=== PATIENT | female | born 1930 | race Caucasian/White ===

== ENCOUNTER → 2016-12-09 | Day surgery (SDC) | payer BC ==
[2016-12-06 14:51] VITALS: Ht 153.7 cm; Wt 61.8 kg
[~2016-12-09] VITALS: Ht 153.7 cm; Wt 61.8 kg
[~2016-12-09] MED LIST: ACET1TAB84 PO; ASPI-435 PO; BUSP5TAB59 PO; CALC200S6 NAE; CALCCHW57 PO; CHOL1TAB42 PO; DOCU100C31 PO; ETOMIDATE 2 MG/ML 20 ML VIAL IV ONE; FLUT0.15 NAE; HYDR-5688 PO; LDDP5 TD; LEVO75TA PO; LIDOCAINE HCL 2% 2 ML VIAL (20MG/ML) ONE; LISI-461 PO; LISI-729 PO; LORA-741 PO; MRLP120 PO; MULT1CAP53 PO; MULTCAP36 PO; MVC20 PO; NRN100 PO; PRLSR20 PO; PROPOFOL IV EMULSION 10 MG/ML 20 ML VIAL IV ONE; SERT-234 PO; SYN75 PO; SYN88 PO; TRAM-10 PO
[2016-12-09 09:59] VITALS: TEMP 36.6
--- NOTE | 2016-12-09 11:09 | Endo History and Physical ---
History & Physical Date of Service: Dec 09, 2016. Chief Complaint: Dyspahgia Referring Physician: Richard Weiss History of Present Illness Dysphagia, esophageal dysmotility Past Medical History Fractures, Asthma, Hypertension, Other Past Surgical History Hx Cardiac Surgery: No Hx Internal Defibrillator: No Hx Pacemaker: No Hx Abdominal Surgery: Yes (RT CYST REMOVAL FROM ABDOMEN (BENIGN), TUBAL LIGATION, D&C) Hx of Implantable Prosthesis: No Hx Post-Op Nausea and Vomiting: No Hx Cancer Surgery: No Hx Thoracic Surgery: No Hx Orthopedic: Yes (RT WRIST SURGERY) Hx Urinary Tract Surgery: No Family History Colon CA Social History Smoking Status: Never Smoker Hx Substance Use: No Hx Alcohol Use: No Allergies Coded Allergies: Latex1 -Allergic Contact Dermititis (Verified Allergy, Intermediate, ITCHING, RASH, 12/06/16) Adhesives (Verified Allergy, Unknown, ITCHING, RASH, 12/06/16) Codeine (Verified Allergy, Unknown, N/V, 12/06/16) Opioid Analgesics (Verified Allergy, Unknown, "OPIATE AGONISTS" - MORPHINE = STOMACH UPSET, 12/06/16) Sulfamethoxazole w/Trimethoprim (Verified Allergy, Unknown, RASH, 12/06/16) Current Medications Reported Home Medications Medications Dose Route/Sig Max Daily Dose Days Date Category Calcium 1200 (Calcium Carbonate-Vitamin D W/) 1 Chw Chw 1 Tab PO QAM 12/06/16 Reported Zoloft (Sertraline HCl) 100 Mg Tab 100 Mg PO HS 12/06/16 Reported Calcitonin Ruffin (Calcitonin (Ruffin)) 200 Unit/Act Spr 1 Freeman LIZET QPM 12/06/16 Reported Flonase Allergy Relief (Fluticasone Propionate (Nasal)) 50 Mcg/Act Spr 2 Freeman LIZET QPM 12/06/16 Reported Ultram (Tramadol HCl) 50 Mg Tab 50 Mg PO Q6H PRN 12/06/16 Reported Vitamin D (Cholecalciferol) 5,000 Unit Tab 1 Tab PO NOON 12/06/16 Reported Lisinopril 10 Mg Tab 10 Mg PO QAM 08/31/14 Reported Ativan (Lorazepam) 0.5 Mg Tab 0.5 Mg PO BID PRN 08/31/14 Reported Aspirin 81 (Aspirin) 81 Mg Tab 1 Tab PO NOON 11/23/13 Reported Tylenol Arthritis Ext Rel (Acetaminophen) 650 Mg Cplt 650 Mg PO Q8H PRN 11/23/13 Reported Preservision/Lutein (Multiple Vitamins W/ Minerals) 1 Cap Cap 1 Cap PO BID 11/23/13 Reported Lovastatin 20 Mg Tab 20 Mg PO HS 11/23/13 Reported Miralax (Polyethylene) 120 Gm Soln 17 Gm PO DAILY PRN 11/23/13 Reported Levothyroxine Sodium 75 Mcg Tab 75 Mcg PO QAM 11/23/13 Reported Prilosec (Omeprazole) 20 Mg Capcr 20 Mg PO QAM 11/23/13 Reported Vital Signs Weight (Kilograms): 61.82 Height (Feet): 5 Height (Inches): 0.5 Date Time Temp Pulse Resp B/P Pulse Ox O2 Delivery O2 Flow Rate FiO2 12/09/16 09:59 36.6 73 20 173/90 92 Room Air Physical Exam General Appearance: WD/WN, no apparent distress Respiratory/Chest: Auscultation: breath sounds normal, no wheezing, no rales/crackles Cardiovascular: Heart Auscultation: RRR, no murmurs Assessment and Plan EGD with dilation today.
--- NOTE | 2016-12-09 11:28 | Discharge Instructions ---
Endoscopy Patient Instructions Date / Procedure(s) Performed Dec 09, 2016. EGD Allergy Information Coded Allergies: Latex1 -Allergic Contact Dermititis (Verified Allergy, Intermediate, ITCHING, RASH, 12/06/16) Adhesives (Verified Allergy, Unknown, ITCHING, RASH, 12/06/16) Codeine (Verified Allergy, Unknown, N/V, 12/06/16) Opioid Analgesics (Verified Allergy, Unknown, "OPIATE AGONISTS" - MORPHINE = STOMACH UPSET, 12/06/16) Sulfamethoxazole w/Trimethoprim (Verified Allergy, Unknown, RASH, 12/06/16) Discharge Date / Findings Dec 09, 2016. Dysphagia. Dilation to 54 Fr performed without mucosal tear. Medication Instructions Restart Stopped Medication(s): Resume all medications today. Provider Instructions Activity Restrictions - No exercising or heavy lifting for 24 hours. - Do not drink alcohol the day of the procedure. - Do not drive a car or operate machinery until the day after the procedure. - Do not make any important decisions or sign important papers in 24 hours after the procedure. Following Day: - Return to full activity which may include returning to work/school. Diet Start your diet with liquids and light foods (jello, soup, juice, toast). Then eat your usual diet if not nauseated. Treatment For Common After Affects For mild abdominal pain, bloating, or excessive gas: - Rest - Eat lightly - Lie on right side Follow-Up Information Follow-up with Richard Weiss as scheduled Anesthesia Information What You Should Know You have had a procedure that required some medicine to reduce anxiety and discomfort. This treatment is called moderate sedation. After receiving the treatment, you may be sleepy, but you will be able to breathe on your own. The effects of the treatment may last for several hours. Follow these instructions along with Activity/Diet recommendations noted above: * Do NOT do anything where dizziness or clumsiness would be dangerous. * Rest quietly at home today, then you can be up and about tomorrow. * Have a responsible person stay with you the rest of today. * You may have had an I.V. today. If so, you may take the dressing off later today. Recommendations Call your doctor if: * Trouble breathing * Continuous vomiting for more than 24 hours * Temperature above 101 degrees * Severe abdominal pain or bloating * Pain not relieved by pain medicine ordered * There is increased drainage or redness from any incision * A large amount of rectal bleeding greater than 2-3 tablespoons. (If you had a polyp/s removed or have hemorrhoids, a small amount of blood - from the rectum is to be expected.) * You have any unanswered questions or concerns. IN THE EVENT OF A SERIOUS EMERGENCY, GO TO THE NEAREST EMERGENCY ROOM Your discharge instructions were prepared by provider Bladimir Gao. Patient Instructions Signature Page H Justa Betancourt Patient (or Guardian) Signature/Date: I have read and understand the instructions given to me by my caregivers. Caregiver/RN/Doctor Signature/Date: The above-named patient and/or guardian has received patient instructions on this date. + Original Patient Signature Page (only) stays with chart. Please make copy for patient.
--- NOTE | 2016-12-09 11:30 | GI REPORT ---
Procedure Date: 12/09/2016 10:44 AM Procedure: Upper GI endoscopy Indications: Dysphagia Medicines: Monitored Anesthesia Care Complications: No immediate complications. Estimated blood loss: None. Estimated Blood Loss: Estimated blood loss: none. Procedure: Pre-Anesthesia Assessment: - Prior to the procedure, a History and Physical was performed, and patient medications, allergies and sensitivities were reviewed. The patient's tolerance of previous anesthesia was reviewed. - ASA Grade Assessment: III - A patient with severe systemic disease. After obtaining informed consent, the endoscope was passed under direct vision. Throughout the procedure, the patient's blood pressure, pulse, and oxygen saturations were monitored continuously. The scope was introduced through the mouth, and advanced to the third part of duodenum. The upper GI endoscopy was accomplished with ease. The patient tolerated the procedure well. Findings: No endoscopic abnormality was evident in the esophagus to explain the patient's complaint of dysphagia. It was decided, however, to proceed with dilation of the entire esophagus. A guidewire was placed and the scope was withdrawn. Dilation was performed with an [place] dilator with no resistance at 48 Fr and 54 Fr. the scope was reinserted. There was no mucosal tear. The upper third of the esophagus, middle third of the esophagus and lower third of the esophagus were normal. The Z-line was regular and was found 37 cm from the incisors. A small sliding hiatus hernia was present. Localized moderately erythematous mucosa without bleeding was found in the prepyloric region of the stomach. The examined duodenum was normal. Impression: - No endoscopic esophageal abnormality to explain patient's dysphagia. Esophagus dilated. Dilated. - Normal upper third of esophagus, middle third of esophagus and lower third of esophagus. - Z-line regular, 37 cm from the incisors. - Small hiatus hernia. - Erythematous mucosa in the prepyloric region of the stomach. - Normal examined duodenum. - No specimens collected. Recommendation: - Observe patient's clinical course. - Discharge patient to home (with escort). Bladimir Gao M.D. Bladimir Gao MD 12/09/2016 11:29:41 AM This report has been signed electronically. Note Initiated On: 12/09/2016 10:44 AM I attest to the content of the Intraoperative Record and orders documented therein, exceptions below
[2016-12-09 11:42] VITALS: BP 176/81; PULSE 72; O2SAT 94
--- NOTE | 2016-12-09 14:32 | Anesthesiology Progress Note ---
Anesthesia Post Op Note Date & Time Dec 09, 2016 at 14:32 Vital Signs Pain Intensity: 0 Vital Signs Past 12 Hours Date Time Temp Pulse Resp B/P Pulse Ox O2 Delivery O2 Flow Rate FiO2 12/09/16 11:42 72 18 176/81 94 Room Air 12/09/16 11:32 76 18 183/82 95 Room Air 12/09/16 11:22 72 16 159/96 92 Room Air 12/09/16 09:59 36.6 73 20 173/90 92 Room Air Notes Mental Status: alert / awake / arousable, participated in evaluation Pt Amnestic to Procedure: Yes Nausea / Vomiting: adequately controlled Pain: adequately controlled Airway Patency, RR, SpO2: stable & adequate BP & HR: stable & adequate Hydration State: stable & adequate Anesthetic Complications: no major complications apparent
== END | disposition home or self-care (01) ==
LOC: C.GI 09:30
PROVIDERS: ATTEND Internal Medicine Gastroenterology
DX: K22.4 Dyskinesia of esophagus (principal); K44.9 Diaphragmatic hernia without obstruction or gangrene; Z80.0 Family history of malignant neoplasm of digestive organs; I10 Essential (primary) hypertension; J45.909 Unspecified asthma, uncomplicated; Z88.5 Allergy status to narcotic agent; Z88.2 Allergy status to sulfonamides; Z88.8 Allergy status to other drugs, medicaments and biological substances; Z98.51 Tubal ligation status; Z79.82 Long term (current) use of aspirin

== ENCOUNTER → 2017-04-04 | Outpatient (CLI) | payer BC ==
[~2017-04-04] MED LIST changes: -ETOMIDATE 2 MG/ML 20 ML VIAL IV ONE; -LIDOCAINE HCL 2% 2 ML VIAL (20MG/ML) ONE; -PROPOFOL IV EMULSION 10 MG/ML 20 ML VIAL IV ONE
--- NOTE | 2017-04-05 08:01 | MAMMOGRAPHY REPORT ---
BILATERAL DIGITAL SCREENING MAMMOGRAM WITH CAD: 04/04/2017 CLINICAL HISTORY: Routine screening. Patient has no complaints. TECHNIQUE: Bilateral CC and MLO views were obtained. Current study was also evaluated with a Comput er Aided Detection (CAD) system. COMPARISON: Comparison is made to exams dated: 03/30/2016 mammogram, 03/28/2015 mammogram, 02/25/2014 mamm ogram, 02/21/2013 mammogram, 07/31/2004 mammogram, and 07/13/2002 mammogram - [facility] BREAST COMPOSITION: There are scattered areas of fibroglandular density in both breasts. FINDINGS: There is a lobulated focal asymmetry versus mass measuring approximately 2 x 2.5 cm in the lower inner posterior left breast, for which additional spot compression tomosynthesis views and pos sibly ultrasound are recommended. An 11 mm nodular asymmetry in the middle one third of the left jen ast, along the posterior nipple line on the MLO view could represent overlapping tissue. However, ad ditional spot compression tomosynthesis views and possibly ultrasound are recommended. No other suspicious mass, architectural distortion or cluster of microcalcifications is seen bilatera lly. IMPRESSION: ACR BI-RADS CATEGORY 0: INCOMPLETE EVALUATION: NEED ADDITIONAL IMAGING EVALUATION The focal asymmetry versus mass in the lower inner posterior left breast, and nodular asymmetry in th e middle one third of the left breast need additional imaging evaluation. The patient will be called to schedule an appointment. Approximately 10% of breast cancers are not detected with mammography. A negative mammographic report should not delay biopsy if a clinically suggestive mass is present. Arlene Kapoor M.D. ay/:04/04/2017 14:22:52 Finishing Range Feeder: Vale CORNELL(R)(M), [facility] letter sent: Addl Imaging 0 BI-RADS Code: ACR BI-RADS Category 0: Incomplete Evaluation: Need Additional Imaging Evaluation
== END | disposition home or self-care (01) ==
LOC: C.MAMM 13:26
PROVIDERS: ATTEND Internal Medicine
DX: Z12.31 Encounter for screening mammogram for malignant neoplasm of breast (principal); N64.89 Other specified disorders of breast; R92.8 Other abnormal and inconclusive findings on diagnostic imaging of breast

== ENCOUNTER → 2017-04-13 | Outpatient (CLI) | payer BC ==
--- NOTE | 2017-04-14 09:07 | MAMMOGRAPHY REPORT ---
UNILATERAL LEFT DIGITAL DIAGNOSTIC MAMMOGRAM TOMOSYNTHESIS AND TARGETED LEFT ULTRASOUND: 04/13/2017 CLINICAL HISTORY: Callback from screening mammogram for left breast asymmetries. TECHNIQUE: Breast tomosynthesis in addition to standard 2D mammography was performed. Spot compress ion left CC and MLO 2-D and tomosynthesis images were obtained. COMPARISON: Comparison is made to exams dated: 04/04/2017 mammogram, 03/30/2016 mammogram, 03/28/2015 pio mogram, 02/25/2014 mammogram, 02/21/2013 mammogram, and 07/31/2004 mammogram - [facility] BREAST COMPOSITION: There are scattered areas of fibroglandular density in the left breast. FINDINGS: The previously seen lobulated focal asymmetry in the left lower inner quadrant was shown to represent multiple adjacent skin masses, best seen on the cc spot compression views, and are consist ent with skin moles. Two of the moles were marked with circular mole markers. The other asymmetry s een within the left breast along the posterior nipple line effaces on the additional views, and has t he appearance of normal fibroglandular tissue on the tomosynthesis images. This region appears simil ar to prior exams on the additional views including the 2014 exam. Targeted ultrasound was performed of the left 3:00, 9:00, and subareolar breast, in the region of the mammographic asymmetry seen on one view only. No suspicious masses or other suspicious sonographic abnormalities are evident. IMPRESSION: ACR BI-RADS CATEGORY 2: BENIGN, TARGETED ULTRASOUND ACR BI-RADS CATEGORY 2: BENIGN Multiple skin moles in the left lower inner quadrant, which correspond with the mammographic focal as ymmetry. The other left breast asymmetry described on the recent screening mammogram effaces on the additional views, without corresponding sonographic abnormality evident, and is benign and consistent with normal fibroglandular tissue. There is no mammographic or targeted sonographic evidence of malignancy. A 1 year screening mammogram is recommended. The patient has been verbally notified of the results. Approximately 10% of breast cancers are not detected with mammography. A negative mammographic report should not delay biopsy if a clinically suggestive mass is present. Johanny Guzman M.D. ah/:04/13/2017 15:06:01 Weasand Trimmer: Vale CORNELL(Nan)(M), [facility] letter sent: Normal /2 BI-RADS Code: ACR BI-RADS Category 2: Benign Ultrasound BI-RADS: ACR BI-RADS Category 2: Benign
== END | disposition home or self-care (01) ==
LOC: C.MAMM 13:02
PROVIDERS: ATTEND Internal Medicine
DX: N64.89 Other specified disorders of breast (principal); D22.9 Melanocytic nevi, unspecified

== ENCOUNTER 2017-04-20 07:58 | Observation (INO) | payer BC ==
[~2017-04-20] VITALS: Ht 154.9 cm; Wt 59.0 kg
[~2017-04-20 07:58] MED LIST changes: -BUSP5TAB59 PO; -DOCU100C31 PO; -HYDR-5688 PO; -LDDP5 TD; -LEVO75TA PO; -LISI-729 PO; -MULT1CAP53 PO; -NRN100 PO; -SYN88 PO
[2017-04-20] MEDS ORDERED: LEVO75TA PO (08:33)
--- NOTE | 2017-04-20 08:37 | EMERGENCY ROOM VISIT NOTE ---
History Report prepared by León: Linnea Valdez Under the Supervision of: Dr. Nikki Han M.D. First contact with patient: 08:15 Chief Complaint: BACK PAIN Stated Complaint: SEVERE BACK, HIP PAINS, NAUSEA History of Present Illness The patient is a 86 year old female who presents to the Emergency Room with complaints of worsening chronic back pain beginning 10 days prior to arrival. She states that she has been experiencing chronic back pain for 5 years now. The patient is on Tramadol for the pain and ran out of her prescription . The prescription is not ready for pick up attendant yet and she has not been taking any pain medications since . She states that arthritis is her diagnosis. She is also experiencing left hip pain. 10 days ago the patient fell and she injured her right hand. She was treated at [facility] [place] for her hand. The patient notes that since the fall her back pain has worsened and is in a slightly different location than normal. She has been feeling anxious, swelling to the lower extremities and nauseous also. The patient notes chronic abdominal pain. She notes that she has slept in a chair for the past 2 years and last week got a recliner to sleep in. She states that she is having sleeping in a recliner that she has been sleeping on the cough sitting up. Source of History: patient Onset: 10 days [employer] Position: back Timing: worsening Associated Symptoms: + nausea, + abdominal pain Note: The patient has swelling to her lower extremities. Review of Systems See HPI for pertinent positives & negatives. A total of 10 systems reviewed and were otherwise negative. Past Medical & Surgical Medical Problems: (1) Asthma (2) Carotid artery disease (3) CKD (chronic kidney disease) stage 3, GFR 30-59 ml/min (4) Dyslipidemia (5) Fracture of right wrist (6) Hypertension (7) Hypothyroidism (8) Macular degeneration (9) Osteoporosis Surgical Problems: (1) Status post appendectomy (2) Status post cataract extraction (3) Status post tubal ligation Family History FH: cancer Social History Smoking Status: Never Smoker Alcohol Use: none Marital Status: Occupation Status: retired Current/Historical Medications Scheduled Aspirin (Aspirin 81), 81 MG PO NOON Calcitonin (Fre[place]) (Calcitonin Freeland), 1 SPRAY LIZET QPM Calcium Carbonate-Vitamin D W/ (Calcium 1200), 1 TAB PO QAM Fluticasone Propionate (Nasal) (Flonase Allergy Relief), 2 SPRAY LIZET QPM Levothyroxine Sodium (Synthroid), 75 MCG PO DAILY Lisinopril (Lisinopril), 10 MG PO QAM Lovastatin (Lovastatin), 20 MG PO HS Multiple Vitamins W/ Minerals (Preservision/Lutein), 1 CAP PO BID Omeprazole (Prilosec), 20 MG PO QAM Sertraline (Zoloft), 100 MG PO HS Scheduled PRN Acetaminophen (Tylenol Arthritis Ext Rel), 650 MG PO Q8H PRN for Pain Hydrocodone/Acetaminophen 5MG/325MG ([place] 5MG/325MG), 0.5-1 TABLET PO Q6 PRN for Pain Lorazepam (Ativan), 0.5 MG PO BID PRN for Anxiety Polyethylene (Miralax), 17 GM PO DAILY PRN for Constipation Tramadol (Ultram), 50 MG PO Q6H PRN for Pain Allergies Coded Allergies: Latex1 -Allergic Contact Dermititis (Verified Allergy, Intermediate, ITCHING, RASH, 04/20/17) Adhesives (Verified Allergy, Unknown, ITCHING, RASH, 04/20/17) Codeine (Verified Allergy, Unknown, N/V, 04/20/17) Morphine (Unverified Allergy, Unknown, ., 04/20/17) Opioid Analgesics (Verified Allergy, Unknown, "OPIATE AGONISTS" - MORPHINE = STOMACH UPSET, 04/20/17) Sulfamethoxazole w/Trimethoprim (Verified Allergy, Unknown, RASH, 04/20/17) Physical Exam Vital Signs Date Time Temp Pulse Resp B/P (MAP) Pulse Ox O2 Delivery O2 Flow Rate FiO2 04/20/17 14:24 89 18 110/71 93 Room Air 04/20/17 12:38 72 16 204/84 98 Room Air 04/20/17 10:47 70 20 191/92 95 Room Air 04/20/17 09:42 67 18 216/94 97 04/20/17 08:59 68 04/20/17 08:06 36.6 72 20 192/101 97 Room Air Physical Exam Vital signs reviewed. General: Elderly well-appearing female, kyphotic, in no significant distress. HEENT: No scleral icterus, PERRLA, neck supple. Atraumatic. Cardiovascular: Regular rate and rhythm, no extra sounds. Pulmonary: Clear to auscultation bilaterally, normal work of breathing. Abdomen: Soft, obese, nontender, nondistended, positive bowel sounds. Musculoskeletal: Mild tenderness to left iliac crest region, Nontender lumbar spine. No pain with straight leg raise. Atraumatic, no peripheral edema. Neurologic: Patient awake alert and oriented x 3, full strength in all 4 extremities. Cranial nerves 2 through 12 grossly intact. Skin: Warm, dry, no rash Medical Decision & Procedures ER Provider Diagnostic Interpretation: X-ray results as stated below per interpretation by me and the radiologist: L-SPINE MIN 4 VIEWS ROUTINE CLINICAL HISTORY: Lumbar pain. Recent fall. COMPARISON: CT of the abdomen and pelvis September 01, 2004 13. FINDINGS: There is moderate dextroscoliosis of the lumbar spine. A moderate L2 compression fracture is new since CT of September 01, 2014. This is age indeterminate but likely subacute to chronic. Mild loss of height of the superior endplate of L4 is unchanged. There is moderate multilevel degenerative disc disease and facet arthrosis. IMPRESSION: 1. Moderate L2 compression fracture which is new since CT of September 01, 2014. This is age indeterminate but likely subacute to chronic. 2. No change in mild loss of height of the superior endplate of L4. 3. Dextroscoliosis of the lumbar spine. 4. Moderate multilevel degenerative disc disease and facet arthrosis of the lumbar spine. Electronically signed by: Raman Zuniga M.D. 04/20/2017 9:35 AM Dictated Date/Time: 04/20/2017 9:33 AM LEFT HIP 2 VIEWS CLINICAL HISTORY: Left hip pain. FINDINGS: AP and frog-leg views of the left hip are correlated with pelvic CT dated 09/01/2014. The skeletal structures are osteopenic. There is no radiographic evidence of fracture in the left hip or the visualized left hemipelvis. The joint space of the left hip appears well-maintained. Minimal arthritic change is seen. Small enthesophytes arise from the left anterior superior iliac spine and the greater trochanter of the left femur. Sclerotic change is noted in the pubic symphysis. The overlying soft tissues are within normal limits. Calcified pelvic phleboliths are noted. IMPRESSION: Osteopenia and minimal degenerative change as above. No acute bony abnormality is seen in the left hip. Electronically signed by: Simon Galdamez M.D. 04/20/2017 9:34 AM Dictated Date/Time: 04/20/2017 9:33 AM Laboratory Results 04/20/17 09:00 Red Blood Count 4.65, Mean Corpuscular Volume 92.7, Mean Corpuscular Hemoglobin 29.7, Mean Corpuscular Hemoglobin Concent 32.0, Mean Platelet Volume 9.1, Neutrophils (%) (Auto) 70.6, Lymphocytes (%) (Auto) 21.0, Monocytes (%) (Auto) 6.2, Eosinophils (%) (Auto) 1.7, Basophils (%) (Auto) 0.4, Neutrophils # (Auto) 5.66, Lymphocytes # (Auto) 1.69, Monocytes # (Auto) 0.50, Eosinophils # (Auto) 0.14, Basophils # (Auto) 0.03 04/20/17 09:00 Test 04/20/17 08:45 04/20/17 09:00 Urine Color YELLOW Urine Appearance CLEAR (CLEAR) Urine pH 8.0 (4.5-7.5) Urine Specific [place] 1.014 (1.000-1.030) Urine Protein NEG (NEG) Urine Glucose (UA) NEG (NEG) Urine Ketones NEG (NEG) Urine Occult Blood NEG (NEG) Urine Nitrite NEG (NEG) Urine Bilirubin NEG (NEG) Urine Urobilinogen NEG (NEG) Urine Leukocyte Esterase SMALL (NEG) Urine WBC (Auto) 1-5 /hpf (0-5) Urine RBC (Auto) 0-4 /hpf (0-4) Urine Hyaline Casts (Auto) 0 /lpf (0-5) Urine Epithelial Cells (Auto) 10-20 /lpf (0-5) Urine Bacteria (Auto) NEG (NEG) White Blood Count 8.03 K/uL (4.8-10.8) Red Blood Count 4.65 M/uL (4.2-5.4) Hemoglobin 13.8 g/dL (12.0-16.0) Hematocrit 43.1 % (37-47) Mean Corpuscular Volume 92.7 fL (80-100) Mean Corpuscular Hemoglobin 29.7 pg (25-34) Mean Corpuscular Hemoglobin Concent 32.0 g/dl (32-36) Platelet Count 236 K/uL (130-400) Mean Platelet Volume 9.1 fL (7.4-10.4) Neutrophils (%) (Auto) 70.6 % Lymphocytes (%) (Auto) 21.0 % Monocytes (%) (Auto) 6.2 % Eosinophils (%) (Auto) 1.7 % Basophils (%) (Auto) 0.4 % Neutrophils # (Auto) 5.66 K/uL (1.4-6.5) Lymphocytes # (Auto) 1.69 K/uL (1.2-3.4) Monocytes # (Auto) 0.50 K/uL (0.11-0.59) Eosinophils # (Auto) 0.14 K/uL (0-0.5) Basophils # (Auto) 0.03 K/uL (0-0.2) RDW Standard Deviation 44.6 fL (36.4-46.3) RDW Coefficient of Variation 13.2 % (11.5-14.5) Immature Granulocyte % (Auto) 0.1 % Immature Granulocyte # (Auto) 0.01 K/uL (0.00-0.02) Anion Gap 10.0 mmol/L (3-11) Estimated GFR () 58.3 Estimated GFR (Non- 50.3 BUN/Creatinine Ratio 14.2 (10-20) Calcium Level 9.3 mg/dl (8.5-10.1) Magnesium Level 2.3 mg/dl (1.8-2.4) Total Bilirubin 0.6 mg/dl (0.2-1) Direct Bilirubin 0.1 mg/dl (0-0.2) Aspartate Amino Transf (AST/SGOT) 18 U/L (15-37) Alanine Aminotransferase (ALT/SGPT) 23 U/L (12-78) Alkaline Phosphatase 89 U/L (45-117) Total Protein 7.8 gm/dl (6.4-8.2) Albumin 4.0 gm/dl (3.4-5.0) Thyroid Stimulating Hormone (TSH) 3.680 uIu/ml (0.300-4.500) Laboratory results per my review. Medications Administered Medications (Trade) Dose Ordered Sig/Alirio Route Start Time Stop Time Status Last Admin Dose Admin Acetaminophen/ Hydrocodone Bitart ([place] 5/325 Tab) 0.5 tab NOW STAT PO 04/20/17 08:47 04/20/17 08:49 DC 04/20/17 09:35 0.5 TAB Lisinopril (Zestril Tab) 10 mg NOW ONCE PO 04/20/17 10:30 04/20/17 10:31 DC 04/20/17 10:47 10 MG Acetaminophen/ Hydrocodone Bitart ([place] 5/325 Tab) 0.5 tab NOW STAT PO 04/20/17 12:53 04/20/17 12:56 DC 04/20/17 13:08 0.5 TAB Ondansetron HCl (Zofran Odt) 4 mg NOW STAT PO 04/20/17 12:53 04/20/17 12:56 DC 04/20/17 13:09 4 MG Lorazepam (Ativan Tab) 0.5 mg NOW STAT SL 04/20/17 12:53 04/20/17 12:56 DC 04/20/17 13:08 0.5 MG Hydralazine HCl (Apresoline Tab) 25 mg NOW STAT PO 04/20/17 12:57 04/20/17 12:59 DC 04/20/17 13:08 25 MG Acetaminophen/ Hydrocodone Bitart ([place] 5/325 Tab) 1 tab NOW STAT PO 04/20/17 14:36 04/20/17 14:38 DC 04/20/17 14:45 1 TAB ECG Indication: back/shoulder pain Rate (beats per minute): 64 Rhythm: normal sinus Findings: no acute ischemic change, no ectopy ED Course 0827: Past medical records reviewed. The patient was evaluated in room A2. A complete history and physical examination was performed. 0847: [place] 5/325 Tab 0.5 tab PO. 1030: Zestril Tab 10 mg PO. 1046: I reevaluated the patient. 1114: The patient does not feel safe going home. [facility] will be called. 1253: Ativan Tab 0.5 mg SL, Zofran Odt 4 mg PO, [place] 5/325 Tab 0.5 tab PO. 1257: Apresoline Tab 25 mg PO. 1356: PT and OT evaluations have been done. A referral was made to [facility]. We are waiting for insurance approval. 1436: [place] 5/325 Tab 1 tab PO. 1500: The patient was signed out to Dr. Benavidez at change of shift with plans of disposition to [facility]. Medical Decision Differential diagnosis: Etiologies such as musculoskeletal, disc herniation, fracture, aortic disease, metastatic disease, cord compression, discitis, infection, renal colic, gastrointestinal, acute exacerbation of chronic back pain, sciatica, cauda equina, as well as others were entertained. Medication Reconciliation: I attest that I have personally reviewed the patient' s current medication list. Blood Pressure Screening: Patient was found to have a slightly elevated blood pressure due to patient note taking blood pressure medications this morning. I do not believe that the patient requires hypertension monitoring. This patient was evaluated and appeared to be in no distress. Physical examination reveals tenderness of the low lumbar back. X-rays were performed and reveal a new compression fracture at L2. The remainder of the patient's workup is relatively nonacute. She was given a half tablet of [place] with minimal improvement. Blood pressure was noted to be elevated and she was given her morning medications. Patient was given a breakfast tray and seemed to relax however shortly thereafter she complained of pain and blood pressure remained elevated. Patient was given an additional one half tab of [place] and 25 mg of oral hydralazine. A PT OT referral was made and the patient was referred to [facility] as she did not feel safe at home and had continued pain. Patient was given Zofran 4 mg ODT for nausea and 0.5 mg of Xanax per her home regimen. Insurance approval is pending at this time. The case is been signed out to Dr. Benavidez at the change of shift. Patient and family are aware of the plan and agree. Impression Primary Impression: Compression fracture of L2 Additional Impressions: Weakness Falls Intractable pain Scribe Attestation The scribe's documentation has been prepared under my direction and personally reviewed by me in its entirety. I confirm that the note above accurately reflects all work, treatment, procedures, and medical decision making performed by me. Departure Information Dispostion Still a Patient Prescriptions Hydrocodone/Acetaminophen 5MG/325MG ([place] 5MG/325MG) Tab 0.5-1 TABLET PO Q6 Y for Pain, #20 TAB Prov: Nikki Han M.D. 04/20/17 Referrals Richard Weiss D.O. (PCP) Problem Qualifiers
[2017-04-20] MEDS ORDERED: HYDROCODONE/ACETAMOPHEN 5/325MG TAB PO STA ×3 (08:47→14:36)
[2017-04-20 09:17] LABS: BASO % 0.4 %; BASO ABS # 0.03 K/uL (0-0.2); COMPLETE YES; EOS % 1.7 %; HEMATOCRIT 43.1 % (37-47); IG% 0.1 %; LYMPH ABS # 1.69 K/uL (1.2-3.4); MEAN CELL VOLUME 92.7 fL (80-100); MEAN CORPUSCULAR HEMOGLOBIN 29.7 pg (25-34); MEAN PLATELET VOLUME 9.1 fL (7.4-10.4); MONO % 6.2 %; NEUT % 70.6 %; PLATELET COUNT 236 K/uL (130-400); RED BLOOD COUNT 4.65 M/uL (4.2-5.4); WHITE BLOOD COUNT 8.03 K/uL (4.8-10.8)
[2017-04-20 09:17] LABS: URINE APPEARANCE CLEAR (CLEAR); URINE BILIRUBIN NEG (NEG); URINE COLOR YELLOW; URINE NITRITE NEG (NEG); URINE SPECIFIC GRAVITY 1.014 (1.000-1.030); UROBILINOGEN NEG (NEG); ZZUR CULT IF INDIC CLEAN CATCH NO
[2017-04-20 09:33] LABS: MANUAL MICROSCOPIC REQUIRED? NO; REVIEW REQ? NO
[2017-04-20 09:36] LABS: ALT/SGPT 23 U/L (12-78); BLOOD UREA NITROGEN 14 mg/dl (7-18); BUN/CREATININE RATIO 14.2 (10-20); CALCIUM 9.3 mg/dl (8.5-10.1); CARBON DIOXIDE 27 mmol/L (21-32); CHLORIDE 105 mmol/L (98-107); GLUCOSE 109 mg/dl (70-99); MAGNESIUM 2.3 mg/dl (1.8-2.4); POTASSIUM 3.6 mmol/L (3.5-5.1); SODIUM 142 mmol/L (136-145)
--- NOTE | 2017-04-20 09:36 | DIAGNOSTIC IMAGING REPORT ---
LEFT HIP 2 VIEWS CLINICAL HISTORY: Left hip pain. FINDINGS: AP and frog-leg views of the left hip are correlated with pelvic CT dated 09/01/2014. The skeletal structures are osteopenic. There is no radiographic evidence of fracture in the left hip or the visualized left hemipelvis. The joint space of the left hip appears well-maintained. Minimal arthritic change is seen. Small enthesophytes arise from the left anterior superior iliac spine and the greater trochanter of the left femur. Sclerotic change is noted in the pubic symphysis. The overlying soft tissues are within normal limits. Calcified pelvic phleboliths are noted. IMPRESSION: Osteopenia and minimal degenerative change as above. No acute bony abnormality is seen in the left hip. Electronically signed by: Simon Galdamez M.D. 04/20/2017 9:34 AM Dictated Date/Time: 04/20/2017 9:33 AM
--- NOTE | 2017-04-20 09:37 | DIAGNOSTIC IMAGING REPORT ---
L-SPINE MIN 4 VIEWS ROUTINE CLINICAL HISTORY: Lumbar pain. Recent fall. COMPARISON: CT of the abdomen and pelvis September 01, 2004 13. FINDINGS: There is moderate dextroscoliosis of the lumbar spine. A moderate L2 compression fracture is new since CT of September 01, 2014. This is age indeterminate but likely subacute to chronic. Mild loss of height of the superior endplate of L4 is unchanged. There is moderate multilevel degenerative disc disease and facet arthrosis. IMPRESSION: 1. Moderate L2 compression fracture which is new since CT of September 01, 2014. This is age indeterminate but likely subacute to chronic. 2. No change in mild loss of height of the superior endplate of L4. 3. Dextroscoliosis of the lumbar spine. 4. Moderate multilevel degenerative disc disease and facet arthrosis of the lumbar spine. Electronically signed by: Raman Zuniga M.D. 04/20/2017 9:35 AM Dictated Date/Time: 04/20/2017 9:33 AM
[2017-04-20 09:47] LABS: ALKALINE PHOSPHATASE 89 U/L (45-117); AST/SGOT 18 U/L (15-37)
[2017-04-20] MEDS ORDERED: LISINOPRIL 5 MG TAB PO ONE (10:30)
[2017-04-20] MEDS ORDERED: HYDR-5688 PO (11:09)
[2017-04-20 12:00] VITALS: BP 202/110
[2017-04-20] MEDS ORDERED: LORAZEPAM 0.5 MG TAB SL STA (12:53)
[2017-04-20] MEDS ORDERED: ONDANSETRON 4MG OD TAB PO STA (12:53)
[2017-04-20] MEDS ORDERED: LORAZEPAM 0.5 MG TAB PO PRN (19:00)
[2017-04-20] MEDS ORDERED: ONDANSETRON INJ 2 MG/ML 2 ML VIAL IV PRN (19:00)
[2017-04-20] MEDS ORDERED: HYDROCODONE/ACETAMOPHEN 5/325MG TAB PO PRN (19:00)
[2017-04-20] MEDS ORDERED: ACETAMINOPHEN 325 MG TAB PO PRN (19:00)
--- NOTE | 2017-04-20 19:15 | History and Physical ---
History & Physical Date & Time of Service: Apr 20, 2017 ~ 18:30 Chief Complaint: Back Pain Primary Care Physician: Richard Weiss D.O. History of Present Illness 86 year old female who presents to the ER with intractable back pain. Patient has a long standing history of chronic back pain. She had a fall about 10 days ago making her chronic back pain worse and also injuring her right 4th finger. She was seen at [facility] and found to have a small fracture in the 4th finger. No imaging of her back was completed. Patient is also on chronic Tramadol for her back pain and the prescription ran out 6 days ago. Patient reports significant increase in the pain since that time. She reports the pain is radiating down the outsides of both of her legs. She has chronic urinary incontinence which is unchanged. She denies any bowel problems. No chest pain or shortness of breath. She denies any lightheadedness, dizziness, diaphoresis, or syncopal events. No abdominal pain, nausea, vomiting, or diarrhea. She denies headache and blurred vision. No fever or chills. She denies any urinary symptoms. In the ER, patient' s BP was elevated on arrival at 192/101. This improved with pain control and also with administration of lisinopril and PO hydralazine. Patient reports she has been monitoring her BP at home and it has been high as well. Lumbar spine XR is showing L2 compression fracture. Of note, at baseline patient is independent, lives alone, and does not use any assistive devices. She continues to drive. ED attempted to transfer patient to [facility] however insurance has denied the request. Past Medical/Surgical History Medical Problems: (1) Adnexal mass Permanent Comment: s/p removal, benign Status: Chronic (2) Carotid artery disease Status: Chronic (3) CKD (chronic kidney disease) stage 3, GFR 30-59 ml/min Status: Chronic (4) Dyslipidemia Status: Chronic (5) Fracture of right wrist Permanent Comment: s/p repair Status: Chronic (6) Hypertension Status: Chronic (7) Hypothyroidism Status: Chronic (8) Macular degeneration Status: Chronic (9) Osteoporosis Status: Chronic Surgical Problems: (1) Status post appendectomy Status: Chronic (2) Status post cataract extraction Status: Chronic (3) Status post tubal ligation Status: Chronic Family History non contributory due to patient's advanced age Social History Smoking Status: Former Smoker Alcohol Use: none Housing status: lives alone Immunizations History of Influenza Vaccine: Yes Influenza Vaccine Date: Aug 30, 2016 History of Tetanus Vaccine?: Yes Tetanus Immunization Date: Mar 26, 2013 History of Pneumococcal: Yes Pneumococcal Date: May 06, 2016 Multi-Drug Resistant Organisms History of MDRO: No Allergies Coded Allergies: Latex1 -Allergic Contact Dermititis (Verified Allergy, Intermediate, ITCHING, RASH, 04/20/17) Adhesives (Verified Allergy, Unknown, ITCHING, RASH, 04/20/17) Codeine (Verified Allergy, Unknown, N/V, 04/20/17) Morphine (Unverified Allergy, Unknown, ., 04/20/17) Opioid Analgesics (Verified Allergy, Unknown, "OPIATE AGONISTS" - MORPHINE = STOMACH UPSET, 04/20/17) Sulfamethoxazole w/Trimethoprim (Verified Allergy, Unknown, RASH, 04/20/17) Home Medications Scheduled Aspirin (Aspirin 81), 81 MG PO NOON Calcitonin (Gibbs) (Calcitonin Gibbs), 1 SPRAY LIZET QPM Calcium Carbonate-Vitamin D W/ (Calcium 1200), 1 TAB PO BID Fluticasone Propionate (Nasal) (Flonase Allergy Relief), 2 SPRAY LIZET QPM Levothyroxine Sodium (Synthroid), 75 MCG PO DAILY Lisinopril (Lisinopril), 10 MG PO QAM Lovastatin (Lovastatin), 20 MG PO HS Multiple Vitamins W/ Minerals (Preservision/Lutein), 1 CAP PO BID Omeprazole (Prilosec), 20 MG PO QAM Sertraline (Zoloft), 100 MG PO HS Scheduled PRN Acetaminophen (Tylenol Arthritis Ext Rel), 650 MG PO Q8H PRN for Pain Lorazepam (Ativan), 0.5 MG PO BID PRN for Anxiety Polyethylene (Miralax), 17 GM PO DAILY PRN for Constipation Tramadol (Ultram), 50 MG PO Q6H PRN for Pain Review of Systems ROS per HPI, all other systems reviewed and negative Physical Exam Vital Signs Date Time Temp Pulse Resp B/P (MAP) Pulse Ox O2 Delivery O2 Flow Rate FiO2 04/20/17 18:32 78 16 116/61 92 Room Air 04/20/17 16:30 67 18 121/72 92 Room Air 04/20/17 14:24 89 18 110/71 93 Room Air 04/20/17 12:38 72 16 204/84 98 Room Air 04/20/17 10:47 70 20 191/92 95 Room Air 04/20/17 09:42 67 18 216/94 97 04/20/17 08:59 68 04/20/17 08:06 36.6 72 20 192/101 97 Room Air General Appearance: no apparent distress Head: normocephalic Eyes: normal inspection ENT: hearing grossly normal Neck: supple, no JVD Respiratory/Chest: lungs clear, normal breath sounds, no respiratory distress Cardiovascular: regular rate, rhythm, no edema, normal peripheral pulses Abdomen/GI: normal bowel sounds, non tender, soft Extremities/Musculoskelatal: no calf tenderness, + pertinent finding (patient reports low back pain with minimal movement) Neurologic/Psych: no motor/sensory deficits, alert, normal mood/affect, oriented x 3 Skin: normal color, warm/dry Diagnostics Laboratory Results Results Past 24 Hours Test 04/20/17 08:45 04/20/17 09:00 Range/Units Urine Color YELLOW Urine Appearance CLEAR CLEAR Urine pH 8.0 4.5-7.5 Urine Specific [place] 1.014 1.000-1.030 Urine Protein NEG NEG Urine Glucose (UA) NEG NEG Urine Ketones NEG NEG Urine Occult Blood NEG NEG Urine Nitrite NEG NEG Urine Bilirubin NEG NEG Urine Urobilinogen NEG NEG Urine Leukocyte Esterase SMALL NEG Urine WBC (Auto) 1-5 0-5 /hpf Urine RBC (Auto) 0-4 0-4 /hpf Urine Hyaline Casts (Auto) 0 0-5 /lpf Urine Epithelial Cells (Auto) 10-20 0-5 /lpf Urine Bacteria (Auto) NEG NEG White Blood Count 8.03 4.8-10.8 K/uL Red Blood Count 4.65 4.2-5.4 M/uL Hemoglobin 13.8 12.0-16.0 g/dL Hematocrit 43.1 37-47 % Mean Corpuscular Volume 92.7 80-100 fL Mean Corpuscular Hemoglobin 29.7 25-34 pg Mean Corpuscular Hemoglobin Concent 32.0 32-36 g/dl Platelet Count 236 130-400 K/uL Mean Platelet Volume 9.1 7.4-10.4 fL Neutrophils (%) (Auto) 70.6 % Lymphocytes (%) (Auto) 21.0 % Monocytes (%) (Auto) 6.2 % Eosinophils (%) (Auto) 1.7 % Basophils (%) (Auto) 0.4 % Neutrophils # (Auto) 5.66 1.4-6.5 K/uL Lymphocytes # (Auto) 1.69 1.2-3.4 K/uL Monocytes # (Auto) 0.50 0.11-0.59 K/uL Eosinophils # (Auto) 0.14 0-0.5 K/uL Basophils # (Auto) 0.03 0-0.2 K/uL RDW Standard Deviation 44.6 36.4-46.3 fL RDW Coefficient of Variation 13.2 11.5-14.5 % Immature Granulocyte % (Auto) 0.1 % Immature Granulocyte # (Auto) 0.01 0.00-0.02 K/uL Sodium Level 142 136-145 mmol/L Potassium Level 3.6 3.5-5.1 mmol/L Chloride Level 105 98-107 mmol/L Carbon Dioxide Level 27 21-32 mmol/L Anion Gap 10.0 3-11 mmol/L Blood Urea Nitrogen 14 7-18 mg/dl Creatinine 1.00 0.60-1.20 mg/dl Estimated GFR () 58.3 Estimated GFR (Non- 50.3 BUN/Creatinine Ratio 14.2 10-20 Random Glucose 109 70-99 mg/dl Calcium Level 9.3 8.5-10.1 mg/dl Magnesium Level 2.3 1.8-2.4 mg/dl Total Bilirubin 0.6 0.2-1 mg/dl Direct Bilirubin 0.1 0-0.2 mg/dl Aspartate Amino Transf (AST/SGOT) 18 15-37 U/L Alanine Aminotransferase (ALT/SGPT) 23 12-78 U/L Alkaline Phosphatase 89 45-117 U/L Total Protein 7.8 6.4-8.2 gm/dl Albumin 4.0 3.4-5.0 gm/dl Thyroid Stimulating Hormone (TSH) 3.680 0.300-4.500 uIu/ml Diagnostic Radiology LUMBAR SPINE XR IMPRESSION: 1. Moderate L2 compression fracture which is new since CT of September 01, 2014. This is age indeterminate but likely subacute to chronic. 2. No change in mild loss of height of the superior endplate of L4. 3. Dextroscoliosis of the lumbar spine. 4. Moderate multilevel degenerative disc disease and facet arthrosis of the lumbar spine. LEFT HIP XR IMPRESSION: Osteopenia and minimal degenerative change as above. No acute bony abnormality is seen in the left hip. Impression Assessment and Plan INTRACTABLE BACK PAIN, L2 COMPRESSION FRACTURE - admit to med/surg - patient presenting with worsening back pain after a fall 10 days ago, also ran out of her prescription for Tramadol; found to have an acute L2 compression fracture - ED attempted transfer to [facility] for rehab, however insurance has denied - pain control, PT/OT HTN - BP initially elevated on arrival - likely due to pain - improved with pain control, home dose of Lisinopril, and one time dose of PO hydralazine - patient does report to increased BP readings at home - for now, will continue home dose of Lisinopril, monitor BP and make adjustments as needed HYPOTHYROIDISM - continue levothyroxine GERD - continue PPI HLD - continue statin ANXIETY - continue home meds DVT PROPHYLAXIS - SQ Lovenox DISPO - The patient will be placed as observation status for now until further work up is complete. - Expect patient will need short term rehab stay; insurance denied transfer to [facility] on peer to peer done in ED - PT/OT, case management consult VTE Prophylaxis VTE Risk Assessment Done? Y/N: Yes Risk Level: Moderate Assessment/Plan IM ATTENDING : Patient seen and examined, Hx reviewed. Preceding documentation by Miss Hadley ernestine GANNON STERILE PROC TECH reviewed Final Assessment and Plan as follows : 1. Lumbar compression fracture 2. Symptomatic UTI no sepsis 3. Hypertensive urgency, resolved after home meds given in the ER 4. laxative induced diarrhea ro cdif OBS GMF Analgesia Follow urine cultures, IV ceftriaxone stool cdif PT OT eval Social service RE discharge planning DVT prophylaxis Lovenox SQ Full code
[2017-04-20] MEDS ORDERED: IV FLUIDS COMPLETED PRN (19:45)
[2017-04-20 20:33] VITALS: BP 125/73; PULSE 62; TEMP 36.6; O2SAT 96; Ht 154.9 cm; Wt 59.0 kg
[2017-04-20] MEDS: PATIENT'S HEIGHT AND/OR WEIGHT NEEDED SCH ×2 (21:00→21:55)
[2017-04-20] MEDS ORDERED: DOCUSATE SODIUM 100 MG CAP PO SCH (21:00)
[2017-04-20] MEDS: CALCITONIN SALMON NA 200 IU/AC 3.7 ML BTL NAE SCH (21:24)
[2017-04-20] MEDS: LIDODERM (LIDOCAINE) PATCH 5% TD SCH (21:24)
[2017-04-20] MEDS: LOVASTATIN 20 MG TAB PO SCH (21:25)
[2017-04-20] MEDS: CEROVITE ADV FORMULA TAB PO SCH (21:25)
[2017-04-20] MEDS: SERTRALINE HCL 100 MG TAB PO SCH (21:25)
[2017-04-20] MEDS: CALCIUM 600MG + VIT D 400 IU TAB PO SCH (21:25)
--- NOTE | 2017-04-20 21:25 | DIAGNOSTIC IMAGING REPORT ---
ABDOMEN AND PELVIS CT WITH IV CONTRAST CT DOSE: 361.89 mGy.cm HISTORY: Generalized abdominal pain. TECHNIQUE: Multiaxial CT images of the abdomen and pelvis were performed following the use of intravenous contrast. COMPARISON STUDY: Abdomen and pelvis CT 09/01/2014 FINDINGS: The lung bases are clear. Mild superior endplate compression deformity at L4 is old. There is a new moderate superior endplate compression deformity at L2 which demonstrates 50% loss of height. This demonstrates sclerosis suggestive of a subacute fracture. Dextroscoliosis of the lumbar spine. 3 mm of retropulsion of the posterior superior corner of L2 resulting in moderate central canal narrowing. Stable 1.5 cm hypodense lesion within the right hepatic lobe. The gallbladder is contracted. The spleen, adrenal glands, pancreas, and kidneys are unremarkable. No retroperitoneal lymphadenopathy. The uterus and bilateral ovaries are unremarkable. Mild anterior bladder wall thickening. This could be due to underdistention. Punctate focus of gas within the bladder lumen. Colonic diverticulosis. No bowel wall thickening or obstruction. IMPRESSION: 1. There is a moderate superior endplate compression deformity at L2 which demonstrates 50% loss of height and 3 mm of retropulsion. This results in moderate central canal narrowing at this level. This is new from the 2013 study. This favors a subacute compression fracture. 2. No bowel wall thickening or obstruction. 3. No hydronephrosis. 4. Colonic diverticulosis. 5. Anterior bladder wall thickening is likely due to underdistention. There is also punctate focus of gas within the bladder lumen. This may be due to prior catheterization. Electronically signed by: Lavon Bailon M.D. 04/20/2017 9:24 PM Dictated Date/Time: 04/20/2017 9:14 PM
[2017-04-20 22:31] LABS: PROTHROMBIN TIME (PATIENT) 10.8 SECONDS (9.0-12.0)
[2017-04-20 23:09] VITALS: BP 155/78; PULSE 68; TEMP 36.4; O2SAT 92
[2017-04-20] MEDS ORDERED: CEFTRIAXONE SOD INJ 1 GM in DEXTROSE 5% ADD-VANTAGE 50ML 50 ML IV SCH (23:45)
[2017-04-21] MEDS: LEVOTHYROXINE 75 MCG TAB PO SCH (05:27)
[2017-04-21 06:41] LABS: HEMATOCRIT 39.5 % (37-47); MEAN CELL VOLUME 94.3 fL (80-100); MEAN CORPUSCULAR HEMOGLOBIN 30.3 pg (25-34); MEAN CORPUSCULAR HGB CONC 32.2 g/dl (32-36); PLATELET COUNT 227 K/uL (130-400); RED BLOOD COUNT 4.19 M/uL (4.2-5.4); WHITE BLOOD COUNT 9.21 K/uL (4.8-10.8)
[2017-04-21 07:00] LABS: BUN/CREATININE RATIO 18.9 (10-20); POTASSIUM 4.1 mmol/L (3.5-5.1)
[2017-04-21 07:02] LABS: CALCIUM 9.1 mg/dl (8.5-10.1)
[2017-04-21 07:24] VITALS: BP 148/78; PULSE 67; TEMP 36.6; O2SAT 95
[2017-04-21 08:00] VITALS: O2SAT 95
[2017-04-21] MEDS: TRAMADOL HCL 50 MG TAB PO PRN (08:37)
[2017-04-21] MEDS: PANTOprazole SOD 40 MG TAB PO SCH (08:46)
[2017-04-21] MEDS: CEROVITE ADV FORMULA TAB PO SCH ×2 (08:46→20:42)
[2017-04-21] MEDS: ASPIRIN 81 MG ECTAB PO SCH (08:47)
[2017-04-21] MEDS: CALCIUM 600MG + VIT D 400 IU TAB PO SCH ×2 (08:47→20:42)
[2017-04-21] MEDS: ENOXAPARIN 30 MG/0.3 ML SYR SQ SCH (08:47)
[2017-04-21] MEDS: LISINOPRIL 10 MG TAB PO SCH (08:48)
[2017-04-21] MEDS ORDERED: POLYETHYLENE (MIRALAX) 17 GM PACK PO SCH (09:00)
[2017-04-21] MEDS: LIDODERM (LIDOCAINE) PATCH 5% TD SCH (11:42)
--- NOTE | 2017-04-21 14:29 | Progress Note ---
Internal Med Progress Note Date of Service: Apr 21, 2017. Provider Documentation: SUBJECTIVE: back pain better today , was able to walk to bathroom with assistance has radiating pain form her back to bilateral groin -to thigh and knee has been ongoing for years worse after the recent fall 10 days back denies of any urinary symptom no fever or chills OBJECTIVE: Vital Signs-as noted below Exam: General-elderly female, no sign of distress Neck-no jVD Lungs-CTA Heart-regular S1/S2 Abdomen-soft, mid abdomen healed scar present , complain of pain radiation to both groin to upper thigh Extremities-low back pain , with radiation pain to lower knee , fracture on rt fingers Neuro-no focal deficit , AAo x3 Lab data as noted below. ASSESSMENT & PLAN: INTRACTABLE BACK PAIN 2 to L2 COMPRESSION FRACTURE - patient presenting with worsening back pain after a fall 10 days ago, also ran out of her prescription for Tramadol; found to have an acute L2 compression fracture in xray cont pain control PT /Ot eval requested pt is continued to experience Lumber Radicular pain ordered for Neurontin pain management consulted Ortho eval requested for role of back brace -referral made to [facility] -family ( daughter ) will call insurance for Re appeal HTN - BP was initially elevated on arrival - likely due to pain - improved with pain control, home dose of Lisinopril, and one time dose of PO hydralazine -BP remains stable now cont home dose of medications HYPOTHYROIDISM - continue levothyroxine GERD - continue PPI HLD - continue statin ANXIETY - continue home meds DVT PROPHYLAXIS - SQ Lovenox DISPOSITION referral made for Rehab at [facility] plan to transfer pt to [facility] when accepted Vital Signs: Date Time Temp Pulse Resp B/P (MAP) Pulse Ox O2 Delivery O2 Flow Rate FiO2 04/21/17 07:24 36.6 67 18 148/78 (101) 95 Nasal Cannula 1.0 04/20/17 23:45 Nasal Cannula 1.0 04/20/17 23:09 36.4 68 16 155/78 (103) 92 Nasal Cannula 1.0 04/20/17 20:33 36.6 62 17 125/73 96 Nasal Cannula 1.0 04/20/17 20:10 Nasal Cannula 1.0 04/20/17 20:04 66 16 101/72 93 04/20/17 18:32 78 16 116/61 92 Room Air 04/20/17 16:30 67 18 121/72 92 Room Air 04/20/17 14:24 89 18 110/71 93 Room Air Lab Results: Results Past 24 Hours Test 04/20/17 21:59 04/21/17 06:09 Range/Units Prothrombin Time 10.8 9.0-12.0 SECONDS Prothromb Time International Ratio 1.0 0.9-1.1 Activated Partial Thromboplast Time 24.8 21.0-31.0 SECONDS Partial Thromboplastin Ratio 1.0 White Blood Count 9.21 4.8-10.8 K/uL Red Blood Count 4.19 4.2-5.4 M/uL Hemoglobin 12.7 12.0-16.0 g/dL Hematocrit 39.5 37-47 % Mean Corpuscular Volume 94.3 80-100 fL Mean Corpuscular Hemoglobin 30.3 25-34 pg Mean Corpuscular Hemoglobin Concent 32.2 32-36 g/dl RDW Standard Deviation 46.8 36.4-46.3 fL RDW Coefficient of Variation 13.6 11.5-14.5 % Platelet Count 227 130-400 K/uL Mean Platelet Volume 9.0 7.4-10.4 fL Sodium Level 141 136-145 mmol/L Potassium Level 4.1 3.5-5.1 mmol/L Chloride Level 106 98-107 mmol/L Carbon Dioxide Level 29 21-32 mmol/L Anion Gap 6.0 3-11 mmol/L Blood Urea Nitrogen 19 7-18 mg/dl Creatinine 1.00 0.60-1.20 mg/dl Est Creatinine Clear Calc Drug Dose 32.5 ml/min Estimated GFR () 58.3 Estimated GFR (Non- 50.3 BUN/Creatinine Ratio 18.9 10-20 Random Glucose 110 70-99 mg/dl Calcium Level 9.1 8.5-10.1 mg/dl
[2017-04-21 15:33] VITALS: BP 129/81; PULSE 57; TEMP 36.3; O2SAT 91
[2017-04-21] MEDS ORDERED: LORA-741 PO (15:58)
[2017-04-21] MEDS ORDERED: LDDP5 TD (15:58)
[2017-04-21] MEDS ORDERED: NRN100 PO (15:58)
[2017-04-21] MEDS ORDERED: TRAM-10 PO (15:58)
--- NOTE | 2017-04-21 16:00 | Discharge Instructions ---
Discharge Instructions Date of Service Apr 21, 2017. Admission Reason for Admission: Compression Fracture Of L2 Discharge Discharge Diagnosis / Problem: INTRACTABLE BACK PAIN /LUMBER COMPRESSION FRACTURE Discharge Goals Goal(s): Decrease discomfort, Improve disease control, Diagnostic testing Activity Recommendations Activity Level: Assistance Required Therapies: Physical Therapy, Occupational Therapy Lifting Limitations: no more than 5 pounds (FOR 3-4 WEEKS ) Exercise/Sports Limitations: as tolerated Shower/Bathe: no limitations . Additional Information Patient informed of condition: Yes Advance Directives: No DNR: No Level of Care: Acute Rehab Communicable Disease: No Prognosis: Stable Hurley Catheter: No Current Hospital Diet Patient's current hospital diet: AHA Diet (Heart Healthy), Low Lactose Diet Discharge Diet Recommended Diet: AHA Diet (Heart Healthy), Low Lactose Diet Pending Studies Studies pending at discharge: no Medical Emergencies . Who to Call and When: Medical Emergencies: If at any time you feel your situation is an emergency, please call 911 immediately. . Non-Emergent Contact Non-Emergency issues call your: Primary Care Provider . . "Provider Documentation" section prepared by Katelynn Quintero. . Core Measure Problem Core Measures: None
--- NOTE | 2017-04-21 16:04 | Medical Consult ---
Consultation Date of Consultation: Apr 21, 2017. Attending Physician: Katelynn Quintero M.D. Reason for Consultation: back pain History of Present Illness Acute on chronic Family History FH: cancer Social History Smoking Status: Former Smoker Alcohol Use: none Drug Use: none Occupation Status: retired Allergies Coded Allergies: Latex1 -Allergic Contact Dermititis (Verified Allergy, Intermediate, ITCHING, RASH, 04/20/17) Adhesives (Verified Allergy, Unknown, ITCHING, RASH, 04/20/17) Codeine (Verified Allergy, Unknown, N/V, 04/20/17) Morphine (Unverified Allergy, Unknown, ., 04/20/17) Opioid Analgesics (Verified Allergy, Unknown, "OPIATE AGONISTS" - MORPHINE = STOMACH UPSET, 04/20/17) Sulfamethoxazole w/Trimethoprim (Verified Allergy, Unknown, RASH, 04/20/17) Current Inpatient Medications Current Inpatient Medications Medications (Trade) Dose Ordered Sig/Alirio Route Start Time Stop Time Status Last Admin Dose Admin Enoxaparin Sodium (Lovenox Inj) 30 mg Q24H SQ 04/21/17 09:00 05/21/17 08:59 04/21/17 08:47 30 MG Acetaminophen (Tylenol Tab) 650 mg Q4H PRN PO 04/20/17 19:00 05/20/17 18:59 Ondansetron HCl (Zofran Inj) 4 mg Q6H PRN IV 04/20/17 19:00 05/20/17 18:59 04/21/17 08:36 4 MG Lidocaine (Lidoderm Patch 5%) 1 patch QAM TD 04/20/17 21:00 05/20/17 20:59 04/21/17 11:42 1 PATCH Miscellaneous (Remove Lidoderm Patch) 1 ea DAILY@21 N/A 04/21/17 08:59 05/21/17 08:58 04/21/17 08:35 1 EA Acetaminophen/ Hydrocodone Bitart ([place] 5/325 Tab) 1 tab Q6H PRN PO 04/20/17 19:00 05/04/17 18:59 04/21/17 03:54 1 TAB Aspirin (Ecotrin Tab) 81 mg DAILY PO 04/21/17 09:00 05/21/17 08:59 04/21/17 08:47 81 MG Calcitonin [place] (Fortical Nasal [place]) 1 spray QPM LIZET 04/20/17 21:00 05/20/17 20:59 04/20/17 21:24 1 SPRAY Levothyroxine Sodium (Synthroid Tab) 75 mcg DAILYBB PO 04/21/17 06:00 05/21/17 05:59 04/21/17 05:27 75 MCG Lisinopril (Zestril Tab) 10 mg QAM PO 04/21/17 09:00 05/21/17 08:59 04/21/17 08:48 10 MG Lorazepam (Ativan Tab) 0.5 mg BID PRN PO 04/20/17 19:00 05/20/17 18:59 04/21/17 08:45 0.5 MG Lovastatin (Mevacor Tab) 20 mg HS PO 04/20/17 21:00 05/20/17 20:59 04/20/17 21:25 20 MG Sertraline HCl (Zoloft Tab) 100 mg HS PO 04/20/17 21:00 05/20/17 20:59 04/20/17 21:25 100 MG Tramadol HCl (Ultram Tab) 50 mg Q6H PRN PO 04/20/17 19:00 05/20/17 18:59 04/21/17 08:37 50 MG Calcium/Vitamin D (Caltrate Plus Tab) 1 tab BID PO 04/20/17 21:00 05/20/17 20:59 04/21/17 08:47 1 TAB Multivitamins/ Minerals (Multivitamin W/ Minerals Tab) 1 tab BID PO 04/20/17 21:00 05/20/17 20:59 04/21/17 08:46 1 TAB Pantoprazole Sodium (Protonix Tab) 40 mg QAM PO 04/21/17 09:00 05/21/17 08:59 04/21/17 08:46 40 MG Miscellaneous (Iv Fluids Completed) 1 ea PRN PRN N/A 04/20/17 19:45 04/20/18 19:44 04/21/17 08:45 1 EA Gabapentin (Neurontin Cap) 100 mg TID PO 04/21/17 14:45 05/21/17 14:44 Review of Systems Constitutional: + weakness Musculoskeletal: + problem reported Physical Exam Date Time Temp Pulse Resp B/P (MAP) Pulse Ox O2 Delivery O2 Flow Rate FiO2 04/21/17 15:33 36.3 57 16 129/81 (97) 91 Room Air 04/21/17 08:00 95 Nasal Cannula 1.0 04/21/17 07:24 36.6 67 18 148/78 (101) 95 Nasal Cannula 1.0 04/20/17 23:45 Nasal Cannula 1.0 04/20/17 23:09 36.4 68 16 155/78 (103) 92 Nasal Cannula 1.0 04/20/17 20:33 36.6 62 17 125/73 96 Nasal Cannula 1.0 04/20/17 20:10 Nasal Cannula 1.0 04/20/17 20:04 66 16 101/72 93 04/20/17 18:32 78 16 116/61 92 Room Air 04/20/17 16:30 67 18 121/72 92 Room Air General Appearance: no apparent distress Head: normocephalic Eyes: normal inspection ENT: hearing grossly normal Neck: supple, no adenopathy Respiratory/Chest: lungs clear Cardiovascular: regular rate, rhythm Abdomen/GI: non tender Back: + muscle spasm, + paravertebral tenderness Extremities/Musculoskelatal: normal inspection Neurologic/Psych: no motor/sensory deficits Skin: normal color Lymphatic: no adenopathy Laboratory Results Last 24 Hours Test 04/20/17 21:59 04/21/17 06:09 Prothrombin Time 10.8 SECONDS Prothromb Time International Ratio 1.0 Activated Partial Thromboplast Time 24.8 SECONDS Partial Thromboplastin Ratio 1.0 White Blood Count 9.21 K/uL Red Blood Count 4.19 M/uL Hemoglobin 12.7 g/dL Hematocrit 39.5 % Mean Corpuscular Volume 94.3 fL Mean Corpuscular Hemoglobin 30.3 pg Mean Corpuscular Hemoglobin Concent 32.2 g/dl RDW Standard Deviation 46.8 fL RDW Coefficient of Variation 13.6 % Platelet Count 227 K/uL Mean Platelet Volume 9.0 fL Sodium Level 141 mmol/L Potassium Level 4.1 mmol/L Chloride Level 106 mmol/L Carbon Dioxide Level 29 mmol/L Anion Gap 6.0 mmol/L Blood Urea Nitrogen 19 mg/dl Creatinine 1.00 mg/dl Est Creatinine Clear Calc Drug Dose 32.5 ml/min Estimated GFR () 58.3 Estimated GFR (Non- 50.3 BUN/Creatinine Ratio 18.9 Random Glucose 110 mg/dl Calcium Level 9.1 mg/dl Assessment & Plan L2 compression Fracture Plan : Pain control , observation only, PT , rehab placement. Holding off on brace Additional Copies To Nathaniel Gregorio,
[2017-04-21] MEDS: GABAPENTIN 100 MG CAP PO SCH ×2 (16:34→20:42)
[2017-04-21] MEDS: LOVASTATIN 20 MG TAB PO SCH (20:42)
[2017-04-21] MEDS: SERTRALINE HCL 100 MG TAB PO SCH (20:42)
[2017-04-21] MEDS: CALCITONIN SALMON NA 200 IU/AC 3.7 ML BTL NAE SCH (20:42)
[2017-04-21 23:00] VITALS: BP 128/76; PULSE 60; TEMP 36.5; O2SAT 97
[2017-04-22] MEDS: LEVOTHYROXINE 75 MCG TAB PO SCH (06:03)
[2017-04-22 07:22] VITALS: BP 117/71; PULSE 67; TEMP 36.3; O2SAT 95
[2017-04-22 08:30] VITALS: O2SAT 95
[2017-04-22] MEDS: CALCIUM 600MG + VIT D 400 IU TAB PO SCH (08:37)
[2017-04-22] MEDS: TRAMADOL HCL 50 MG TAB PO PRN (08:37)
[2017-04-22] MEDS: ASPIRIN 81 MG ECTAB PO SCH (08:37)
[2017-04-22] MEDS: GABAPENTIN 100 MG CAP PO SCH ×2 (08:38→13:42)
[2017-04-22] MEDS: CEROVITE ADV FORMULA TAB PO SCH (08:38)
[2017-04-22] MEDS: LISINOPRIL 10 MG TAB PO SCH (08:39)
[2017-04-22] MEDS: PANTOprazole SOD 40 MG TAB PO SCH (08:39)
[2017-04-22] MEDS: ENOXAPARIN 30 MG/0.3 ML SYR SQ SCH (08:39)
[2017-04-22] MEDS: LIDODERM (LIDOCAINE) PATCH 5% TD SCH (08:40)
--- NOTE | 2017-04-22 09:41 | Pain Management Consultation ---
Pain Management Consultation Date of Consultation Apr 22, 2017. Reason for Consultation Lumbar spine pain. History Justa Li is a 86-year-old female who admitted to [facility] with complaints of experiencing low back pain. Pain is predominantly located in distal lumbar spine and radiates to bilateral anterior thighs. Symptoms are characterized as constant aching sensation with intermittent, sharp , stabbing episodes with activity. Symptoms have been present for chronic duration without any acute changes.. Pain rated as 6/10 on visual analog scale when severe and 2/10 when minimal. Activities that exacerbate patient's symptoms include ambulation. Activities that alleviate patient's symptoms include minimizing physical activity and ambulation. Reports functional impairment including requiring a walker to ambulate as a result of symptoms. Current treatments include tramadol with good efficacy. Previous treatments include tramadol with good efficacy for chronic duration. Patient reports that she ran out of her tramadol proximally 5 days ago and attributes worsening symptoms due to lack of analgesic medications. Although she sustained a fall forward and fractured her finger, she denies any trauma to her lumbar spine and reports no significant change in her typical symptoms. Previous evaluations, managing, laboratory evaluation and other studies include bleeding lumbar spine x-rays demonstrating L2 vertebral fracture of indeterminate age since 2013. She denies any bowel bladder incontinence, saddle anesthesia, numbness, weakness or any other neurological symptoms. Reports no new neurological symptoms associated with her back pain. Past Medical/Surgical History (1) Hypertension (2) Hypothyroidism (3) Dyslipidemia (4) Osteoporosis (5) CKD (chronic kidney disease) stage 3, GFR 30-59 ml/min (6) Carotid artery disease (7) Macular degeneration (8) Adnexal mass (9) Status post appendectomy (10) Status post tubal ligation (11) Status post cataract extraction Family History FH: cancer Social / Work History Smoking Status: Former smoker Alcohol Use: none Housing Status: lives alone Occupation: retired Allergies Coded Allergies: Latex1 -Allergic Contact Dermititis (Verified Allergy, Intermediate, ITCHING, RASH, 04/20/17) Adhesives (Verified Allergy, Unknown, ITCHING, RASH, 04/20/17) Codeine (Verified Allergy, Unknown, N/V, 04/20/17) Morphine (Unverified Allergy, Unknown, ., 04/20/17) Opioid Analgesics (Verified Allergy, Unknown, "OPIATE AGONISTS" - MORPHINE = STOMACH UPSET, 04/20/17) Sulfamethoxazole w/Trimethoprim (Verified Allergy, Unknown, RASH, 04/20/17) Medications Current Inpatient Medications Medications (Trade) Dose Ordered Sig/Alirio Route Start Time Stop Time Status Last Admin Dose Admin Enoxaparin Sodium (Lovenox Inj) 30 mg Q24H SQ 04/21/17 09:00 05/21/17 08:59 04/21/17 08:47 30 MG Acetaminophen (Tylenol Tab) 650 mg Q4H PRN PO 04/20/17 19:00 05/20/17 18:59 Ondansetron HCl (Zofran Inj) 4 mg Q6H PRN IV 04/20/17 19:00 05/20/17 18:59 04/21/17 08:36 4 MG Lidocaine (Lidoderm Patch 5%) 1 patch QAM TD 04/20/17 21:00 05/20/17 20:59 04/21/17 11:42 1 PATCH Miscellaneous (Remove Lidoderm Patch) 1 ea DAILY@21 N/A 04/21/17 08:59 05/21/17 08:58 04/21/17 20:42 1 EA Acetaminophen/ Hydrocodone Bitart ([place] 5/325 Tab) 1 tab Q6H PRN PO 04/20/17 19:00 05/04/17 18:59 04/21/17 03:54 1 TAB Aspirin (Ecotrin Tab) 81 mg DAILY PO 04/21/17 09:00 05/21/17 08:59 04/21/17 08:47 81 MG Calcitonin [place] (Fortical Nasal [place]) 1 spray QPM LIZET 04/20/17 21:00 05/20/17 20:59 04/21/17 20:42 1 SPRAY Levothyroxine Sodium (Synthroid Tab) 75 mcg DAILYBB PO 04/21/17 06:00 05/21/17 05:59 04/22/17 06:03 75 MCG Lisinopril (Zestril Tab) 10 mg QAM PO 04/21/17 09:00 05/21/17 08:59 04/21/17 08:48 10 MG Lorazepam (Ativan Tab) 0.5 mg BID PRN PO 04/20/17 19:00 05/20/17 18:59 04/21/17 08:45 0.5 MG Lovastatin (Mevacor Tab) 20 mg HS PO 04/20/17 21:00 05/20/17 20:59 04/21/17 20:42 20 MG Sertraline HCl (Zoloft Tab) 100 mg HS PO 04/20/17 21:00 05/20/17 20:59 04/21/17 20:42 100 MG Tramadol HCl (Ultram Tab) 50 mg Q6H PRN PO 04/20/17 19:00 05/20/17 18:59 04/21/17 08:37 50 MG Calcium/Vitamin D (Caltrate Plus Tab) 1 tab BID PO 04/20/17 21:00 05/20/17 20:59 04/21/17 20:42 1 TAB Multivitamins/ Minerals (Multivitamin W/ Minerals Tab) 1 tab BID PO 04/20/17 21:00 05/20/17 20:59 04/21/17 20:42 1 TAB Pantoprazole Sodium (Protonix Tab) 40 mg QAM PO 04/21/17 09:00 05/21/17 08:59 04/21/17 08:46 40 MG Miscellaneous (Iv Fluids Completed) 1 ea PRN PRN N/A 04/20/17 19:45 04/20/18 19:44 04/21/17 08:45 1 EA Gabapentin (Neurontin Cap) 100 mg TID PO 04/21/17 14:45 05/21/17 14:44 04/21/17 20:42 100 MG Review of Systems Denies any recent history of fever, night sweats, unexplained weight loss, or constitutional symptoms. Otherwise, 8 point review of system has been reported to be negative. Physical Exam Height & Weight: Height 5 feet, 1.00 inches. Weight 59.000 (Kilograms) 130 (Pounds) Last Vital Signs Documentation Date Time Temp Pulse Resp B/P (MAP) Pulse Ox O2 Delivery O2 Flow Rate FiO2 04/22/17 07:22 36.3 67 17 117/71 (86) 95 Nasal Cannula 2.0 Exam: Mrs. Dean is alert and oriented. Mood and affect are appropriate. Short- term and long-term memory is intact. Sensorium is clear. She has difficulty hearing requiring hearing aids bilaterally. Inspection of the lumbar spine demonstrates exaggerated thoracic kyphosis with complete loss of lumbar lordosis and decreased range of motion in all planes. No lesions are noted in the lumbar spine region. Provocative testing of the facet joints is associated focal lumbar spine pain. There is moderate tenderness to palpation midline of the spinous process of the proximal lumbar spine. Provocative testing of the sacroiliac joints bilaterally tests is marginally positive for axial low back pain. Diffuse myofascial tenderness or trigger points identifiable in the paraspinous musculature. Neurologically, straight leg raising is negative bilaterally past 90 and no changes noted Achilles stretch. Sensation and motor strength in the lower extremity are symmetrical without deficit. No pathologic reflexes are noted in the lower extremities. Gait was not tested Laboratory Laboratory Results (Last CBC): 04/21/17 06:09 Imaging Radiology: reports reviewed, images reviewed Radiology Findings Lumbar spine x rays: IMPRESSION: 1. Moderate L2 compression fracture which is new since CT of September 01, 2014. This is age indeterminate but likely subacute to chronic. 2. No change in mild loss of height of the superior endplate of L4. 3. Dextroscoliosis of the lumbar spine. 4. Moderate multilevel degenerative disc disease and facet arthrosis of the lumbar spine. Electronically signed by: Raman Zuniga M.D. 04/20/2017 9:35 AM Dictated Date/Time: 04/20/2017 9:33 AM Assessment 1. L2 vertebral fracture. Chronic since 2013 without acute changes. 2. Lumbago. 3. Myofascial pain, paraspinous muscles or lumbar spine. 4. Lumbar spondylosis. Recommendations 1. Recommend no changes neuralgias regimen since patient has been doing fine on tramadol as an outpatient with good efficacy and no perceived side effects. Recommend continuation of tramadol as an outpatient. 2. Defer interventional procedures, including kyphoplasty, at the present time. blabfeed Voice Recognition This chart was completed in part utilizing [employer] Voice Recognition Software. Random word insertions, pronoun errors, and incomplete sentences are an occasional consequence of this system due to software limitations and ambient noise. Any questions or concerns about the content, text or information contained within the body of this dictation should be directly addressed to the provider for clarification.
[2017-04-22 14:34] VITALS: BP 117/71; PULSE 67; TEMP 36.3; O2SAT 95
[2017-04-22 15:38] VITALS: BP 119/64; PULSE 69; TEMP 34.7; O2SAT 96
--- NOTE | 2017-04-22 20:56 | Discharge Summary ---
Discharge Summary Date of Service Apr 22, 2017. Discharge Summary Admission Date: Apr 20, 2017 at 20:14 Discharge Date: Apr 22, 2017 Discharge Disposition: Rehab ([facility] ) Principal Diagnosis: INTRACTABLE BACK PAIN /LUMBER COMPRESSION FRACTURE Procedures: CT ABDOMEN /PELVIS : 1. There is a moderate superior endplate compression deformity at L2 which demonstrates 50% loss of height and 3 mm of retropulsion. This results in moderate central canal narrowing at this level. This is new from the 2014 study. This favors a subacute compression fracture. 2. No bowel wall thickening or obstruction. 3. No hydronephrosis. 4. Colonic diverticulosis. 5. Anterior bladder wall thickening is likely due to underdistention. There is also punctate focus of gas within the bladder lumen. This may be due to prior catheterization. XRAY OF LUMBER SPINE IMPRESSION: 1. Moderate L2 compression fracture which is new since CT of September 01, 2014. This is age indeterminate but likely subacute to chronic. 2. No change in mild loss of height of the superior endplate of L4. 3. Dextroscoliosis of the lumbar spine. 4. Moderate multilevel degenerative disc disease and facet arthrosis of the Consultations: PAIN MANAGEMENT -DR [facility] -DR GREGORIO Medication Reconciliation New Medications: Gabapentin (Gabapentin) 100 Mg Cap 100 MG PO TID for 30 Days, #90 CAP Lidocaine (Lidocaine) 1 Patch Tdsy 1 PATCH TD QAM for 30 Days Continued Medications: Acetaminophen (Tylenol Arthritis Ext Rel) 650 Mg Cplt 650 MG PO Q8H PRN for Pain Aspirin (Aspirin 81) 81 Mg Tab 81 MG PO NOON Calcitonin ([place]) (Calcitonin [place]) 200 Unit/Act Spr 1 SPRAY LIZET QPM Calcium Carbonate-Vitamin D W/ (Calcium 1200) 1 Chw Chw 1 TAB PO BID Fluticasone Propionate (Nasal) (Flonase Allergy Relief) 50 Mcg/Act Spr 2 SPRAY LIZET QPM Levothyroxine Sodium (Synthroid) 75 Mcg Tab 75 MCG PO DAILY, TAB Lisinopril (Lisinopril) 10 Mg Tab 10 MG PO QAM Lorazepam (Ativan) 0.5 Mg Tab 0.5 MG PO BID PRN for Anxiety, #30 (This prescription has been renewed) Lovastatin (Lovastatin) 20 Mg Tab 20 MG PO HS Multiple Vitamins W/ Minerals (Preservision/Lutein) 1 Cap Cap 1 CAP PO BID Omeprazole (Prilosec) 20 Mg Capcr 20 MG PO QAM Polyethylene (Miralax) 120 Gm Soln 17 GM PO DAILY PRN for Constipation Sertraline (Zoloft) 100 Mg Tab 100 MG PO HS Tramadol (Ultram) 50 Mg Tab 50 MG PO Q6H PRN for Pain, #30 (This prescription has been renewed) Admission Information HPI (per Admitting provider): 86 year old female who presents to the ER with intractable back pain. Patient has a long standing history of chronic back pain. She had a fall about 10 days ago making her chronic back pain worse and also injuring her right 4th finger. She was seen at [facility] and found to have a small fracture in the 4th finger. No imaging of her back was completed. Patient is also on chronic Tramadol for her back pain and the prescription ran out 6 days ago. Patient reports significant increase in the pain since that time. She reports the pain is radiating down the outsides of both of her legs. She has chronic urinary incontinence which is unchanged. She denies any bowel problems. No chest pain or shortness of breath. She denies any lightheadedness, dizziness, diaphoresis, or syncopal events. No abdominal pain, nausea, vomiting, or diarrhea. She denies headache and blurred vision. No fever or chills. She denies any urinary symptoms. In the ER, patient' s BP was elevated on arrival at 192/101. This improved with pain control and also with administration of lisinopril and PO hydralazine. Patient reports she has been monitoring her BP at home and it has been high as well. Lumbar spine XR is showing L2 compression fracture. Of note, at baseline patient is independent, lives alone, and does not use any assistive devices. She continues to drive. ED attempted to transfer patient to [facility] however insurance has denied the request. Physical Exam (per Admitting): General Appearance: no apparent distress Head: normocephalic Eyes: normal inspection ENT: hearing grossly normal Neck: supple, no JVD Respiratory/Chest: lungs clear, normal breath sounds, no respiratory distress Cardiovascular: regular rate, rhythm, no edema, normal peripheral pulses Abdomen/GI: normal bowel sounds, non tender, soft Extremities/Musculoskelatal: no calf tenderness, + pertinent finding ( patient reports low back pain with minimal movement) Neurologic/Psych: no motor/sensory deficits, alert, normal mood/affect, oriented x 3 Skin: normal color, warm/dry Hospital Course IINTRACTABLE BACK PAIN 2 to L2 COMPRESSION FRACTURE - patient presenting with worsening back pain after a fall 10 days ago, also ran out of her prescription for Tramadol; found to have an acute L2 compression fracture in xray cont pain control PT /Ot eval requested pt is continued to experience Lumber Radicular pain ordered for Neurontin pain management consulted -appreciate input recommend cont Tramadol Ortho eval requested for role of back brace ; appreciate input by Dr Gregorio -no recommendation for brace cont pain control ; PT/OT -referral made to [facility] -accepted with be transferred to [facility] today HTN -BP remains stable now cont home dose of medications HYPOTHYROIDISM - continue levothyroxine GERD - continue PPI HLD - continue statin ANXIETY - continue home meds DVT PROPHYLAXIS - SQ Lovenox DISPOSITION transfer pt to [facility] for continued therapy Discharge Instructions Discharge Instructions Date of Service Apr 21, 2017. Admission Reason for Admission: Compression Fracture Of L2 Discharge Discharge Diagnosis / Problem: INTRACTABLE BACK PAIN /LUMBER COMPRESSION FRACTURE Discharge Goals Goal(s): Decrease discomfort, Improve disease control, Diagnostic testing Activity Recommendations Activity Level: Assistance Required Therapies: Physical Therapy, Occupational Therapy Lifting Limitations: no more than 5 pounds (FOR 3-4 WEEKS ) Exercise/Sports Limitations: as tolerated Shower/Bathe: no limitations . Additional Information Patient informed of condition: Yes Advance Directives: No DNR: No Level of Care: Acute Rehab Communicable Disease: No Prognosis: Stable Hurley Catheter: No Current Hospital Diet Patient's current hospital diet: AHA Diet (Heart Healthy), Low Lactose Diet Discharge Diet Recommended Diet: AHA Diet (Heart Healthy), Low Lactose Diet Pending Studies Studies pending at discharge: no Medical Emergencies . Who to Call and When: Medical Emergencies: If at any time you feel your situation is an emergency, please call 911 immediately. . Non-Emergent Contact Non-Emergency issues call your: Primary Care Provider . . "Provider Documentation" section prepared by Katelynn Quintero. . Core Measure Problem Core Measures: None
--- NOTE | 2017-04-22 21:00 | Progress Note ---
Internal Med Progress Note Date of Service: Apr 22, 2017. Provider Documentation: SUBJECTIVE: back pain much better today able to be OOB to chair accepted at [facility] willing to go to rehab for continued PT OBJECTIVE: Vital Signs-as noted below Exam: General-elderly female, no sign of distress Neck-no jVD Lungs-CTA Heart-regular S1/S2 Abdomen-soft, mid abdomen healed scar present , complain of pain radiation to both groin to upper thigh Extremities-low back pain , with radiation pain to lower knee , fracture on rt fingers Neuro-no focal deficit , AAo x3 Lab data as noted below. ASSESSMENT & PLAN: INTRACTABLE BACK PAIN 2 to L2 COMPRESSION FRACTURE - patient presenting with worsening back pain after a fall 10 days ago, also ran out of her prescription for Tramadol; found to have an acute L2 compression fracture in xray cont pain control PT /Ot eval requested pt is continued to experience Lumber Radicular pain ordered for Neurontin pain management consulted -appreciate input recommend cont Tramadol Ortho eval requested for role of back brace ; appreciate input by Dr Gregorio -no recommendation for brace cont pain control ; PT/OT -referral made to [facility] -accepted with be transferred to [facility] today HTN -BP remains stable now cont home dose of medications HYPOTHYROIDISM - continue levothyroxine GERD - continue PPI HLD - continue statin ANXIETY - continue home meds DVT PROPHYLAXIS - SQ Lovenox DISPOSITION transfer pt to [facility] for continued therapy Vital Signs: Date Time Temp Pulse Resp B/P (MAP) Pulse Ox O2 Delivery O2 Flow Rate FiO2 04/22/17 15:38 34.7 69 18 119/64 (82) 96 Room Air 04/22/17 15:15 Room Air 04/22/17 14:34 36.3 67 17 95 Room Air 04/22/17 08:30 95 Room Air 04/22/17 07:22 36.3 67 17 117/71 (86) 95 Nasal Cannula 2.0 04/22/17 00:45 Nasal Cannula 1.0 04/21/17 23:00 36.5 60 16 128/76 (93) 97 Nasal Cannula 1.0 Lab Results: Microbiology Results 04/21/17 Urine Culture - Preliminary, Resulted NO GROWTH - LESS THAN 1,000 COLONIES/...
== END 2017-04-22 19:15 ==
LOC: C.EDB 08:00 → EDBEDREQSVC 19:01 → ENRESERV 19:45 → C.MSN 20:14
PROVIDERS: ADMIT Internal Medicine; ATTEND Hospitalist
DX: S32.020A Wedge compression fracture of second lumbar vertebra, initial encounter for closed fracture (principal); W19.XXXA Unspecified fall, initial encounter; I10 Essential (primary) hypertension; E03.9 Hypothyroidism, unspecified; K21.9 Gastro-esophageal reflux disease without esophagitis; E78.5 Hyperlipidemia, unspecified; K57.90 Diverticulosis of intestine, part unspecified, without perforation or abscess without bleeding; M51.36 Other intervertebral disc degeneration, lumbar region; J45.909 Unspecified asthma, uncomplicated; M81.0 Age-related osteoporosis without current pathological fracture; N18.3 Chronic kidney disease, stage 3 (moderate); Z79.82 Long term (current) use of aspirin; Z90.49 Acquired absence of other specified parts of digestive tract; Z87.891 Personal history of nicotine dependence

== ENCOUNTER → 2017-05-24 | Outpatient (CLI) | payer BC ==
[~2017-05-24] MED LIST changes: +BUSP5TAB59 PO; -CHOL1TAB42 PO; +DOCU100C31 PO; +LDDP5 TD; +LEVO75TA PO; +LISI-729 PO; +MULT1CAP53 PO; +NRN100 PO; -SYN75 PO; +SYN88 PO
[2017-05-24 08:34] LABS: MEAN CELL VOLUME 94.2 fL (80-100); MEAN CORPUSCULAR HEMOGLOBIN 30.4 pg (25-34); MEAN CORPUSCULAR HGB CONC 32.3 g/dl (32-36); MEAN PLATELET VOLUME 9.5 fL (7.4-10.4); PLATELET COUNT 200 K/uL (130-400); RED BLOOD COUNT 4.14 M/uL (4.2-5.4); WHITE BLOOD COUNT 6.48 K/uL (4.8-10.8)
[2017-05-24 08:43] LABS: BLOOD UREA NITROGEN 14 mg/dl (7-18); BUN/CREATININE RATIO 15.7 (10-20); CARBON DIOXIDE 30 mmol/L (21-32); CHLORIDE 106 mmol/L (98-107); CREATININE 0.92 mg/dl (0.60-1.20); GLUCOSE 94 mg/dl (70-99); SODIUM 142 mmol/L (136-145)
== END | disposition home or self-care (01) ==
LOC: C.LABWYN 08:09
PROVIDERS: ATTEND Internal Medicine
DX: J45.909 Unspecified asthma, uncomplicated (principal); N28.9 Disorder of kidney and ureter, unspecified; I10 Essential (primary) hypertension; E78.5 Hyperlipidemia, unspecified; E03.9 Hypothyroidism, unspecified; M81.0 Age-related osteoporosis without current pathological fracture; H35.30 Unspecified macular degeneration

== ENCOUNTER → 2017-06-07 | Outpatient (CLI) | payer BC ==
[2017-06-07 11:03] LABS: HEMATOCRIT 38.1 % (37-47); MEAN CELL VOLUME 95.5 fL (80-100); MEAN CORPUSCULAR HEMOGLOBIN 30.1 pg (25-34); MEAN CORPUSCULAR HGB CONC 31.5 g/dl (32-36); MEAN PLATELET VOLUME 9.5 fL (7.4-10.4); PLATELET COUNT 206 K/uL (130-400); RED BLOOD COUNT 3.99 M/uL (4.2-5.4); WHITE BLOOD COUNT 6.13 K/uL (4.8-10.8)
[2017-06-07 11:12] LABS: BLOOD UREA NITROGEN 17 mg/dl (7-18); BUN/CREATININE RATIO 19.2 (10-20); CALCIUM 8.7 mg/dl (8.5-10.1); CARBON DIOXIDE 32 mmol/L (21-32); CHLORIDE 106 mmol/L (98-107); CREATININE 0.87 mg/dl (0.60-1.20); GLUCOSE 91 mg/dl (70-99); POTASSIUM 3.7 mmol/L (3.5-5.1); SODIUM 143 mmol/L (136-145)
== END | disposition home or self-care (01) ==
LOC: C.LABWYN 10:39
PROVIDERS: ATTEND Nurse Practitioner Adult Health
DX: I10 Essential (primary) hypertension (principal)

== ENCOUNTER 2017-06-28 17:25 | Emergency (ER) | payer BC ==
[~2017-06-28] VITALS: Ht 154.9 cm; Wt 64.0 kg
[~2017-06-28 17:25] MED LIST changes: -BUSP5TAB59 PO; -DOCU100C31 PO; -LISI-729 PO; -MULT1CAP53 PO; -SYN88 PO
[2017-06-28] MEDS ORDERED: LORAZEPAM 0.5 MG TAB SL STA (17:42)
--- NOTE | 2017-06-28 17:54 | EMERGENCY ROOM VISIT NOTE ---
History Report prepared by León: Devan Thomas Under the Supervision of: Dr. Adin Trotter M.D. First contact with patient: 17:34 Stated Complaint: CHEST TIGHTNESS/WEAKNESS / [facility] History of Present Illness The patient is an 86 year old female who presents to the Emergency Room with complaints of constant, middle chest pain beginning a week ago. The patient states that her pain starts in the middle of her chest and radiates to the right upper quadrant of her abdomen. She reports that she has been experiencing random crying spells for the past week. The patient notes that she has not been upset about anything in particular. She states that she recently moved to [place] from [facility]. The patient reports that she has had changes in her medication. She notes she is still taking Ativan, but she is not sure if she is still on Zoloft. The patient states that she has been falling more frequently, and she has not been to the hospital. She reports that she is also been experience nausea, diarrhea, and a decreased appetite. The patient notes that she has had a history of a floating cystectomy. She denies a history of a cholecystectomy and suicidal ideations The patient's daughter states the patient was here in March, and she has been falling more frequently. She reports the patient was told she had a slight crack in her wrist, and she has been experiencing anxiety from it. The daughter notes the patient has a history of scoliosis, stenosis, and stress fractures in her back. She states that patient's doctor at [facility] retired, and she was transferred to [place]. The daughter reports that in the transfer, she believes the patient's prescription for Zoloft was misplaced or . She notes the patient has not been taking it, and she has been crying and does not want to get out of bed. Source of History: patient, family (daughter) Onset: week ago Position: chest Timing: constant Associated Symptoms: + nausea, + abdominal pain, + diarrhea Note: Associated symptoms: decreased appetite Denies: suicidal ideations Review of Systems See HPI for pertinent positives & negatives. A total of 10 systems reviewed and were otherwise negative. Past Medical & Surgical Medical Problems: (1) Adnexal mass (2) Carotid artery disease (3) CKD (chronic kidney disease) stage 3, GFR 30-59 ml/min (4) Dyslipidemia (5) Fracture of right wrist (6) Hypertension (7) Hypothyroidism (8) Macular degeneration (9) Osteoporosis Surgical Problems: (1) Status post appendectomy (2) Status post cataract extraction (3) Status post tubal ligation Family History FH: cancer Social History Smoking Status: Former Smoker Alcohol Use: none Drug Use: none Occupation Status: retired Current/Historical Medications Scheduled Aspirin (Aspirin 81), 81 MG PO NOON Calcitonin ([place]) (Calcitonin [place]), 1 SPRAY LIZET QPM Calcium Carbonate-Vitamin D W/ (Calcium 1200), 1 TAB PO BID Docusate Sodium (Docusate Sodium), 100 MG PO BID Fluticasone Propionate (Nasal) (Flonase Allergy Relief), 2 SPRAY LIZET QPM Gabapentin (Gabapentin), 100 MG PO TID Levothyroxine Sodium (Synthroid), 88 MCG PO QAM Lidocaine (Lidocaine), 1 PATCH TD QAM Lisinopril (Lisinopril), 10 MG PO QAM Lisinopril (Prinivil), 5 MG PO QPM Lovastatin (Lovastatin), 20 MG PO HS Multiple Vitamins W/ Minerals (Preservision/Lutein), 1 CAP PO BID Multiple Vitamins W/ Minerals (Macular Health Formula), 1 CAP PO DAILY Sertraline (Zoloft), 100 MG PO HS Scheduled PRN Acetaminophen (Tylenol Arthritis Ext Rel), 650 MG PO Q8H PRN for Pain Buspirone Hcl (Buspirone Hcl), 5 MG PO BID PRN for Anxiety Lorazepam (Ativan), 0.5 MG PO BID PRN for Anxiety Polyethylene (Miralax), 17 GM PO DAILY PRN for Constipation Tramadol (Ultram), 50 MG PO Q6H PRN for Pain Allergies Coded Allergies: Latex1 -Allergic Contact Dermititis (Verified Allergy, Intermediate, ITCHING, RASH, 04/20/17) Adhesives (Verified Allergy, Unknown, ITCHING, RASH, 04/20/17) Codeine (Verified Allergy, Unknown, N/V, 04/20/17) Morphine (Unverified Allergy, Unknown, ., 04/20/17) Opioid Analgesics (Verified Allergy, Unknown, "OPIATE AGONISTS" - MORPHINE = STOMACH UPSET, 04/20/17) Sulfamethoxazole w/Trimethoprim (Verified Allergy, Unknown, RASH, 04/20/17) Physical Exam Vital Signs Date Time Temp Pulse Resp B/P (MAP) Pulse Ox O2 Delivery O2 Flow Rate FiO2 06/28/17 21:40 89 20 169/74 97 06/28/17 21:11 67 06/28/17 20:11 67 20 170/99 94 Room Air 06/28/17 17:56 94 Room Air 06/28/17 17:56 36.7 65 18 170/84 94 Room Air 06/28/17 17:55 94 Room Air 06/28/17 17:36 68 Physical Exam GENERAL: Patient is elderly appearing, crying on and off, and in mild distress. HEENT: No acute trauma, normocephalic atraumatic, mucous membranes moist, no nasal congestion, no scleral icterus. NECK: No stridor, no adenopathy, no meningismus, trachea is midline. LUNGS: No dyspnea. Clear to auscultation and equal bilaterally. No wheeze, no rhonchi. HEART: Regular rate and rhythm. No murmurs, rubs, gallops appreciated. ABDOMEN: Soft, vague upper right quadrant tenderness upon palpation, bowel sounds positive, no masses appreciated, no peritonitis. BACK: No midline tenderness, no CVA tenderness EXTREMITIES: Normal motion all extremities, no cyanosis, no edema. NEUROLOGIC: Alert and oriented, no acute motor or sensory deficits, no focal weakness, cranial nerves grossly intact. SKIN: No rash, no jaundice, no diaphoresis. Medical Decision & Procedures ER Provider Diagnostic Interpretation: Radiology results and stated below per my review and radiologist interpretation: GALLBLADDER-ABD LIMITED CLINICAL HISTORY: RUQ abdominal pain pain. Nausea. TECHNIQUE: Ultrasound COMPARISON STUDY: 04/20/2017 FINDINGS: Normal gallbladder. Common bile duct 5 mm. Mild fatty infiltration of liver. Moderate right renal atrophy. No evidence for hydronephrosis. Uniform pancreas. IMPRESSION: 1. Mild fatty infiltration of liver. 2. Normal gallbladder. 3. Mild atrophy right kidney. No evidence for hydronephrosis. The above report was generated using voice recognition software. It may contain grammatical, syntax or spelling errors. Electronically signed by: Joaquín Jameson M.D. 06/28/2017 7:48 PM Dictated Date/Time: 06/28/2017 7:46 PM CHEST ONE VIEW PORTABLE CLINICAL HISTORY: Chest Pain dyspnea COMPARISON STUDY: 11/23/2013 FINDINGS: Chronic interstitial prominence left base. Lungs otherwise are clear. Minimal chronic apical pleural thickening. Diaphragms smooth. IMPRESSION: Chronic change. No acute process. The above report was generated using voice recognition software. It may contain grammatical, syntax or spelling errors. Electronically signed by: Joaquín Jameson M.D. 06/28/2017 6:21 PM Dictated Date/Time: 06/28/2017 6:20 PM ABD/PELVIS IV CONTRAST ONLY CT DOSE: 405.61 mGy.cm HISTORY: Pain. Nausea. Epigastric pain TECHNIQUE: Multiaxial CT images of the abdomen and pelvis were performed following the use of intravenous contrast. A dose lowering technique was utilized adhering to the principles of ALARA. COMPARISON STUDY: 04/20/2017 FINDINGS: Slight chronic bibasilar interstitial prominence. This is unchanged in the prior study. Stable 1.5 cm hypodensity peripheral right hepatic lobe. Mild fatty infiltration of liver. Mild hyperplastic changes adrenal glands. Kidneys are negative for hydronephrosis. Perinephric spaces are intact. Bowel pattern is considered nonobstructive throughout. Scattered colonic diverticuli with no evidence for diverticulitis. Bladder is midline. IMPRESSION: Chronic change. Fatty infiltration of liver. No acute process of the abdomen or pelvis. Compression deformities of the lumbar spine unchanged compared to prior studies. The above report was generated using voice recognition software. It may contain grammatical, syntax or spelling errors. Electronically signed by: Joaquín Jameson M.D. 06/28/2017 8:54 PM Dictated Date/Time: 06/28/2017 8:48 PM Laboratory Results 06/28/17 18:17 Red Blood Count 4.08, Mean Corpuscular Volume 93.1, Mean Corpuscular Hemoglobin 31.4, Mean Corpuscular Hemoglobin Concent 33.7, Mean Platelet Volume 9.0, Neutrophils (%) (Auto) 57.1, Lymphocytes (%) (Auto) 28.9, Monocytes (%) (Auto) 9.1, Eosinophils (%) (Auto) 4.3, Basophils (%) (Auto) 0.3, Neutrophils # (Auto) 3.94, Lymphocytes # (Auto) 2.00, Monocytes # (Auto) 0.63, Eosinophils # (Auto) 0.30, Basophils # (Auto) 0.02 9/5/17 18:17 Test 06/28/17 18:14 06/28/17 18:17 Urine Color YELLOW Urine Appearance CLEAR (CLEAR) Urine pH >= 9.0 (4.5-7.5) Urine Specific [place] 1.014 (1.000-1.030) Urine Protein NEG (NEG) Urine Glucose (UA) NEG (NEG) Urine Ketones NEG (NEG) Urine Occult Blood NEG (NEG) Urine Nitrite NEG (NEG) Urine Bilirubin NEG (NEG) Urine Urobilinogen NEG (NEG) Urine Leukocyte Esterase SMALL (NEG) Urine WBC (Auto) 5-10 /hpf (0-5) Urine RBC (Auto) 0-4 /hpf (0-4) Urine Hyaline Casts (Auto) 1-5 /lpf (0-5) Urine Epithelial Cells (Auto) 10-20 /lpf (0-5) Urine Bacteria (Auto) NEG (NEG) White Blood Count 6.91 K/uL (4.8-10.8) Red Blood Count 4.08 M/uL (4.2-5.4) Hemoglobin 12.8 g/dL (12.0-16.0) Hematocrit 38.0 % (37-47) Mean Corpuscular Volume 93.1 fL (80-100) Mean Corpuscular Hemoglobin 31.4 pg (25-34) Mean Corpuscular Hemoglobin Concent 33.7 g/dl (32-36) Platelet Count 183 K/uL (130-400) Mean Platelet Volume 9.0 fL (7.4-10.4) Neutrophils (%) (Auto) 57.1 % Lymphocytes (%) (Auto) 28.9 % Monocytes (%) (Auto) 9.1 % Eosinophils (%) (Auto) 4.3 % Basophils (%) (Auto) 0.3 % Neutrophils # (Auto) 3.94 K/uL (1.4-6.5) Lymphocytes # (Auto) 2.00 K/uL (1.2-3.4) Monocytes # (Auto) 0.63 K/uL (0.11-0.59) Eosinophils # (Auto) 0.30 K/uL (0-0.5) Basophils # (Auto) 0.02 K/uL (0-0.2) RDW Standard Deviation 45.6 fL (36.4-46.3) RDW Coefficient of Variation 13.4 % (11.5-14.5) Immature Granulocyte % (Auto) 0.3 % Immature Granulocyte # (Auto) 0.02 K/uL (0.00-0.02) Anion Gap 5.0 mmol/L (3-11) Est Creatinine Clear Calc Drug Dose 35.1 ml/min Estimated GFR () 62.0 Estimated GFR (Non- 53.5 BUN/Creatinine Ratio 15.1 (10-20) Calcium Level 8.8 mg/dl (8.5-10.1) Total Bilirubin 0.3 mg/dl (0.2-1) Direct Bilirubin < 0.1 mg/dl (0-0.2) Aspartate Amino Transf (AST/SGOT) 13 U/L (15-37) Alanine Aminotransferase (ALT/SGPT) 18 U/L (12-78) Alkaline Phosphatase 113 U/L (45-117) Troponin I < 0.015 ng/ml (0-0.045) Total Protein 7.1 gm/dl (6.4-8.2) Albumin 3.2 gm/dl (3.4-5.0) Lipase 125 U/L (73-393) Laboratory results as reviewed by me. Medications Administered Medications (Trade) Dose Ordered Sig/Alirio Route Start Time Stop Time Status Last Admin Dose Admin Lorazepam (Ativan Tab) 0.5 mg NOW STAT SL 06/28/17 17:42 06/28/17 17:44 DC 06/28/17 18:23 0.5 MG Al Hydroxide/Mg Hydroxide (Maalox Susp) 30 ml STK-MED ONCE .ROUTE 06/28/17 20:09 06/28/17 20:10 DC 06/28/17 20:14 30 ML Lidocaine HCl (Viscous Lidocaine 2% Soln) 20 ml STK-MED ONCE .ROUTE 06/28/17 20:09 06/28/17 20:10 DC 06/28/17 20:14 20 ML ECG Indication: chest pain Rate (beats per minute): 61 Rhythm: normal sinus Findings: no acute ischemic change, no ectopy ED Course 1729: The patient was evaluated in room B11B. A complete history and physical exam was performed. 1741: Ordered Lorazepam 0.5mg SL 1956: I reevaluated the patient. She is still having epigastric pain that radiates to her belly button. 2008: Ordered Lidocaine HCl 20ml .ROUTE, Maalox Susp 30ml .ROUTE 2108: Reevaluated the patient. She is feeling better and would like to go home. Discussed results and discharge instructions: she verbalized understanding and agreement. The patient is ready for discharge. Medical Decision Differential: Cholecystitis, Gallbladder disfunction, Hepatic Disfunction, Gastritis/PUD, Pancreatitis, ACS, Aortic Pathology, amongst other pathologies entertained. 86 yr old female with epigastric pain arrives very upset. Feeling much better with ativan and then with gi cocktail. CXR, EKG unremarkable. Trop negative. Ongoing symptoms for a week which I feel is reason to rule out ACS in setting of normal EKG/Trop. Labs unremarkable. US negative for GB pathology. CT unremarkable other than fatty liver and chronic back fx. She likely needs to be on anti-acid daily which family will discuss with her PCP. She is on Zoloft for the last week which seems to be improving her depression and has lead to decreased need for ativan. She is comfortable, wishes to go home and family comfortable with going back to retirement. Medication Reconcilliation Current Medication List: was personally reviewed by me Blood Pressure Screening Patient's blood pressure: Elevated blood pressure Blood pressure disposition: Referred to PCP Impression Primary Impression: Epigastric abdominal pain Additional Impression: Anxiety Scribe Attestation The scribe's documentation has been prepared under my direction and personally reviewed by me in its entirety. I confirm that the note above accurately reflects all work, treatment, procedures, and medical decision making performed by me. Departure Information Dispostion Home / Self-Care Referrals [facility] (PCP) Forms IMPORTANT VISIT INFORMATION Additional Instructions Labs, EKG, CXR, CT abdo/pelv, US Gallbladder were all unremarkable for acute findings. There was some fatty findings of Liver as well as some chronic fractures in back. No evidence of acute surgical nor medical admission need was found. If you develop severe abdominal pain, vomiting, chest pain, weakness in arms or legs, or other concerning symptoms call 911. Problem Qualifiers
[2017-06-28 17:55] VITALS: O2SAT 94
[2017-06-28 17:56] VITALS: TEMP 36.7; Ht 154.9 cm; Wt 64.0 kg
[2017-06-28] MEDS ORDERED: SYN88 PO (18:07)
[2017-06-28] MEDS ORDERED: MULT1CAP53 PO (18:07)
[2017-06-28] MEDS ORDERED: BUSP5TAB59 PO (18:07)
[2017-06-28] MEDS ORDERED: DOCU100C31 PO (18:07)
[2017-06-28] MEDS ORDERED: LISI-729 PO (18:07)
--- NOTE | 2017-06-28 18:22 | DIAGNOSTIC IMAGING REPORT ---
CHEST ONE VIEW PORTABLE CLINICAL HISTORY: Chest Pain dyspnea COMPARISON STUDY: 11/23/2013 FINDINGS: Chronic interstitial prominence left base. Lungs otherwise are clear. Minimal chronic apical pleural thickening. Diaphragms smooth. IMPRESSION: Chronic change. No acute process. The above report was generated using voice recognition software. It may contain grammatical, syntax or spelling errors. Electronically signed by: Joaquín Jameson M.D. 06/28/2017 6:21 PM Dictated Date/Time: 06/28/2017 6:20 PM
[2017-06-28 18:28] LABS: BASO % 0.3 %; BASO ABS # 0.02 K/uL (0-0.2); COMPLETE YES; EOS % 4.3 %; IG% 0.3 %; LYMPH % 28.9 %; MEAN CELL VOLUME 93.1 fL (80-100); MEAN CORPUSCULAR HEMOGLOBIN 31.4 pg (25-34); MEAN CORPUSCULAR HGB CONC 33.7 g/dl (32-36); MONO % 9.1 %; NEUT % 57.1 %; PLATELET COUNT 183 K/uL (130-400); RED BLOOD COUNT 4.08 M/uL (4.2-5.4); WHITE BLOOD COUNT 6.91 K/uL (4.8-10.8)
[2017-06-28 18:32] LABS: URINE APPEARANCE CLEAR (CLEAR); URINE BILIRUBIN NEG (NEG); URINE COLOR YELLOW; URINE NITRITE NEG (NEG); URINE PH >= 9.0 (4.5-7.5); URINE SPECIFIC GRAVITY 1.014 (1.000-1.030); UROBILINOGEN NEG (NEG); ZZUR CULT IF INDIC CLEAN CATCH NO
[2017-06-28 18:34] LABS: MANUAL MICROSCOPIC REQUIRED? NO; REVIEW REQ? NO
[2017-06-28 18:58] LABS: ALT/SGPT 18 U/L (12-78); AST/SGOT 13 U/L (15-37); BLOOD UREA NITROGEN 14 mg/dl (7-18); BUN/CREATININE RATIO 15.1 (10-20); CALCIUM 8.8 mg/dl (8.5-10.1); CARBON DIOXIDE 29 mmol/L (21-32); CHLORIDE 106 mmol/L (98-107); CREATININE 0.95 mg/dl (0.60-1.20); GLUCOSE 111 mg/dl (70-99); POTASSIUM 3.9 mmol/L (3.5-5.1); SODIUM 140 mmol/L (136-145)
[2017-06-28 19:05] LABS: ALKALINE PHOSPHATASE 113 U/L (45-117)
--- NOTE | 2017-06-28 19:49 | DIAGNOSTIC IMAGING REPORT ---
GALLBLADDER-ABD LIMITED CLINICAL HISTORY: RUQ abdominal pain pain. Nausea. TECHNIQUE: Ultrasound COMPARISON STUDY: 04/20/2017 FINDINGS: Normal gallbladder. Common bile duct 5 mm. Mild fatty infiltration of liver. Moderate right renal atrophy. No evidence for hydronephrosis. Uniform pancreas. IMPRESSION: 1. Mild fatty infiltration of liver. 2. Normal gallbladder. 3. Mild atrophy right kidney. No evidence for hydronephrosis. The above report was generated using voice recognition software. It may contain grammatical, syntax or spelling errors. Electronically signed by: Joaquín Jameson M.D. 06/28/2017 7:48 PM Dictated Date/Time: 06/28/2017 7:46 PM
[2017-06-28] MEDS ORDERED: GI COCKTAIL PO STA (20:01)
[2017-06-28] MEDS ORDERED: ALUMINUM/MAGNESIUM SUSP 30 ML UDC ONE (20:09)
[2017-06-28] MEDS ORDERED: LIDOCAINE HCL 2% VISC SOLN 20 ML UDC ONE (20:09)
[2017-06-28] MEDS ORDERED: OPTIRAY 320 IV PRN (20:15)
--- NOTE | 2017-06-28 20:55 | DIAGNOSTIC IMAGING REPORT ---
ABD/PELVIS IV CONTRAST ONLY CT DOSE: 405.61 mGy.cm HISTORY: Pain. Nausea. Epigastric pain TECHNIQUE: Multiaxial CT images of the abdomen and pelvis were performed following the use of intravenous contrast. A dose lowering technique was utilized adhering to the principles of ALARA. COMPARISON STUDY: 04/20/2017 FINDINGS: Slight chronic bibasilar interstitial prominence. This is unchanged in the prior study. Stable 1.5 cm hypodensity peripheral right hepatic lobe. Mild fatty infiltration of liver. Mild hyperplastic changes adrenal glands. Kidneys are negative for hydronephrosis. Perinephric spaces are intact. Bowel pattern is considered nonobstructive throughout. Scattered colonic diverticuli with no evidence for diverticulitis. Bladder is midline. IMPRESSION: Chronic change. Fatty infiltration of liver. No acute process of the abdomen or pelvis. Compression deformities of the lumbar spine unchanged compared to prior studies. The above report was generated using voice recognition software. It may contain grammatical, syntax or spelling errors. Electronically signed by: Joaquín Jameson M.D. 06/28/2017 8:54 PM Dictated Date/Time: 06/28/2017 8:48 PM
[2017-06-28 21:40] VITALS: BP 169/74; PULSE 89; O2SAT 97
== END 2017-06-28 21:41 | disposition home or self-care (01) ==
LOC: EDBD 17:25 → C.EDB 17:26
DX: R10.13 Epigastric pain (principal); F41.9 Anxiety disorder, unspecified; I25.10 Atherosclerotic heart disease of native coronary artery without angina pectoris; N18.3 Chronic kidney disease, stage 3 (moderate); E78.5 Hyperlipidemia, unspecified; I12.9 Hypertensive chronic kidney disease with stage 1 through stage 4 chronic kidney disease, or unspecified chronic kidney disease; E03.9 Hypothyroidism, unspecified; M81.0 Age-related osteoporosis without current pathological fracture; H35.30 Unspecified macular degeneration; Z87.891 Personal history of nicotine dependence; Z79.82 Long term (current) use of aspirin; Z79.899 Other long term (current) drug therapy

== ENCOUNTER 2018-01-23 11:16 | Inpatient (IN) | payer BC, OTHER ==
[2018-01-23] VITALS (14 sets, daily range): BP systolic 142–191; BP diastolic 70–115; PULSE 71–79; TEMP 36.6–38.6; O2SAT 89–97; BMI 28.1
[~2018-01-23] VITALS: Ht 154.9 cm; Wt 67.4 kg
[~2018-01-23 11:16] MED LIST changes: +BUSP5TAB59 PO; +DOCU100C31 PO; -LEVO75TA PO; +LISI-729 PO; +MULT1CAP53 PO; -PRLSR20 PO; +SYN88 PO
[2018-01-23] MEDS ORDERED: FAMOTIDINE 20MG/5ML IV PUSH IV STA (11:34)
[2018-01-23] MEDS ORDERED: HYDCR1CL TOP (11:57)
[2018-01-23] MEDS ORDERED: SERT-234 PO (11:57)
[2018-01-23] MEDS ORDERED: AMLO2.5T PO (11:57)
[2018-01-23] MEDS ORDERED: LISI-461 PO (11:57)
[2018-01-23] MEDS ORDERED: NYSTCRE11 TOP (11:57)
[2018-01-23] MEDS ORDERED: VALA1TAB2 PO (11:57)
[2018-01-23] MEDS ORDERED: LTRSCR45 TOP (11:57)
[2018-01-23 12:03] LABS: BASO % 0.5 %; BASO ABS # 0.03 K/uL (0-0.2); EOS % 4.6 %; EOS ABS # 0.28 K/uL (0-0.5); HEMATOCRIT 39.8 % (37-47); HEMOGLOBIN 13.2 g/dL (12.0-16.0); IG# 0.02 K/uL (0.00-0.02); LYMPH % 23.9 %; LYMPH ABS # 1.44 K/uL (1.2-3.4); MEAN CELL VOLUME 92.8 fL (80-100); MEAN CORPUSCULAR HEMOGLOBIN 30.8 pg (25-34); MEAN CORPUSCULAR HGB CONC 33.2 g/dl (32-36); MEAN PLATELET VOLUME 9.1 fL (7.4-10.4); MONO % 7.5 %; MONO ABS # 0.45 K/uL (0.11-0.59); NEUT % 63.2 %; NEUT ABS # 3.81 K/uL (1.4-6.5); PLATELET COUNT 168 K/uL (130-400); RED CELL DISTRIBUTION WIDTH CV 13.9 % (11.5-14.5); WHITE BLOOD COUNT 6.03 K/uL (4.8-10.8)
[2018-01-23 12:13] LABS: PTT PATIENT 23.7 SECONDS (21.0-31.0)
--- NOTE | 2018-01-23 12:27 | DIAGNOSTIC IMAGING REPORT ---
CHEST ONE VIEW PORTABLE CLINICAL HISTORY: 87 years-old Female presenting with ABDOMINAL PAIN/GI. TECHNIQUE: Portable upright AP view of the chest was obtained. COMPARISON: 06/28/2017. FINDINGS: Atherosclerosis of aortic arch. Cardiac silhouette mildly, allergic reaction enlarged. Prominent lung markings unchanged from prior. No focal opacity. No large effusion or pneumothorax. Osteopenia is likely present. Upper abdomen normal. IMPRESSION: 1. Cardiomegaly. Otherwise no acute cardiopulmonary disease. Electronically signed by: Agus Jenkins M.D. 01/23/2018 12:25 PM Dictated Date/Time: 01/23/2018 12:24 PM
[2018-01-23 13:05] LABS: ALBUMIN 3.7 gm/dl (3.4-5.0); AST/SGOT 19 U/L (15-37); BLOOD UREA NITROGEN 19 mg/dl (7-18); CARBON DIOXIDE 28 mmol/L (21-32); CREATININE 1.15 mg/dl (0.60-1.20); GLUCOSE 102 mg/dl (70-99); POTASSIUM 3.9 mmol/L (3.5-5.1); SODIUM 140 mmol/L (136-145); TOTAL PROTEIN 7.7 gm/dl (6.4-8.2)
[2018-01-23 13:06] LABS: ALKALINE PHOSPHATASE 113 U/L (45-117); ALT/SGPT 28 U/L (12-78); CKMB 0.6 ng/ml (0.5-3.6); LIPASE 96 U/L (73-393)
--- NOTE | 2018-01-23 13:22 | History and Physical ---
History & Physical Date & Time of Service: Jan 23, 2018 at 13:22 Chief Complaint: Allergic Reaction Primary Care Physician: Chaim Kumar History of Present Illness Source: patient, family, hospital records, fci Patient is an 87 yr female with PMH of CKD III, HTN, HLP, Hypothyroidism, Carotid stenosis, Depression, H/O basal cell carcinoma, Hearing Impairment, Spinal stenosis, GERD and other problems presents from [facility] for evaluation of a possible allergic reaction. Patient is a very poor historian secondary to hearing impairment. Most of the history id obtained from ER physician, family and medical records. As per the family, patient reported swelling of her lips and tongue which she noticed when se woke up this morning and has progressively worsened. Patient was having trouble swallowing but denies any pain with swallowing. Patient was on Lisinopril but denies any problems with it in the past. Also states that her throat feels swollen. Patient received Solu-Medrol en route to ED and Famotidine while in ED. Patient' s family reports she was started on Valtrex 3 days ago by her PCP for possible shingles. Patient family states they noticed mild swelling in her legs yesterday. Denies any history of chest pain, SOB, dizziness, cough, wheezing, fever, chills, nausea, vomiting, abdominal pain, dysuria. Past Medical/Surgical History Medical Problems: (1) Adnexal mass (2) Anxiety (3) Carotid artery disease (4) CKD (chronic kidney disease) stage 3, GFR 30-59 ml/min (5) Dyslipidemia (6) Epigastric abdominal pain (7) Fracture of right wrist (8) Hypertension (9) Hypothyroidism (10) Macular degeneration (11) Osteoporosis Surgical Problems: (1) Status post appendectomy (2) Status post cataract extraction (3) Status post tubal ligation Family History FH: cancer Not relevant Social History Smoking Status: Former Smoker Alcohol Use: none Drug Use: none Housing status: lives alone Occupational Status: retired Immunizations History of Influenza Vaccine: Yes Influenza Vaccine Date: Aug 30, 2016 History of Tetanus Vaccine?: Yes Tetanus Immunization Date: Mar 26, 2013 History of Pneumococcal: Yes Pneumococcal Date: May 06, 2016 Allergies Coded Allergies: Latex1 -Allergic Contact Dermititis (Verified Allergy, Intermediate, ITCHING, RASH, 01/23/18) Adhesives (Verified Allergy, Unknown, ITCHING, RASH, 01/23/18) Codeine (Verified Allergy, Unknown, N/V, 01/23/18) Morphine (Unverified Allergy, Unknown, ., 01/23/18) Opioid Analgesics (Verified Allergy, Unknown, "OPIATE AGONISTS" - MORPHINE = STOMACH UPSET, 01/23/18) Sulfamethoxazole w/Trimethoprim (Verified Allergy, Unknown, RASH, 01/23/18) Home Medications Scheduled Alendronate Sodium (Alendronate Sodium), 35 MG PO WK Amlodipine (Norvasc), 2.5 MG PO DAILY Aspirin (Aspirin Chewable), 81 MG PO QDL Calcium Carbonate-Cholecalcife (Oyster Shell Calcium Plus 500-200 mg-Unit), 1 TAB PO BID Docusate Sodium (Docusate Sodium), 100 MG PO BID Fluticasone Propionate (Nasal) (Flonase Allergy Relief), 2 SPRAY LIZET HS Gabapentin (Neurontin), 100 MG PO TID Hydrocortisone 1% (Hydrocortisone 1%), 1 APPLN TOP BID Levothyroxine Sodium (Synthroid), 88 MCG PO DAILYBB Lisinopril (Zestril), 10 MG PO BID Nystatin (Topical) (Nystop), 1 APPLN TOP BID Nystatin/Triamcinolone (Mycogen || ), 1 APPLN TOP BID Ocuvite Preservision (Ocuvite Preservision), 1 TAB PO BID Pantoprazole (Protonix), 40 MG PO QAM Senna/Docusate Sod (Senokot S), 1 TAB PO QDL Sertraline (Zoloft), 100 MG PO HS [[facility]], 1 CAP PO QAM Scheduled PRN Acetaminophen Tab (Tylenol), 650 MG PO Q8 PRN for Mild Pain Alum & Mag Hydrox-Simethicone (Antacid Advanced 400-400-40 mg/5Ml), 30 ML PO Q4H PRN for GERD Betamethasone/Clotrimazole (Clotrimazole/Betameth Crm 45 Gm), 1 APPLN TOP BID PRN for FOR SHINGLES Bisacodyl (Bisac-Evac), 10 MG KS DAILY PRN for IF NOT B.M. IN LAST 48HRS Lorazepam (Ativan), 0.5 MG PO BID PRN for Anxiety Magnesium Hydroxide (Milk Of Magnesia), 30 ML PO DAILY PRN for IF NO B.M. IN LAST 24HRS Polyethylene Glycol 3350 (Miralax), 17 GM PO QDL PRN for Constipation Tramadol (Ultram), 50 MG PO HS PRN for Pain Tramadol (Ultram), 50 MG PO Q6H PRN for Pain Valacyclovir Hcl (Valtrex), 1,000 MG PO TID PRN for SHINGLES Review of Systems See HPI for pertinent positives & negatives. A total of 10 systems reviewed and were otherwise negative. Physical Exam Vital Signs Date Time Temp Pulse Resp B/P (MAP) Pulse Ox O2 Delivery O2 Flow Rate FiO2 01/23/18 13:08 66 177/84 94 Nasal Cannula 2.0 01/23/18 12:10 68 01/23/18 12:00 70 187/89 94 Nasal Cannula 2.0 01/23/18 11:35 67 182/86 97 Nasal Cannula 2.0 01/23/18 11:29 36.9 73 200/95 96 Nasal Cannula 2.0 01/23/18 11:26 Nasal Cannula 2.0 96 General Appearance: WD/WN, no apparent distress Head: normocephalic, atraumatic Eyes: normal inspection, PERRL, EOMI ENT: normal ENT inspection, + pertinent finding (Hearing impairment, Tongue swelling) Neck: supple, trachea midline Respiratory/Chest: chest non-tender, lungs clear, normal breath sounds, no respiratory distress, no accessory muscle use Cardiovascular: regular rate, rhythm, no murmur Abdomen/GI: normal bowel sounds, non tender, soft Back: normal inspection Extremities/Musculoskelatal: normal inspection, + pedal edema (1+ b/l ) 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, no motor/sensory deficits, alert, normal mood/affect, oriented x 3 Skin: normal color, warm/dry, + pertinent finding (Seborrhic Keratosis) Diagnostics Laboratory Results Results Past 24 Hours Test 01/23/18 11:34 01/23/18 11:41 01/23/18 11:55 Range/Units Creatine Kinase MB Ratio 0-3.0 Urine Color YELLOW Urine Appearance CLEAR CLEAR Urine pH 8.5 4.5-7.5 Urine Specific [place] 1.007 1.000-1.030 Urine Protein NEG NEG Urine Glucose (UA) NEG NEG Urine Ketones NEG NEG Urine Occult Blood NEG NEG Urine Nitrite NEG NEG Urine Bilirubin NEG NEG Urine Urobilinogen NEG NEG Urine Leukocyte Esterase NEG NEG White Blood Count 6.03 4.8-10.8 K/uL Red Blood Count 4.29 4.2-5.4 M/uL Hemoglobin 13.2 12.0-16.0 g/dL Hematocrit 39.8 37-47 % Mean Corpuscular Volume 92.8 80-100 fL Mean Corpuscular Hemoglobin 30.8 25-34 pg Mean Corpuscular Hemoglobin Concent 33.2 32-36 g/dl Platelet Count 168 130-400 K/uL Mean Platelet Volume 9.1 7.4-10.4 fL Neutrophils (%) (Auto) 63.2 % Lymphocytes (%) (Auto) 23.9 % Monocytes (%) (Auto) 7.5 % Eosinophils (%) (Auto) 4.6 % Basophils (%) (Auto) 0.5 % Neutrophils # (Auto) 3.81 1.4-6.5 K/uL Lymphocytes # (Auto) 1.44 1.2-3.4 K/uL Monocytes # (Auto) 0.45 0.11-0.59 K/uL Eosinophils # (Auto) 0.28 0-0.5 K/uL Basophils # (Auto) 0.03 0-0.2 K/uL RDW Standard Deviation 47.0 36.4-46.3 fL RDW Coefficient of Variation 13.9 11.5-14.5 % Immature Granulocyte % (Auto) 0.3 % Immature Granulocyte # (Auto) 0.02 0.00-0.02 K/uL Prothrombin Time 10.2 9.0-12.0 SECONDS Prothromb Time International Ratio 1.0 0.9-1.1 Activated Partial Thromboplast Time 23.7 21.0-31.0 SECONDS Partial Thromboplastin Ratio 0.9 Sodium Level 140 136-145 mmol/L Potassium Level 3.9 3.5-5.1 mmol/L Chloride Level 104 98-107 mmol/L Carbon Dioxide Level 28 21-32 mmol/L Anion Gap 8.0 3-11 mmol/L Blood Urea Nitrogen 19 7-18 mg/dl Creatinine 1.15 0.60-1.20 mg/dl Est Creatinine Clear Calc Drug Dose 29.5 ml/min Estimated GFR () 48.9 Estimated GFR (Non- 42.2 BUN/Creatinine Ratio 16.5 10-20 Random Glucose 102 70-99 mg/dl Calcium Level 9.0 8.5-10.1 mg/dl Total Bilirubin 0.3 0.2-1 mg/dl Direct Bilirubin < 0.1 0-0.2 mg/dl Aspartate Amino Transf (AST/SGOT) 19 15-37 U/L Alanine Aminotransferase (ALT/SGPT) 28 12-78 U/L Alkaline Phosphatase 113 45-117 U/L Total Creatine Kinase 80 26-192 U/L Creatine Kinase MB 0.6 0.5-3.6 ng/ml Troponin I < 0.015 0-0.045 ng/ml Total Protein 7.7 6.4-8.2 gm/dl Albumin 3.7 3.4-5.0 gm/dl Lipase 96 73-393 U/L Diagnostic Radiology CXR: Cardiomegaly. Otherwise no acute cardiopulmonary disease. EKG EKG: NSR, Non specific ST changes Impression Assessment and Plan Angioedema: Likely secondary to Lisinopril Admit in ICU for close monitoring of airway DC lisinopril Gentle IV fluids IV Solu-Medrol, IV famotidine, Benadryl Speech and swallow eval FFP ordered Oxygen support PRN Hold Valtrex for now Clinical Lab Clerk consulted Hypertensive Urgency: Resume home meds Hydralazine PRN CKD III: Cr at baseline Monitor renal function Hypothyroidism: Check TSH Continue levothyroxine Depression: Continue Zoloft GERD: Hold PPI Patient on Pepcid DVT Px; Heparin SQ Code Status: Full Code Disposition: Expect to discharge her back to [facility] when stable Resuscitation Status VTE Prophylaxis Will order VTE Prophylaxis: Yes
--- NOTE | 2018-01-23 13:50 | EMERGENCY ROOM VISIT NOTE ---
History Report prepared by León: Sara Franco Under the Supervision of: Raquel MontillaO. 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 The patient states that she started feeling this way this morning when she woke up. She reports tingling in her mouth. She denies eating anything unusual. The patient states that her tongue and her throat feel swollen. She was sent to the ED via ambulance for further evaluation and received Benadryl and Solu-Medrol en route. The patient denies any abdominal pain. She was started on Valtrex 1 week ago for shingles. 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 A total of 10 systems reviewed and were otherwise negative. Past Medical & Surgical Medical Problems: (1) Adnexal mass (2) Carotid artery disease (3) CKD (chronic kidney disease) stage 3, GFR 30-59 ml/min (4) Dyslipidemia (5) Fracture of right wrist (6) Hypertension (7) Hypothyroidism (8) Macular degeneration (9) Osteoporosis Surgical Problems: (1) Status post appendectomy (2) Status post cataract extraction (3) Status post tubal ligation Family History FH: cancer Social History Smoking Status: Never Smoker Alcohol Use: none Drug Use: none Housing Status: senior living Occupation Status: retired Current/Historical Medications Scheduled Alendronate Sodium (Alendronate Sodium), 35 MG PO WK Amlodipine (Norvasc), 2.5 MG PO DAILY Aspirin (Aspirin Chewable), 81 MG PO QDL Calcium Carbonate-Cholecalcife (Oyster Shell Calcium Plus 500-200 mg-Unit), 1 TAB PO BID Docusate Sodium (Docusate Sodium), 100 MG PO BID Fluticasone Propionate (Nasal) (Flonase Allergy Relief), 2 SPRAY LIZET HS Gabapentin (Neurontin), 100 MG PO TID Hydrocortisone 1% (Hydrocortisone 1%), 1 APPLN TOP BID Levothyroxine Sodium (Synthroid), 88 MCG PO DAILYBB Lisinopril (Zestril), 10 MG PO BID Nystatin (Topical) (Nystop), 1 APPLN TOP BID Nystatin/Triamcinolone (Mycogen || ), 1 APPLN TOP BID Ocuvite Preservision (Ocuvite Preservision), 1 TAB PO BID Pantoprazole (Protonix), 40 MG PO QAM Senna/Docusate Sod (Senokot S), 1 TAB PO QDL Sertraline (Zoloft), 100 MG PO HS [[facility]], 1 CAP PO QAM Scheduled PRN Acetaminophen Tab (Tylenol), 650 MG PO Q8 PRN for Mild Pain Alum & Mag Hydrox-Simethicone (Antacid Advanced 400-400-40 mg/5Ml), 30 ML PO Q4H PRN for GERD Betamethasone/Clotrimazole (Clotrimazole/Betameth Crm 45 Gm), 1 APPLN TOP BID PRN for FOR SHINGLES Bisacodyl (Bisac-Evac), 10 MG AL DAILY PRN for IF NOT B.M. IN LAST 48HRS Lorazepam (Ativan), 0.5 MG PO BID PRN for Anxiety Magnesium Hydroxide (Milk Of Magnesia), 30 ML PO DAILY PRN for IF NO B.M. IN LAST 24HRS Polyethylene Glycol 3350 (Miralax), 17 GM PO QDL PRN for Constipation Tramadol (Ultram), 50 MG PO HS PRN for Pain Tramadol (Ultram), 50 MG PO Q6H PRN for Pain Valacyclovir Hcl (Valtrex), 1,000 MG PO TID PRN for SHINGLES Allergies Coded Allergies: Latex1 -Allergic Contact Dermititis (Verified Allergy, Intermediate, ITCHING, RASH, 01/23/18) Adhesives (Verified Allergy, Unknown, ITCHING, RASH, 01/23/18) Codeine (Verified Allergy, Unknown, N/V, 01/23/18) Morphine (Unverified Allergy, Unknown, ., 01/23/18) Opioid Analgesics (Verified Allergy, Unknown, "OPIATE AGONISTS" - MORPHINE = STOMACH UPSET, 01/23/18) Sulfamethoxazole w/Trimethoprim (Verified Allergy, Unknown, RASH, 01/23/18) Physical Exam Vital Signs Date Time Temp Pulse Resp B/P (MAP) Pulse Ox O2 Delivery O2 Flow Rate FiO2 01/23/18 14:34 37.0 74 16 175/79 93 2.0 01/23/18 14:30 75 170/93 95 Nasal Cannula 2.0 01/23/18 14:29 37.1 74 16 170/73 95 2.0 01/23/18 14:08 71 187/83 96 Nasal Cannula 2.0 01/23/18 13:08 66 177/84 94 Nasal Cannula 2.0 01/23/18 12:10 68 01/23/18 12:00 70 187/89 94 Nasal Cannula 2.0 01/23/18 11:35 67 182/86 97 Nasal Cannula 2.0 01/23/18 11:29 36.9 73 200/95 96 Nasal Cannula 2.0 01/23/18 11:26 Nasal Cannula 2.0 96 Physical Exam GENERAL: Patient is awake, alert, and in no acute distress. Patient is resting comfortably and showing no signs of anxiety EYES: The conjunctivae are clear. The pupils are round and reactive. EARS, NOSE, MOUTH AND THROAT: The nose is without any evidence of any deformity. Mucous membranes are moist tongue is midline. Significant angioedema to the lower lip as well as the tongue including the posterior tongue. There does not appear to be involvement of the posterior oropharynx. NECK: The neck is nontender and supple. RESPIRATORY: Normal respiratory effort is noted there is no evidence of wheezing rhonchi or rales CARDIOVASCULAR: Regular rate and rhythm noted there no murmurs rubs or gallops normal S1 normal S2 GASTROINTESTINAL: The abdomen is soft. Bowel sounds are present in all quadrants. Abdomen is nontender MUSCULOSKELETAL/EXTREMITIES: There is no evidence of gross deformity full range of motion is noted in the hips and shoulders SKIN: There is trace pedal edema bilaterally. There is no obvious evidence of any rash. There are no petechiae, pallor or cyanosis noted. NEUROLOGIC: Patient is awake alert and oriented x3 Medical Decision & Procedures ER Provider Diagnostic Interpretation: Radiology results as stated below per my review and radiologist interpretation: CHEST ONE VIEW PORTABLE CLINICAL HISTORY: 87 years-old Female presenting with ABDOMINAL PAIN/GI. TECHNIQUE: Portable upright AP view of the chest was obtained. COMPARISON: 06/28/2017. FINDINGS: Atherosclerosis of aortic arch. Cardiac silhouette mildly, allergic reaction enlarged. Prominent lung markings unchanged from prior. No focal opacity. No large effusion or pneumothorax. Osteopenia is likely present. Upper abdomen normal. IMPRESSION: 1. Cardiomegaly. Otherwise no acute cardiopulmonary disease. Electronically signed by: Agus Jenkins M.D. 01/23/2018 12:25 PM Dictated Date/Time: 01/23/2018 12:24 PM Laboratory Results 01/23/18 11:55 Red Blood Count 4.29, Mean Corpuscular Volume 92.8, Mean Corpuscular Hemoglobin 30.8, Mean Corpuscular Hemoglobin Concent 33.2, Mean Platelet Volume 9.1, Neutrophils (%) (Auto) 63.2, Lymphocytes (%) (Auto) 23.9, Monocytes (%) (Auto) 7.5, Eosinophils (%) (Auto) 4.6, Basophils (%) (Auto) 0.5, Neutrophils # (Auto) 3.81, Lymphocytes # (Auto) 1.44, Monocytes # (Auto) 0.45, Eosinophils # (Auto) 0.28, Basophils # (Auto) 0.03 01/23/18 11:55 Test 01/23/18 11:34 01/23/18 11:41 01/23/18 11:55 Creatine Kinase MB Ratio (0-3.0) Urine Color YELLOW Urine Appearance CLEAR (CLEAR) Urine pH 8.5 (4.5-7.5) Urine Specific [place] 1.007 (1.000-1.030) Urine Protein NEG (NEG) Urine Glucose (UA) NEG (NEG) Urine Ketones NEG (NEG) Urine Occult Blood NEG (NEG) Urine Nitrite NEG (NEG) Urine Bilirubin NEG (NEG) Urine Urobilinogen NEG (NEG) Urine Leukocyte Esterase NEG (NEG) White Blood Count 6.03 K/uL (4.8-10.8) Red Blood Count 4.29 M/uL (4.2-5.4) Hemoglobin 13.2 g/dL (12.0-16.0) Hematocrit 39.8 % (37-47) Mean Corpuscular Volume 92.8 fL (80-100) Mean Corpuscular Hemoglobin 30.8 pg (25-34) Mean Corpuscular Hemoglobin Concent 33.2 g/dl (32-36) Platelet Count 168 K/uL (130-400) Mean Platelet Volume 9.1 fL (7.4-10.4) Neutrophils (%) (Auto) 63.2 % Lymphocytes (%) (Auto) 23.9 % Monocytes (%) (Auto) 7.5 % Eosinophils (%) (Auto) 4.6 % Basophils (%) (Auto) 0.5 % Neutrophils # (Auto) 3.81 K/uL (1.4-6.5) Lymphocytes # (Auto) 1.44 K/uL (1.2-3.4) Monocytes # (Auto) 0.45 K/uL (0.11-0.59) Eosinophils # (Auto) 0.28 K/uL (0-0.5) Basophils # (Auto) 0.03 K/uL (0-0.2) RDW Standard Deviation 47.0 fL (36.4-46.3) RDW Coefficient of Variation 13.9 % (11.5-14.5) Immature Granulocyte % (Auto) 0.3 % Immature Granulocyte # (Auto) 0.02 K/uL (0.00-0.02) Prothrombin Time 10.2 SECONDS (9.0-12.0) Prothromb Time International Ratio 1.0 (0.9-1.1) Activated Partial Thromboplast Time 23.7 SECONDS (21.0-31.0) Partial Thromboplastin Ratio 0.9 Anion Gap 8.0 mmol/L (3-11) Est Creatinine Clear Calc Drug Dose 29.5 ml/min Estimated GFR () 48.9 Estimated GFR (Non- 42.2 BUN/Creatinine Ratio 16.5 (10-20) Calcium Level 9.0 mg/dl (8.5-10.1) Total Bilirubin 0.3 mg/dl (0.2-1) Direct Bilirubin < 0.1 mg/dl (0-0.2) Aspartate Amino Transf (AST/SGOT) 19 U/L (15-37) Alanine Aminotransferase (ALT/SGPT) 28 U/L (12-78) Alkaline Phosphatase 113 U/L (45-117) Total Creatine Kinase 80 U/L (26-192) Creatine Kinase MB 0.6 ng/ml (0.5-3.6) Troponin I < 0.015 ng/ml (0-0.045) Total Protein 7.7 gm/dl (6.4-8.2) Albumin 3.7 gm/dl (3.4-5.0) Lipase 96 U/L (73-393) Laboratory results per my review. Medications Administered Medications (Trade) Dose Ordered Sig/Alirio Route Start Time Stop Time Status Last Admin Dose Admin Famotidine (Pepcid 20mg Iv Push) 20 mg ONE STAT IV 01/23/18 11:34 01/23/18 11:36 DC 01/23/18 11:44 20 MG ECG Per My Interpretation Indication: other Rate (beats per minute): 69 Rhythm: normal sinus Findings: no acute ischemic change, other (no PVCs) Comparison ECG Date: 06/28/17 Change: no significant change ED Course 1127: The patient was evaluated in room C7. A complete history and physical examination were performed. 1134: Famotidine 20 mg IV 1226: I reassessed the patient at this time. She is resting comfortably. I discussed the results and treatment plan with the patient. I obtained consent for blood. I answered all pertaining questions that she had. She expressed understanding and verbalized agreement. 1302: I spoke with MIGDALIA Marvin. We discussed the patient's case. [facility] 1308: I updated the patient. She is doing well. Medical Decision Differential diagnosis: Etiologies such as allergic reaction, anaphylaxis, urticaria, Reynolds-Devon syndrome, toxic epidermal necrolysis, erythema multiforme, cellulitis, as well as others were entertained. Nursing notes reviewed. Additional history is obtained from the patient's senior living documentation. Additional history is obtained from the prehospital personnel. The patient is an 87-year-old female who presented to the emergency department for swelling in her lower lip. She was also found to have some swelling on her tongue which was including the posterior aspect of her tongue. The patient currently does take an ZONIA inhibitor but was also started on an antiviral medication for presumed shingles. The patient was treated with IV steroids and IV Benadryl prior to arrival. She was also treated with IV H2 blockers in the ER. Because of the severity of symptoms she was also given fresh frozen plasma. I discussed patient's laboratory and radiographic studies with her. Because of the possibility that this could become worse and become an acute airway emergency I discussed her case with the on-call [facility] hospitalist group. They have agreed to evaluate the patient in the emergency department for further management and disposition. Medication Reconcilliation Current Medication List: was personally reviewed by me Blood Pressure Screening Patient's blood pressure: Elevated blood pressure Blood pressure disposition: Referred to PCP Consults Time Called: 1300 Consulting Physician: MIGDALIA Marvin Returned Call: 1302 I spoke with MIGDALIA Marvin. We discussed the patient's case. [facility]. Impression Primary Impression: Angioedema Critical Care I have personally spent greater than 40 minutes of critical care time in the direct management of this patient. This includes bedside care, interpretation of diagnostic studies, and testing, discussion with consultants, patient, and family members, and other required patient management activities. This 40 minutes is in excess of all separately billable procedures. Scribe Attestation The scribe's documentation has been prepared under my direction and personally reviewed by me in its entirety. I confirm that the note above accurately reflects all work, treatment, procedures, and medical decision making performed by me. Departure Information Dispostion Being Evaluated By Hospitalist Referrals JENA JURADO (PCP) Patient Instructions My [facility] Problem Qualifiers Primary Impression: Angioedema Encounter type: initial encounter Qualified Codes: T78.3XXA - Angioneurotic edema, initial encounter
[2018-01-23] MEDS ORDERED: ONDANSETRON INJ 2 MG/ML 2 ML VIAL IV PRN (14:15)
[2018-01-23] MEDS ORDERED: ALBUT/IPRATROP 3MG/0.5MG NEB 3 ML VIAL INH PRN (14:15)
[2018-01-23] MEDS ORDERED: ICU PROTOCOL FOR HYPERGLYCEMIA PRN (14:15)
[2018-01-23] MEDS ORDERED: LORAZEPAM 0.5 MG TAB PO PRN (14:30)
[2018-01-23] MEDS ORDERED: MAGNESIUM HYDROXIDE SUSP 30 ML UDC PO PRN (14:30)
[2018-01-23] MEDS ORDERED: POLYETHYLENE (MIRALAX) 17 GM PACK PO PRN (14:30)
[2018-01-23] MEDS ORDERED: CLOTRIMAZOLE/BETAMETHASONE CR 15 GM TUBE EXT PRN (14:30)
[2018-01-23] MEDS ORDERED: SODIUM CHLORIDE 0.9% 1000ML 1,000 ML IV ONE (15:15)
[2018-01-23] MEDS: METHYLPREDNISOLONE IV 40 MG in SYRINGE 0 ML IV SCH ×2 (16:25→23:41)
--- NOTE | 2018-01-23 17:56 | Critical Care Consultation ---
Critical Care Consultation Date of Consultation: Jan 23, 2018. Attending Physician: Anshul Victor M.D. Reason for Consultation: Angioedema. History of Present Illness Dear Dr. Horn: Thank you for your kind referral of Mrs. Betancourt to critical care service. This is 87-year-old female history of multiple allergies including medications and environmental such as Lasix and adhesives, history of hypertension, chronic kidney disease, coronary artery disease, has been treated with ZONIA inhibitors in the past, recently the patient has had dose being adjusted according to her by her primary care physician. The patient for the past week has been feeling difficulty phonating as well as difficulty swallowing safely. Up until yesterday when she woke up today she felt her tongue is still swollen and she was unable to verbalize. The patient denies any odynophagia, no pain in the throat with swallowing, denies any cough no sputum production. She did not have any difficulty maintaining her airways. However her tongue was swollen and presented to the ER with the above complaint. Due to the diagnosis of angioedema, the patient was treated aggressively with steroids, H1 blockers, and FFP. The patient did not have any respiratory distress according to her. No desaturation was reported. She was placed on oxygen and transferred to the ICU for further management. The patient is a poor historian given her age however she denies any focal weakness, no verbal disturbances at the moment and there is no visual disturbances either. No history of CVA as well. Family History FH: cancer Social History Smoking Status: Never Smoker Alcohol Use: none Drug Use: none Housing Status: custodial Occupation Status: retired Allergies Coded Allergies: Latex1 -Allergic Contact Dermititis (Verified Allergy, Intermediate, ITCHING, RASH, 01/23/18) Adhesives (Verified Allergy, Unknown, ITCHING, RASH, 01/23/18) Codeine (Verified Allergy, Unknown, N/V, 01/23/18) Morphine (Unverified Allergy, Unknown, ., 01/23/18) Opioid Analgesics (Verified Allergy, Unknown, "OPIATE AGONISTS" - MORPHINE = STOMACH UPSET, 01/23/18) Sulfamethoxazole w/Trimethoprim (Verified Allergy, Unknown, RASH, 01/23/18) Home Medications Scheduled Alendronate Sodium (Alendronate Sodium), 35 MG PO WK Amlodipine (Norvasc), 2.5 MG PO DAILY Aspirin (Aspirin Chewable), 81 MG PO QDL Calcium Carbonate-Cholecalcife (Oyster Shell Calcium Plus 500-200 mg-Unit), 1 TAB PO BID Docusate Sodium (Docusate Sodium), 100 MG PO BID Fluticasone Propionate (Nasal) (Flonase Allergy Relief), 2 SPRAY LIZET HS Gabapentin (Neurontin), 100 MG PO TID Hydrocortisone 1% (Hydrocortisone 1%), 1 APPLN TOP BID Levothyroxine Sodium (Synthroid), 88 MCG PO DAILYBB Lisinopril (Zestril), 10 MG PO BID Nystatin (Topical) (Nystop), 1 APPLN TOP BID Nystatin/Triamcinolone (Mycogen || ), 1 APPLN TOP BID Ocuvite Preservision (Ocuvite Preservision), 1 TAB PO BID Pantoprazole (Protonix), 40 MG PO QAM Senna/Docusate Sod (Senokot S), 1 TAB PO QDL Sertraline (Zoloft), 100 MG PO HS [[facility]], 1 CAP PO QAM Scheduled PRN Acetaminophen Tab (Tylenol), 650 MG PO Q8 PRN for Mild Pain Alum & Mag Hydrox-Simethicone (Antacid Advanced 400-400-40 mg/5Ml), 30 ML PO Q4H PRN for GERD Betamethasone/Clotrimazole (Clotrimazole/Betameth Crm 45 Gm), 1 APPLN TOP BID PRN for FOR SHINGLES Bisacodyl (Bisac-Evac), 10 MG VA DAILY PRN for IF NOT B.M. IN LAST 48HRS Lorazepam (Ativan), 0.5 MG PO BID PRN for Anxiety Magnesium Hydroxide (Milk Of Magnesia), 30 ML PO DAILY PRN for IF NO B.M. IN LAST 24HRS Polyethylene Glycol 3350 (Miralax), 17 GM PO QDL PRN for Constipation Tramadol (Ultram), 50 MG PO HS PRN for Pain Tramadol (Ultram), 50 MG PO Q6H PRN for Pain Valacyclovir Hcl (Valtrex), 1,000 MG PO TID PRN for SHINGLES Current Inpatient Medications Current Inpatient Medications Medications (Trade) Dose Ordered Sig/Alirio Route Start Time Stop Time Status Last Admin Dose Admin Heparin Sodium (Porcine) (Heparin Sq 5000 Unit/0.5ml) 5,000 unit Q8H SQ 01/23/18 22:00 02/22/18 21:59 Sodium Chloride 1,000 ml @ 50 mls/hr Q20H ONCE IV 01/23/18 15:15 01/24/18 11:14 Acetaminophen (Tylenol Tab) 650 mg Q4H PRN PO 01/23/18 14:15 02/22/18 14:14 Ondansetron HCl (Zofran Inj) 4 mg Q6H PRN IV 01/23/18 14:15 02/22/18 14:14 Albuterol/ Ipratropium (Duoneb) 3 ml QID PRN INH 01/23/18 14:15 02/22/18 14:14 Miscellaneous Information (Icu Protocol For Hyperglycemia) 1 ea PRN PRN N/A 01/23/18 14:15 01/25/18 14:14 Hydralazine HCl (HydrALAZINE INJ) 10 mg Q6H PRN IV. 01/23/18 14:15 02/22/18 14:14 Famotidine 20 mg/ Syringe 5 ml @ 2.5 mls/min Q12H IV 01/23/18 20:00 02/22/18 19:59 Methylprednisolone Sodium Succinate 40 mg/Syringe 0.64 ml @ 1.5 mls/min Q8H IV 01/23/18 16:00 02/22/18 15:59 01/23/18 16:25 1.5 MLS/MIN Diphenhydramine HCl (Benadryl Syrup) 50 mg Q8 PO 01/23/18 16:00 02/22/18 15:59 01/23/18 16:25 50 MG Amlodipine Besylate (Norvasc Tab) 2.5 mg DAILY PO 01/24/18 09:00 02/23/18 08:59 Aspirin (Aspirin Chew) 81 mg QDL PO 01/24/18 11:00 02/23/18 10:59 Betamethasone/ Clotrimazole (Lotrisone Crm) 1 appln BID PRN EXT 01/23/18 14:30 02/22/18 14:29 Docusate Sodium (coLACE CAP) 100 mg BID PO 01/23/18 21:00 02/22/18 20:59 Fluticasone Propionate (Flonase Nasal [place]) 2 sprays HS LIZET 01/23/18 21:00 02/22/18 20:59 Gabapentin (Neurontin Cap) 100 mg TID PO 01/23/18 21:00 02/22/18 20:59 Levothyroxine Sodium (Synthroid Tab) 88 mcg DAILYBB PO 01/24/18 06:00 02/23/18 06:59 Lorazepam (Ativan Tab) 0.5 mg BID PRN PO 01/23/18 14:30 02/22/18 14:29 Magnesium Hydroxide (Milk Of Magnesia Susp) 30 ml DAILY PRN PO 01/23/18 14:30 02/22/18 14:29 Senna/Docusate Sodium (Senokot S Tab) 1 tab QDL PO 01/24/18 11:00 02/23/18 10:59 Sertraline HCl (Zoloft Tab) 100 mg HS PO 01/23/18 21:00 02/22/18 20:59 Tramadol HCl (Ultram Tab) 50 mg Q6H PRN PO 01/23/18 14:30 02/22/18 14:29 Polyethylene (Miralax Powder Packet) 17 gm QDL PRN PO 01/23/18 14:30 02/22/18 14:29 Review of Systems Constitutional: No fever, No chills, No sweats, No weight loss, No weakness, No fatigue, No problem reported Eyes: No worsening of vision, No eye pain, No redness, No discharge, No diplopia, No problem reported ENT: + trouble swallowing, + problem reported (Tongue swelling) Respiratory: + cough Cardiovascular: No chest pain, No orthopnea, No PND, No edema, No claudication , No palpitations, No problem reported Musculoskeletal: No joint pain, No muscle pain, No swelling, No calf pain, No problem reported Neurologic: No memory loss, No paralysis, No weakness, No numbness/tingling, No vertigo, No balance problems, No problem reported Endocrine: No fatigue, No excessive thirst, No excessive urination, No problem reported Integumentary: No rash, No itch, No new/changing skin lesions, No color change , No bleeding, No problem reported Allergic / Immunologic: + problem reported (Multiple environmental allergies) Physical Exam Date Time Temp Pulse Resp B/P (MAP) Pulse Ox O2 Delivery O2 Flow Rate FiO2 01/23/18 16:01 36.6 74 18 181/83 (115) 94 Nasal Cannula 2.0 01/23/18 15:31 79 180/87 (104) 89 01/23/18 15:30 38.6 96 Nasal Cannula 2.0 01/23/18 15:25 76 191/99 (140) 92 01/23/18 15:08 75 145/115 (124) 97 01/23/18 15:04 71 174/85 93 01/23/18 14:46 37.1 71 18 174/85 94 2.0 01/23/18 14:34 37.0 74 16 175/79 93 2.0 01/23/18 14:30 75 170/93 95 Nasal Cannula 2.0 01/23/18 14:29 37.1 74 16 170/73 95 2.0 01/23/18 14:08 71 187/83 96 Nasal Cannula 2.0 01/23/18 13:08 66 177/84 94 Nasal Cannula 2.0 01/23/18 12:10 68 01/23/18 12:00 70 187/89 94 Nasal Cannula 2.0 01/23/18 11:35 67 182/86 97 Nasal Cannula 2.0 01/23/18 11:29 36.9 73 200/95 96 Nasal Cannula 2.0 01/23/18 11:26 Nasal Cannula 2.0 96 General Appearance: well-appearing, no apparent distress Eyes: PERRLA, EOMI ENT: other (Tongue swelling was noted, the patient does have garbled speech however she was able to phonate, answer questions, able to swallow) Neck: no tenderness Respiratory: breath sounds normal, clear to auscultation Cardiovasular: regular rate/rhythm, normal S1S2, no M/G/R, no murmur, no gallop Abdomen: non tender, no rebound, no masses, no guarding Back: normal inspection Upper Extremities: edema Neuro: alert, oriented x 3, normal motor exam, normal sensation Psychiatric: normal affect Laboratory Results Last 24 Hours Test 01/23/18 11:34 01/23/18 11:41 01/23/18 11:55 Creatine Kinase MB Ratio Urine Color YELLOW Urine Appearance CLEAR Urine pH 8.5 Urine Specific [place] 1.007 Urine Protein NEG Urine Glucose (UA) NEG Urine Ketones NEG Urine Occult Blood NEG Urine Nitrite NEG Urine Bilirubin NEG Urine Urobilinogen NEG Urine Leukocyte Esterase NEG White Blood Count 6.03 K/uL Red Blood Count 4.29 M/uL Hemoglobin 13.2 g/dL Hematocrit 39.8 % Mean Corpuscular Volume 92.8 fL Mean Corpuscular Hemoglobin 30.8 pg Mean Corpuscular Hemoglobin Concent 33.2 g/dl Platelet Count 168 K/uL Mean Platelet Volume 9.1 fL Neutrophils (%) (Auto) 63.2 % Lymphocytes (%) (Auto) 23.9 % Monocytes (%) (Auto) 7.5 % Eosinophils (%) (Auto) 4.6 % Basophils (%) (Auto) 0.5 % Neutrophils # (Auto) 3.81 K/uL Lymphocytes # (Auto) 1.44 K/uL Monocytes # (Auto) 0.45 K/uL Eosinophils # (Auto) 0.28 K/uL Basophils # (Auto) 0.03 K/uL RDW Standard Deviation 47.0 fL RDW Coefficient of Variation 13.9 % Immature Granulocyte % (Auto) 0.3 % Immature Granulocyte # (Auto) 0.02 K/uL Prothrombin Time 10.2 SECONDS Prothromb Time International Ratio 1.0 Activated Partial Thromboplast Time 23.7 SECONDS Partial Thromboplastin Ratio 0.9 Sodium Level 140 mmol/L Potassium Level 3.9 mmol/L Chloride Level 104 mmol/L Carbon Dioxide Level 28 mmol/L Anion Gap 8.0 mmol/L Blood Urea Nitrogen 19 mg/dl Creatinine 1.15 mg/dl Est Creatinine Clear Calc Drug Dose 29.5 ml/min Estimated GFR () 48.9 Estimated GFR (Non- 42.2 BUN/Creatinine Ratio 16.5 Random Glucose 102 mg/dl Calcium Level 9.0 mg/dl Total Bilirubin 0.3 mg/dl Direct Bilirubin < 0.1 mg/dl Aspartate Amino Transf (AST/SGOT) 19 U/L Alanine Aminotransferase (ALT/SGPT) 28 U/L Alkaline Phosphatase 113 U/L Total Creatine Kinase 80 U/L Creatine Kinase MB 0.6 ng/ml Troponin I < 0.015 ng/ml Total Protein 7.7 gm/dl Albumin 3.7 gm/dl Lipase 96 U/L Diagnostic Results All her labs be reviewed personally, x-ray also been reviewed. Assessment & Plan 1. Angioedema secondary to ZONIA inhibitor. 2. History of hypertension. 3. History of chronic kidney disease. 4. History of coronary artery disease. Plan: 1. The angioedema appear to be mild at this point. No need for additional FFP. 2. The patient tolerating controlling her airways. 3. Obtain swallow eval. 4. Continue Solu-Medrol and H1 and H2 blockers. 5. Oral intake if cleared by swallow team. 6. We will monitor in the ICU for signs of airway compromise. Currently none. Case discussed with the patient, the staff, and details. Critical care time spent with the patient was 35 minutes.
[2018-01-23] MEDS: FAMOTIDINE IV INJ 20 MG in SYRINGE 3 ML IV SCH (19:16)
[2018-01-23] MEDS: ACETAMINOPHEN 325 MG TAB PO PRN (19:17)
[2018-01-23] MEDS: SERTRALINE HCL 100 MG TAB PO SCH (20:39)
[2018-01-23] MEDS: GABAPENTIN 100 MG CAP PO SCH (20:40)
[2018-01-23] MEDS: DOCUSATE SODIUM 100 MG CAP PO SCH (20:40)
[2018-01-23] MEDS: FLUTICASONE PROPIONATE NA SPR 16 GM BTL NAE SCH (20:41)
[2018-01-23] MEDS ORDERED: NURSING VERBAL MED ORDER ONE (21:45)
[2018-01-23] MEDS ORDERED: GLUCOSE 10 TABS/TUBE PO PRN (22:00)
[2018-01-23] MEDS ORDERED: GLUCAGON FOR INJ 1 MG VIAL SQ PRN (22:00)
[2018-01-23] MEDS ORDERED: DEXTROSE 50% 50 ML SYR IV PRN (22:00)
[2018-01-23] MEDS ORDERED: GLUCOSE 40% GEL 15 GM TUBE PO PRN (22:00)
[2018-01-23] MEDS: HEPARIN SOD 5000 UNIT/0.5 ML CARP SQ SCH (22:37)
[2018-01-23] MEDS: INSULIN HUMAN REGULAR SC SCH (23:50)
[2018-01-24] VITALS (17 sets, daily range): BP systolic 122–181; BP diastolic 62–88; PULSE 62–87; TEMP 36.5–37.1; O2SAT 88–96; Ht 154.9 cm; Wt 67.4 kg
[2018-01-24] MEDS ORDERED: HumuLIN-R 10 ML VIAL SC SCH
[2018-01-24] MEDS: INSULIN HUMAN REGULAR SC SCH (05:25)
[2018-01-24 05:34] LABS: HEMOGLOBIN 13.5 g/dL (12.0-16.0); MEAN CELL VOLUME 90.7 fL (80-100); MEAN CORPUSCULAR HEMOGLOBIN 31.4 pg (25-34); MEAN CORPUSCULAR HGB CONC 34.6 g/dl (32-36); PLATELET COUNT 186 K/uL (130-400); RED CELL DISTRIBUTION WIDTH CV 13.7 % (11.5-14.5); RED CELL DISTRIBUTION WIDTH SD 45.2 fL (36.4-46.3); WHITE BLOOD COUNT 8.52 K/uL (4.8-10.8)
[2018-01-24 05:52] LABS: CALCIUM 8.8 mg/dl (8.5-10.1); CREATININE 0.95 mg/dl (0.60-1.20); POTASSIUM 3.5 mmol/L (3.5-5.1)
[2018-01-24] MEDS: LEVOTHYROXINE 88 MCG TAB PO SCH (06:10)
[2018-01-24] MEDS: HydrALAZINE HCL 20 MG/ML VIAL IV. PRN (06:11)
[2018-01-24] MEDS: HEPARIN SOD 5000 UNIT/0.5 ML CARP SQ SCH ×3 (06:13→21:15)
[2018-01-24] MEDS: TRAMADOL HCL 50 MG TAB PO PRN (08:37)
[2018-01-24] MEDS: GABAPENTIN 100 MG CAP PO SCH ×3 (08:37→21:12)
[2018-01-24] MEDS: DOCUSATE SODIUM 100 MG CAP PO SCH ×2 (08:37→21:11)
[2018-01-24] MEDS: FAMOTIDINE IV INJ 20 MG in SYRINGE 3 ML IV SCH (08:38)
[2018-01-24] MEDS ORDERED: AMLODIPINE BESYLATE 5 MG TAB PO SCH (09:00)
--- NOTE | 2018-01-24 10:21 | Critical Care Progress Note ---
Critical Care Progress Note Date of Service Jan 24, 2018. Attending Dr. Fox Subjective No events overnight, the patient chief complaint was insomnia, currently feels sleepy and she would like to be left alone and grossly. However her dysphagia has improved, speech pathology evaluated the patient and cleared her for pured diet. Her blood pressure remains on the high side. Objective Asymptomatic, review of systems was unremarkable, continue to have garbled speech. Assessment & Plan 1. Laryngeal angioedema thought to be related to ZONIA inhibitor, improving. 2. Hypertension. 3. History of hypothyroidism. 4. Mild dementia. 5. Cardiomegaly by chest x-ray, cardiac status has not been evaluated in our system. Plan: 1. I will change steroids to prednisone 40 mg p.o. daily for 5 days then stop it. 2. I will stop Benadryl. 3. Start cetirizine 10 mg p.o. daily. 4. Change Pepcid to 20 mg p.o. twice daily. And treat for 14 days along with cetirizine. 5. Appreciate swallow evaluation. Patient cleared for pured diet. 6. Increase amlodipine to 5 mg p.o. daily. 7. Obtain echocardiogram to evaluate her cardiomegaly noted on the chest x-ray. 8. Transfer the patient to regular floor when bed is available. 9. The patient remains full code per our records. Thank you for your kind referral. Data Medications: Current Inpatient Medications Medications (Trade) Dose Ordered Sig/Alirio Route Start Time Stop Time Status Last Admin Dose Admin Heparin Sodium (Porcine) (Heparin Sq 5000 Unit/0.5ml) 5,000 unit Q8H SQ 01/23/18 22:00 02/22/18 21:59 01/24/18 06:13 5,000 UNIT Sodium Chloride 1,000 ml @ 50 mls/hr Q20H ONCE IV 01/23/18 15:15 01/24/18 11:14 01/23/18 16:52 50 MLS/HR Acetaminophen (Tylenol Tab) 650 mg Q4H PRN PO 01/23/18 14:15 02/22/18 14:14 01/23/18 19:17 650 MG Ondansetron HCl (Zofran Inj) 4 mg Q6H PRN IV 01/23/18 14:15 02/22/18 14:14 Albuterol/ Ipratropium (Duoneb) 3 ml QID PRN INH 01/23/18 14:15 02/22/18 14:14 Miscellaneous Information (Icu Protocol For Hyperglycemia) 1 ea PRN PRN N/A 01/23/18 14:15 01/25/18 14:14 Hydralazine HCl (HydrALAZINE INJ) 10 mg Q6H PRN IV. 01/23/18 14:15 02/22/18 14:14 01/24/18 06:11 10 MG Aspirin (Aspirin Chew) 81 mg QDL PO 01/24/18 11:00 02/23/18 10:59 Betamethasone/ Clotrimazole (Lotrisone Crm) 1 appln BID PRN EXT 01/23/18 14:30 02/22/18 14:29 Docusate Sodium (coLACE CAP) 100 mg BID PO 01/23/18 21:00 02/22/18 20:59 01/24/18 08:37 100 MG Fluticasone Propionate (Flonase Nasal [place]) 2 sprays HS LIZET 01/23/18 21:00 02/22/18 20:59 01/23/18 20:41 2 SPRAYS Gabapentin (Neurontin Cap) 100 mg TID PO 01/23/18 21:00 02/22/18 20:59 01/24/18 08:37 100 MG Levothyroxine Sodium (Synthroid Tab) 88 mcg DAILYBB PO 01/24/18 06:00 02/23/18 06:59 01/24/18 06:10 88 MCG Magnesium Hydroxide (Milk Of Magnesia Susp) 30 ml DAILY PRN PO 01/23/18 14:30 02/22/18 14:29 Senna/Docusate Sodium (Senokot S Tab) 1 tab QDL PO 01/24/18 11:00 02/23/18 10:59 Sertraline HCl (Zoloft Tab) 100 mg HS PO 01/23/18 21:00 02/22/18 20:59 01/23/18 20:39 100 MG Tramadol HCl (Ultram Tab) 50 mg Q6H PRN PO 01/23/18 14:30 02/22/18 14:29 01/24/18 08:37 50 MG Polyethylene (Miralax Powder Packet) 17 gm QDL PRN PO 01/23/18 14:30 02/22/18 14:29 Glucose (Glucose 40% Gel) 15-30 GRAMS 15 GRAMS... UD PRN PO 01/23/18 22:00 02/22/18 21:59 Glucose (Glucose Chew Tab) 4-8 Tablets 4 Tabl... UD PRN PO 01/23/18 22:00 02/22/18 21:59 Dextrose (Dextrose 50% 50ML Syringe) 25-50ML OF 50% DW IV FOR... UD PRN IV 01/23/18 22:00 02/22/18 21:59 Glucagon (Glucagon Inj) 1 mg UD PRN SQ 01/23/18 22:00 02/22/18 21:59 Insulin Human Regular (novoLIN-R) SLIDING SCALE Q6 SC 01/24/18 00:00 02/23/18 00:00 01/23/18 23:50 2 UNITS Famotidine (Pepcid Tab) 20 mg BID PO 01/24/18 21:00 02/23/18 20:59 Prednisone (PredniSONE TAB) 40 mg DAILY PO 01/24/18 10:00 02/23/18 09:59 Cetirizine HCl (zyrTEC TAB) 10 mg DAILY PO 01/24/18 10:00 02/23/18 09:59 Amlodipine Besylate (Norvasc Tab) 5 mg DAILY PO 01/25/18 09:00 02/23/18 08:59 Vital Signs: Date Time Temp Pulse Resp B/P (MAP) Pulse Ox O2 Delivery O2 Flow Rate FiO2 01/24/18 10:01 14 161/64 (96) 96 Nasal Cannula 3.0 01/24/18 08:01 36.8 87 16 149/83 (105) 95 Nasal Cannula 3.0 01/24/18 08:00 Nasal Cannula 3.0 01/24/18 07:01 83 16 140/79 (99) 93 Nasal Cannula 3.0 01/24/18 06:00 76 14 173/86 (115) 93 Nasal Cannula 3.0 01/24/18 04:00 93 Nasal Cannula 3.0 01/24/18 04:00 36.5 78 14 163/81 (108) 93 Nasal Cannula 3.0 01/24/18 02:00 74 16 170/88 (115) 95 Nasal Cannula 3.0 01/24/18 00:01 36.5 77 16 162/85 (110) 96 Nasal Cannula 3.0 01/23/18 23:59 93 Nasal Cannula 3.0 01/23/18 22:00 76 16 157/86 (109) 93 Nasal Cannula 3.0 01/23/18 20:00 93 Nasal Cannula 3.0 01/23/18 20:00 36.6 75 16 159/86 (110) 93 Nasal Cannula 3.0 01/23/18 18:00 36.8 73 16 173/70 (104) 93 Nasal Cannula 2.0 01/23/18 17:31 74 16 142/71 (94) 94 Nasal Cannula 2.0 01/23/18 17:01 79 18 165/82 (109) 93 Nasal Cannula 2.0 01/23/18 16:01 36.6 74 18 181/83 (115) 94 Nasal Cannula 2.0 01/23/18 16:00 Nasal Cannula 2.0 01/23/18 15:31 79 180/87 (104) 89 01/23/18 15:30 38.6 96 Nasal Cannula 2.0 01/23/18 15:25 76 191/99 (140) 92 01/23/18 15:08 75 145/115 (124) 97 01/23/18 15:04 71 174/85 93 01/23/18 14:46 37.1 71 18 174/85 94 2.0 01/23/18 14:34 37.0 74 16 175/79 93 2.0 01/23/18 14:30 75 170/93 95 Nasal Cannula 2.0 01/23/18 14:29 37.1 74 16 170/73 95 2.0 01/23/18 14:08 71 187/83 96 Nasal Cannula 2.0 01/23/18 13:08 66 177/84 94 Nasal Cannula 2.0 01/23/18 12:10 68 01/23/18 12:00 70 187/89 94 Nasal Cannula 2.0 01/23/18 11:35 67 182/86 97 Nasal Cannula 2.0 01/23/18 11:29 36.9 73 200/95 96 Nasal Cannula 2.0 01/23/18 11:26 Nasal Cannula 2.0 96 Laboratory Results: Last 24 Hours Test 01/23/18 11:34 01/23/18 11:41 01/23/18 11:55 01/23/18 17:36 Creatine Kinase MB Ratio Urine Color YELLOW Urine Appearance CLEAR Urine pH 8.5 Urine Specific [place] 1.007 Urine Protein NEG Urine Glucose (UA) NEG Urine Ketones NEG Urine Occult Blood NEG Urine Nitrite NEG Urine Bilirubin NEG Urine Urobilinogen NEG Urine Leukocyte Esterase NEG White Blood Count 6.03 K/uL Red Blood Count 4.29 M/uL Hemoglobin 13.2 g/dL Hematocrit 39.8 % Mean Corpuscular Volume 92.8 fL Mean Corpuscular Hemoglobin 30.8 pg Mean Corpuscular Hemoglobin Concent 33.2 g/dl Platelet Count 168 K/uL Mean Platelet Volume 9.1 fL Neutrophils (%) (Auto) 63.2 % Lymphocytes (%) (Auto) 23.9 % Monocytes (%) (Auto) 7.5 % Eosinophils (%) (Auto) 4.6 % Basophils (%) (Auto) 0.5 % Neutrophils # (Auto) 3.81 K/uL Lymphocytes # (Auto) 1.44 K/uL Monocytes # (Auto) 0.45 K/uL Eosinophils # (Auto) 0.28 K/uL Basophils # (Auto) 0.03 K/uL RDW Standard Deviation 47.0 fL RDW Coefficient of Variation 13.9 % Immature Granulocyte % (Auto) 0.3 % Immature Granulocyte # (Auto) 0.02 K/uL Prothrombin Time 10.2 SECONDS Prothromb Time International Ratio 1.0 Activated Partial Thromboplast Time 23.7 SECONDS Partial Thromboplastin Ratio 0.9 Sodium Level 140 mmol/L Potassium Level 3.9 mmol/L Chloride Level 104 mmol/L Carbon Dioxide Level 28 mmol/L Anion Gap 8.0 mmol/L Blood Urea Nitrogen 19 mg/dl Creatinine 1.15 mg/dl Est Creatinine Clear Calc Drug Dose 29.5 ml/min Estimated GFR () 48.9 Estimated GFR (Non- 42.2 BUN/Creatinine Ratio 16.5 Random Glucose 102 mg/dl Calcium Level 9.0 mg/dl Total Bilirubin 0.3 mg/dl Direct Bilirubin < 0.1 mg/dl Aspartate Amino Transf (AST/SGOT) 19 U/L Alanine Aminotransferase (ALT/SGPT) 28 U/L Alkaline Phosphatase 113 U/L Total Creatine Kinase 80 U/L Creatine Kinase MB 0.6 ng/ml Troponin I < 0.015 ng/ml Total Protein 7.7 gm/dl Albumin 3.7 gm/dl Lipase 96 U/L Bedside Glucose 217 mg/dl Test 01/23/18 20:50 01/23/18 23:45 01/24/18 05:16 01/24/18 05:20 Bedside Glucose 154 mg/dl 185 mg/dl 135 mg/dl White Blood Count 8.52 K/uL Red Blood Count 4.30 M/uL Hemoglobin 13.5 g/dL Hematocrit 39.0 % Mean Corpuscular Volume 90.7 fL Mean Corpuscular Hemoglobin 31.4 pg Mean Corpuscular Hemoglobin Concent 34.6 g/dl RDW Standard Deviation 45.2 fL RDW Coefficient of Variation 13.7 % Platelet Count 186 K/uL Mean Platelet Volume 9.0 fL Sodium Level 138 mmol/L Potassium Level 3.5 mmol/L Chloride Level 105 mmol/L Carbon Dioxide Level 26 mmol/L Anion Gap 7.0 mmol/L Blood Urea Nitrogen 15 mg/dl Creatinine 0.95 mg/dl Est Creatinine Clear Calc Drug Dose 36.0 ml/min Estimated GFR () 61.5 Estimated GFR (Non- 53.1 BUN/Creatinine Ratio 16.4 Random Glucose 143 mg/dl Calcium Level 8.8 mg/dl Magnesium Level 2.2 mg/dl Thyroid Stimulating Hormone (TSH) 0.568 uIu/ml
[2018-01-24] MEDS ORDERED: AMLODIPINE BESYLATE 5 MG TAB PO ONE (10:30)
[2018-01-24] MEDS: CETIRIZINE HCL 10 MG TAB PO SCH (11:31)
[2018-01-24] MEDS: ASPIRIN 81 MG CHEW PO SCH (11:31)
[2018-01-24] MEDS: DOCUSATE SODIUM/SENNA 50/8.6MG TAB PO SCH (11:32)
--- NOTE | 2018-01-24 16:11 | ECHOCARDIOGRAM REPORT ---
*NOTICE TO RECEIVING DEMOCRAT AGENCY This information is strictly Confidential and protected under [place] law. [place] law prohibits you from making any further disclosure of this information unless further disclosure is expressly permitted by the written consent of the person to whom it pertains or is authorized by law. A general authorization for the release of medical or other information is not sufficient for this purpose. Hospital accepts no responsibility if the information is made available to any other person, INCLUDING THE PATIENT. Interpretation Summary * Name: BETH RICHARDSON Study Date: 01/24/2018 01:48 PM BP: 136/66 mmHg * [facility] HR: 76 * : 1930 (M/d/yyyy) Gender: Female Height: 61 in * Age: 87 yrs Ethnicity: [place] Weight: 154 lb * Ordering Physician: Yohannes Fox * Referring Physician: JENA JURADO * Performed By: Saumya Carmona RCS * * Reason For Study: CHF * BSA: 1.7 m2 * -- Conclusions -- * Normal LV chamber size and wall thickness. * Normal LV systolic function, EF 55-60%. * No segmental left ventricular wall motion abnormalities are noted. * Grade II diastolic dysfunction. * Aortic valve sclerosis mild, without significant aortic valvular stenosis. * Mild tricuspid regurgitation. * PASP of 37 mmHg assuming a RA pressure of 3 mmHg. Procedure Details * A complete two-dimensional transthoracic echocardiogram was performed (2D, M-mode, Doppler and color flow Doppler). Left Ventricle * The left ventricle is normal in size. * There is normal left ventricular wall thickness. * Ejection Fraction = 55-60%. * Left ventricular systolic function is normal. * No segmental left ventricular wall motion abnormalities are noted. * The left ventricular wall motion is normal. Right Ventricle * The right ventricular cavity size is normal (basal dimension <4.2 cm in right ventricular apical 4-chamber view). * The right ventricular systolic function is normal as assessed by tricuspid annular plane systolic excursion (TAPSE) (normal >1.5 cm). Atria * The left atrium is mildly dilated. * Right atrial size is normal. * No ASD detected; PFO is not assessed. Mitral Valve * The mitral valve is normal in structure and function. Tricuspid Valve * The tricuspid valve anatomy is normal. * There is no tricuspid stenosis. * There is mild tricuspid regurgitation. Aortic Valve * The aortic valve is trileaflet. * Aortic valve sclerosis mild, without significant aortic valvular stenosis. * There is no significant aortic regurgitation. Pulmonic Valve * The pulmonary valve is not well seen, but the Doppler examination is normal without significant regurgitation or stenosis. Great Vessels * The aortic root and proximal ascending aorta are normal sized. Pericardium/Pleural * There is no pericardial effusion. Left Ventricular Diastolic Function * Diastolic dysfunction, Grade II (pseudonormalization pattern). MMode 2D Measurements and Calculations IVSd 1.0 cm IVSs 1.2 cm LVIDd 4.3 cm LVIDs 2.9 cm LVPWd 1.0 cm LVPWs 1.2 cm IVS/LVPW 1.0 FS 33.7 % EDV(Teich) 82.9 ml ESV(Teich) 30.9 ml EF(Teich) 62.8 % EDV(cubed) 79.3 ml ESV(cubed) 23.2 ml EF(cubed) 70.8 % % IVS thick 20.0 % % LVPW thick 23.1 % LV mass(C)d 145.8 grams LV mass(C)dI 86.2 grams/m\S\2 LV mass(C)s 106.9 grams LV mass(C)sI 63.2 grams/m\S\2 SV(Teich) 52.0 ml SI(Teich) 30.8 ml/m\S\2 SV(cubed) 56.2 ml SI(cubed) 33.2 ml/m\S\2 Ao root diam 3.1 cm Ao root area 7.5 cm\S\2 ACS 1.3 cm LA dimension 4.1 cm asc Aorta Diam 2.8 cm LA/Ao 1.3 EDV(MOD-sp4) 70.0 ml ESV(MOD-sp4) 30.0 ml EF(MOD-sp4) 57.1 % EDV(MOD-sp2) 79.0 ml ESV(MOD-sp2) 36.0 ml EF(MOD-sp2) 54.4 % SV(MOD-sp4) 40.0 ml SI(MOD-sp4) 23.7 ml/m\S\2 SV(MOD-sp2) 43.0 ml SI(MOD-sp2) 25.4 ml/m\S\2 Doppler Measurements and Calculations MV E max jenny 89.8 cm/sec MV A max jenny 81.9 cm/sec MV E/A 1.1 MV P1/2t max jenny 95.1 cm/sec MV P1/2t 83.9 msec MVA(P1/2t) 2.6 cm\S\2 MV dec slope 332.2 cm/sec\S\2 MV dec time 0.14 sec Ao V2 max 143.2 cm/sec Ao max PG 8.2 mmHg Ao max PG (full) 4.4 mmHg LV V1 max PG 3.8 mmHg LV V1 max 97.0 cm/sec PA V2 max 100.9 cm/sec PA max PG 4.1 mmHg TR max jenny 290.4 cm/sec
--- NOTE | 2018-01-24 19:20 | Progress Note ---
Medicine Progress Note Date & Time of Visit: Jan 24, 2018 at 13:09. Subjective Pt was seen and examined Lying in bed with no distress Pt said that she feels much better She said that she tolerated diet with no discomfort Denies any chest pain, palpitation, dizziness and SOB Objective Last 8 Hrs Date Time Temp Pulse Resp B/P (MAP) Pulse Ox O2 Delivery O2 Flow Rate FiO2 01/24/18 18:42 80 01/24/18 16:06 62 16 137/74 (95) 88 Room Air 01/24/18 16:00 93 Nasal Cannula 2.0 01/24/18 13:50 69 18 137/74 (95) 94 Room Air 01/24/18 13:01 71 18 122/62 (82) 90 Room Air 01/24/18 12:01 36.7 76 18 136/66 (89) 96 Nasal Cannula 2.0 01/24/18 12:00 Nasal Cannula 2.0 Physical Exam: General- No acute distress Head- atraumatic Eyes- PERRL, EOMI ENT- oropharynx clear Neck- supple, no JVD Lungs- clear to auscultation Heart- regular rhythm Abdomen- normal bowel sounds Extremities- no calf tenderness, +edema Neuro- alert, oriented, PERRL, EOMI Skin- warm & dry Laboratory Results: Last 24 Hours Test 01/23/18 20:50 01/23/18 23:45 01/24/18 05:16 01/24/18 05:20 Bedside Glucose 154 mg/dl 185 mg/dl 135 mg/dl White Blood Count 8.52 K/uL Red Blood Count 4.30 M/uL Hemoglobin 13.5 g/dL Hematocrit 39.0 % Mean Corpuscular Volume 90.7 fL Mean Corpuscular Hemoglobin 31.4 pg Mean Corpuscular Hemoglobin Concent 34.6 g/dl RDW Standard Deviation 45.2 fL RDW Coefficient of Variation 13.7 % Platelet Count 186 K/uL Mean Platelet Volume 9.0 fL Sodium Level 138 mmol/L Potassium Level 3.5 mmol/L Chloride Level 105 mmol/L Carbon Dioxide Level 26 mmol/L Anion Gap 7.0 mmol/L Blood Urea Nitrogen 15 mg/dl Creatinine 0.95 mg/dl Est Creatinine Clear Calc Drug Dose 36.0 ml/min Estimated GFR () 61.5 Estimated GFR (Non- 53.1 BUN/Creatinine Ratio 16.4 Random Glucose 143 mg/dl Calcium Level 8.8 mg/dl Magnesium Level 2.2 mg/dl Thyroid Stimulating Hormone (TSH) 0.568 uIu/ml Test 01/24/18 11:27 Bedside Glucose 114 mg/dl Assessment & Plan Angioedema: Likely secondary to Lisinopril No airway compromise Speech therapy consult started on Puree diet and tolerated IV solumedrol and pecid d/c Staring on prednisone 40 mg p.o. daily for 5 days then stop it. Starting on cetirizine 10 mg p.o. daily. Changed to IV pepcid to oral Pepcid to 20 mg p.o. twice daily. Continue monitor closely Cardiomegaly Asymptomatic Echo showed * Normal LV chamber size and wall thickness. * Normal LV systolic function, EF 55-60%. * No segmental left ventricular wall motion abnormalities are noted. * Grade II diastolic dysfunction. * Aortic valve sclerosis mild, without significant aortic valvular stenosis. * Mild tricuspid regurgitation. * PASP of 37 mmHg assuming a RA pressure of 3 mmHg. Hypertensive Urgency Possible related to hospital setting Amlodipine increase to 5 mg D/David lisinopril Hydralazine PRN BP stable CKD III: Cr at baseline Monitor renal function Hypothyroidism: TSH WNL Continue levothyroxine Depression Continue Zoloft Stable GERD: On Pepcid DVT Px; Heparin SQ Code Status: Full Code Disposition: Expect to discharge her back to [facility] when stable Transfer to Telemetry Current Inpatient Medications: Current Inpatient Medications Medications (Trade) Dose Ordered Sig/Alirio Route Start Time Stop Time Status Last Admin Dose Admin Heparin Sodium (Porcine) (Heparin Sq 5000 Unit/0.5ml) 5,000 unit Q8H SQ 01/23/18 22:00 02/22/18 21:59 01/24/18 14:42 5,000 UNIT Acetaminophen (Tylenol Tab) 650 mg Q4H PRN PO 01/23/18 14:15 02/22/18 14:14 01/23/18 19:17 650 MG Ondansetron HCl (Zofran Inj) 4 mg Q6H PRN IV 01/23/18 14:15 02/22/18 14:14 Albuterol/ Ipratropium (Duoneb) 3 ml QID PRN INH 01/23/18 14:15 5/2/18 14:14 Miscellaneous Information (Icu Protocol For Hyperglycemia) 1 ea PRN PRN N/A 01/23/18 14:15 01/25/18 14:14 Hydralazine HCl (HydrALAZINE INJ) 10 mg Q6H PRN IV. 01/23/18 14:15 02/22/18 14:14 01/24/18 06:11 10 MG Aspirin (Aspirin Chew) 81 mg QDL PO 01/24/18 11:00 02/23/18 10:59 01/24/18 11:31 81 MG Betamethasone/ Clotrimazole (Lotrisone Crm) 1 appln BID PRN EXT 01/23/18 14:30 02/22/18 14:29 Docusate Sodium (coLACE CAP) 100 mg BID PO 01/23/18 21:00 02/22/18 20:59 01/24/18 08:37 100 MG Fluticasone Propionate (Flonase Nasal [place]) 2 sprays HS LIZET 01/23/18 21:00 02/22/18 20:59 01/23/18 20:41 2 SPRAYS Gabapentin (Neurontin Cap) 100 mg TID PO 01/23/18 21:00 02/22/18 20:59 01/24/18 14:40 100 MG Levothyroxine Sodium (Synthroid Tab) 88 mcg DAILYBB PO 01/24/18 06:00 02/23/18 06:59 01/24/18 06:10 88 MCG Magnesium Hydroxide (Milk Of Magnesia Susp) 30 ml DAILY PRN PO 01/23/18 14:30 02/22/18 14:29 Senna/Docusate Sodium (Senokot S Tab) 1 tab QDL PO 01/24/18 11:00 02/23/18 10:59 01/24/18 11:32 1 TAB Sertraline HCl (Zoloft Tab) 100 mg HS PO 01/23/18 21:00 02/22/18 20:59 01/23/18 20:39 100 MG Tramadol HCl (Ultram Tab) 50 mg Q6H PRN PO 01/23/18 14:30 02/22/18 14:29 01/24/18 08:37 50 MG Polyethylene (Miralax Powder Packet) 17 gm QDL PRN PO 01/23/18 14:30 02/22/18 14:29 Famotidine (Pepcid Tab) 20 mg BID PO 01/24/18 21:00 02/23/18 20:59 Prednisone (PredniSONE TAB) 40 mg DAILY PO 01/24/18 10:00 02/23/18 09:59 01/24/18 11:31 40 MG Cetirizine HCl (zyrTEC TAB) 10 mg DAILY PO 01/24/18 10:00 02/23/18 09:59 01/24/18 11:31 10 MG Amlodipine Besylate (Norvasc Tab) 5 mg DAILY PO 01/25/18 09:00 02/23/18 08:59
[2018-01-24] MEDS: FLUTICASONE PROPIONATE NA SPR 16 GM BTL NAE SCH (21:11)
[2018-01-24] MEDS: FAMOTIDINE 20 MG TAB PO SCH (21:12)
[2018-01-24] MEDS: SERTRALINE HCL 100 MG TAB PO SCH (21:12)
[2018-01-24] MEDS ORDERED: LORAZEPAM 0.5 MG TAB PO STA (23:52)
[2018-01-25] MEDS: HydrALAZINE HCL 20 MG/ML VIAL IV. PRN ×2 (00:20→11:55)
[2018-01-25 03:55] VITALS: BP 134/77; PULSE 68; TEMP 36.5; O2SAT 92
[2018-01-25] MEDS: LEVOTHYROXINE 88 MCG TAB PO SCH (06:09)
[2018-01-25] MEDS: HEPARIN SOD 5000 UNIT/0.5 ML CARP SQ SCH ×3 (06:12→21:44)
[2018-01-25] MEDS: GABAPENTIN 100 MG CAP PO SCH ×3 (07:44→21:40)
[2018-01-25] MEDS: CETIRIZINE HCL 10 MG TAB PO SCH (07:45)
[2018-01-25] MEDS: DOCUSATE SODIUM 100 MG CAP PO SCH ×2 (07:45→21:40)
[2018-01-25] MEDS: FAMOTIDINE 20 MG TAB PO SCH ×2 (07:46→21:41)
[2018-01-25] MEDS: AMLODIPINE BESYLATE 5 MG TAB PO SCH (07:46)
[2018-01-25 07:47] VITALS: BP 175/79; PULSE 71; TEMP 36.6; O2SAT 92
[2018-01-25 11:46] VITALS: BP 178/99; PULSE 74; TEMP 37.7; O2SAT 91
[2018-01-25] MEDS: ASPIRIN 81 MG CHEW PO SCH (11:55)
[2018-01-25] MEDS: DOCUSATE SODIUM/SENNA 50/8.6MG TAB PO SCH (11:56)
[2018-01-25 15:03] VITALS: BP 134/75; PULSE 78; TEMP 37.3; O2SAT 92
[2018-01-25] MEDS: ACETAMINOPHEN 325 MG TAB PO PRN (16:14)
--- NOTE | 2018-01-25 18:29 | Progress Note ---
Internal Med Progress Note Date of Service: Jan 25, 2018. Provider Documentation: SUBJECTIVE: Patient seen and examined Denies of any discomfort No shortness of breath, no swallowing difficulty No swelling in the lips/tongue resolved Remains very anxious, tearful Wants to know when she can return back to [facility] OBJECTIVE: Vital Signs-as noted below Exam: General-elderly female, very anxious Eyes-sclera nonicteric ENT-moist oral mucosa, normal exam of the lip and tongue Neck-no JVD Lungs-clear to auscultate no wheezes or rales Heart-regular S1-S2 Abdomen-soft nontender Extremities-no lower extremity edema no rash or deformity Neuro-alert awake oriented 3, no focal neurological deficit deficit Lab data as noted below. ASSESSMENT & PLAN: ANGIOEDEMA Presented with laryngeal edema, swelling of tongue and lips Possibly secondary to ZONIA inhibitors/lisinopril Lisinopril has been discontinued since admission Patient was observed in ICU for 24 hours for concern of possible respiratory compromise Appreciate input from ICU team Symptoms of angioedema improved markedly after steroids, H2 receptor blockage Lisinopril added in allergy list Patient will be continued on prednisone 40 mg daily for total 5 days Added H2 frankie Pepcid 20 twice daily for 2 weeks Cetirizine 10 mg by mouth daily HYPERTENSIVE URGENCY Possible secondary to anxiety ZONIA was discontinued Norvasc dose increased to 5 mg daily Blood pressure normalized CKD STAGE III Renal function at baseline CARDIOMEGALY NOTED IN CHEST X-RAY Possible secondary to hypertensive heart disease Echo: -normal LV chamber size and wall thickness. - Normal LV systolic function EF 55-60%. - No segmental left ventricular wall motion abnormalities. - Grade 2 diastolic dysfunction. -Aortic valve sclerosis mild, without significant aortic valvular stenosis. - Mild tricuspid regurgitation. - P a SP of 37 mmHg assuming a RA pressure of 3 mmHg within normal limit HYPOTHYROIDISM On levothyroxine DEPRESSION/ANXIETY DISORDER On Zoloft As needed Ativan GERD Was on Protonix Added H2 frankie for recent episode of angioedema CODE STATUS full code DVT PROPHYLAXIS Subcu heparin DISPOSITION Possible return back to renal dose tomorrow Vital Signs: Date Time Temp Pulse Resp B/P (MAP) Pulse Ox O2 Delivery O2 Flow Rate FiO2 01/26/18 00:20 36.4 77 18 156/79 (104) 92 Room Air 01/25/18 23:59 Room Air 01/25/18 18:54 36.7 76 21 156/77 (103) 91 Room Air 01/25/18 16:00 Room Air 01/25/18 15:03 37.3 78 18 134/75 (94) 92 Room Air 01/25/18 12:00 Room Air 01/25/18 11:46 37.7 74 18 178/99 (125) 91 Room Air 01/25/18 08:00 Room Air 01/25/18 07:47 36.6 71 18 175/79 (111) 92 Room Air
[2018-01-25] MEDS ORDERED: LORAZEPAM 0.5 MG TAB PO PRN (18:30)
[2018-01-25 18:54] VITALS: BP 156/77; PULSE 76; TEMP 36.7; O2SAT 91
--- NOTE | 2018-01-25 21:28 | Progress Note ---
Post ICU Progress Note Date & Time Jan 25, 2018 at 21:28 Vital Signs Vital Signs Past 12 Hours Date Time Temp Pulse Resp B/P (MAP) Pulse Ox O2 Delivery O2 Flow Rate FiO2 01/25/18 18:54 36.7 76 21 156/77 (103) 91 Room Air 01/25/18 16:00 Room Air 01/25/18 15:03 37.3 78 18 134/75 (94) 92 Room Air 01/25/18 12:00 Room Air 01/25/18 11:46 37.7 74 18 178/99 (125) 91 Room Air Notes Mental Status: alert / awake Nausea / Vomiting: adequately controlled Pain: adequately controlled Airway Patency, RR, SpO2: stable & adequate BP & HR: stable & adequate Patient is an 87-year-old female who was initially admitted to the ICU on 01/23 for angioedema likely related to lisinopril use. Patient initially received FFP as well as Solu-Medrol Benadryl. Her symptoms progressively improved with an overnight stay in the ICU. She was subsequently downgraded to telemetry status and has since had increasing improvement of symptoms overall. On evaluation today, the patient is visibly anxious. She is tearful when describing that she was concerned that she had lost her 61-year-old wristwatch. It had been found at her residence today. In addition, the patient reports that since earlier today, after taking an unknown pill, she developed a foreign body sensation in her throat. She does report that this concerns her as she is uncertain whether this is return of her swelling or not. At this point, the patient is awake, alert, and oriented. Breath sounds are equal bilaterally. No wheezing or stridor noted. No lingular edema or angioedema present on exam. Had a lengthy conversation with the patient regarding continued treatment. Will add Maalox alone to help with possible pill esophagitis. Consider outpatient follow up in 1 to 2 weeks with: PCP Repeat imaging needed: None at this time. Follow up cultures: None Reviewed progress notes, labs, and inpatient medication list Continue current management Additional recommendations: At this point, the patient has shown great improvement from an angioedema standpoint. Of note, the patient has had increasing anxiety as well as foreign body sensation in her lower throat. She does mention that this came on after taking an unknown medication. I question if the patient is experiencing a pill esophagitis or esophagitis alone from prednisone use. This certainly could add increasing agitation/irritation as well. I did add Maalox to the patient's medication lists. She has had this previously without issue. Agree with progression of diet. She does feel as though some foods get stuck, however. Would consider treating with PPI while on prednisone. Agree with continued progression of diet, however may be cautious with dry foods or meats as she certainly could be experiencing some esophageal narrowing. I question utility of UGI at this point as her symptoms have been only for a short time and she has had no treatments yet. This may be a consideration as we see how her throat feels over the next few days. Thank you for allowing us to participate in the care of this patient. At this time, Critical Care Services will sign off on this patient. Please feel free to reconsult as needed
[2018-01-25] MEDS: FLUTICASONE PROPIONATE NA SPR 16 GM BTL NAE SCH (21:39)
[2018-01-25] MEDS: SERTRALINE HCL 100 MG TAB PO SCH (21:40)
[2018-01-25] MEDS ORDERED: ALUMINUM/MAGNESIUM SUSP 30 ML UDC PO PRN (21:45)
[2018-01-26 00:20] VITALS: BP 156/79; PULSE 77; TEMP 36.4; O2SAT 92
[2018-01-26] MEDS ORDERED: NRV5 PO (04:43)
--- NOTE | 2018-01-26 04:45 | Discharge Instructions ---
Discharge Instructions Date of Service Jan 26, 2018. Admission Reason for Admission: Angioedema Discharge Discharge Diagnosis / Problem: Angioedema/possibly due to ZONIA inhibitor/ hypertensive urgency Discharge Goals Goal(s): Decrease discomfort, Diagnostic testing, Therapeutic intervention Activity Recommendations Activity Limitations: resume your previous activity . Instructions / Follow-Up Instructions / Follow-Up Follow-up with family physician in a week Do not take lisinopril SPEECH THERAPY RECOMMENDATION FOR DYSPHAGIA : 1. Mechanical soft diet, "Slippery", thin liquids. Avoid foods that are dry, thick, pasty, and doughy. Use condiments on food such as sauce and gravy to assist with keeping foods moist. 2. Aspiration and GERD precautions. Straws OK. Fully upright for meals and for 30 minutes after meals. Do not lay flat, elevate head of the bed to at least 30 degrees at all time, to include while sleeping. 3. Safe swallow strategies: Alternate solids and liquids. Rest breaks. Consider small frequent meals as needed. Medication placed whole or crushed in applesauce or pudding. 4. Would benefit from continued speech at Personal intermediate for recommendation of carryover of a "slippery" diet and safe swallow strategies. Current Hospital Diet Patient's current hospital diet: AHA Diet (Heart Healthy) Discharge Diet Recommended Diet: AHA Diet (Heart Healthy) Diet Texture: Mechanical Soft (ground) (slippery diet , see above note ) Pending Studies Studies pending at discharge: no Medical Emergencies . Who to Call and When: Medical Emergencies: If at any time you feel your situation is an emergency, please call 911 immediately. . Non-Emergent Contact Non-Emergency issues call your: Primary Care Provider . . "Provider Documentation" section prepared by Katelynn Quintero. .
[2018-01-26] MEDS ORDERED: FAMO1TAB47 PO (04:50)
[2018-01-26] MEDS ORDERED: ZYR10 PO (04:50)
[2018-01-26] MEDS ORDERED: PRD20 PO (05:33)
[2018-01-26] MEDS: LEVOTHYROXINE 88 MCG TAB PO SCH (05:42)
[2018-01-26] MEDS: HEPARIN SOD 5000 UNIT/0.5 ML CARP SQ SCH ×3 (05:56→21:06)
[2018-01-26 07:12] VITALS: BP 146/74; PULSE 68; TEMP 36.3; O2SAT 90
[2018-01-26] MEDS: GABAPENTIN 100 MG CAP PO SCH ×3 (07:37→21:04)
[2018-01-26] MEDS: DOCUSATE SODIUM 100 MG CAP PO SCH ×2 (07:37→21:04)
[2018-01-26] MEDS: FAMOTIDINE 20 MG TAB PO SCH ×2 (07:37→21:04)
[2018-01-26] MEDS: CETIRIZINE HCL 10 MG TAB PO SCH (07:37)
[2018-01-26] MEDS: AMLODIPINE BESYLATE 5 MG TAB PO SCH (07:37)
[2018-01-26 11:13] VITALS: BP 168/88
[2018-01-26] MEDS: DOCUSATE SODIUM/SENNA 50/8.6MG TAB PO SCH (12:51)
[2018-01-26] MEDS: ASPIRIN 81 MG CHEW PO SCH (12:53)
[2018-01-26] MEDS: ACETAMINOPHEN 325 MG TAB PO PRN (15:54)
[2018-01-26 15:55] VITALS: BP 130/75; PULSE 83; TEMP 36.9; O2SAT 94
[2018-01-26 16:09] VITALS: O2SAT 94
--- NOTE | 2018-01-26 16:56 | Progress Note ---
Internal Med Progress Note Date of Service: Jan 26, 2018. Provider Documentation: SUBJECTIVE: mentions that she feels tired and weak today food is getting stuck in her throat even with chopped food , having difficulty swallowing denies of any cough or SOB no swelling or discomfort in lips and tongue becomes very anxious when mentioning of being discharged back to [facility] does not feel she is well enough yet OBJECTIVE: Vital Signs-as noted below Exam: General-elderly female, very anxious Eyes-sclera nonicteric ENT-moist oral mucosa, normal exam of the lip and tongue Neck-no JVD Lungs-clear to auscultate no wheezes or rales Heart-regular S1-S2 Abdomen-soft nontender Extremities-no lower extremity edema no rash or deformity Neuro-very hard of hearing , able to answer questions after multiple ques , no focal neurological deficit deficit Lab data as noted below. ASSESSMENT & PLAN: ANGIOEDEMA DUE TO ACEI : Presented with laryngeal edema, swelling of tongue and lips Possibly secondary to ZONIA inhibitors/lisinopril Lisinopril has been discontinued since admission Patient was observed in ICU for 24 hours for concern of possible respiratory compromise Appreciate input from ICU team Symptoms of angioedema improved markedly after steroids, H2 receptor blockage Lisinopril added in allergy list Patient will be continued on prednisone 40 mg daily for total 5 days Added H2 frankie Pepcid 20 twice daily for 2 weeks Cetirizine 10 mg by mouth daily HYPERTENSIVE URGENCY resolved Possible secondary to anxiety ZONIA was discontinued Norvasc dose increased to 5 mg daily Blood pressure normalized CKD STAGE III Renal function at baseline DYSPHAGIA : pt mentions of having food stuck to her throat appreciate speech eval : recommends : 1. Mechanical soft diet, "Slippery", thin liquids. Avoid foods that are dry, thick, pasty, and doughy. Use condiments on food such as sauce and gravy to assist with keeping foods moist. 2. Aspiration and GERD precautions. Straws OK. Fully upright for meals and for 30 minutes after meals. Do not lay flat, elevate head of the bed to at least 30 degrees at all time, to include while sleeping. 3. Safe swallow strategies: Alternate solids and liquids. Rest breaks. Consider small frequent meals as needed. Medication placed whole or crushed in applesauce or pudding. 4. Would benefit from continued speech at her [facility] for carryover of a "slippery" diet and safe swallow stratgies. A GI consultation may also need to be considered with any worsenig of symtpoms. instruction will be added to discharge papers to [facility] cont antireflux meds CARDIOMEGALY NOTED IN CHEST X-RAY Possible secondary to hypertensive heart disease Echo: -normal LV chamber size and wall thickness. - Normal LV systolic function EF 55-60%. - No segmental left ventricular wall motion abnormalities. - Grade 2 diastolic dysfunction. -Aortic valve sclerosis mild, without significant aortic valvular stenosis. - Mild tricuspid regurgitation. - P a SP of 37 mmHg assuming a RA pressure of 3 mmHg within normal limit HYPOTHYROIDISM On levothyroxine DEPRESSION/ANXIETY DISORDER remains very anxious per daughter -pt hardly interacts with any one at Personal alf most of the time does not eat meals in common dining area hx of generalized anxiety disorder used to follow with Psychiatrist Dr Rodriguez no new provider was established as pt had multiple hospital admissions and rehab stay Family did noticed -more withdrawal behavior, worsening of anxiety Daughter unable to take her to all the doctors appointments gets panic attack when asked to use [employer] ride On Zoloft 100 mg HS PRN Ativan psych consulted for recommendation GERD Was on Protonix Added H2 frankie CODE STATUS full code DVT PROPHYLAXIS Subcu heparin DISPOSITION resident at personal alf [facility] expected to return back to [facility] care tomorrow Update given to Daughter Jeanine kilgore's son in law Aldo will be able to come to provide ride for patient tomorrow afternoon Vital Signs: Date Time Temp Pulse Resp B/P (MAP) Pulse Ox O2 Delivery O2 Flow Rate FiO2 01/26/18 15:55 36.9 83 18 130/75 (93) 94 Room Air 01/26/18 12:17 Room Air 01/26/18 07:12 36.3 68 16 146/74 (98) 90 Room Air 01/26/18 00:20 36.4 77 18 156/79 (104) 92 Room Air 01/25/18 23:59 Room Air 01/25/18 18:54 36.7 76 21 156/77 (103) 91 Room Air Lab Results: Results Past 24 Hours Test 01/26/18 07:30 01/26/18 11:22 Range/Units Bedside Glucose 95 127 70-90 mg/dl
[2018-01-26] MEDS: FLUTICASONE PROPIONATE NA SPR 16 GM BTL NAE SCH (21:04)
[2018-01-26] MEDS: SERTRALINE HCL 100 MG TAB PO SCH (21:05)
[2018-01-26 23:46] VITALS: BP 176/88; PULSE 75; TEMP 36.5; O2SAT 92
[2018-01-27] MEDS: LEVOTHYROXINE 88 MCG TAB PO SCH (05:16)
[2018-01-27] MEDS: HEPARIN SOD 5000 UNIT/0.5 ML CARP SQ SCH ×2 (05:25→14:00)
[2018-01-27 08:16] VITALS: BP 145/82; PULSE 98; TEMP 36.6; O2SAT 93
[2018-01-27] MEDS: GABAPENTIN 100 MG CAP PO SCH ×2 (08:38→14:12)
[2018-01-27] MEDS: DOCUSATE SODIUM 100 MG CAP PO SCH (08:38)
[2018-01-27] MEDS: FAMOTIDINE 20 MG TAB PO SCH (08:38)
[2018-01-27] MEDS: AMLODIPINE BESYLATE 5 MG TAB PO SCH (08:38)
[2018-01-27] MEDS: CETIRIZINE HCL 10 MG TAB PO SCH (08:38)
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
[2018-01-27] MEDS ORDERED: SERTRALINE HCL 50 MG TAB PO ONE (10:00)
[2018-01-27] MEDS ORDERED: SERT-234 PO (10:03)
[2018-01-27] MEDS ORDERED: SERT25TA PO (10:03)
[2018-01-27] MEDS: TRAMADOL HCL 50 MG TAB PO PRN (10:36)
[2018-01-27] MEDS: DOCUSATE SODIUM/SENNA 50/8.6MG TAB PO SCH (12:24)
[2018-01-27] MEDS: ASPIRIN 81 MG CHEW PO SCH (12:25)
[2018-01-27 13:19] VITALS: BP 145/82; PULSE 98; TEMP 36.6; O2SAT 93
[2018-01-30] MEDS ORDERED: POLY335019 PO (11:57)
[2018-01-30] MEDS ORDERED: ACET-1693 PO (11:57)
[2018-01-30] MEDS ORDERED: SENN-65 PO (11:57)
[2018-01-30] MEDS ORDERED: LORA-741 PO (11:57)
[2018-01-30] MEDS ORDERED: MULT-190 PO (11:57)
[2018-01-30] MEDS ORDERED: GABA-112 PO (11:57)
[2018-01-30] MEDS ORDERED: DOCU100C31 PO (11:57)
[2018-01-30] MEDS ORDERED: ALEN35TA42 PO (11:57)
[2018-01-30] MEDS ORDERED: ALUM1SUS PO (11:57)
[2018-01-30] MEDS ORDERED: FLUT0.15 NAE (11:57)
[2018-01-30] MEDS ORDERED: PANT40TA PO (11:57)
[2018-01-30] MEDS ORDERED: NYST100010 TOP (11:57)
[2018-01-30] MEDS ORDERED: TRAM-10 PO ×2 (11:57)
[2018-01-30] MEDS ORDERED: BISA10SU7 PR (11:57)
[2018-01-30] MEDS ORDERED: ASPCH81X PO (11:57)
[2018-01-30] MEDS ORDERED: CALC-453 PO (11:57)
[2018-01-30] MEDS ORDERED: MACUHEALTH PO (11:57)
[2018-01-30] MEDS ORDERED: MOML PO (11:57)
[2018-01-30] MEDS ORDERED: SYN88 PO (11:57)
== END 2018-01-27 14:32 | disposition home or self-care (01) | DRG 916 ==
LOC: EDBD 11:16 → C.EDC 11:17 → UNDOADMIN 14:10 → C.MSICU 14:10 → ENRESERV 14:27 → C.2T 01-24 18:55 → ENRESERV 01-25 18:59 → CANRESERV 01-25 18:59 → ENRESERV 01-25 19:10 → C.MS4W 01-25 19:52
PROVIDERS: ADMIT Internal Medicine; ATTEND Hospitalist
DX: T78.3XXA Angioneurotic edema, initial encounter (principal); T46.4X5A Adverse effect of angiotensin-converting-enzyme inhibitors, initial encounter; I16.0 Hypertensive urgency; K20.8 Other esophagitis; I13.10 Hypertensive heart and chronic kidney disease without heart failure, with stage 1 through stage 4 chronic kidney disease, or unspecified chronic kidney disease; N18.3 Chronic kidney disease, stage 3 (moderate); E03.9 Hypothyroidism, unspecified; F41.9 Anxiety disorder, unspecified; F32.9 Major depressive disorder, single episode, unspecified; K21.9 Gastro-esophageal reflux disease without esophagitis; I25.10 Atherosclerotic heart disease of native coronary artery without angina pectoris; H91.90 Unspecified hearing loss, unspecified ear; I65.29 Occlusion and stenosis of unspecified carotid artery; M48.00 Spinal stenosis, site unspecified; B02.9 Zoster without complications; Z85.828 Personal history of other malignant neoplasm of skin; Z87.891 Personal history of nicotine dependence; Z79.82 Long term (current) use of aspirin; Z79.83 Long term (current) use of bisphosphonates; Z79.899 Other long term (current) drug therapy; Z88.2 Allergy status to sulfonamides; Z88.5 Allergy status to narcotic agent; Z91.040 Latex allergy status; Z91.048 Other nonmedicinal substance allergy status

== ENCOUNTER 2018-01-30 18:44 | Observation (INO) | payer BC, OTHER ==
[~2018-01-30] VITALS: Ht 156.2 cm; Wt 67.4 kg
[~2018-01-30 18:44] MED LIST changes: +ACET-1693 PO; -ACET1TAB84 PO; +ALEN35TA42 PO; +ALUM1SUS PO; +ASPCH81X PO; -ASPI-435 PO; +BISA10SU7 PR; -BUSP5TAB59 PO; +CALC-453 PO; -CALC200S6 NAE; -CALCCHW57 PO; +FAMO1TAB47 PO; +GABA-112 PO; +HYDCR1CL TOP; -LDDP5 TD; -LISI-461 PO; -LISI-729 PO; +LTRSCR45 TOP; +MACUHEALTH PO; +MOML PO; -MRLP120 PO; +MULT-190 PO; -MULT1CAP53 PO; -MULTCAP36 PO; -MVC20 PO; -NRN100 PO; +NRV5 PO; +NYST100010 TOP; +NYSTCRE11 TOP; +PANT40TA PO; +POLY335019 PO; +PRD20 PO; +SENN-65 PO; +SERT25TA PO; +VALA1TAB2 PO; +ZYR10 PO
[2018-01-30] MEDS ORDERED: ACETAMINOPHEN 500 MG TAB PO STA (19:04)
--- NOTE | 2018-01-30 20:13 | EMERGENCY ROOM VISIT NOTE ---
History Report prepared by León: Jacki Welch Under the Supervision of: Dr. Simon Mistry M.D. First contact with patient: 18:57 Stated Complaint: WEAKNESS, SOB History of Present Illness The patient is an 87 year old female who presents to the Emergency Room with complaints of persistent generalized weakness starting [employer]. The patient presents to the ED by EMS. She complains of SOB and headache. Her mouth feels swollen and dry. She reports nausea. She denies any cough, vomiting, or urinary symptoms. She was recently discharged from the hospital after angioedema. She continued to be concerned about her airway and swallowing even after the angioedema was resolved. She was felt to be safe for discharge. Her Zoloft dose was increased recently. Source of History: patient, nursing staff Onset: [employer] Position: other (generalized) Quality: other (weakness) Timing: other (persistent) Associated Symptoms: + headache, + SOB, + nausea, No cough, No vomiting, No urinary symptoms Review of Systems ROS: Please see HPI. At least 10 systems in total were reviewed and otherwise negative. Past Medical & Surgical Medical Problems: (1) Adnexal mass (2) Carotid artery disease (3) CKD (chronic kidney disease) stage 3, GFR 30-59 ml/min (4) Depression (5) Dyslipidemia (6) Fracture of right wrist (7) General unsteadiness (8) HTN (hypertension) (9) Hypertension (10) Hypothyroidism (11) Macular degeneration (12) Osteoporosis Surgical Problems: (1) Status post appendectomy (2) Status post cataract extraction (3) Status post tubal ligation Family History FH: cancer Social History Smoking Status: Never Smoker Alcohol Use: none Drug Use: none Housing Status: halfway Occupation Status: retired Current/Historical Medications Scheduled Alendronate Sodium (Alendronate Sodium), 35 MG PO WK Aspirin (Aspirin Chewable), 81 MG PO DAILY Calcium Carbonate-Cholecalcife (Oyster Shell Calcium Plus 500-200 mg-Unit), 1 TAB PO BID Cetirizine HCl (All Day Allergy), 10 MG PO DAILY Docusate Sodium (Docusate Sodium), 100 MG PO BID Famotidine (Pepcid), 20 MG PO BID Fluticasone Propionate (Nasal) (Flonase Allergy Relief), 2 SPRAY LIZET HS Gabapentin (Neurontin), 100 MG PO TID Levothyroxine Sodium (Synthroid), 88 MCG PO DAILYBB Nystatin (Topical) (Nystop), 1 APPLN TOP BID Nystatin/Triamcinolone (Mycogen || ), 1 APPLN TOP BID Ocuvite Preservision (Ocuvite Preservision), 1 TAB PO BID Pantoprazole (Protonix), 40 MG PO QAM Senna/Docusate Sod (Senokot S), 1 TAB PO DAILYBB Sertraline HCl (Sertraline HCl), 100 MG PO DAILY Sertraline HCl (Sertraline HCl), 25 MG PO DAILY [[facility]], 1 CAP PO QAM Scheduled PRN Acetaminophen Tab (Tylenol), 650 MG PO Q8 PRN for Mild Pain Alum & Mag Hydrox-Simethicone (Antacid Advanced 400-400-40 mg/5Ml), 30 ML PO Q4H PRN for GERD Bisacodyl (Bisac-Evac), 10 MG NV DAILY PRN for IF NOT B.M. IN LAST 48HRS Lorazepam (Ativan), 0.5 MG PO BID PRN for Anxiety Magnesium Hydroxide (Milk Of Magnesia), 30 ML PO DAILY PRN for IF NO B.M. IN LAST 24HRS Polyethylene Glycol 3350 (Miralax), 17 GM PO QDL PRN for Constipation Tramadol (Ultram), 50 MG PO HS PRN for Pain Tramadol (Ultram), 50 MG PO Q6H PRN for Pain Allergies Coded Allergies: Lisinopril (Verified Allergy, Severe, ANAPHYLAXIS, 01/23/18) Patient developed Angioedema. Latex1 -Allergic Contact Dermititis (Verified Allergy, Intermediate, ITCHING, RASH, 01/23/18) Adhesives (Verified Allergy, Unknown, ITCHING, RASH, 01/23/18) Codeine (Verified Allergy, Unknown, N/V, 01/23/18) Morphine (Unverified Allergy, Unknown, ., 01/23/18) Opioid Analgesics (Verified Allergy, Unknown, "OPIATE AGONISTS" - MORPHINE = STOMACH UPSET, 01/23/18) Sulfamethoxazole w/Trimethoprim (Verified Allergy, Unknown, RASH, 01/23/18) Physical Exam Vital Signs Date Time Temp Pulse Resp B/P (MAP) Pulse Ox O2 Delivery O2 Flow Rate FiO2 01/30/18 22:41 64 16 147/76 90 Room Air 01/30/18 22:00 62 16 122/61 93 Nasal Cannula 2.0 01/30/18 21:30 64 16 124/74 91 Nasal Cannula 2.0 01/30/18 21:23 92 Nasal Cannula 2.0 01/30/18 21:22 84 Room Air 01/30/18 21:01 149/87 01/30/18 21:00 67 16 90 Room Air 01/30/18 20:33 67 16 158/69 93 Room Air 01/30/18 20:30 70 01/30/18 19:44 69 21 01/30/18 19:30 174/79 01/30/18 19:14 69 17 01/30/18 19:00 173/83 01/30/18 18:55 175/78 01/30/18 18:48 36.5 72 20 175/78 91 Room Air Physical Exam GENERAL: Patient is in no acute distress. HEENT: No acute trauma, normocephalic atraumatic, mucous membranes dry, no nasal congestion, no scleral icterus. No tongue, uvular, or pharyngeal swelling. NECK: No stridor, no adenopathy, no meningismus, trachea is midline. LUNGS: Clear to auscultation bilaterally, no wheeze, no rhonchi, breath sounds equal. HEART: Without murmurs gallops or rubs, regular rate and rhythm. ABDOMEN: Soft, nontender, bowel sounds positive, no hernias, no peritonitis. EXTREMITIES: No cyanosis or edema, full range of motion of all the joints without pain or difficulty, no signs for acute trauma. NEUROLOGIC: No acute motor or sensory deficits, no focal weakness. Seems sleepy at times. SKIN: No rash, no jaundice, no diaphoresis. Medical Decision & Procedures ER Provider Diagnostic Interpretation: X-ray results as stated below per interpretation by me and the radiologist: SINGLE VIEW CHEST CLINICAL HISTORY: Weakness. Change in mental status. FINDINGS: An AP, portable, upright chest radiograph is compared to study dated 01/23/2018 and correlated with chest CT dated 09/01/2014. The examination is degraded by portable technique and patient rotation. The heart is enlarged. The pulmonary vasculature is noncongested. Chronic interstitial thickening is similar to previous. There is bibasilar atelectasis. No airspace consolidation or large pleural effusion is identified. No pneumothorax is seen. The skeletal structures are osteopenic. The bony thorax is grossly intact. IMPRESSION: Cardiomegaly with no acute cardiopulmonary abnormality. Electronically signed by: Simon Galdamez M.D. 01/30/2018 8:48 PM Dictated Date/Time: 01/30/2018 8:47 PM Laboratory Results 01/30/18 20:12 Red Blood Count 4.55, Mean Corpuscular Volume 94.5, Mean Corpuscular Hemoglobin 31.6, Mean Corpuscular Hemoglobin Concent 33.5, Mean Platelet Volume 9.4, Neutrophils (%) (Auto) 56.8, Lymphocytes (%) (Auto) 29.7, Monocytes (%) (Auto) 9.8, Eosinophils (%) (Auto) 2.5, Basophils (%) (Auto) 0.3, Neutrophils # (Auto) 5.83, Lymphocytes # (Auto) 3.04, Monocytes # (Auto) 1.00, Eosinophils # (Auto) 0.26, Basophils # (Auto) 0.03 01/30/18 20:12 Test 01/30/18 19:22 01/30/18 20:12 Urine Color YELLOW Urine Appearance CLEAR (CLEAR) Urine pH 5.0 (4.5-7.5) Urine Specific [place] 1.013 (1.000-1.030) Urine Protein NEG (NEG) Urine Glucose (UA) NEG (NEG) Urine Ketones NEG (NEG) Urine Occult Blood NEG (NEG) Urine Nitrite NEG (NEG) Urine Bilirubin NEG (NEG) Urine Urobilinogen NEG (NEG) Urine Leukocyte Esterase SMALL (NEG) Urine WBC (Auto) 1-5 /hpf (0-5) Urine RBC (Auto) 0-4 /hpf (0-4) Urine Hyaline Casts (Auto) 0 /lpf (0-5) Urine Epithelial Cells (Auto) 10-20 /lpf (0-5) Urine Bacteria (Auto) NEG (NEG) White Blood Count 10.25 K/uL (4.8-10.8) Red Blood Count 4.55 M/uL (4.2-5.4) Hemoglobin 14.4 g/dL (12.0-16.0) Hematocrit 43.0 % (37-47) Mean Corpuscular Volume 94.5 fL (80-100) Mean Corpuscular Hemoglobin 31.6 pg (25-34) Mean Corpuscular Hemoglobin Concent 33.5 g/dl (32-36) Platelet Count 194 K/uL (130-400) Mean Platelet Volume 9.4 fL (7.4-10.4) Neutrophils (%) (Auto) 56.8 % Lymphocytes (%) (Auto) 29.7 % Monocytes (%) (Auto) 9.8 % Eosinophils (%) (Auto) 2.5 % Basophils (%) (Auto) 0.3 % Neutrophils # (Auto) 5.83 K/uL (1.4-6.5) Lymphocytes # (Auto) 3.04 K/uL (1.2-3.4) Monocytes # (Auto) 1.00 K/uL (0.11-0.59) Eosinophils # (Auto) 0.26 K/uL (0-0.5) Basophils # (Auto) 0.03 K/uL (0-0.2) RDW Standard Deviation 50.9 fL (36.4-46.3) RDW Coefficient of Variation 15.0 % (11.5-14.5) Immature Granulocyte % (Auto) 0.9 % Immature Granulocyte # (Auto) 0.09 K/uL (0.00-0.02) Anion Gap 8.0 mmol/L (3-11) Est Creatinine Clear Calc Drug Dose 23.9 ml/min Estimated GFR () 38.5 Estimated GFR (Non- 33.2 BUN/Creatinine Ratio 24.1 (10-20) Calcium Level 9.3 mg/dl (8.5-10.1) Magnesium Level 2.4 mg/dl (1.8-2.4) Total Bilirubin 0.3 mg/dl (0.2-1) Aspartate Amino Transf (AST/SGOT) 22 U/L (15-37) Alanine Aminotransferase (ALT/SGPT) 44 U/L (12-78) Alkaline Phosphatase 112 U/L (45-117) Troponin I < 0.015 ng/ml (0-0.045) Total Protein 7.4 gm/dl (6.4-8.2) Albumin 3.7 gm/dl (3.4-5.0) Globulin 3.7 gm/dl (2.5-4.0) Albumin/Globulin Ratio 1.0 (0.9-2) Thyroid Stimulating Hormone (TSH) 3.380 uIu/ml (0.300-4.500) Free Thyroxine 0.96 ng/dl (0.80-1.60) Laboratory results reviewed by me. Medications Administered Medications (Trade) Dose Ordered Sig/Alirio Route Start Time Stop Time Status Last Admin Dose Admin Acetaminophen (Tylenol Tab) 1,000 mg NOW STAT PO 01/30/18 19:04 01/30/18 19:09 DC 01/30/18 19:23 1,000 MG ECG Per My Interpretation Indication: SOB/dyspnea Rate (beats per minute): 69 Rhythm: normal sinus Findings: no ectopy, other (LVH, no ST elevation, no PVC) ED Course 1858: The patient was evaluated in room A4B. A complete history and physical exam was performed. 1903: Acetaminophen 1000 mg PO. 2134: I reevaluated the patient. The patient dropped her O2 saturation. I discussed results and treatment plan with the patient and her family. They verbalize agreement and understanding. The patient will be evaluated for further management. 2143: I discussed the patient's case with Dr. Bautista, [facility] hospitalist. The patient will be evaluated for further management. Medical Decision Differential diagnoses considered include CHF, pneumonia, bronchitis, cardiac ischemia, anemia, electrolyte imbalance, UTI, uvular edema, allergic reaction. There is no leukocytosis or concerning anemia. EKG shows a normal sinus rhythm with LVH, no acute ischemia. Cardiac enzyme testing 1 is not consistent with acute cardiac injury. Renal panel testing shows no significant electrolyte abnormality or kidney failure. There is no hepatitis. The patient appears to be in a euthyroid state. Chest x-ray does not show pneumonia or CHF. Urinalysis does not show infection. On exam, the patient was not febrile or toxic. There was no evidence for angioedema. The patient did drop her O2 saturation here, she required O2 supplementation. She is definitely sleepy and this has been noted by her family--they even feel she has been confused at times, I was able to talk with the family at the bedside. They are concerned that her behavior, the weakness, the intermittent confusion, the difficulty breathing, may be from her increased Zoloft dose. She has had issues with a higher dose of Zoloft before and the family recalls that her presentation was similar. Her Zoloft was increased just a few days ago. With the hypoxia, the weakness and reported confusion, a hospital stay is warranted, I did speak to case management. The on-call hospitalist was consulted. Medication Reconcilliation Current Medication List: was personally reviewed by me Blood Pressure Screening Patient's blood pressure: Elevated blood pressure Referred to hospitalist. Consults Time Called: 2139 Consulting Physician: Dr. Bautista [facility] hospitalist Returned Call: 2143 Discussed the patient's case. The patient will be evaluated for further management. Impression Primary Impression: Hypoxia Additional Impressions: Change in mental status Weakness SOB (shortness of breath) Scribe Attestation The scribe's documentation has been prepared under my direction and personally reviewed by me in its entirety. I confirm that the note above accurately reflects all work, treatment, procedures, and medical decision making performed by me. Departure Information Dispostion Being Evaluated By Hospitalist Referrals JENA JURADO (PCP) Problem Qualifiers
[2018-01-30 20:34] LABS: BASO % 0.3 %; BASO ABS # 0.03 K/uL (0-0.2); EOS % 2.5 %; EOS ABS # 0.26 K/uL (0-0.5); HEMOGLOBIN 14.4 g/dL (12.0-16.0); IG# 0.09 K/uL (0.00-0.02); LYMPH % 29.7 %; LYMPH ABS # 3.04 K/uL (1.2-3.4); MEAN CELL VOLUME 94.5 fL (80-100); MEAN CORPUSCULAR HEMOGLOBIN 31.6 pg (25-34); MEAN CORPUSCULAR HGB CONC 33.5 g/dl (32-36); MEAN PLATELET VOLUME 9.4 fL (7.4-10.4); MONO % 9.8 %; NEUT % 56.8 %; NEUT ABS # 5.83 K/uL (1.4-6.5); PLATELET COUNT 194 K/uL (130-400); RED CELL DISTRIBUTION WIDTH SD 50.9 fL (36.4-46.3); WHITE BLOOD COUNT 10.25 K/uL (4.8-10.8)
--- NOTE | 2018-01-30 20:49 | DIAGNOSTIC IMAGING REPORT ---
SINGLE VIEW CHEST CLINICAL HISTORY: Weakness. Change in mental status. FINDINGS: An AP, portable, upright chest radiograph is compared to study dated 01/23/2018 and correlated with chest CT dated 09/01/2014. The examination is degraded by portable technique and patient rotation. The heart is enlarged. The pulmonary vasculature is noncongested. Chronic interstitial thickening is similar to previous. There is bibasilar atelectasis. No airspace consolidation or large pleural effusion is identified. No pneumothorax is seen. The skeletal structures are osteopenic. The bony thorax is grossly intact. IMPRESSION: Cardiomegaly with no acute cardiopulmonary abnormality. Electronically signed by: Simon Galdamez M.D. 01/30/2018 8:48 PM Dictated Date/Time: 01/30/2018 8:47 PM
[2018-01-30 20:55] LABS: ALBUMIN 3.7 gm/dl (3.4-5.0); ALT/SGPT 44 U/L (12-78); BLOOD UREA NITROGEN 34 mg/dl (7-18); CALCIUM 9.3 mg/dl (8.5-10.1); CARBON DIOXIDE 29 mmol/L (21-32); GLUCOSE 104 mg/dl (70-99); POTASSIUM 4.1 mmol/L (3.5-5.1); SODIUM 136 mmol/L (136-145)
[2018-01-30 21:06] LABS: ALKALINE PHOSPHATASE 112 U/L (45-117); AST/SGOT 22 U/L (15-37); TOTAL PROTEIN 7.4 gm/dl (6.4-8.2)
[2018-01-30] MEDS ORDERED: ZLF/100 PO (22:05)
[2018-01-30] MEDS ORDERED: FAMO20TA11 PO (22:05)
[2018-01-30] MEDS ORDERED: SERT1TAB88 PO (22:05)
[2018-01-30] MEDS ORDERED: ONDANSETRON INJ 2 MG/ML 2 ML VIAL IV PRN (22:30)
[2018-01-30] MEDS ORDERED: ALUMINUM/MAGNESIUM/SIMETH (MAALOX MAX) 30 ML UDC PO PRN (22:30)
[2018-01-30] MEDS ORDERED: ACETAMINOPHEN 325 MG TAB PO PRN (22:30)
[2018-01-30] MEDS ORDERED: LORAZEPAM 0.5 MG TAB PO PRN (22:30)
[2018-01-30] MEDS ORDERED: MAGNESIUM HYDROXIDE SUSP 30 ML UDC PO PRN (22:30)
[2018-01-30] MEDS ORDERED: POLYETHYLENE (MIRALAX) 17 GM PACK PO PRN (22:30)
[2018-01-30] MEDS ORDERED: BISACODYL 10 MG SUPP PR PRN (22:30)
[2018-01-30] MEDS ORDERED: TRAMADOL HCL 50 MG TAB PO PRN ×2 (22:30)
--- NOTE | 2018-01-30 23:05 | HISTORY & PHYSICAL EXAMINATION ---
DATE OF ADMISSION: 01/30/2018 PRIMARY CARE PHYSICIAN: From [facility]. CHIEF COMPLAINT: Acute confusion with unsteadiness in extremities and generalized weakness that has been going on since this morning. HISTORY OF PRESENT COMPLAINT: She is an 87-year-old female with significant past medical history of chronic kidney disease stage III, hypertension, hyperlipidemia, hypothyroidism, depression/anxiety apparently was in hospital recently with angioedema secondary to ZONIA inhibitor. During that time, she was evaluated by psychiatrist and her Zoloft was increased to 125 mg daily. She was discharged on of this month. Since discharge, she has not been feeling well, generalized weakness and especially today, she was not able to feed herself due to ongoing tremor and mild confusion. She has had this kind of symptoms when she was taking Zoloft more than 100 mg and she is worried that the medication is causing this problem. Also, in the Emergency Room, she was noted to have low saturation while she was asleep, but a chest x-ray remained unremarkable. She required 2 liters of oxygen to maintain saturation. During my examination, she was alert, awake, oriented x3. Did not have any tremor or any signs of any stroke and/or TIA, but she was admitted to medical floor for continuation of care. PAST MEDICAL HISTORY: Significant for anxiety/depression, carotid artery disease, CKD, hyperlipidemia, hypertension, hypothyroidism, macular degeneration, osteoporosis. PAST SURGICAL HISTORY: Appendectomy as a child, cataract surgery, and tubal ligation in the past. FAMILY HISTORY: History of cancer, but details are not known. SOCIAL HISTORY: She used to smoke in the past. No alcohol use. She lives in [facility]. She is independent with a walker, but she could not do it this morning. ALLERGIES: SHE IS ALLERGIC TO LISINOPRIL, LATEX, ADHESIVES, CODEINE, MORPHINE, OPIOID ANALGESICS, AND SULFA ANTIBIOTIC. MEDICATIONS: She has been taking Tylenol as needed, aluminum hydroxyl antacid as needed, aspirin 81 mg daily, bisacodyl 10 mg suppository as needed, cetirizine 10 mg daily, docusate sodium 100 mg b.i.d., Pepcid 20 mg daily, Flonase nasal spray 2 sprays each nostril daily, gabapentin 100 mg t.i.d., levothyroxine 88 mcg daily, lorazepam 0.5 mg b.i.d. as needed, milk of magnesia as directed, nystatin as directed, Ocuvite PreserVision 1 tablet daily, Protonix 40 mg daily, Senokot 1 tablet daily as needed, Zoloft 100 mg daily, and Ultram 50 mg at night. Calcium 1 tablet twice daily, MiraLax 17 g daily, Zoloft 25 mg daily. REVIEW OF SYSTEMS: Other systemic review unremarkable except those mentioned in the history of present complaint. PHYSICAL EXAMINATION: GENERAL: On examination in the Emergency Room, she was not having any acute distress. She is alert, awake, oriented during my examination. Her saturation was maintained with 2 liters nasal cannula. VITAL SIGNS: Temperature 36.5, pulse was 72, initial blood pressure 175/76, direct came down to 158/69, saturation 93% on room air. HEENT: Unremarkable. NECK: Supple, no JVD, no bruit. CHEST: Clear to auscultate bilaterally. HEART: S1, S2 regular. ABDOMEN: Soft, benign, nontender, no organomegaly. Slight distention of the abdomen. Bowel sounds present. EXTREMITIES: No edema. MUSCULOSKELETAL SYSTEM: No acute arthritis. CENTRAL NERVOUS SYSTEM: She is alert, awake, oriented x3. Did not have any more confusion. She did not have any tremor noticeable in the upper extremities. LABORATORY DATA: Noted today white count was 10.25, H and H of 14.4/43.0, platelet 194. Sodium 136, potassium 4.1, chloride 98, carbon dioxide 29, BUN 34, creatinine 1.40, elevated compared with prior that was normal. LFTs unremarkable. Troponin less than 0.01, free T4 is 0.96. UA examination unremarkable. Chest x-ray, no infiltration and/or CHF. An EKG was in sinus rhythm, rate of 69, no acute ST-T wave changes. IMPRESSION AND PLAN: 1. Acute confusion with unsteadiness likely secondary to Zoloft use. She has had this kind of symptoms before when she was taking more than 100 mg Zoloft. She will be admitted to medical floor. We are going to not give any Zoloft at this time and get a psychiatric consult tomorrow. 2. Recently had angioedema. The patient does not have any symptoms relating to that. She is noted to have low saturation on admission that could be due to obtaining saturation, but she did not have any kind of symptoms and oxygen saturation improved with 2 liters of oxygen. 3. Hypothyroidism. Continue with the replacement. 4. Depression/anxiety. We will hold her Ativan right now and also Zoloft. A psychiatric evaluation for further management. 5. CKD. Her creatinine was normal during last admission, seems to be elevated right now. She has dehydration. We will give her some IV fluid and monitor PRP while in the hospital. 6. GERD. Continue with PPI and Pepcid. 7. DVT prophylaxis with subcutaneous heparin. 8. Code status, full code. In my clinical judgment, the beneficiary meets criteria as per CMS for 2 midnight stay in the hospital. MTDD
[2018-01-30] MEDS ORDERED: IV FLUIDS COMPLETED PRN (23:30)
[2018-01-30] MEDS: SODIUM CHLORIDE 0.9% 1000ML 1,000 ML IV SCH (23:51)
[2018-01-31 00:47] VITALS: BP 162/78; PULSE 54; TEMP 36.4; O2SAT 91; Ht 156.2 cm; Wt 67.4 kg
[2018-01-31] MEDS: LEVOTHYROXINE 88 MCG TAB PO SCH (06:03)
[2018-01-31] MEDS: DOCUSATE SODIUM/SENNA 50/8.6MG TAB PO SCH (06:04)
[2018-01-31 07:41] VITALS: BP 162/90; PULSE 59; TEMP 36.4; O2SAT 96
[2018-01-31 08:15] LABS: CALCIUM 8.8 mg/dl (8.5-10.1); CREATININE 1.33 mg/dl (0.60-1.20); POTASSIUM 3.9 mmol/L (3.5-5.1)
[2018-01-31] MEDS: NYSTATIN/TRIAMCINOLONE CR 15 GM TUBE EXT SCH ×2 (08:32→20:18)
[2018-01-31] MEDS: CETIRIZINE HCL 10 MG TAB PO SCH (08:33)
[2018-01-31] MEDS: NYSTATIN POWDER 15GM BTL EXT SCH ×2 (08:33→20:18)
[2018-01-31] MEDS: FAMOTIDINE 20 MG TAB PO SCH ×2 (08:33→20:18)
[2018-01-31] MEDS: DOCUSATE SODIUM 100 MG CAP PO SCH ×2 (08:33→20:18)
[2018-01-31] MEDS: CEROVITE ADV FORMULA TAB PO SCH ×2 (08:33→20:18)
[2018-01-31] MEDS: ASPIRIN 81 MG ECTAB PO SCH (08:34)
[2018-01-31] MEDS: GABAPENTIN 100 MG CAP PO SCH ×3 (08:34→20:18)
[2018-01-31] MEDS: PANTOprazole SOD 40 MG TAB PO SCH (08:34)
[2018-01-31] MEDS: HEPARIN SOD 5000 UNIT/0.5 ML CARP SQ SCH ×2 (09:19→20:21)
[2018-01-31] MEDS: SODIUM CHLORIDE 0.9% 1000ML 1,000 ML IV SCH (11:51)
[2018-01-31 15:52] VITALS: BP 120/67; PULSE 75; TEMP 36.7; O2SAT 95
--- NOTE | 2018-01-31 15:59 | Psychiatric Progress Notes ---
Progress Note Date of Service Jan 31, 2018. Interval History 87 yo woman admitted medically with weakness. Consult requested to evaluate antidepressant. Information is gathered from the patient, the electronic medical record and considered to be reliable. Chief Complaint "I had a crying spell this AM.". Subjective Patient was seen & assessed interval progress reviewed. Patient seen on consult during her last medical stay and zoloft increased from 100 to 125 mg.. She was discharged back to [facility] on January 27, but woke up yesterday feeling too weak to walk, requiring the assist of the nursing staff. She has no idea what caused her to feel so weak. Her mood has been depressed. She reviews the chain of events that lead to her giving up her apartment and moving to [place], and she feels sad that she has lost her independence, ability to drive and her friends. She now spends her days "sleeping". In talking about her antidepressants, its clear that she has taken "one pill" at night for many years and she thinks that more than that is "too much". I don't hear her saying that she was tremulous or had other side effects. She agrees, however, that if her mood is depressed and we can't increase her current antidepressant, then she would agree to change agents. She can't recall being on other antidepressants. She denies acute SI, but has had passive thoughts that her life is no longer worth living, given that she has lost any independence that she had. "They took it away too soon.". Review of Systems Constitutional: + fatigue ENT: + hearing loss Respiratory: No cough, No sputum, No wheezing, No shortness of breath, No dyspnea on exertion, No dyspnea at rest, No hemoptysis, No problem reported Cardiovascular: No chest pain, No orthopnea, No PND, No edema, No claudication , No palpitations, No problem reported Abdomen: No pain, No nausea, No vomiting, No diarrhea, No constipation, No GI bleeding, No problem reported Musculoskeletal: + problem reported (weakness) Neurologic: + weakness Psychiatric: + depression symptoms Integumentary: No rash, No itch, No new/changing skin lesions, No color change , No bleeding, No problem reported Mental Status Exam During interview pt is: cooperative Appearance: appropriately groomed Eye contact is: good Motor behavior is: no abnormal motor movements Speech: normal in rate, rhythm & volume Affect: tearful Mood is: depressed Thought process: goal directed Thought content: reality based without delusions Suicidal thought are: present (passive) Homicidal thoughts are: denied Hallucinations: denies auditory, denies visual Intelligence estimated to be: average Insight: fair Judgement: fair Impression 87 yo female admitted medically with weakness. Primary team has held Zoloft due to concerns it is somehow contributing. At this point, I don't see the value in continuing on Zoloft if we're not able to get the dosage to a point that it can be helpful. I have suggested that we switch to Lexapro 5 mg. to which she is agreeable. I'm sure that her [facility] has made efforts to incorporate her into their program, but she is clearly lonely and not engaging in activity. Perhaps social service could alert the nursing facility to see if they can double their efforts to facilitate some socialization. She does not meet criteria for inpatient treatment. She also did not have her hearing aides in at the time of my visit. I assume they are here, but she didn't know where. Encouraging her to wear her aides at all times would also help to diminish her isolation. Plan (1) Depression 01/31 - DC Zoloft - Start Lexapro 5 mg. daily - Encourage wearing hearing aides at all times - Check with her [facility] about increasing socialization if possible. Visit Code E&M Code: 10038 Data Vital Signs Last 24 Hrs: Date Time Temp Pulse Resp B/P (MAP) Pulse Ox O2 Delivery O2 Flow Rate FiO2 01/31/18 08:00 Room Air 01/31/18 07:41 36.4 59 18 162/90 (114) 96 Nasal Cannula 2.0 01/31/18 00:47 36.4 54 20 162/78 91 Room Air 01/30/18 23:09 63 13 127/68 90 01/30/18 22:41 64 16 147/76 90 Room Air 01/30/18 22:00 62 16 122/61 93 Nasal Cannula 2.0 01/30/18 21:30 64 16 124/74 91 Nasal Cannula 2.0 01/30/18 21:23 92 Nasal Cannula 2.0 01/30/18 21:22 84 Room Air 01/30/18 21:01 149/87 01/30/18 21:00 67 16 90 Room Air 01/30/18 20:33 67 16 158/69 93 Room Air 01/30/18 20:30 70 01/30/18 19:44 69 21 01/30/18 19:30 174/79 01/30/18 19:14 69 17 01/30/18 19:00 173/83 01/30/18 18:55 175/78 01/30/18 18:48 36.5 72 20 175/78 91 Room Air Meds Administered Last 24 Hrs: Meds Administered (Past 24Hrs) Medications (Trade) Dose Ordered Sig/Alirio Route Start Time Stop Time Status Last Admin Dose Admin Acetaminophen (Tylenol Tab) 1,000 mg NOW STAT PO 01/30/18 19:04 01/30/18 19:09 DC 01/30/18 19:23 1,000 MG Ondansetron HCl (Zofran Inj) 4 mg Q6H PRN IV 01/30/18 22:30 03/01/18 22:29 01/31/18 10:58 4 MG Heparin Sodium (Porcine) (Heparin Sq 5000 Unit/0.5ml) 5,000 unit Q12 SQ 01/31/18 09:30 03/02/18 09:29 01/31/18 09:19 5,000 UNIT Aspirin (Ecotrin Tab) 81 mg DAILY PO 01/31/18 08:00 03/02/18 08:59 01/31/18 08:34 81 MG Cetirizine HCl (zyrTEC TAB) 10 mg DAILY PO 01/31/18 08:00 03/02/18 08:59 01/31/18 08:33 10 MG Docusate Sodium (coLACE CAP) 100 mg BID PO 01/31/18 08:00 03/02/18 08:59 01/31/18 08:33 100 MG Famotidine (Pepcid Tab) 20 mg BID PO 01/31/18 08:00 03/02/18 08:59 01/31/18 08:33 20 MG Gabapentin (Neurontin Cap) 100 mg TID PO 01/31/18 08:00 03/02/18 08:59 01/31/18 08:34 100 MG Levothyroxine Sodium (Synthroid Tab) 88 mcg DAILYBB PO 01/31/18 06:30 03/02/18 06:59 01/31/18 06:03 88 MCG Lorazepam (Ativan Tab) 0.5 mg BID PRN PO 01/30/18 22:30 03/01/18 22:29 01/31/18 10:57 0.5 MG Nystatin (Mycostatin Powder) 1 appln BID EXT 01/31/18 08:00 03/02/18 08:59 01/31/18 08:33 1 APPLN Nystatin/ Triamcinolone Acetonide (Mycogen II Crm) 1 appln BID EXT 01/31/18 08:00 03/02/18 08:59 01/31/18 08:32 1 APPLN Multivitamins/ Minerals (Multivitamin W/ Minerals Tab) 1 tab BID PO 01/31/18 08:00 03/02/18 08:59 01/31/18 08:33 1 TAB Pantoprazole Sodium (Protonix Tab) 40 mg QAM PO 01/31/18 08:00 03/02/18 08:59 01/31/18 08:34 40 MG Senna/Docusate Sodium (Senokot S Tab) 1 tab DAILYBB PO 01/31/18 06:30 03/02/18 06:59 01/31/18 06:04 1 TAB Sodium Chloride 1,000 ml @ 75 mls/hr [id number] IV 01/30/18 22:45 03/01/18 22:44 01/31/18 11:51 75 MLS/HR Lab Results Last 24 Hrs: Last 24 Hours Test 01/30/18 19:22 01/30/18 20:12 01/31/18 07:10 Urine Color YELLOW Urine Appearance CLEAR Urine pH 5.0 Urine Specific [place] 1.013 Urine Protein NEG Urine Glucose (UA) NEG Urine Ketones NEG Urine Occult Blood NEG Urine Nitrite NEG Urine Bilirubin NEG Urine Urobilinogen NEG Urine Leukocyte Esterase SMALL Urine WBC (Auto) 1-5 /hpf Urine RBC (Auto) 0-4 /hpf Urine Hyaline Casts (Auto) 0 /lpf Urine Epithelial Cells (Auto) 10-20 /lpf Urine Bacteria (Auto) NEG White Blood Count 10.25 K/uL Red Blood Count 4.55 M/uL Hemoglobin 14.4 g/dL Hematocrit 43.0 % Mean Corpuscular Volume 94.5 fL Mean Corpuscular Hemoglobin 31.6 pg Mean Corpuscular Hemoglobin Concent 33.5 g/dl Platelet Count 194 K/uL Mean Platelet Volume 9.4 fL Neutrophils (%) (Auto) 56.8 % Lymphocytes (%) (Auto) 29.7 % Monocytes (%) (Auto) 9.8 % Eosinophils (%) (Auto) 2.5 % Basophils (%) (Auto) 0.3 % Neutrophils # (Auto) 5.83 K/uL Lymphocytes # (Auto) 3.04 K/uL Monocytes # (Auto) 1.00 K/uL Eosinophils # (Auto) 0.26 K/uL Basophils # (Auto) 0.03 K/uL RDW Standard Deviation 50.9 fL RDW Coefficient of Variation 15.0 % Immature Granulocyte % (Auto) 0.9 % Immature Granulocyte # (Auto) 0.09 K/uL Sodium Level 136 mmol/L 139 mmol/L Potassium Level 4.1 mmol/L 3.9 mmol/L Chloride Level 98 mmol/L 101 mmol/L Carbon Dioxide Level 29 mmol/L 31 mmol/L Anion Gap 8.0 mmol/L 7.0 mmol/L Blood Urea Nitrogen 34 mg/dl 30 mg/dl Creatinine 1.40 mg/dl 1.33 mg/dl Est Creatinine Clear Calc Drug Dose 23.9 ml/min 25.5 ml/min Estimated GFR () 38.5 41.0 Estimated GFR (Non- 33.2 35.4 BUN/Creatinine Ratio 24.1 22.2 Random Glucose 104 mg/dl 113 mg/dl Calcium Level 9.3 mg/dl 8.8 mg/dl Magnesium Level 2.4 mg/dl 2.1 mg/dl Total Bilirubin 0.3 mg/dl Aspartate Amino Transf (AST/SGOT) 22 U/L Alanine Aminotransferase (ALT/SGPT) 44 U/L Alkaline Phosphatase 112 U/L Troponin I < 0.015 ng/ml Total Protein 7.4 gm/dl Albumin 3.7 gm/dl Globulin 3.7 gm/dl Albumin/Globulin Ratio 1.0 Thyroid Stimulating Hormone (TSH) 3.380 uIu/ml Free Thyroxine 0.96 ng/dl
[2018-01-31 16:00] VITALS: O2SAT 95
--- NOTE | 2018-01-31 17:24 | Progress Note ---
Medicine Progress Note Date & Time of Visit: Jan 31, 2018 at 14:01. Subjective Pt was seen and examined Lying in bed with no distress Pt said that she had a crying spell this morning She said that she felt depressed she said that she missed her daughters and would like to speak to them Pt said that she has not been doing much at the [facility] She said that she slept all the time Pt said that she does not like the food at [facility] She is happy with the service that she is getting in the hospital She likes the hospital food and ate all her breakfast I spoke to her daughter Jeanine today over the phone and updated providing Denies any chest pain, palpitation, dizziness and SOB Objective Last 8 Hrs Date Time Temp Pulse Resp B/P (MAP) Pulse Ox O2 Delivery O2 Flow Rate FiO2 01/31/18 16:00 95 Room Air 01/31/18 15:52 36.7 75 18 120/67 (84) 95 Room Air Physical Exam: General- No acute distress Head- atraumatic Eyes- PERRL, EOMI ENT- oropharynx clear Neck- supple, no JVD Lungs- No wheezing Heart- regular rhythm Abdomen- normal bowel sounds, soft Extremities- no calf tenderness Neuro- alert, oriented, PERRL, EOMI Skin- warm & dry Laboratory Results: Last 24 Hours Test 01/30/18 19:22 01/30/18 20:12 01/31/18 07:10 Urine Color YELLOW Urine Appearance CLEAR Urine pH 5.0 Urine Specific [place] 1.013 Urine Protein NEG Urine Glucose (UA) NEG Urine Ketones NEG Urine Occult Blood NEG Urine Nitrite NEG Urine Bilirubin NEG Urine Urobilinogen NEG Urine Leukocyte Esterase SMALL Urine WBC (Auto) 1-5 /hpf Urine RBC (Auto) 0-4 /hpf Urine Hyaline Casts (Auto) 0 /lpf Urine Epithelial Cells (Auto) 10-20 /lpf Urine Bacteria (Auto) NEG White Blood Count 10.25 K/uL Red Blood Count 4.55 M/uL Hemoglobin 14.4 g/dL Hematocrit 43.0 % Mean Corpuscular Volume 94.5 fL Mean Corpuscular Hemoglobin 31.6 pg Mean Corpuscular Hemoglobin Concent 33.5 g/dl Platelet Count 194 K/uL Mean Platelet Volume 9.4 fL Neutrophils (%) (Auto) 56.8 % Lymphocytes (%) (Auto) 29.7 % Monocytes (%) (Auto) 9.8 % Eosinophils (%) (Auto) 2.5 % Basophils (%) (Auto) 0.3 % Neutrophils # (Auto) 5.83 K/uL Lymphocytes # (Auto) 3.04 K/uL Monocytes # (Auto) 1.00 K/uL Eosinophils # (Auto) 0.26 K/uL Basophils # (Auto) 0.03 K/uL RDW Standard Deviation 50.9 fL RDW Coefficient of Variation 15.0 % Immature Granulocyte % (Auto) 0.9 % Immature Granulocyte # (Auto) 0.09 K/uL Sodium Level 136 mmol/L 139 mmol/L Potassium Level 4.1 mmol/L 3.9 mmol/L Chloride Level 98 mmol/L 101 mmol/L Carbon Dioxide Level 29 mmol/L 31 mmol/L Anion Gap 8.0 mmol/L 7.0 mmol/L Blood Urea Nitrogen 34 mg/dl 30 mg/dl Creatinine 1.40 mg/dl 1.33 mg/dl Est Creatinine Clear Calc Drug Dose 23.9 ml/min 25.5 ml/min Estimated GFR () 38.5 41.0 Estimated GFR (Non- 33.2 35.4 BUN/Creatinine Ratio 24.1 22.2 Random Glucose 104 mg/dl 113 mg/dl Calcium Level 9.3 mg/dl 8.8 mg/dl Magnesium Level 2.4 mg/dl 2.1 mg/dl Total Bilirubin 0.3 mg/dl Aspartate Amino Transf (AST/SGOT) 22 U/L Alanine Aminotransferase (ALT/SGPT) 44 U/L Alkaline Phosphatase 112 U/L Troponin I < 0.015 ng/ml Total Protein 7.4 gm/dl Albumin 3.7 gm/dl Globulin 3.7 gm/dl Albumin/Globulin Ratio 1.0 Thyroid Stimulating Hormone (TSH) 3.380 uIu/ml Free Thyroxine 0.96 ng/dl Assessment & Plan Confusion/lethargy/unsteadiness Possible related to med (On Ativan prn, Gabapentin, Zoloft, Tramadol prn) Zoloft was d/c Consider to decrease gabapentin to BID Will decrease Ativan to 0.25 mg PRN Clinically improves Depression/Anxiety Zoloft was increased in the last admission Zoloft changed to lexapro 5 mg Psych on board Continue to follow prn Hx Angioedema Saturated well on RA Stable Hypothyroidism Continue Levothyroxine supplement Acute on CKD Possible related to dehydration Monitor BMP Avoid nephrotoxic agents GERD Continue with PPI and Pepcid. DVT prophylaxis with subcutaneous heparin. Code status full code. Consultants: psych Current Inpatient Medications: Current Inpatient Medications Medications (Trade) Dose Ordered Sig/Alirio Route Start Time Stop Time Status Last Admin Dose Admin Ondansetron HCl (Zofran Inj) 4 mg Q6H PRN IV 01/30/18 22:30 03/01/18 22:29 01/31/18 10:58 4 MG Heparin Sodium (Porcine) (Heparin Sq 5000 Unit/0.5ml) 5,000 unit Q12 SQ 01/31/18 09:30 03/02/18 09:29 01/31/18 09:19 5,000 UNIT Acetaminophen (Tylenol Tab) 650 mg Q8 PRN PO 01/30/18 22:30 03/01/18 22:29 Al Hydrox/Mg Hydrox/Simethicone (Maalox Max Susp) 30 ml Q4H PRN PO 01/30/18 22:30 03/01/18 22:29 Aspirin (Ecotrin Tab) 81 mg DAILY PO 01/31/18 08:00 03/02/18 08:59 01/31/18 08:34 81 MG Bisacodyl (Dulcolax Supp) 10 mg DAILY PRN [place] 01/30/18 22:30 03/01/18 22:29 Cetirizine HCl (zyrTEC TAB) 10 mg DAILY PO 01/31/18 08:00 03/02/18 08:59 01/31/18 08:33 10 MG Docusate Sodium (coLACE CAP) 100 mg BID PO 01/31/18 08:00 03/02/18 08:59 01/31/18 08:33 100 MG Famotidine (Pepcid Tab) 20 mg BID PO 01/31/18 08:00 03/02/18 08:59 01/31/18 08:33 20 MG Fluticasone Propionate (Flonase Nasal [place]) 2 sprays HS LIZET 01/31/18 21:00 03/02/18 20:59 Gabapentin (Neurontin Cap) 100 mg TID PO 01/31/18 08:00 03/02/18 08:59 01/31/18 08:34 100 MG Levothyroxine Sodium (Synthroid Tab) 88 mcg DAILYBB PO 01/31/18 06:30 03/02/18 06:59 01/31/18 06:03 88 MCG Lorazepam (Ativan Tab) 0.5 mg BID PRN PO 01/30/18 22:30 03/01/18 22:29 01/31/18 10:57 0.5 MG Magnesium Hydroxide (Milk Of Magnesia Susp) 30 ml DAILY PRN PO 01/30/18 22:30 03/01/18 22:29 Nystatin (Mycostatin Powder) 1 appln BID EXT 01/31/18 08:00 03/02/18 08:59 01/31/18 08:33 1 APPLN Nystatin/ Triamcinolone Acetonide (Mycogen II Crm) 1 appln BID EXT 01/31/18 08:00 03/02/18 08:59 01/31/18 08:32 1 APPLN Multivitamins/ Minerals (Multivitamin W/ Minerals Tab) 1 tab BID PO 01/31/18 08:00 03/02/18 08:59 01/31/18 08:33 1 TAB Pantoprazole Sodium (Protonix Tab) 40 mg QAM PO 01/31/18 08:00 03/02/18 08:59 01/31/18 08:34 40 MG Senna/Docusate Sodium (Senokot S Tab) 1 tab DAILYBB PO 01/31/18 06:30 03/02/18 06:59 01/31/18 06:04 1 TAB Tramadol HCl (Ultram Tab) 50 mg HS PRN PO 01/30/18 22:30 03/01/18 22:29 Tramadol HCl (Ultram Tab) 50 mg Q6H PRN PO 01/30/18 22:30 03/01/18 22:29 Polyethylene (Miralax Powder Packet) 17 gm QDL PRN PO 01/30/18 22:30 03/01/18 22:29 Sodium Chloride 1,000 ml @ 75 mls/hr [id number] IV 01/30/18 22:45 03/01/18 22:44 01/31/18 11:51 75 MLS/HR Miscellaneous (Iv Fluids Completed) 1 ea PRN PRN N/A 01/30/18 23:30 01/30/19 23:29 Escitalopram Oxalate (Lexapro Tab) 5 mg QAM PO 02/01/18 08:00 03/03/18 07:59
[2018-01-31] MEDS: FLUTICASONE PROPIONATE NA SPR 16 GM BTL NAE SCH (20:19)
[2018-01-31 23:19] VITALS: BP 125/75; PULSE 70; TEMP 36.6; O2SAT 91
[2018-02-01] MEDS: DOCUSATE SODIUM/SENNA 50/8.6MG TAB PO SCH (06:24)
[2018-02-01] MEDS: LEVOTHYROXINE 88 MCG TAB PO SCH (06:24)
[2018-02-01 07:22] VITALS: BP 116/67; PULSE 58; TEMP 36.6; O2SAT 91
[2018-02-01] MEDS: ASPIRIN 81 MG ECTAB PO SCH (08:00)
[2018-02-01] MEDS: DOCUSATE SODIUM 100 MG CAP PO SCH ×2 (08:57→20:57)
[2018-02-01] MEDS: CEROVITE ADV FORMULA TAB PO SCH ×2 (08:57→20:57)
[2018-02-01] MEDS: FAMOTIDINE 20 MG TAB PO SCH ×2 (08:58→20:57)
[2018-02-01] MEDS: GABAPENTIN 100 MG CAP PO SCH ×2 (08:58→20:57)
[2018-02-01] MEDS: NYSTATIN POWDER 15GM BTL EXT SCH ×2 (08:58→20:58)
[2018-02-01] MEDS: CETIRIZINE HCL 10 MG TAB PO SCH (08:58)
[2018-02-01] MEDS: ESCITALOPRAM OXALATE 10 MG TAB PO SCH (08:58)
[2018-02-01] MEDS: PANTOprazole SOD 40 MG TAB PO SCH (08:58)
[2018-02-01] MEDS: NYSTATIN/TRIAMCINOLONE CR 15 GM TUBE EXT SCH ×2 (08:59→20:58)
[2018-02-01] MEDS: HEPARIN SOD 5000 UNIT/0.5 ML CARP SQ SCH ×2 (09:03→21:01)
[2018-02-01 12:34] LABS: CALCIUM 8.7 mg/dl (8.5-10.1); CREATININE 1.13 mg/dl (0.60-1.20); POTASSIUM 3.9 mmol/L (3.5-5.1)
[2018-02-01 15:20] VITALS: BP 155/75; PULSE 65; TEMP 36.5; O2SAT 95
--- NOTE | 2018-02-01 19:05 | Progress Note ---
Medicine Progress Note Date & Time of Visit: Feb 01, 2018 at 18:43. Subjective Pt was seen and examined Lying in bed with no distress Pt said that she slept late last night She said that she was watching the [employer] baseball game She said that she feels much better today She is more awake today Spoke to her daughter and provided update She saw her mother today and said that she is almost back to her baseline Pt had a good appetite Denies any chest pain, palpitation, dizziness and SOB Objective Last 8 Hrs Date Time Temp Pulse Resp B/P (MAP) Pulse Ox O2 Delivery O2 Flow Rate FiO2 02/01/18 16:30 Room Air 02/01/18 15:20 36.5 65 18 155/75 (101) 95 Room Air Physical Exam: General- No acute distress Head- atraumatic Eyes- PERRL, EOMI ENT- oropharynx clear Neck- supple, no JVD Lungs- No wheezing Heart- regular rhythm Abdomen- normal bowel sounds, soft Extremities- no calf tenderness Neuro- alert, oriented, PERRL, EOMI Skin- warm & dry Laboratory Results: Last 24 Hours Test 02/01/18 11:24 Sodium Level 138 mmol/L Potassium Level 3.9 mmol/L Chloride Level 104 mmol/L Carbon Dioxide Level 31 mmol/L Anion Gap 3.0 mmol/L Blood Urea Nitrogen 17 mg/dl Creatinine 1.13 mg/dl Est Creatinine Clear Calc Drug Dose 30.0 ml/min Estimated GFR () 49.9 Estimated GFR (Non- 43.1 BUN/Creatinine Ratio 15.2 Random Glucose 86 mg/dl Calcium Level 8.7 mg/dl Assessment & Plan Confusion/lethargy/unsteadiness Possible related to med (On Ativan prn, Gabapentin, Zoloft, Tramadol prn) Zoloft was d/c gabapentin decreased to BID Ativan decreased to 0.25 mg PRN Clinically improves significantly Depression/Anxiety Zoloft was increased in the last admission Zoloft changed to lexapro 5 mg Psych on board Continue to follow prn Hx Angioedema Saturated well on RA Stable Neck Pain/back Pain Continue tramadol prn Consider to add Lidoderm prn Hypothyroidism Continue Levothyroxine supplement Acute on CKD Possible related to dehydration Creatine 1.1 today Avoid nephrotoxic agents resolved GERD Continue with PPI and Pepcid. DVT prophylaxis with subcutaneous heparin. Code status full code. Disposition Will discharge tomorrow Consultants: psych Current Inpatient Medications: Current Inpatient Medications Medications (Trade) Dose Ordered Sig/Alirio Route Start Time Stop Time Status Last Admin Dose Admin Ondansetron HCl (Zofran Inj) 4 mg Q6H PRN IV 01/30/18 22:30 03/01/18 22:29 01/31/18 10:58 4 MG Heparin Sodium (Porcine) (Heparin Sq 5000 Unit/0.5ml) 5,000 unit Q12 SQ 01/31/18 09:30 03/02/18 09:29 02/01/18 09:03 5,000 UNIT Acetaminophen (Tylenol Tab) 650 mg Q8 PRN PO 01/30/18 22:30 03/01/18 22:29 Al Hydrox/Mg Hydrox/Simethicone (Maalox Max Susp) 30 ml Q4H PRN PO 01/30/18 22:30 03/01/18 22:29 Aspirin (Ecotrin Tab) 81 mg DAILY PO 01/31/18 08:00 03/02/18 08:59 02/01/18 08:00 81 MG Bisacodyl (Dulcolax Supp) 10 mg DAILY PRN [place] 01/30/18 22:30 03/01/18 22:29 Cetirizine HCl (zyrTEC TAB) 10 mg DAILY PO 01/31/18 08:00 03/02/18 08:59 02/01/18 08:58 10 MG Docusate Sodium (coLACE CAP) 100 mg BID PO 01/31/18 08:00 03/02/18 08:59 02/01/18 08:57 100 MG Famotidine (Pepcid Tab) 20 mg BID PO 01/31/18 08:00 03/02/18 08:59 02/01/18 08:58 20 MG Fluticasone Propionate (Flonase Nasal [place]) 2 sprays HS LIZET 01/31/18 21:00 03/02/18 20:59 01/31/18 20:19 2 SPRAYS Levothyroxine Sodium (Synthroid Tab) 88 mcg DAILYBB PO 01/31/18 06:30 03/02/18 06:59 02/01/18 06:24 88 MCG Lorazepam (Ativan Tab) 0.5 mg BID PRN PO 01/30/18 22:30 03/01/18 22:29 01/31/18 10:57 0.5 MG Magnesium Hydroxide (Milk Of Magnesia Susp) 30 ml DAILY PRN PO 01/30/18 22:30 03/01/18 22:29 Nystatin (Mycostatin Powder) 1 appln BID EXT 01/31/18 08:00 03/02/18 08:59 02/01/18 08:58 1 APPLN Nystatin/ Triamcinolone Acetonide (Mycogen II Crm) 1 appln BID EXT 01/31/18 08:00 03/02/18 08:59 02/01/18 08:59 1 APPLN Multivitamins/ Minerals (Multivitamin W/ Minerals Tab) 1 tab BID PO 01/31/18 08:00 03/02/18 08:59 02/01/18 08:57 1 TAB Pantoprazole Sodium (Protonix Tab) 40 mg QAM PO 01/31/18 08:00 03/02/18 08:59 02/01/18 08:58 40 MG Senna/Docusate Sodium (Senokot S Tab) 1 tab DAILYBB PO 01/31/18 06:30 03/02/18 06:59 02/01/18 06:24 1 TAB Tramadol HCl (Ultram Tab) 50 mg HS PRN PO 01/30/18 22:30 03/01/18 22:29 Tramadol HCl (Ultram Tab) 50 mg Q6H PRN PO 01/30/18 22:30 03/01/18 22:29 02/01/18 18:22 50 MG Polyethylene (Miralax Powder Packet) 17 gm QDL PRN PO 01/30/18 22:30 03/01/18 22:29 Miscellaneous (Iv Fluids Completed) 1 ea PRN PRN N/A 01/30/18 23:30 01/30/19 23:29 02/01/18 01:30 1 EA Escitalopram Oxalate (Lexapro Tab) 5 mg QAM PO 02/01/18 08:00 03/03/18 07:59 02/01/18 08:58 5 MG Gabapentin (Neurontin Cap) 100 mg BID PO 01/31/18 20:00 03/02/18 08:59 02/01/18 08:58 100 MG
[2018-02-01] MEDS: FLUTICASONE PROPIONATE NA SPR 16 GM BTL NAE SCH (20:58)
[2018-02-01 23:23] VITALS: BP 151/75; PULSE 62; TEMP 36.6; O2SAT 91
[2018-02-02] MEDS: DOCUSATE SODIUM/SENNA 50/8.6MG TAB PO SCH (05:30)
[2018-02-02] MEDS: LEVOTHYROXINE 88 MCG TAB PO SCH (05:30)
[2018-02-02 06:53] VITALS: BP 138/78; PULSE 59; TEMP 36.7; O2SAT 90
[2018-02-02 08:00] VITALS: O2SAT 92
[2018-02-02] MEDS: CEROVITE ADV FORMULA TAB PO SCH (08:23)
[2018-02-02] MEDS: ASPIRIN 81 MG ECTAB PO SCH (08:23)
[2018-02-02] MEDS: DOCUSATE SODIUM 100 MG CAP PO SCH (08:23)
[2018-02-02] MEDS: ESCITALOPRAM OXALATE 10 MG TAB PO SCH (08:23)
[2018-02-02] MEDS: CETIRIZINE HCL 10 MG TAB PO SCH (08:23)
[2018-02-02] MEDS: PANTOprazole SOD 40 MG TAB PO SCH (08:23)
[2018-02-02] MEDS: GABAPENTIN 100 MG CAP PO SCH (08:23)
[2018-02-02] MEDS: FAMOTIDINE 20 MG TAB PO SCH (08:23)
[2018-02-02] MEDS: NYSTATIN/TRIAMCINOLONE CR 15 GM TUBE EXT SCH (08:23)
[2018-02-02] MEDS: NYSTATIN POWDER 15GM BTL EXT SCH (08:23)
[2018-02-02] MEDS: HEPARIN SOD 5000 UNIT/0.5 ML CARP SQ SCH (08:31)
[2018-02-02 13:12] VITALS: BP 138/78; PULSE 59; TEMP 36.7; O2SAT 92
--- NOTE | 2018-02-02 13:19 | Progress Note ---
Medicine Progress Note Date & Time of Visit: Feb 02, 2018 at 13:05. Subjective Pt was seen and examined Lying in bed with no distress Pt said that she feels much better today compare to yesterday Pt said that she ate this morning She said that she had therapy today and did fine She said that last night she was itching and was given Benadryl She said that she had a bad dream round 2 am then she went back to bed after a few hours Denies any chest pain, palpitation, dizziness and SOB Objective Last 8 Hrs Date Time Temp Pulse Resp B/P (MAP) Pulse Ox O2 Delivery O2 Flow Rate FiO2 02/02/18 08:00 92 Nasal Cannula 1.0 02/02/18 06:53 36.7 59 18 138/78 (98) 90 Nasal Cannula 1.0 Physical Exam: General- No acute distress Head- atraumatic Eyes- PERRL, EOMI ENT- oropharynx clear Neck- supple, no JVD Lungs- No wheezing Heart- regular rhythm Abdomen- normal bowel sounds, soft Extremities- no calf tenderness Neuro- alert, oriented, PERRL, EOMI Skin- warm & dry Assessment & Plan Confusion/lethargy/unsteadiness Possible related to med (On Ativan prn, Gabapentin, Zoloft, Tramadol prn) Zoloft was d/c gabapentin decreased to BID Ativan decreased to 0.25 mg PRN More awake and fluent back to her baseline Depression/Anxiety Zoloft was increased in the last admission Zoloft changed to lexapro 5 mg Psych on board tolerated Lexapro well Lexapro can be titrated by pcp as an outpatient if needed Mood much better Stable Hx Angioedema Saturated well on RA Stable Neck Pain/back Pain Continue tramadol prn Consider to add Lidoderm prn if pain does not improve Hypothyroidism Continue Levothyroxine supplement TSH wnl Acute on CKD Possible related to dehydration Creatine 1.1 today Avoid nephrotoxic agents resolved GERD Continue with PPI and Pepcid. DVT prophylaxis with subcutaneous heparin. Code status full code. Disposition Will discharge to [facility] today Consultants: psych Current Inpatient Medications: Current Inpatient Medications Medications (Trade) Dose Ordered Sig/Alirio Route Start Time Stop Time Status Last Admin Dose Admin Ondansetron HCl (Zofran Inj) 4 mg Q6H PRN IV 01/30/18 22:30 03/01/18 22:29 01/31/18 10:58 4 MG Heparin Sodium (Porcine) (Heparin Sq 5000 Unit/0.5ml) 5,000 unit Q12 SQ 01/31/18 09:30 03/02/18 09:29 02/02/18 08:31 5,000 UNIT Acetaminophen (Tylenol Tab) 650 mg Q8 PRN PO 01/30/18 22:30 03/01/18 22:29 Al Hydrox/Mg Hydrox/Simethicone (Maalox Max Susp) 30 ml Q4H PRN PO 01/30/18 22:30 03/01/18 22:29 Aspirin (Ecotrin Tab) 81 mg DAILY PO 01/31/18 08:00 03/02/18 08:59 02/02/18 08:23 81 MG Bisacodyl (Dulcolax Supp) [address] 01/30/18 22:30 03/01/18 22:29 Cetirizine HCl (zyrTEC TAB) 10 mg DAILY PO 01/31/18 08:00 03/02/18 08:59 02/02/18 08:23 10 MG Docusate Sodium (coLACE CAP) 100 mg BID PO 01/31/18 08:00 03/02/18 08:59 02/02/18 08:23 100 MG Famotidine (Pepcid Tab) 20 mg BID PO 01/31/18 08:00 03/02/18 08:59 02/02/18 08:23 20 MG Fluticasone Propionate (Flonase Nasal [place]) 2 sprays HS LIZET 01/31/18 21:00 03/02/18 20:59 02/01/18 20:58 2 SPRAYS Levothyroxine Sodium (Synthroid Tab) 88 mcg DAILYBB PO 01/31/18 06:30 03/02/18 06:59 02/02/18 05:30 88 MCG Lorazepam (Ativan Tab) 0.5 mg BID PRN PO 01/30/18 22:30 03/01/18 22:29 01/31/18 10:57 0.5 MG Magnesium Hydroxide (Milk Of Magnesia Susp) 30 ml DAILY PRN PO 01/30/18 22:30 03/01/18 22:29 Nystatin (Mycostatin Powder) 1 appln BID EXT 01/31/18 08:00 03/02/18 08:59 02/02/18 08:23 1 APPLN Nystatin/ Triamcinolone Acetonide (Mycogen II Crm) 1 appln BID EXT 01/31/18 08:00 03/02/18 08:59 02/02/18 08:23 1 APPLN Multivitamins/ Minerals (Multivitamin W/ Minerals Tab) 1 tab BID PO 01/31/18 08:00 03/02/18 08:59 02/02/18 08:23 1 TAB Pantoprazole Sodium (Protonix Tab) 40 mg QAM PO 01/31/18 08:00 03/02/18 08:59 02/02/18 08:23 40 MG Senna/Docusate Sodium (Senokot S Tab) 1 tab DAILYBB PO 01/31/18 06:30 03/02/18 06:59 02/02/18 05:30 1 TAB Tramadol HCl (Ultram Tab) 50 mg HS PRN PO 01/30/18 22:30 03/01/18 22:29 Tramadol HCl (Ultram Tab) 50 mg Q6H PRN PO 01/30/18 22:30 03/01/18 22:29 02/01/18 18:22 50 MG Polyethylene (Miralax Powder Packet) 17 gm QDL PRN PO 01/30/18 22:30 03/01/18 22:29 Miscellaneous (Iv Fluids Completed) 1 ea PRN PRN N/A 01/30/18 23:30 01/30/19 23:29 02/01/18 01:30 1 EA Escitalopram Oxalate (Lexapro Tab) 5 mg QAM PO 02/01/18 08:00 03/03/18 07:59 02/02/18 08:23 5 MG Gabapentin (Neurontin Cap) 100 mg BID PO 01/31/18 20:00 03/02/18 08:59 02/02/18 08:23 100 MG
[2018-02-02] MEDS ORDERED: LXP10 PO (13:26)
[2018-02-02] MEDS ORDERED: LORA-741 PO (13:26)
--- NOTE | 2018-02-02 13:38 | Discharge Instructions ---
Discharge Instructions Date of Service Feb 02, 2018. Admission Reason for Admission: Depression,General Unsteadiness,Htn Discharge Discharge Diagnosis / Problem: Confusion/Depression/Lethargy Discharge Goals Goal(s): Decrease discomfort, Improve function, Improve disease control Activity Recommendations Activity Limitations: resume your previous activity (as tolerated) . Instructions / Follow-Up Instructions / Follow-Up Follow up with your physician at [facility] Continue Physical therapy Fall precaution Medications Changed Gabapentin 100 mg changed to twice a day ( please titrate to at night only if patient continue to sleep too much during the day) Ativan 0.5mg changed to 0.25 mg as needed Zoloft was discontinued Continue Lexapro 5mg daily for your depression and anxiety, your physician can titrate it up if needed Advised pt to participate on group activities Current Hospital Diet Patient's current hospital diet: AHA Diet (Heart Healthy) Discharge Diet Recommended Diet: AHA Diet (Heart Healthy) Pending Studies Studies pending at discharge: no Medical Emergencies . Who to Call and When: Medical Emergencies: If at any time you feel your situation is an emergency, please call 911 immediately. . Non-Emergent Contact Non-Emergency issues call your: Primary Care Provider Call Non-Emergent contact if: your pain is not controlled, you have any medication questions . . "Provider Documentation" section prepared by Anshul Victor. . [place] Drug Monitoring Program Search Results: no issues identified
--- NOTE | 2018-02-02 13:44 | Discharge Summary ---
Discharge Summary Date of Service Feb 02, 2018. Discharge Summary Admission Date: Jan 30, 2018 at 22:30 Discharge Date: Feb 02, 2018 Discharge Disposition: Personal care Principal Diagnosis: Confusion Secondary Diagnoses/Problems: Depression Lethargy Anxiety Acute Kidney Injury Neck pain back pain Hx Angioedema Hypothyroidism Procedures: [~ rep ct add3]] SINGLE VIEW CHEST CLINICAL HISTORY: Weakness. Change in mental status. FINDINGS: An AP, portable, upright chest radiograph is compared to study dated 01/23/2018 and correlated with chest CT dated 09/01/2014. The examination is degraded by portable technique and patient rotation. The heart is enlarged. The pulmonary vasculature is noncongested. Chronic interstitial thickening is similar to previous. There is bibasilar atelectasis. No airspace consolidation or large pleural effusion is identified. No pneumothorax is seen. The skeletal structures are osteopenic. The bony thorax is grossly intact. IMPRESSION: Cardiomegaly with no acute cardiopulmonary abnormality. Electronically signed by: Simon Galdamez M.D. 01/30/2018 8:48 PM Dictated Date/Time: 01/30/2018 8:47 PM Consultations: psych Medication Reconciliation New Medications: Escitalopram Oxalate (Escitalopram Oxalate) 10 Mg Tab 5 MG PO QAM for 30 Days, TAB Changed Medications: Lorazepam (Ativan) 0.5 Mg Tab 0.25 MG PO BID PRN for Anxiety for 3 Days (Changed from: 0.5 MG) Hold for drowsiness and lethargy Continued Medications: Acetaminophen Tab (Tylenol) 325 Mg Tab 650 MG PO Q8 PRN for Mild Pain Alendronate Sodium (Alendronate Sodium) 35 Mg Tab 35 MG PO WK ON WEDNESDAYS Alum & Mag Hydrox-Simethicone (Antacid Advanced 400-400-40 mg/5Ml) 1 Darshana Darshana 30 ML PO Q4H PRN for GERD Aspirin (Aspirin Chewable) 81 Mg Chew 81 MG PO DAILY Bisacodyl (Bisac-Evac) 10 Mg Sup 10 MG MI DAILY PRN for IF NOT B.M. IN LAST 48HRS Calcium Carbonate-Cholecalcife (Oyster Shell Calcium Plus 500-200 mg-Unit) 1 Tab Tab 1 TAB PO BID Cetirizine HCl (All Day Allergy) 10 Mg Tab 10 MG PO DAILY for 30 Days, #30 TAB Docusate Sodium (Docusate Sodium) 100 Mg Cap 100 MG PO BID Hold for diarrhea Famotidine (Pepcid) 20 Mg Tab 20 MG PO BID, TAB Fluticasone Propionate (Nasal) (Flonase Allergy Relief) 50 Mcg/Act Spr 2 SPRAY LIZET HS Gabapentin (Neurontin) 100 Mg Cap 100 MG PO BID hold for lethargy and drowsiness Levothyroxine Sodium (Synthroid) 88 Mcg Tab 88 MCG PO DAILYBB Magnesium Hydroxide (Milk Of Magnesia) 30 Ml Susp 30 ML PO DAILY PRN for IF NO B.M. IN LAST 24HRS Nystatin (Topical) (Nystop) 100,000 Unit/Gm Pow 1 APPLN TOP BID TO ABDOMIN, BREAST & FOLDS Nystatin/Triamcinolone (Mycogen || ) Cr 1 APPLN TOP BID Ocuvite Preservision (Ocuvite Preservision) 1 Tab Tab 1 TAB PO BID Pantoprazole (Protonix) 40 Mg Tab 40 MG PO QAM Polyethylene Glycol 3350 (Miralax) 1 Pow Pow 17 GM PO QDL PRN for Constipation Senna/Docusate Sod (Senokot S) 1 Tab Tab 1 TAB PO DAILYBB, TAB Tramadol (Ultram) 50 Mg Tab 50 MG PO HS PRN for Pain hold for lethargy and drowsiness Tramadol (Ultram) 50 Mg Tab 50 MG PO Q6H PRN for Pain hold for lethargy and drowsiness [[facility]] () 1 CAP PO QAM Discontinued Medications: Sertraline HCl (Sertraline HCl) 100 Mg Tab 100 MG PO DAILY Sertraline HCl (Sertraline HCl) 25 Mg Tab 25 MG PO DAILY GIVE WITH 100 MG TO = 125 MG Admission Information HPI (per Admitting provider): CHIEF COMPLAINT: Acute confusion with unsteadiness in extremities and generalized weakness that has been going on since this morning. HISTORY OF PRESENT COMPLAINT: She is an 87-year-old female with significant past medical history of chronic kidney disease stage III, hypertension, hyperlipidemia, hypothyroidism, depression/anxiety apparently was in hospital recently with angioedema secondary to ZONIA inhibitor. During that time, she was evaluated by psychiatrist and her Zoloft was increased to 125 mg daily. She was discharged on 6th of this month. Since discharge, she has not been feeling well, generalized weakness and especially today, she was not able to feed herself due to ongoing tremor and mild confusion. She has had this kind of symptoms when she was taking Zoloft more than 100 mg and she is worried that the medication is causing this problem. Also, in the Emergency Room, she was noted to have low saturation while she was asleep, but a chest x-ray remained unremarkable. She required 2 liters of oxygen to maintain saturation. During my examination, she was alert, awake, oriented x3. Did not have any tremor or any signs of any stroke and/or TIA, but she was admitted to medical floor for continuation of care. Physical Exam (per Admitting): GENERAL: On examination in the Emergency Room, she was not having any acute distress. She is alert, awake, oriented during my examination. Her saturation was maintained with 2 liters nasal cannula. VITAL SIGNS: Temperature 36.5, pulse was 72, initial blood pressure 175/76, direct came down to 158/69, saturation 93% on room air. HEENT: Unremarkable. NECK: Supple, no JVD, no bruit. CHEST: Clear to auscultate bilaterally. HEART: S1, S2 regular. ABDOMEN: Soft, benign, nontender, no organomegaly. Slight distention of the abdomen. Bowel sounds present. EXTREMITIES: No edema. MUSCULOSKELETAL SYSTEM: No acute arthritis. CENTRAL NERVOUS SYSTEM: She is alert, awake, oriented x3. Did not have any more confusion. She did not have any tremor noticeable in the upper extremities. Hospital Course Confusion/lethargy/unsteadiness Possible related to med (On Ativan prn, Gabapentin, Zoloft, Tramadol prn) Zoloft was d/c gabapentin decreased to BID Ativan decreased to 0.25 mg PRN More awake and fluent back to her baseline Depression/Anxiety Zoloft was increased in the last admission Zoloft changed to lexapro 5 mg Psych on board tolerated Lexapro well Lexapro can be titrated by pcp as an outpatient if needed Mood much better Stable Hx Angioedema Saturated well on RA Stable Neck Pain/back Pain Continue tramadol prn Consider to add Lidoderm prn if pain does not improve Hypothyroidism Continue Levothyroxine supplement TSH wnl Acute kidney injury on CKD Possible related to dehydration Creatine 1.1 today Avoid nephrotoxic agents resolved GERD Continue with PPI and Pepcid. DVT prophylaxis with subcutaneous heparin. Code status full code. Disposition Will discharge to [facility] today Total time spent on discharge = 35 minutes This includes examination of the patient, discharge planning, medication reconciliation, and communication with other providers. Discharge Instructions Discharge Instructions Date of Service Feb 02, 2018. Admission Reason for Admission: Depression,General Unsteadiness,Htn Discharge Discharge Diagnosis / Problem: Confusion/Depression/Lethargy Discharge Goals Goal(s): Decrease discomfort, Improve function, Improve disease control Activity Recommendations Activity Limitations: resume your previous activity (as tolerated) . Instructions / Follow-Up Instructions / Follow-Up Follow up with your physician at [facility] Continue Physical therapy Fall precaution Medications Changed Gabapentin 100 mg changed to twice a day ( please titrate to at night only if patient continue to sleep too much during the day) Ativan 0.5mg changed to 0.25 mg as needed Zoloft was discontinued Continue Lexapro 5mg daily for your depression and anxiety, your physician can titrate it up if needed Advised pt to participate on group activities Current Hospital Diet Patient's current hospital diet: AHA Diet (Heart Healthy) Discharge Diet Recommended Diet: AHA Diet (Heart Healthy) Pending Studies Studies pending at discharge: no Medical Emergencies . Who to Call and When: Medical Emergencies: If at any time you feel your situation is an emergency, please call 911 immediately. . Non-Emergent Contact Non-Emergency issues call your: Primary Care Provider Call Non-Emergent contact if: your pain is not controlled, you have any medication questions . . "Provider Documentation" section prepared by Anshul Victor. . [place] Drug Monitoring Program Search Results: no issues identified Additional Copies To [facility]
== END 2018-02-02 14:23 | disposition home or self-care (01) ==
LOC: EDBD 18:44 → C.EDA 18:46 → C.MS4W 22:30 → ENRESERV 23:02
PROVIDERS: ADMIT Internal Medicine; ATTEND Internal Medicine
DX: R41.82 Altered mental status, unspecified (principal); F32.9 Major depressive disorder, single episode, unspecified; F41.9 Anxiety disorder, unspecified; R53.83 Other fatigue; R09.02 Hypoxemia; R06.02 Shortness of breath; R51 Headache; I25.10 Atherosclerotic heart disease of native coronary artery without angina pectoris; N18.3 Chronic kidney disease, stage 3 (moderate); E78.5 Hyperlipidemia, unspecified; I12.9 Hypertensive chronic kidney disease with stage 1 through stage 4 chronic kidney disease, or unspecified chronic kidney disease; E03.9 Hypothyroidism, unspecified; M81.0 Age-related osteoporosis without current pathological fracture; Z90.89 Acquired absence of other organs; Z98.49 Cataract extraction status, unspecified eye; Z98.51 Tubal ligation status; Z87.81 Personal history of (healed) traumatic fracture; Z79.82 Long term (current) use of aspirin; Z79.899 Other long term (current) drug therapy; Z88.8 Allergy status to other drugs, medicaments and biological substances; Z91.040 Latex allergy status; Z91.048 Other nonmedicinal substance allergy status; Z88.5 Allergy status to narcotic agent; Z88.2 Allergy status to sulfonamides

== ENCOUNTER 2018-02-15 22:35 | Inpatient (IN) | payer BC, OTHER ==
[~2018-02-15] VITALS: Ht 156.2 cm; Wt 69.3 kg
[~2018-02-15 22:35] MED LIST changes: -FAMO1TAB47 PO; +FAMO20TA11 PO; -HYDCR1CL TOP; -LTRSCR45 TOP; +LXP10 PO; -NRV5 PO; -PRD20 PO; -SERT-234 PO; -SERT25TA PO; -VALA1TAB2 PO
[2018-02-15] MEDS ORDERED: AMLO2.5T PO (23:00)
[2018-02-15] MEDS ORDERED: ESCI10TA17 PO (23:02)
[2018-02-15] MEDS ORDERED: LISI-461 PO (23:05)
[2018-02-15] MEDS ORDERED: TRAMADOL HCL 50 MG TAB PO STA (23:06)
[2018-02-15] MEDS ORDERED: ACETAMINOPHEN 500 MG TAB PO STA (23:06)
[2018-02-15] MEDS ORDERED: MULT1CAP53 PO (23:07)
[2018-02-15] MEDS ORDERED: NYST80OI TOP (23:08)
--- NOTE | 2018-02-15 23:08 | EMERGENCY ROOM VISIT NOTE ---
History Report prepared by León: Michel Blunt Under the Supervision of: Dr. Adin Trotter M.D. First contact with patient: 22:58 Chief Complaint: HEADACHE Stated Complaint: HEADACHE, NAUSEA, VOMITING, HTN History of Present Illness The patient is an 87 year old female who presents to the Emergency Room with complaints of an intermittent headache beginning last week. The patient states that although her headache has been intermittent for the past week, her symptoms have been worse today, prompting her visit to the emergency department tonight. She notes that her headache is near her ears and at the top of her head. She reports that she scratched her head all last night because it hurt so badly. She also complains of vomiting, vision changes, and weakness. The patient states that her vision has been worsening for the last few months. She denies any urinary symptoms. She notes that she took tramadol with no relief of her symptoms. She reports that she is currently a resident at [facility] and has a history of cataract surgery in her left eye. Source of History: patient Onset: last week Position: head Timing: intermittent Associated Symptoms: + vomiting, + weakness, No urinary symptoms Note: The patient also complains of vision changes. Review of Systems See HPI for pertinent positives & negatives. A total of 10 systems reviewed and were otherwise negative. Past Medical & Surgical Medical Problems: (1) Adnexal mass (2) Carotid artery disease (3) CKD (chronic kidney disease) stage 3, GFR 30-59 ml/min (4) Depression (5) Dyslipidemia (6) Fracture of right wrist (7) General unsteadiness (8) HTN (hypertension) (9) Hypertension (10) Hypothyroidism (11) Macular degeneration (12) Osteoporosis Surgical Problems: (1) Status post appendectomy (2) Status post cataract extraction (3) Status post tubal ligation Family History FH: cancer Social History Smoking Status: Never Smoker Alcohol Use: none Drug Use: none Marital Status: Housing Status: [facility] Occupation Status: retired Current/Historical Medications Scheduled Alendronate Sodium (Alendronate Sodium), 35 MG PO WK Amlodipine (Norvasc), 2.5 MG PO DAILY Aspirin (Aspirin Chewable), 81 MG PO DAILY Cetirizine Hcl (Qc All Day Allergy), 10 MG PO DAILY Docusate Sodium (Docusate Sodium), 100 MG PO BID Escitalopram (Lexapro), 10 MG PO DAILY Famotidine (Pepcid), 20 MG PO BID Fluticasone Propionate (Nasal) (Flonase Allergy Relief), 2 SPRAY LIZET HS Gabapentin (Neurontin), 100 MG PO BID Levothyroxine Sodium (Synthroid), 88 MCG PO DAILYBB Multiple Vitamins W/ Minerals (Macular Health Formula), 1 CAP PO DAILY Nystatin (Topical) (Nystatin), 1 APPLN TOP BID Nystatin/Triamcinolone (Mycogen || ), 1 APPLN TOP BID Ocuvite Preservision (Ocuvite Preservision), 1 TAB PO BID Oyster Shell (Oyster Shell), 1 TAB PO BID Pantoprazole (Protonix), 40 MG PO QAM Prednisone (Prednisone), 20 MG PO DAILY Senna/Docusate Sod (Senokot S), 1 TAB PO DAILYBB Sertraline (Zoloft), 100 MG PO DAILY Valacyclovir (Valtrex), 1,000 MG PO TID Scheduled PRN Acetaminophen Tab (Tylenol), 650 MG PO Q8 PRN for Mild Pain Alum & Mag Hydrox-Simethicone (Antacid Advanced 400-400-40 mg/5Ml), 30 ML PO Q4H PRN for GERD Bisacodyl (Bisac-Evac), 10 MG AK DAILY PRN for IF NOT B.M. IN LAST 48HRS Lorazepam (Ativan), 0.25 MG PO BID PRN for Anxiety/Agitation Magnesium Hydroxide (Milk Of Magnesia), 30 ML PO DAILY PRN for IF NO B.M. IN LAST 24HRS Polyethylene Glycol 3350 (Miralax), 17 GM PO QDL PRN for Constipation Tramadol (Ultram), 50 MG PO HS PRN for Pain Tramadol (Ultram), 50 MG PO Q6H PRN for Pain Allergies Coded Allergies: Lisinopril (Verified Allergy, Severe, ANAPHYLAXIS, 02/15/18) Patient developed Angioedema. Latex1 -Allergic Contact Dermititis (Verified Allergy, Intermediate, ITCHING, RASH, 02/15/18) Adhesives (Verified Allergy, Unknown, ITCHING, RASH, 02/15/18) Codeine (Verified Allergy, Unknown, N/V, 02/15/18) Morphine (Unverified Allergy, Unknown, ., 02/15/18) Opioid Analgesics (Verified Allergy, Unknown, "OPIATE AGONISTS" - MORPHINE = STOMACH UPSET, 02/15/18) Sulfamethoxazole w/Trimethoprim (Verified Allergy, Unknown, RASH, 01/23/18) Physical Exam Vital Signs Date Time Temp Pulse Resp B/P (MAP) Pulse Ox O2 Delivery O2 Flow Rate FiO2 02/16/18 01:20 71 16 162/94 94 Nasal Cannula 2.0 02/16/18 01:19 85 Room Air 02/16/18 00:34 74 20 171/99 92 Room Air 02/15/18 22:58 92 Nasal Cannula 2.0 02/15/18 22:57 87 Room Air 02/15/18 22:43 73 02/15/18 22:43 36.8 74 15 184/93 93 Room Air Physical Exam GENERAL: Patient is elderly appearing and in minimal distress. EYES: No scleral icterus, unremarkable pupils. ENT: Mucous membranes moist, no nasal congestion. NECK: No masses appreciated, no meningismus, trachea is midline. RESPIRATORY: No dyspnea. Clear to auscultation and equal bilaterally. No wheeze , no rhonchi. CARDIOVASCULAR: Regular rate and rhythm. No murmurs, rubs, gallops appreciated. GASTROINTESTINAL: Abdomen soft, nontender, no peritonitis. Bowel sounds positive. No masses appreciated. BACK: No midline tenderness, no CVA tenderness EXTREMITIES: Normal motion all extremities, no cyanosis, no edema. NEUROLOGIC: Alert and oriented, no acute motor or sensory deficits, no focal weakness, cranial nerves grossly intact. SKIN: No rash, no jaundice, no diaphoresis. Medical Decision & Procedures ER Provider Diagnostic Interpretation: X ray results are stated below per my interpretation: Chest: 1 view: No infiltrate, no effusion, normal cardiac border. Similar to Chest X-Ray from 02/09. Mild congestive findings similar. Radiology results and stated below per my review and radiologist interpretation: CT HEAD: No acute infarct, hemorrhage, mass or edema. Chronic small vessel ischemic disease. Minimal mucosal thickening of the paranasal sinuses. No acute osseous abnormality. Radiologist: Wesley Ford MD. Laboratory Results 02/15/18 23:10 Red Blood Count 4.23, Mean Corpuscular Volume 93.9, Mean Corpuscular Hemoglobin 31.7, Mean Corpuscular Hemoglobin Concent 33.8, Mean Platelet Volume 9.0, Neutrophils (%) (Auto) 70.7, Lymphocytes (%) (Auto) 17.3, Monocytes (%) (Auto) 7.2, Eosinophils (%) (Auto) 4.5, Basophils (%) (Auto) 0.1, Neutrophils # (Auto) 6.06, Lymphocytes # (Auto) 1.49, Monocytes # (Auto) 0.62, Eosinophils # (Auto) 0.39, Basophils # (Auto) 0.01 02/15/18 23:10 Test 02/15/18 23:10 02/16/18 00:13 White Blood Count 8.59 K/uL (4.8-10.8) Red Blood Count 4.23 M/uL (4.2-5.4) Hemoglobin 13.4 g/dL (12.0-16.0) Hematocrit 39.7 % (37-47) Mean Corpuscular Volume 93.9 fL (80-100) Mean Corpuscular Hemoglobin 31.7 pg (25-34) Mean Corpuscular Hemoglobin Concent 33.8 g/dl (32-36) Platelet Count 160 K/uL (130-400) Mean Platelet Volume 9.0 fL (7.4-10.4) Neutrophils (%) (Auto) 70.7 % Lymphocytes (%) (Auto) 17.3 % Monocytes (%) (Auto) 7.2 % Eosinophils (%) (Auto) 4.5 % Basophils (%) (Auto) 0.1 % Neutrophils # (Auto) 6.06 K/uL (1.4-6.5) Lymphocytes # (Auto) 1.49 K/uL (1.2-3.4) Monocytes # (Auto) 0.62 K/uL (0.11-0.59) Eosinophils # (Auto) 0.39 K/uL (0-0.5) Basophils # (Auto) 0.01 K/uL (0-0.2) RDW Standard Deviation 49.2 fL (36.4-46.3) RDW Coefficient of Variation 14.5 % (11.5-14.5) Immature Granulocyte % (Auto) 0.2 % Immature Granulocyte # (Auto) 0.02 K/uL (0.00-0.02) Anion Gap 6.0 mmol/L (3-11) Est Creatinine Clear Calc Drug Dose 29.3 ml/min Estimated GFR () 43.7 Estimated GFR (Non- 37.7 BUN/Creatinine Ratio 12.8 (10-20) Calcium Level 8.9 mg/dl (8.5-10.1) Magnesium Level 2.2 mg/dl (1.8-2.4) Troponin I < 0.015 ng/ml (0-0.045) Urine Color YELLOW Urine Appearance CLEAR (CLEAR) Urine pH 7.5 (4.5-7.5) Urine Specific [place] 1.010 (1.000-1.030) Urine Protein NEG (NEG) Urine Glucose (UA) NEG (NEG) Urine Ketones NEG (NEG) Urine Occult Blood NEG (NEG) Urine Nitrite NEG (NEG) Urine Bilirubin NEG (NEG) Urine Urobilinogen NEG (NEG) Urine Leukocyte Esterase NEG (NEG) Urine WBC (Auto) 1-5 /hpf (0-5) Urine RBC (Auto) 0-4 /hpf (0-4) Urine Hyaline Casts (Auto) 0 /lpf (0-5) Urine Epithelial Cells (Auto) 0-5 /lpf (0-5) Urine Bacteria (Auto) NEG (NEG) Laboratory results as reviewed by me. Medications Administered Medications (Trade) Dose Ordered Sig/Alirio Route Start Time Stop Time Status Last Admin Dose Admin Tramadol HCl (Ultram Tab) 50 mg NOW STAT PO 02/15/18 23:06 02/15/18 23:08 DC 02/15/18 23:46 50 MG Acetaminophen (Tylenol Tab) 1,000 mg NOW STAT PO 02/15/18 23:06 02/15/18 23:08 DC 02/15/18 23:46 1,000 MG Ondansetron HCl (Zofran Odt) 4 mg ONE ONCE PO 02/16/18 01:00 02/16/18 01:01 DC 02/16/18 00:59 4 MG Sodium Chloride 1,000 ml @ 50 mls/hr Q20H IV 02/16/18 02:11 03/18/18 02:10 02/16/18 05:26 50 MLS/HR ECG Per My Interpretation Indication: other (hypertension) Rate (beats per minute): 72 Rhythm: sinus rhythm Findings: no acute ischemic change, no ectopy, other (QTC 431) ED Course 2300: The patient was evaluated in room B2. A complete history and physical exam was performed. 2325: I reevaluated and updated the patient. She denies any SOB and cough at this time. She notes that she does not wear oxygen regularly. Nursing states that the patients oxygen saturation was 82% with good wave form on room air. The patient reports that her headache seems somewhat improved when she is wearing oxygen. 0007: I rechecked the patient. Her oxygen saturation was 93% off oxygen. 0049: Upon reevaluation, the patient is happily lying in bed. She states that she no longer has a headache. 0118: The patient's oxygen saturation dropped to 87%. 0121: Upon reevaluation, the patient is stable. Discussed results and treatment plan with the patient. She verbalized understanding and agreement with the treatment plan. Discussed the patient's case with Dr. Orr - HospitalistAyesha. The patient will be evaluated for further management. 0128: I rechecked the patient. Medical Decision Differential: Headache, Migraine, Cluster Headache, Seizure, Meningitis, Sinusitis, CO exposure, ICH/SAH, Infectious, Tumor, Sinus Thrombosis, Arterial Dissection, amongst other pathologies entertained. 87 yr old [facility]. Initially noted to have hypoxia in mid/upper 80s of uncertain etiology as she is without shob nor chest pain. Resolved with NC O2 and her headache improved somewhat with this. Headache improved initially though periodically she would say it isn 't improved. CT head negative. Her exam is not consistent with meningitis. I do not feel this represents SAH, nor thrombosis. Labs unremarkable. No evidence of UTI. CXR without infiltrate and similar to previous. EKG looks OK. BP slightly improved from arrival without addition of anti-hypertensives. She looks well and is in no distress on exam however her O2 sats continue to be low on RA. Without symptoms I do not feel that emergent CT is necessary. She is fully awake, interactive and not sedated and hypoxia was long before Tramadol ever given so it doesn't appear this is medication related. Her chart review it appears similar to last time she was here which hypoxia resolved after ativan decreased. With persistent hypoxia I do not feel I can send her home thus asked hospitalist to evaluate her further. Medication Reconcilliation Current Medication List: was personally reviewed by me Blood Pressure Screening Patient's blood pressure: Elevated blood pressure Elevated blood pressure will be monitored by hospitalist. Consults Time Called: 0118 Consulting Physician: Dr. Orr - HospitalistAyesha Returned Call: 0121 Discussed the patient's case. The patient will be evaluated for further treatment and disposition. Impression Primary Impression: Headache Additional Impressions: HTN (hypertension) Hypoxia Scribe Attestation The scribe's documentation has been prepared under my direction and personally reviewed by me in its entirety. I confirm that the note above accurately reflects all work, treatment, procedures, and medical decision making performed by me. Departure Information Dispostion Being Evaluated By Hospitalist Referrals DILIPERIN MAGDI JURADO (PCP) Patient Instructions My [facility] Problem Qualifiers
[2018-02-15] MEDS ORDERED: OYST500T12 PO (23:11)
[2018-02-15] MEDS ORDERED: PRED20TA PO (23:12)
[2018-02-15] MEDS ORDERED: CETI10TA62 PO (23:13)
[2018-02-15] MEDS ORDERED: SERT-234 PO (23:16)
[2018-02-15] MEDS ORDERED: VALA500T60 PO (23:18)
[2018-02-15] MEDS ORDERED: LORA-741 PO (23:21)
[2018-02-15 23:26] LABS: BASO % 0.1 %; BASO ABS # 0.01 K/uL (0-0.2); EOS % 4.5 %; EOS ABS # 0.39 K/uL (0-0.5); HEMATOCRIT 39.7 % (37-47); HEMOGLOBIN 13.4 g/dL (12.0-16.0); IG# 0.02 K/uL (0.00-0.02); LYMPH % 17.3 %; LYMPH ABS # 1.49 K/uL (1.2-3.4); MEAN CELL VOLUME 93.9 fL (80-100); MEAN CORPUSCULAR HEMOGLOBIN 31.7 pg (25-34); MEAN CORPUSCULAR HGB CONC 33.8 g/dl (32-36); MONO % 7.2 %; MONO ABS # 0.62 K/uL (0.11-0.59); NEUT % 70.7 %; NEUT ABS # 6.06 K/uL (1.4-6.5); PLATELET COUNT 160 K/uL (130-400); RED CELL DISTRIBUTION WIDTH CV 14.5 % (11.5-14.5); RED CELL DISTRIBUTION WIDTH SD 49.2 fL (36.4-46.3); WHITE BLOOD COUNT 8.59 K/uL (4.8-10.8)
[2018-02-15 23:46] LABS: BLOOD UREA NITROGEN 16 mg/dl (7-18); CALCIUM 8.9 mg/dl (8.5-10.1); CARBON DIOXIDE 29 mmol/L (21-32); CREATININE 1.26 mg/dl (0.60-1.20); GLUCOSE 111 mg/dl (70-99); POTASSIUM 3.5 mmol/L (3.5-5.1); SODIUM 140 mmol/L (136-145)
[2018-02-16] VITALS (10 sets, daily range): BP systolic 124–170; BP diastolic 63–80; PULSE 54–67; TEMP 36.2–36.7; O2SAT 92–97; Ht 156.2 cm; Wt 69.3 kg
[2018-02-16] MEDS ORDERED: ONDANSETRON 4MG OD TAB PO ONE (01:00)
[2018-02-16] MEDS ORDERED: SODIUM CHLORIDE 0.9% 1000ML 1,000 ML IV SCH (02:11)
[2018-02-16] MEDS ORDERED: TRAMADOL HCL 50 MG TAB PO PRN (02:15)
[2018-02-16] MEDS ORDERED: ALUMINUM/MAGNESIUM/SIMETH (MAALOX MAX) 30 ML UDC PO PRN ×2 (02:15)
[2018-02-16] MEDS ORDERED: NITROGLYCERIN 0.4 MG SL PER TAB CHARGE SL PRN (02:15)
[2018-02-16] MEDS ORDERED: BISACODYL 10 MG SUPP PR PRN (02:15)
[2018-02-16] MEDS ORDERED: ONDANSETRON INJ 2 MG/ML 2 ML VIAL IV PRN (02:15)
[2018-02-16] MEDS ORDERED: POLYETHYLENE (MIRALAX) 17 GM PACK PO PRN (02:15)
--- NOTE | 2018-02-16 04:35 | HISTORY & PHYSICAL EXAMINATION ---
DATE OF ADMISSION: 02/15/2018 CHIEF COMPLAINT: Headaches. HISTORY OF PRESENT ILLNESS: This is an 87-year-old female coming from [facility] with past medical history significant for chronic kidney disease stage III, hypertension, hyperlipidemia, hypothyroidism, depression, anxiety who was in the hospital for angioedema in the first week of January, and her lisinopril was stopped, and she also came next week with hypoxia. At that time, her central acting medication doses were reduced, and she did fine, and she was discharged back. She comes with again severe headache. The patient says she has all day severe headache and felt nauseous which brought her in to the hospital. She is having these headaches for some time but today it was worse. The nausea is better but still has some headaches. She also is having issues with vision, and she is supposed to see city letter carrier next week. Denies any dizziness. The patient is hard to hear but denies any cough. She complains of heartburn but denies chest pain. She did not feel short of breath, but she states she was found to have low saturation in the ER. Denies any fever or chills. Appetite is okay. Mild left lower quadrant abdominal tenderness. Normal bowel and bladder movements. Otherwise she is ambulating okay. She says her blood pressure is running high. Currently is resting comfortably and hemodynamically stable, and in the ER, her oxygen saturations were in the 80s on room air, oxygen saturation 95% on 2 L currently. ALLERGIES: ADHESIVES, CODEINE, LATEX ALLERGY OF CONTACT DERMATITIS, LISINOPRIL, MORPHINE, OPIOID ANALGESICS, SULFA, BACTRIM. PAST MEDICAL HISTORY: As mentioned above. PAST SURGICAL HISTORY: Appendectomy as a child, cataract surgery, and tubal ligation in the past. FAMILY HISTORY: Significant for cancer. SOCIAL HISTORY: Used to smoke in the past. No alcohol use. Lives at [facility]. She is independent walker. She can walk to the walker. REVIEW OF SYMPTOMS: As per HPI. Rest of review of symptoms negative. MEDICATIONS: Currently, the patient is on alendronate 35 mg once weekly, aspirin 81 mg p.o. daily, Colace 100 mg p.o. b.i.d., Lexapro 10 mg p.o. daily, famotidine 20 mg p.o. b.i.d., fluticasone 2 sprays into each nostril once daily, gabapentin 100 mg p.o. b.i.d., levothyroxine 88 mcg p.o. daily, Ocuvite PreserVision 1 tablet b.i.d., Oyster Shield 500 one tablet b.i.d., Protonix 40 mg p.o. daily, give All Day Allergy 10 mg p.o. daily, Senokot-S 1 tablet p.o. daily, tramadol 50 mg p.o. at bedtime p.r.n., Tylenol 650 mg p.o. q.6 h. p.r.n., Ativan 0.25 mg p.o. b.i.d. p.r.n., MiraLax daily p.r.n., nystatin topical application b.i.d. PHYSICAL EXAMINATION: GENERAL: The patient is old and frail, not in distress. VITAL SIGNS: Temperature 36.8, pulse 71, respiratory rate 16, blood pressure 162/94, oxygen saturation 85% on room air, 94% on 2 L. HEENT: No pallor, no icterus. Pupils equal, round, and reactive to light. NECK: No JVD, no neck masses, no carotid bruit. CARDIOVASCULAR SYSTEM: S1 and S2 heard, regular rate and rhythm, no murmur, no gallop. RESPIRATORY SYSTEM: Normal AP diameter. No accessory muscle use. No wheezing, no crackles. ABDOMEN: Soft, bowel sounds present, mild left lower quadrant tenderness, no rigidity, no guarding, no distention. CENTRAL NERVOUS SYSTEM: Cranial nerves II through XII grossly intact. Nonfocal. EXTREMITIES: Trace pedal edema present and no erythema seen. LABORATORY DATA: WBC is 8.5, hemoglobin 13.4, hematocrit 39.7, platelets 160. Sodium 140, potassium 3.5, chloride 105, bicarbonate 29, BUN 16, creatinine 1.2, serum glucose 111, calcium 8.9, magnesium 2.2, troponin I less than 0.015. Urinalysis is negative. CT of the head: No acute findings seen. Chest x-ray: No acute findings. ASSESSMENT AND PLAN: This is an 87-year-old female who presents with headache and found to be hypoxic. 1. Severe headaches. CT of the head is unremarkable. Headaches could be possibly from hypoxia. Her blood pressure medication was stopped recently. Could be from uncontrolled blood pressure. We will pain control. We will monitor. 2. Hypoxia. The patient was hypoxic on last admission too, and her Zoloft was discontinued, Lexapro was started. Gabapentin dose was decreased to b.i.d. Ativan was decreased to 0.25 mg p.r.n. but still she again comes with hypoxia requiring oxygen. We will check the D-dimer. If D-dimer is positive, we will go ahead and do a CT scan with IV contrast, otherwise we will do CT without contrast. Patient may need 2 steps prior to discharge. Pulmonary function tests as outpatient. May be nocturnal pulse oximetry study while she is in the hospital. We will get an ABG and monitor in tele floor. 3. History of depression and anxiety. The patient's Zoloft was stopped and started Lexapro which is currently at 10 mg. 3. History of angioedema. ZONIA inhibitor is stopped. Currently stable. 4. History of hypertension. The patient's lisinopril was stopped, and she is also no longer on amlodipine. May be to restart the amlodipine. We will monitor the blood pressure. 5. History of hypothyroidism. Continue Synthroid. 6. History of chronic kidney disease stage III. Will follow the labs. On gentle fluids. 7. Gastroesophageal reflux disease. Continue PPI. 8. History of dysphagia. On last admission, was seen by speech and recommended mechanical soft diet. 9. Chronic diastolic congestive heart failure from the previous echo. On gentle fluids and monitor for volume overload. 10. Code status. Full code. 11. Deep venous thrombosis prophylaxis. Heparin subcu, SCDs. 12. Disposition: Observation on tele floor. PT and OT prior to discharge. Social service to help with discharge planning. KLEVER
[2018-02-16] MEDS ORDERED: IV FLUIDS COMPLETED PRN (05:15)
[2018-02-16] MEDS: LEVOTHYROXINE 88 MCG TAB PO SCH (05:26)
[2018-02-16] MEDS: ESCITALOPRAM OXALATE 10 MG TAB PO SCH (08:16)
[2018-02-16] MEDS: DOCUSATE SODIUM 100 MG CAP PO SCH ×2 (08:16→21:28)
[2018-02-16] MEDS: GABAPENTIN 100 MG CAP PO SCH ×2 (08:16→21:29)
[2018-02-16] MEDS: ASPIRIN 81 MG CHEW PO SCH (08:16)
[2018-02-16] MEDS: PANTOprazole SOD 40 MG TAB PO SCH (08:16)
[2018-02-16] MEDS: CETIRIZINE HCL 10 MG TAB PO SCH (08:17)
[2018-02-16] MEDS: DOCUSATE SODIUM/SENNA 50/8.6MG TAB PO SCH (08:17)
[2018-02-16] MEDS: FLUTICASONE PROPIONATE NA SPR 16 GM BTL NAE SCH (08:17)
[2018-02-16] MEDS: CALCIUM CARBONATE 1250MG TAB PO SCH ×2 (08:17→21:29)
[2018-02-16] MEDS: FAMOTIDINE 20 MG TAB PO SCH ×2 (08:17→21:29)
[2018-02-16] MEDS: AMLODIPINE BESYLATE 5 MG TAB PO SCH (08:17)
[2018-02-16] MEDS: NYSTATIN OINT 15 GM TUBE EXT SCH ×2 (08:18→21:00)
[2018-02-16] MEDS: ACETAMINOPHEN 325 MG TAB PO PRN ×3 (08:27→23:04)
[2018-02-16] MEDS: CEROVITE ADV FORMULA TAB PO SCH ×2 (08:48→21:29)
--- NOTE | 2018-02-16 08:52 | DIAGNOSTIC IMAGING REPORT ---
CHEST ONE VIEW PORTABLE CLINICAL HISTORY: Hypoxia COMPARISON STUDY: 01/30/2018 FINDINGS: The heart is the upper limits of normal in size. There is interstitial thickening similar to the prior study. There is no lobar consolidation. There are no significant pleural effusions.[ IMPRESSION: Stable nonspecific interstitial thickening. Electronically signed by: Juancho Jackson M.D. 02/16/2018 6:55 AM Dictated Date/Time: 02/16/2018 6:54 AM
--- NOTE | 2018-02-16 08:52 | DIAGNOSTIC IMAGING REPORT ---
CT HEAD WITHOUT CONTRAST (CT) CLINICAL HISTORY: Headache x 1 week COMPARISON STUDY: No previous studies for comparison. TECHNIQUE: Axial CT of the brain is performed from the vertex to the skull base. IV contrast was not administered for this examination. A dose lowering technique was utilized adhering to the principles of ALARA. CT DOSE: 537.48 mGy.cm FINDINGS: No intra or extra-axial mass lesions are visualized. There is no CT evidence of acute cortical infarction. There is no evidence of midline shift. There is no acute hemorrhage. No calvarial fractures are visualized. There are patchy white matter hypodensities likely on a small vessel basis. There is no evidence of pathologic ventricular dilatation. There is no evidence of acute sinusitis IMPRESSION: No acute intracranial findings Electronically signed by: Juancho Jackson M.D. 02/16/2018 6:28 AM Dictated Date/Time: 02/16/2018 6:28 AM
[2018-02-16] MEDS ORDERED: CEROVITE ADV FORMULA TAB PO SCH (09:00)
[2018-02-16 10:32] LABS: PTT PATIENT 24.4 SECONDS (21.0-31.0)
[2018-02-16] MEDS ORDERED: OPTIRAY 320 IV PRN (10:45)
--- NOTE | 2018-02-16 11:18 | Progress Note ---
Internal Med Progress Note Date of Service: Feb 16, 2018. Provider Documentation: SUBJECTIVE: Seen and examined at bedside Reports occipital headache, change in vision, mild LLQ abd pain Denies chest pain, SOB, dizziness Nausea improved, Had BM OBJECTIVE: Vital Signs-as noted below Physical Exam: General Appearance:Moderately built and nourished, no apparent distress Head: normocephalic, Atraumatic Eyes: normal inspection, EOMI, PERRL Neck: supple, Trachea midline Respiratory/Chest: Normal breath sounds, CTA Cardiovascular: S1, S2, No murmur Abdomen/GI:Soft, mild LLQ tender, Bowel sounds present Extremities/Musculoskelatal:normal inspection, 1+ B/L edema Neurologic/Psych:AAOX3, grossly no focal neurological deficits Skin: normal color, warm Lab data as noted below. ASSESSMENT & PLAN: Patient is an 87 yr female who presents with headache and hypoxia. Severe headaches with Vision change: DD Tension headache H/O Macular degeneration and Cataract removal CT head:No acute intracranial findings Reports headache which worsens towards evening usually HTN could be contributing Consult Neurology Planned to be followed with International Affairs Vice President as outpatient consider MRI brain No focal deficits on exam Hypoxia: Elevated D-dimer Remote history of smoking Grade II diastolic CHF on prior ECHO Was thought to be secondary to meds during last admission Check CT for PE Oxygen support May need 2 step/Nocturnal Oximetry prior to discharge PFTs as outpatient H/O Depression, anxiety: Continue Lexapro H/O angioedema: ZONIA inhibitor discontinued Stable HTN: Restart amlodipine monitor Hypothyroidism: Continue levothyroxine CKD III: Monitor renal function GERD: continue PPI H/O Dysphagia: Mechanical soft diet Aspiration precautions Chronic Diastolic CHF as per Prior ECHO: No signs of decompensation ZONIA DCed 2/2 angioedema monitor for volume overload DVT Px: Heparin SQ Code Status: Full code Disposition: Monitor in tele Vital Signs: Date Time Temp Pulse Resp B/P (MAP) Pulse Ox O2 Delivery O2 Flow Rate FiO2 02/16/18 08:00 95 4.0 02/16/18 07:26 36.5 54 16 124/66 (85) 95 2.0 02/16/18 04:28 36.6 62 18 146/77 93 Nasal Cannula 2.0 02/16/18 03:43 54 20 133/61 93 02/16/18 01:20 71 16 162/94 94 Nasal Cannula 2.0 02/16/18 01:19 85 Room Air 02/16/18 00:34 74 20 171/99 92 Room Air 02/15/18 22:58 92 Nasal Cannula 2.0 02/15/18 22:57 87 Room Air 02/15/18 22:43 73 02/15/18 22:43 36.8 74 15 184/93 93 Room Air Lab Results: Results Past 24 Hours Test 02/15/18 23:10 02/16/18 00:13 02/16/18 10:10 Range/Units White Blood Count 8.59 4.8-10.8 K/uL Red Blood Count 4.23 4.2-5.4 M/uL Hemoglobin 13.4 12.0-16.0 g/dL Hematocrit 39.7 37-47 % Mean Corpuscular Volume 93.9 80-100 fL Mean Corpuscular Hemoglobin 31.7 25-34 pg Mean Corpuscular Hemoglobin Concent 33.8 32-36 g/dl Platelet Count 160 130-400 K/uL Mean Platelet Volume 9.0 7.4-10.4 fL Neutrophils (%) (Auto) 70.7 % Lymphocytes (%) (Auto) 17.3 % Monocytes (%) (Auto) 7.2 % Eosinophils (%) (Auto) 4.5 % Basophils (%) (Auto) 0.1 % Neutrophils # (Auto) 6.06 1.4-6.5 K/uL Lymphocytes # (Auto) 1.49 1.2-3.4 K/uL Monocytes # (Auto) 0.62 0.11-0.59 K/uL Eosinophils # (Auto) 0.39 0-0.5 K/uL Basophils # (Auto) 0.01 0-0.2 K/uL RDW Standard Deviation 49.2 36.4-46.3 fL RDW Coefficient of Variation 14.5 11.5-14.5 % Immature Granulocyte % (Auto) 0.2 % Immature Granulocyte # (Auto) 0.02 0.00-0.02 K/uL Urine Color YELLOW YELLOW Urine Appearance SL CLOUDY CLEAR CLEAR Urine pH 8.0 7.5 4.5-7.[address] [place] 1.020 1.010 1.000-1.030 Urine Protein NEG NEG NEG Urine Glucose (UA) NEG NEG NEG Urine Ketones NEG NEG NEG Urine Occult Blood TRACE NEG NEG Urine Nitrite NEG NEG NEG Urine Bilirubin NEG NEG NEG Urine Urobilinogen NEG NEG NEG Urine Leukocyte Esterase LARGE NEG NEG Sodium Level 140 136-145 mmol/L Potassium Level 3.5 3.5-5.1 mmol/L Chloride Level 105 98-107 mmol/L Carbon Dioxide Level 29 21-32 mmol/L Anion Gap 6.0 3-11 mmol/L Blood Urea Nitrogen 16 7-18 mg/dl Creatinine 1.26 0.60-1.20 mg/dl Est Creatinine Clear Calc Drug Dose 29.3 ml/min Estimated GFR () 43.7 Estimated GFR (Non- 37.7 BUN/Creatinine Ratio 12.8 10-20 Random Glucose 111 70-99 mg/dl Calcium Level 8.9 8.5-10.1 mg/dl Magnesium Level 2.2 1.8-2.4 mg/dl Troponin I < 0.015 0-0.045 ng/ml Urine WBC (Auto) 1-5 0-5 /hpf Urine RBC (Auto) 0-4 0-4 /hpf Urine Hyaline Casts (Auto) 0 0-5 /lpf Urine Epithelial Cells (Auto) 0-5 0-5 /lpf Urine Bacteria (Auto) NEG NEG Prothrombin Time 10.6 9.0-12.0 SECONDS Prothromb Time International Ratio 1.0 0.9-1.1 Activated Partial Thromboplast Time 24.4 21.0-31.0 SECONDS Partial Thromboplastin Ratio 0.9 D-Dimer 1340 0-500 ug/L FEU
--- NOTE | 2018-02-16 14:08 | DIAGNOSTIC IMAGING REPORT ---
ULTRASOUND BILATERAL LOWER EXTREMITY VENOUS CLINICAL HISTORY: Hypoxia. Clinical concern for deep venous thrombosis. COMPARISON STUDY: No priors. TECHNIQUE: Real-time, grayscale, and color Doppler sonography of the deep veins of the right and left lower extremity was performed from the inguinal crease to the calf. Compression and augmentation were utilized. FINDINGS: There is no sonographic evidence of deep venous thrombosis identified in the right or left lower extremity. The common femoral, superficial femoral, and popliteal veins are patent and normally compressible bilaterally. The greater saphenous vein and the profunda femoris vein at the junction with the common femoral vein are clear in both legs. The visualized calf veins are patent bilaterally. IMPRESSION: There is no sonographic evidence of deep venous thrombosis identified in the right or left lower extremity. Electronically signed by: Simon Galdamez M.D. 02/16/2018 2:06 PM Dictated Date/Time: 02/16/2018 2:06 PM
[2018-02-16] MEDS: HEPARIN SOD 5000 UNIT/0.5 ML CARP SQ SCH ×2 (14:17→23:39)
--- NOTE | 2018-02-16 14:18 | DIAGNOSTIC IMAGING REPORT ---
CT ANGIOGRAM OF THE CHEST CLINICAL HISTORY: Hypoxia. COMPARISON STUDY: Chest CT dated 09/01/2014. Chest x-ray dated 02/15/2018. TECHNIQUE: Following the IV administration of 87 cc of Optiray 320, CT angiogram of the chest was performed from the upper abdomen to the thoracic inlet utilizing the pulmonary embolus protocol. Images are reviewed in the axial, sagittal, and coronal planes. 3-D MIPS images are created and assessed. IV contrast was administered without complication. A dose lowering technique was utilized adhering to the principles of ALARA. CT DOSE: 393.51 mGy.cm FINDINGS: Thyroid: Atrophic. Thoracic aorta: There is atherosclerotic calcification of the thoracic aorta, which is normal in caliber and demonstrates standard 3-vessel arch anatomy. No dissection is seen. Pulmonary vasculature: The pulmonary trunk is normal in caliber. There are no filling defects identified in main, lobar, or segmental pulmonary branches to suggest pulmonary embolus. Heart: The heart is enlarged and without pericardial effusion. Reflux of contrast into the IVC and hepatic veins suggests cardiac dysfunction. Lungs and pleural spaces: Evaluation of lung parenchyma is degraded by motion artifact. No airspace consolidation is seen typical for pneumonia. Trace pleural effusions are identified. There is dependent atelectasis. The trachea and central airways are clear. Mediastinum: There is no mediastinal lymphadenopathy. Renee: Clear. Axillae: There is no axillary lymphadenopathy. Upper abdomen: There is a small hiatal hernia. A 1.6 cm low-attenuation focus in the right hepatic lobe is seen on image #49. This is unchanged from 2014 and of doubtful significance. Skeletal structures: The skeletal structures are osteopenic. Degenerative change and mild kyphoscoliosis are noted in the thoracic spine. No lytic or blastic bony lesions are seen. IMPRESSION: 1. There is no evidence of pulmonary embolus in the main, lobar, or segmental pulmonary arteries. 2. There is no airspace consolidation typical for pneumonia. 3. Trace pleural effusions. 4. Cardiomegaly. 5. Additional findings as above. Electronically signed by: Simon Galdamez M.D. 02/16/2018 2:17 PM Dictated Date/Time: 02/16/2018 2:10 PM
--- NOTE | 2018-02-16 15:12 | Neurology Consultation ---
Neurology Consultation Date of Consultation: Feb 16, 2018. Attending Physician: Dimas Gray MD [facility] Reason for Consultation: headache, vision changes History of Present Illness Source: patient Tiara is a 87 year old female who resides at [facility]. she has a PMH CKD III, HTN, DL, hypothyroidism, depression, anxiety who was in the hospital for angioedema in the first week of January, and her lisinopril was stopped, and she also came next week with hypoxia. At that time, her central acting medication doses were reduced and she was discharged. She returns with headache and vision changes and was again found to be hypoxic in the 80s. she state she has been having headaches 2-3 x per week which usually Tylenol relieves. The one that brought her into the hospital was worse than usual and was not helped with Tylenol. She is also is having vision issues and has an appointment with party demonstrator next week. She states she ambulates at baseline with a walker. she has had no falls or head injuries. She state she headaches, start in the back of her head come up to her temples and into her forehead. She currently does not have her glasses or her hearing aids. they are sometimes pounding but sometimes just pressure. She has chronic hearing loss. When she is reading there are missing letters in the words and sometimes she has voids in her vision when watching TV> denies CP, SOB, abdominal pain, one sided weakness, numbness tingling, N, V, bowel or bladder issues. Past Medical/Surgical History Medical Problems: (1) Angioedema Status: Acute (2) Anxiety Status: Acute (3) Change in mental status Status: Acute (4) Epigastric abdominal pain Status: Acute (5) Headache Status: Acute (6) Hypoxia Status: Acute (7) Hypoxia Status: Acute (8) SOB (shortness of breath) Status: Acute (9) Weakness Status: Acute Social History Smoking Status: Unknown if ever smoked Drug Use: none Marital Status: Housing Status: fdc Occupation Status: retired Allergies Coded Allergies: Lisinopril (Verified Allergy, Severe, ANAPHYLAXIS, 02/15/18) Patient developed Angioedema. Latex1 -Allergic Contact Dermititis (Verified Allergy, Intermediate, ITCHING, RASH, 02/15/18) Adhesives (Verified Allergy, Unknown, ITCHING, RASH, 02/15/18) Codeine (Verified Allergy, Unknown, N/V, 02/15/18) Morphine (Unverified Allergy, Unknown, ., 02/15/18) Opioid Analgesics (Verified Allergy, Unknown, "OPIATE AGONISTS" - MORPHINE = STOMACH UPSET, 02/15/18) Sulfamethoxazole w/Trimethoprim (Verified Allergy, Unknown, RASH, 01/23/18) Current Inpatient Medications Current Inpatient Medications Medications (Trade) Dose Ordered Sig/Alirio Route Start Time Stop Time Status Last Admin Dose Admin Heparin Sodium (Porcine) (Heparin Sq 5000 Unit/0.5ml) 5,000 unit Q12H SQ 02/16/18 12:00 03/18/18 11:59 02/16/18 14:17 5,000 UNIT Sodium Chloride 1,000 ml @ 50 mls/hr Q20H IV 02/16/18 02:11 03/18/18 02:10 02/16/18 05:26 50 MLS/HR Acetaminophen (Tylenol Tab) 650 mg Q4H PRN PO 02/16/18 02:15 03/18/18 02:14 02/16/18 08:27 650 MG Ondansetron HCl (Zofran Inj) 4 mg Q6H PRN IV 02/16/18 02:15 03/18/18 02:14 Nitroglycerin (Nitrostat Tab) 0.4 mg UD PRN SL 02/16/18 02:15 03/18/18 02:14 Polyethylene (Miralax Powder Packet) 17 gm DAILY PRN PO 02/16/18 02:15 03/18/18 02:14 Al Hydrox/Mg Hydrox/Simethicone (Maalox Max Susp) 30 ml Q4H PRN PO 02/16/18 02:15 03/18/18 02:14 Amlodipine Besylate (Norvasc Tab) 2.5 mg DAILY PO 02/16/18 09:00 03/18/18 08:59 02/16/18 08:17 2.5 MG Aspirin (Aspirin Chew) 81 mg DAILY PO 02/16/18 09:00 03/18/18 08:59 02/16/18 08:16 81 MG Bisacodyl (Dulcolax Supp) 10 mg DAILY PRN MD 02/16/18 02:15 03/18/18 02:14 Cetirizine HCl (zyrTEC TAB) 10 mg DAILY PO 02/16/18 09:00 03/18/18 08:59 02/16/18 08:17 10 MG Docusate Sodium (coLACE CAP) 100 mg BID PO 02/16/18 09:00 03/18/18 08:59 02/16/18 08:16 100 MG Escitalopram Oxalate (Lexapro Tab) 10 mg DAILY PO 02/16/18 09:00 03/18/18 08:59 02/16/18 08:16 10 MG Famotidine (Pepcid Tab) 20 mg BID PO 02/16/18 09:00 03/18/18 08:59 02/16/18 08:17 20 MG Fluticasone Propionate (Flonase Nasal [place]) 1 sprays HS LIZET 02/16/18 21:00 03/18/18 20:59 02/16/18 08:17 1 SPRAYS Gabapentin (Neurontin Cap) 100 mg BID PO 02/16/18 09:00 03/18/18 08:59 02/16/18 08:16 100 MG Levothyroxine Sodium (Synthroid Tab) 88 mcg DAILYBB PO 02/16/18 06:30 03/18/18 06:59 02/16/18 05:26 88 MCG Lorazepam (Ativan Tab) 0.25 mg BID PRN PO 02/16/18 02:15 03/18/18 02:14 Nystatin (Mycostatin Oint) 1 appln BID EXT 02/16/18 09:00 03/18/18 08:59 02/16/18 08:18 1 APPLN Multivitamins/ Minerals (Multivitamin W/ Minerals Tab) 1 tab BID PO 02/16/18 09:00 03/18/18 08:59 02/16/18 08:48 1 TAB Calcium Carbonate (oS-Del 500 TAB) 1,250 mg BID PO 02/16/18 09:00 03/18/18 08:59 02/16/18 08:17 1,250 MG Pantoprazole Sodium (Protonix Tab) 40 mg QAM PO 02/16/18 09:00 03/18/18 08:59 02/16/18 08:16 40 MG Senna/Docusate Sodium (Senokot S Tab) 1 tab DAILYBB PO 02/16/18 06:30 03/18/18 06:59 02/16/18 08:17 1 TAB Tramadol HCl (Ultram Tab) 50 mg Q6H PRN PO 02/16/18 02:15 03/18/18 02:14 Miscellaneous (Iv Fluids Completed) 1 ea PRN PRN N/A 02/16/18 05:15 02/16/19 05:14 Ioversol (Optiray 320) 100 ml UD PRN IV 02/16/18 10:45 02/20/18 10:44 Physical Exam Vital Signs (Past 24 Hrs): Date Time Temp Pulse Resp B/P (MAP) Pulse Ox O2 Delivery O2 Flow Rate FiO2 02/16/18 12:00 92 2.0 02/16/18 11:40 36.7 56 18 151/75 (100) 92 2.0 02/16/18 08:00 95 4.0 02/16/18 07:26 36.5 54 16 124/66 (85) 95 2.0 02/16/18 04:28 36.6 62 18 146/77 93 Nasal Cannula 2.0 02/16/18 03:43 54 20 133/61 93 02/16/18 01:20 71 16 162/94 94 Nasal Cannula 2.0 02/16/18 01:19 85 Room Air 02/16/18 00:34 74 20 171/99 92 Room Air 02/15/18 22:58 92 Nasal Cannula 2.0 02/15/18 22:57 87 Room Air 02/15/18 22:43 73 02/15/18 22:43 36.8 74 15 184/93 93 Room Air Physical Exam: Constitutional: appearance nourished, healthy and obese Ears, Nose, Mouth and Throat: mucous membranes moist, no injection and skin normal, eyes normal Cardiovascular: normal S-1 and S-2 and regular rate and rhythm Respiratory: course breath sounds Musculoskeletal: no peripheral edema and good distal pulses Skin: no stigmata of neurocutaneous disease noted and normal and intact Eyes: extraocular muscles intact (EOMI) and pupils equal, round and reactive to light (PERRL), gross visual mata intact NEUROLOGIC EXAMINATION: Mental status: Alert and interactive Oriented [facility], spring Oriented to person Speech fluent with no evidence of aphasia Cranial Nerves smile eye brow raise symmetric tongue midline Reflexes: Deep tendon reflexes were symmetrical and graded 2/5. Plantar responses were flexor. Sensory: vibration, loss of cool touch R>L LE Coordination: finger to nose no bi pass Gait/Stance: Posture sitting in bed Motor: Negative for pronator drift of out stretched arms with eyes closed. Strength: biceps triceps hand hypertrichologist intrinsics 5/5 bilaterally, hip flex patellar, plantar flex ext 5/5 bilaterally Laboratory Results Past 24 Hours: 02/15/18 23:10 Red Blood Count 4.23, Mean Corpuscular Volume 93.9, Mean Corpuscular Hemoglobin 31.7, Mean Corpuscular Hemoglobin Concent 33.8, Mean Platelet Volume 9.0, Neutrophils (%) (Auto) 70.7, Lymphocytes (%) (Auto) 17.3, Monocytes (%) (Auto) 7.2, Eosinophils (%) (Auto) 4.5, Basophils (%) (Auto) 0.1, Neutrophils # (Auto) 6.06, Lymphocytes # (Auto) 1.49, Monocytes # (Auto) 0.62, Eosinophils # (Auto) 0.39, Basophils # (Auto) 0.01 02/15/18 23:10 Test 02/15/18 23:10 02/16/18 00:13 02/16/18 10:10 White Blood Count 8.59 K/uL (4.8-10.8) Red Blood Count 4.23 M/uL (4.2-5.4) Hemoglobin 13.4 g/dL (12.0-16.0) Hematocrit 39.7 % (37-47) Mean Corpuscular Volume 93.9 fL (80-100) Mean Corpuscular Hemoglobin 31.7 pg (25-34) Mean Corpuscular Hemoglobin Concent 33.8 g/dl (32-36) Platelet Count 160 K/uL (130-400) Mean Platelet Volume 9.0 fL (7.4-10.4) Neutrophils (%) (Auto) 70.7 % Lymphocytes (%) (Auto) 17.3 % Monocytes (%) (Auto) 7.2 % Eosinophils (%) (Auto) 4.5 % Basophils (%) (Auto) 0.1 % Neutrophils # (Auto) 6.06 K/uL (1.4-6.5) Lymphocytes # (Auto) 1.49 K/uL (1.2-3.4) Monocytes # (Auto) 0.62 K/uL (0.11-0.59) Eosinophils # (Auto) 0.39 K/uL (0-0.5) Basophils # (Auto) 0.01 K/uL (0-0.2) RDW Standard Deviation 49.2 fL (36.4-46.3) RDW Coefficient of Variation 14.5 % (11.5-14.5) Immature Granulocyte % (Auto) 0.2 % Immature Granulocyte # (Auto) 0.02 K/uL (0.00-0.02) Anion Gap 6.0 mmol/L (3-11) Est Creatinine Clear Calc Drug Dose 29.3 ml/min Estimated GFR () 43.7 Estimated GFR (Non- 37.7 BUN/Creatinine Ratio 12.8 (10-20) Calcium Level 8.9 mg/dl (8.5-10.1) Magnesium Level 2.2 mg/dl (1.8-2.4) Troponin I < 0.015 ng/ml (0-0.045) Urine Color YELLOW Urine Appearance CLEAR (CLEAR) Urine pH 7.5 (4.5-7.5) Urine Specific [place] 1.010 (1.000-1.030) Urine Protein NEG (NEG) Urine Glucose (UA) NEG (NEG) Urine Ketones NEG (NEG) Urine Occult Blood NEG (NEG) Urine Nitrite NEG (NEG) Urine Bilirubin NEG (NEG) Urine Urobilinogen NEG (NEG) Urine Leukocyte Esterase NEG (NEG) Urine WBC (Auto) 1-5 /hpf (0-5) Urine RBC (Auto) 0-4 /hpf (0-4) Urine Hyaline Casts (Auto) 0 /lpf (0-5) Urine Epithelial Cells (Auto) 0-5 /lpf (0-5) Urine Bacteria (Auto) NEG (NEG) Prothrombin Time 10.6 SECONDS (9.0-12.0) Prothromb Time International Ratio 1.0 (0.9-1.1) Activated Partial Thromboplast Time 24.4 SECONDS (21.0-31.0) Partial Thromboplastin Ratio 0.9 D-Dimer 1340 ug/L FEU (0-500) Imaging CT head- No acute intracranial findings CXR- Stable nonspecific interstitial thickening. CT chest- There is no evidence of pulmonary embolus in the main, lobar, or segmental pulmonary arteries. There is no airspace consolidation typical for pneumonia. Trace pleural effusions. Cardiomegaly. LE doppler- There is no sonographic evidence of deep venous thrombosis identified in the right or left lower extremity. Impression 87 year old with extensive PMH presents with severe headaches and vision changes. Plan 1. vision changes r/o temporal arteritis. if sed rate is high will need a temporal biopsy 2. MRI brain -r/o stroke or lesion causing headache with vision changes 3. PT/OT for discharge needs does not appear to be any at this time 4. will need ophthalmology evaluation for vision changes gross peripheral vision intact 5. primary team for medical management 6. fall precautions 7. further recommendations to follow I have seen and discussed above patient with Dr Nathaniel Coelho, neurology I have seen this patient reviewed the above note examined her an looked over the initial labs story remains elusive as to duration of headaches but suspect longstanding and the visual issues are equally ill defined and need to be further evaluated by ophthalmology but on exam all that is se is a mild bradykinesia and a nonspecific dysarthric speech with diffuse tenderness over the scalp but without nodularity of vessels etc workup as above planned Dr Redd to see tomorrow and review findings when available Nathaniel Coelho MD
[2018-02-16] MEDS ORDERED: GADAVIST IV PRN (22:30)
--- NOTE | 2018-02-16 22:43 | DIAGNOSTIC IMAGING REPORT ---
BRAIN COMBO CLINICAL HISTORY: severe headache with vision changes. Mental status change COMPARISON STUDY: No previous studies for comparison. TECHNIQUE: Utilizing a 1.5 Janice magnet and dedicated coil, multiplanar, multiecho imaging of the brain was performed pre and postcontrast administration. IV administration of 6.5 mL of Gadavist contrast was uneventful. FINDINGS: Diffusion-weighted images show no evidence for an acute ischemic event. There are findings of mild age-related atrophy and chronic small vessel change. Internal auditory canals are symmetric. Postcontrast enhanced scans are considered negative for an enhancing lesion. The ventricular system is midline. The sella and parasellar regions are unremarkable. IMPRESSION: Negative MRI of the brain for age. The above report was generated using voice recognition software. It may contain grammatical, syntax or spelling errors. Electronically signed by: Joaquín Jameson M.D. 02/16/2018 10:42 PM Dictated Date/Time: 02/16/2018 10:40 PM
[2018-02-17] VITALS (10 sets, daily range): BP systolic 116–176; BP diastolic 58–77; PULSE 55–74; TEMP 36.4–37; O2SAT 91–97
[2018-02-17 06:07] LABS: BASO % 0.2 %; BASO ABS # 0.01 K/uL (0-0.2); EOS % 8.3 %; HEMATOCRIT 35.8 % (37-47); HEMOGLOBIN 11.6 g/dL (12.0-16.0); IG# 0.01 K/uL (0.00-0.02); LYMPH ABS # 1.35 K/uL (1.2-3.4); MEAN CELL VOLUME 95.2 fL (80-100); MEAN CORPUSCULAR HEMOGLOBIN 30.9 pg (25-34); MEAN CORPUSCULAR HGB CONC 32.4 g/dl (32-36); MONO % 9.5 %; MONO ABS # 0.46 K/uL (0.11-0.59); NEUT % 53.8 %; NEUT ABS # 2.59 K/uL (1.4-6.5); PLATELET COUNT 147 K/uL (130-400); RED CELL DISTRIBUTION WIDTH CV 14.6 % (11.5-14.5); RED CELL DISTRIBUTION WIDTH SD 50.2 fL (36.4-46.3); WHITE BLOOD COUNT 4.82 K/uL (4.8-10.8)
[2018-02-17] MEDS: LEVOTHYROXINE 88 MCG TAB PO SCH (06:34)
[2018-02-17] MEDS: DOCUSATE SODIUM/SENNA 50/8.6MG TAB PO SCH (06:34)
[2018-02-17 06:35] LABS: CALCIUM 8.7 mg/dl (8.5-10.1); CREATININE 1.13 mg/dl (0.60-1.20); POTASSIUM 3.8 mmol/L (3.5-5.1)
[2018-02-17] MEDS: NYSTATIN OINT 15 GM TUBE EXT SCH ×2 (09:00→20:24)
[2018-02-17] MEDS: PANTOprazole SOD 40 MG TAB PO SCH (09:16)
[2018-02-17] MEDS: CEROVITE ADV FORMULA TAB PO SCH ×2 (09:16→20:25)
[2018-02-17] MEDS: DOCUSATE SODIUM 100 MG CAP PO SCH ×2 (09:16→20:25)
[2018-02-17] MEDS: ESCITALOPRAM OXALATE 10 MG TAB PO SCH (09:16)
[2018-02-17] MEDS: FAMOTIDINE 20 MG TAB PO SCH ×2 (09:17→20:26)
[2018-02-17] MEDS: GABAPENTIN 100 MG CAP PO SCH ×2 (09:17→20:26)
[2018-02-17] MEDS: CALCIUM CARBONATE 1250MG TAB PO SCH ×2 (09:17→20:27)
[2018-02-17] MEDS: ASPIRIN 81 MG CHEW PO SCH (09:17)
[2018-02-17] MEDS: AMLODIPINE BESYLATE 5 MG TAB PO SCH (09:17)
[2018-02-17] MEDS: CETIRIZINE HCL 10 MG TAB PO SCH (09:17)
[2018-02-17] MEDS: ACETAMINOPHEN 325 MG TAB PO PRN ×2 (09:30→15:54)
--- NOTE | 2018-02-17 12:09 | Progress Note ---
Internal Med Progress Note Date of Service: Feb 17, 2018. Provider Documentation: SUBJECTIVE: Seen and examined at bedside Reports chronic back pain Denies blurry vision, after using prescription glasses today Headache is much better Denies chest pain, SOB, dizziness OBJECTIVE: Vital Signs-as noted below Physical Exam: General Appearance:Moderately built and nourished, no apparent distress Head: normocephalic, Atraumatic Eyes: normal inspection, EOMI, PERRL Neck: supple, Trachea midline Respiratory/Chest: Normal breath sounds, CTA Cardiovascular: S1, S2, No murmur Abdomen/GI:Soft, mild LLQ tender, Bowel sounds present Extremities/Musculoskelatal:normal inspection, 1+ B/L edema Neurologic/Psych:AAOX3, grossly no focal neurological deficits Skin: normal color, warm Lab data as noted below. ASSESSMENT & PLAN: Patient is an 87 yr female who presents with headache and hypoxia. Severe headaches with Vision change: DD Tension headache H/O Macular degeneration and Cataract removal CT head:No acute intracranial findings MRI Brain:Negative ESR:normal HTN could be contributing Appreciate Neurology Input Needs follow up with Incising Machine Operator as outpatient No focal deficits on exam Patient states vision is good after using prescription glasses Hypoxia: DD: sleep apnea Remote history of smoking Grade II diastolic CHF on prior ECHO Was thought to be secondary to meds during last admission CT: No PE, No consolidation, Trace pleural effusions Oxygen support, Titrate off as able Will get 2 step/Nocturnal Oximetry PFTs/Sleep study as outpatient Start on lasix 20mg daily H/O Depression, anxiety: Continue Lexapro H/O angioedema: ZONIA inhibitor discontinued Stable HTN: continue amlodipine monitor Hypothyroidism: Continue levothyroxine CKD III: Monitor renal function GERD: continue PPI H/O Dysphagia: Mechanical soft diet Aspiration precautions Chronic Diastolic CHF as per Prior ECHO: No signs of decompensation ZONIA DCed 2/2 angioedema monitor for volume overload started on Lasix 20mg daily DVT Px: Heparin SQ Code Status: Full code Disposition: Monitor in tele Vital Signs: Date Time Temp Pulse Resp B/P (MAP) Pulse Ox O2 Delivery O2 Flow Rate FiO2 02/17/18 11:38 36.4 74 18 133/70 (91) 96 2.0 02/17/18 08:00 96 2.0 02/17/18 07:44 36.9 55 16 154/69 (97) 93 2.0 02/17/18 05:03 36.6 58 18 116/58 (77) 91 Nasal Cannula 2.0 02/17/18 04:00 95 Room Air 02/17/18 00:00 95 Room Air 02/16/18 23:58 36.6 67 18 155/78 (103) 95 Room Air 02/16/18 20:05 36.2 61 18 161/63 (95) 97 Nasal Cannula 1.5 02/16/18 20:00 95 Nasal Cannula 1.0 02/16/18 16:00 95 Nasal Cannula 1.5 02/16/18 15:12 36.6 57 18 170/80 (110) 93 Nasal Cannula 1.5 02/16/18 12:00 92 2.0 Lab Results: Results Past 24 Hours Test 02/17/18 05:23 Range/Units White Blood Count 4.82 4.8-10.8 K/uL Red Blood Count 3.76 4.2-5.4 M/uL Hemoglobin 11.6 12.0-16.0 g/dL Hematocrit 35.8 37-47 % Mean Corpuscular Volume 95.2 80-100 fL Mean Corpuscular Hemoglobin 30.9 25-34 pg Mean Corpuscular Hemoglobin Concent 32.4 32-36 g/dl Platelet Count 147 130-400 K/uL Mean Platelet Volume 9.0 7.4-10.4 fL Neutrophils (%) (Auto) 53.8 % Lymphocytes (%) (Auto) 28.0 % Monocytes (%) (Auto) 9.5 % Eosinophils (%) (Auto) 8.3 % Basophils (%) (Auto) 0.2 % Neutrophils # (Auto) 2.59 1.4-6.5 K/uL Lymphocytes # (Auto) 1.35 1.2-3.4 K/uL Monocytes # (Auto) 0.46 0.11-0.59 K/uL Eosinophils # (Auto) 0.40 0-0.5 K/uL Basophils # (Auto) 0.01 0-0.2 K/uL RDW Standard Deviation 50.2 36.4-46.3 fL RDW Coefficient of Variation 14.6 11.5-14.5 % Immature Granulocyte % (Auto) 0.2 % Immature Granulocyte # (Auto) 0.01 0.00-0.02 K/uL Erythrocyte Sedimentation Rate 12 0-21 mm/hr Sodium Level 140 136-145 mmol/L Potassium Level 3.8 3.5-5.1 mmol/L Chloride Level 106 98-107 mmol/L Carbon Dioxide Level 30 21-32 mmol/L Anion Gap 4.0 3-11 mmol/L Blood Urea Nitrogen 14 7-18 mg/dl Creatinine 1.13 0.60-1.20 mg/dl Est Creatinine Clear Calc Drug Dose 30.5 ml/min Estimated GFR () 49.9 Estimated GFR (Non- 43.1 BUN/Creatinine Ratio 12.5 10-20 Random Glucose 95 70-99 mg/dl Calcium Level 8.7 8.5-10.1 mg/dl Magnesium Level 2.2 1.8-2.4 mg/dl C-Reactive Protein 0.63 0-0.29 mg/dl
[2018-02-17] MEDS ORDERED: FUROSEMIDE INJ 20 MG in SYRINGE 0 ML IV ONE (12:15)
[2018-02-17] MEDS: HEPARIN SOD 5000 UNIT/0.5 ML CARP SQ SCH ×2 (12:27→23:37)
--- NOTE | 2018-02-17 14:05 | Neurology Progress Notes ---
Neurology Progress Note Date of Service Feb 17, 2018. Gonzalez Menjivar is a 87 year old female who resides at [facility]. she has a PMH CKD III, HTN, DL, hypothyroidism, depression, anxiety who was in the hospital for angioedema in the first week of January, and her lisinopril was stopped, and she also came next week with hypoxia. At that time, her central acting medication doses were reduced and she was discharged. She returns with headache and vision changes and was again found to be hypoxic in the 80s. she state she has been having headaches 2-3 x per week which usually Tylenol relieves. The one that brought her into the hospital was worse than usual and was not helped with Tylenol. She is also is having vision issues and has an appointment with coal grader next week. She states she ambulates at baseline with a walker. she has had no falls or head injuries. She state she headaches, start in the back of her head come up to her temples and into her forehead. She currently does not have her glasses or her hearing aids. they are sometimes pounding but sometimes just pressure. She has chronic hearing loss. When she is reading there are missing letters in the words and sometimes she has voids in her vision when watching TV> Today she is sleeping in bed but wakes easily. According to care mgt note daughter report the vision changes worsened 1 year ago and ended her ability to drive. denies CP, SOB, abdominal pain, one sided numbness tingling, N, V, bowel or bladder issues. states her right leg still seems weak, her headache is better but still has headache. Objective Date Time Temp Pulse Resp B/P (MAP) Pulse Ox O2 Delivery O2 Flow Rate FiO2 02/17/18 11:38 36.4 74 18 133/70 (91) 96 2.0 02/17/18 08:00 96 2.0 02/17/18 07:44 36.9 55 16 154/69 (97) 93 2.0 02/17/18 05:03 36.6 58 18 116/58 (77) 91 Nasal Cannula 2.0 02/17/18 04:00 95 Room Air 02/17/18 00:00 95 Room Air 02/16/18 23:58 36.6 67 18 155/78 (103) 95 Room Air 02/16/18 20:05 36.2 61 18 161/63 (95) 97 Nasal Cannula 1.5 02/16/18 20:00 95 Nasal Cannula 1.0 02/16/18 16:00 95 Nasal Cannula 1.5 02/16/18 15:12 36.6 57 18 170/80 (110) 93 Nasal Cannula 1.5 Last 24 Hours Test 02/17/18 05:23 White Blood Count 4.82 K/uL Red Blood Count 3.76 M/uL Hemoglobin 11.6 g/dL Hematocrit 35.8 % Mean Corpuscular Volume 95.2 fL Mean Corpuscular Hemoglobin 30.9 pg Mean Corpuscular Hemoglobin Concent 32.4 g/dl Platelet Count 147 K/uL Mean Platelet Volume 9.0 fL Neutrophils (%) (Auto) 53.8 % Lymphocytes (%) (Auto) 28.0 % Monocytes (%) (Auto) 9.5 % Eosinophils (%) (Auto) 8.3 % Basophils (%) (Auto) 0.2 % Neutrophils # (Auto) 2.59 K/uL Lymphocytes # (Auto) 1.35 K/uL Monocytes # (Auto) 0.46 K/uL Eosinophils # (Auto) 0.40 K/uL Basophils # (Auto) 0.01 K/uL RDW Standard Deviation 50.2 fL RDW Coefficient of Variation 14.6 % Immature Granulocyte % (Auto) 0.2 % Immature Granulocyte # (Auto) 0.01 K/uL Erythrocyte Sedimentation Rate 12 mm/hr Sodium Level 140 mmol/L Potassium Level 3.8 mmol/L Chloride Level 106 mmol/L Carbon Dioxide Level 30 mmol/L Anion Gap 4.0 mmol/L Blood Urea Nitrogen 14 mg/dl Creatinine 1.13 mg/dl Est Creatinine Clear Calc Drug Dose 30.5 ml/min Estimated GFR () 49.9 Estimated GFR (Non- 43.1 BUN/Creatinine Ratio 12.5 Random Glucose 95 mg/dl Calcium Level 8.7 mg/dl Magnesium Level 2.2 mg/dl C-Reactive Protein 0.63 mg/dl Imaging: MRI combo brain- Negative MRI of the brain for age. LE doppler- There is no sonographic evidence of deep venous thrombosis identified in the right or left lower extremity. CT chest- There is no evidence of pulmonary embolus in the main, lobar, or segmental pulmonary arteries. There is no airspace consolidation typical for pneumonia. Trace pleural effusions. Cardiomegaly. Exam: Gen: alert NAD lungs CTA CV - RRR finger to nose no bipass no pronator drift hand bench chemist biceps triceps bilaterally 5/5, hip flex right 4/5, left 5/5, plantar flex ext 5/5 bilaterally Current Inpatient Medications Medications (Trade) Dose Ordered Sig/Alirio Route Start Time Stop Time Status Last Admin Dose Admin Heparin Sodium (Porcine) (Heparin Sq 5000 Unit/0.5ml) 5,000 unit Q12H SQ 02/16/18 12:00 03/18/18 11:59 02/17/18 12:27 5,000 UNIT Acetaminophen (Tylenol Tab) 650 mg Q4H PRN PO 02/16/18 02:15 03/18/18 02:14 02/17/18 09:30 650 MG Ondansetron HCl (Zofran Inj) 4 mg Q6H PRN IV 02/16/18 02:15 03/18/18 02:14 Nitroglycerin (Nitrostat Tab) 0.4 mg UD PRN SL 02/16/18 02:15 03/18/18 02:14 Polyethylene (Miralax Powder Packet) 17 gm DAILY PRN PO 02/16/18 02:15 03/18/18 02:14 Al Hydrox/Mg Hydrox/Simethicone (Maalox Max Susp) 30 ml Q4H PRN PO 02/16/18 02:15 03/18/18 02:14 Amlodipine Besylate (Norvasc Tab) 2.5 mg DAILY PO 02/16/18 09:00 03/18/18 08:59 02/17/18 09:17 2.5 MG Aspirin (Aspirin Chew) 81 mg DAILY PO 02/16/18 09:00 03/18/18 08:59 02/17/18 09:17 81 MG Bisacodyl (Dulcolax Supp) 10 mg DAILY PRN MA 02/16/18 02:15 03/18/18 02:14 Cetirizine HCl (zyrTEC TAB) 10 mg DAILY PO 02/16/18 09:00 03/18/18 08:59 02/17/18 09:17 10 MG Docusate Sodium (coLACE CAP) 100 mg BID PO 02/16/18 09:00 03/18/18 08:59 02/17/18 09:16 100 MG Escitalopram Oxalate (Lexapro Tab) 10 mg DAILY PO 02/16/18 09:00 03/18/18 08:59 02/17/18 09:16 10 MG Famotidine (Pepcid Tab) 20 mg BID PO 02/16/18 09:00 03/18/18 08:59 02/17/18 09:17 20 MG Fluticasone Propionate (Flonase Nasal [place]) 1 sprays HS LIZET 02/16/18 21:00 03/18/18 20:59 02/16/18 08:17 1 SPRAYS Gabapentin (Neurontin Cap) 100 mg BID PO 02/16/18 09:00 03/18/18 08:59 02/17/18 09:17 100 MG Levothyroxine Sodium (Synthroid Tab) 88 mcg DAILYBB PO 02/16/18 06:30 03/18/18 06:59 02/17/18 06:34 88 MCG Lorazepam (Ativan Tab) 0.25 mg BID PRN PO 02/16/18 02:15 03/18/18 02:14 Nystatin (Mycostatin Oint) 1 appln BID EXT 02/16/18 09:00 03/18/18 08:59 02/17/18 09:00 1 APPLN Multivitamins/ Minerals (Multivitamin W/ Minerals Tab) 1 tab BID PO 02/16/18 09:00 03/18/18 08:59 02/17/18 09:16 1 TAB Calcium Carbonate (oS-Del 500 TAB) 1,250 mg BID PO 02/16/18 09:00 03/18/18 08:59 02/17/18 09:17 1,250 MG Pantoprazole Sodium (Protonix Tab) 40 mg QAM PO 02/16/18 09:00 03/18/18 08:59 02/17/18 09:16 40 MG Senna/Docusate Sodium (Senokot S Tab) 1 tab DAILYBB PO 02/16/18 06:30 03/18/18 06:59 02/17/18 06:34 1 TAB Tramadol HCl (Ultram Tab) 50 mg Q6H PRN PO 02/16/18 02:15 03/18/18 02:14 Miscellaneous (Iv Fluids Completed) 1 ea PRN PRN N/A 02/16/18 05:15 02/16/19 05:14 02/16/18 21:06 1 EA Ioversol (Optiray 320) 100 ml UD PRN IV 02/16/18 10:45 02/20/18 10:44 Gadobutrol (Gadavist) 6.5 mmol UD PRN IV 02/16/18 22:30 02/20/18 22:29 Furosemide (Lasix Tab) 20 mg QAM PO 02/18/18 09:00 03/20/18 08:59 Impression 87 year old with extensive PMH presents with severe headaches and vision changes. Plan 1. vision changes r/o temporal arteritis. if sed rate is high will need a temporal biopsy- sed rate 11 2. MRI brain -r/o stroke or lesion causing headache with vision changes- no acute findings 3. PT/OT for discharge needs- right leg weakness, may be ongoing issue- walks with a walker at baseline 4. will need ophthalmology evaluation for vision changes gross peripheral vision intact- possible macular degeneration, glaucoma etc 5. primary team for medical management 6. fall precautions 7. sed rate 11, CRP 63, d dimmer- [id number] 8. daughters input would be helpful for any new issues verse chronic issues. I have seen and discussed above patient with Dr Tika Kelley, neurology Pt seen and examined. I think likelihood of temporal arteritis is low given nml ESR, but rec outpt TA biopsy provided pt would otherwise be dc. Would increase gabapentin from 100 mg bid to 200 mg bid for headache prophylaxis. BRITTANIE Kelley MD
--- NOTE | 2018-02-17 17:00 | ECHOCARDIOGRAM REPORT ---
*NOTICE TO RECEIVING DEMOCRAT AGENCY This information is strictly Confidential and protected under [place] law. [place] law prohibits you from making any further disclosure of this information unless further disclosure is expressly permitted by the written consent of the person to whom it pertains or is authorized by law. A general authorization for the release of medical or other information is not sufficient for this purpose. Hospital accepts no responsibility if the information is made available to any other person, INCLUDING THE PATIENT. Interpretation Summary * Name: BETH RICHARDSON Study Date: 02/17/2018 08:32 AM BP: 154/69 mmHg * Patient Location: [facility]\S\N275\S\1 HR: 68 * : 1930 (M/d/yy) Gender: Female Height: 61 in * Age: 87 yrs Ethnicity: [place] Weight: 154 lb * Ordering Physician: Dimas Gray * Referring Physician: JENA JURADO * Performed By: Kourtney Perry RDCS * * Reason For Study: CHF * BSA: 1.7 m2 * Limited images were recorded to reassess LV function. * The study was technically adequate. * -- Conclusions -- * Ejection Fraction = 60-65%. * There is mild concentric left ventricular hypertrophy. * The left ventricular wall motion is normal. Procedure Details * A contrast injection of Definity was performed to improve assessment of LV function. * Contrast was injected into an intravenous site in the right arm. * One vial of Definity ultrasound contrast was diluted in normal saline to a total volume of 10 ml. A total of '2' ml of solution was administered during imaging. * Lot # [id number] of Definity utilized for procedure. * Expiration date 1 DEC 12. * The attending nurse who injected the contrast agent was JAYMIE SAUCEDA RN. Left Ventricle * There is mild concentric left ventricular hypertrophy. * Ejection Fraction = 60-65%. * The left ventricular wall motion is normal. Atria * The left atrial size is normal. Mitral Valve * There is mild mitral annular calcification. MMode 2D Measurements and Calculations IVSd 1.3 cm IVSs 1.8 cm LVIDd 3.9 cm LVIDs 2.5 cm LVPWd 1.2 cm LVPWs 1.3 cm IVS/LVPW 1.0 FS 35.7 % EDV(Teich) 67.7 ml ESV(Teich) 23.1 ml EF(Teich) 65.8 % EDV(cubed) 61.4 ml ESV(cubed) 16.3 ml EF(cubed) 73.4 % % IVS thick 44.3 % % LVPW thick 3.9 % LV mass(C)d 173.2 grams LV mass(C)dI 102.4 grams/m\S\2 LV mass(C)s 137.5 grams LV mass(C)sI 81.4 grams/m\S\2 SV(Teich) 44.6 ml SI(Teich) 26.4 ml/m\S\2 SV(cubed) 45.1 ml SI(cubed) 26.7 ml/m\S\2 LVAd ap4 26.0 cm\S\2 LVLd ap4 7.3 cm EDV(MOD-sp4) 73.6 ml EDV(sp4-el) 79.0 ml LVAs ap4 15.1 cm\S\2 LVLs ap4 6.0 cm ESV(MOD-sp4) 31.3 ml ESV(sp4-el) 32.1 ml EF(MOD-sp4) 57.4 % EF(sp4-el) 59.4 % LVAd ap2 23.1 cm\S\2 LVLd ap2 6.7 cm EDV(MOD-sp2) 63.6 ml EDV(sp2-el) 67.3 ml LVAs ap2 13.4 cm\S\2 LVLs ap2 6.0 cm ESV(MOD-sp2) 25.0 ml ESV(sp2-el) 25.4 ml EF(MOD-sp2) 60.6 % EF(sp2-el) 62.2 % LVLd %diff -8.26 % EDV(MOD-bp) 71.2 ml LVLs %diff -1.01 % ESV(MOD-bp) 28.3 ml EF(MOD-bp) 60.3 % SV(MOD-sp4) 42.2 ml SI(MOD-sp4) 25.0 ml/m\S\2 SV(MOD-sp2) 38.6 ml SI(MOD-sp2) 22.8 ml/m\S\2 SV(MOD-bp) 42.9 ml SI(MOD-bp) 25.4 ml/m\S\2 SV(sp4-el) 46.9 ml SI(sp4-el) 27.8 ml/m\S\2 SV(sp2-el) 41.8 ml SI(sp2-el) 24.8 ml/m\S\2
[2018-02-17] MEDS: FLUTICASONE PROPIONATE NA SPR 16 GM BTL NAE SCH (20:24)
[2018-02-18] VITALS (9 sets, daily range): BP systolic 119–150; BP diastolic 61–88; PULSE 59–69; TEMP 36.4–36.8; O2SAT 88–97
[2018-02-18] MEDS: ACETAMINOPHEN 325 MG TAB PO PRN ×2 (00:09→19:33)
[2018-02-18] MEDS: LEVOTHYROXINE 88 MCG TAB PO SCH (05:44)
[2018-02-18] MEDS: DOCUSATE SODIUM/SENNA 50/8.6MG TAB PO SCH (05:45)
[2018-02-18 06:29] LABS: BASO % 0.2 %; BASO ABS # 0.01 K/uL (0-0.2); EOS % 9.5 %; EOS ABS # 0.45 K/uL (0-0.5); HEMATOCRIT 35.8 % (37-47); HEMOGLOBIN 11.9 g/dL (12.0-16.0); IG# 0.01 K/uL (0.00-0.02); LYMPH ABS # 1.51 K/uL (1.2-3.4); MEAN CELL VOLUME 94.7 fL (80-100); MEAN CORPUSCULAR HEMOGLOBIN 31.5 pg (25-34); MEAN CORPUSCULAR HGB CONC 33.2 g/dl (32-36); MEAN PLATELET VOLUME 9.1 fL (7.4-10.4); MONO % 7.8 %; MONO ABS # 0.37 K/uL (0.11-0.59); NEUT % 50.3 %; NEUT ABS # 2.37 K/uL (1.4-6.5); PLATELET COUNT 144 K/uL (130-400); RED CELL DISTRIBUTION WIDTH CV 14.6 % (11.5-14.5); RED CELL DISTRIBUTION WIDTH SD 49.9 fL (36.4-46.3); WHITE BLOOD COUNT 4.72 K/uL (4.8-10.8)
[2018-02-18 07:04] LABS: CALCIUM 8.5 mg/dl (8.5-10.1); CREATININE 1.22 mg/dl (0.60-1.20); POTASSIUM 3.5 mmol/L (3.5-5.1)
[2018-02-18] MEDS: CEROVITE ADV FORMULA TAB PO SCH ×2 (08:11→20:35)
[2018-02-18] MEDS: CETIRIZINE HCL 10 MG TAB PO SCH (08:11)
[2018-02-18] MEDS: DOCUSATE SODIUM 100 MG CAP PO SCH ×2 (08:11→20:34)
[2018-02-18] MEDS: AMLODIPINE BESYLATE 5 MG TAB PO SCH (08:12)
[2018-02-18] MEDS: GABAPENTIN 100 MG CAP PO SCH ×2 (08:12→20:34)
[2018-02-18] MEDS: ESCITALOPRAM OXALATE 10 MG TAB PO SCH (08:13)
[2018-02-18] MEDS: FAMOTIDINE 20 MG TAB PO SCH ×2 (08:13→20:34)
[2018-02-18] MEDS: PANTOprazole SOD 40 MG TAB PO SCH (08:15)
[2018-02-18] MEDS: ASPIRIN 81 MG CHEW PO SCH (08:15)
[2018-02-18] MEDS: CALCIUM CARBONATE 1250MG TAB PO SCH ×2 (08:15→20:35)
[2018-02-18] MEDS: NYSTATIN OINT 15 GM TUBE EXT SCH ×2 (08:16→20:33)
[2018-02-18] MEDS ORDERED: FUROSEMIDE 20 MG TAB PO SCH (09:00)
--- NOTE | 2018-02-18 10:49 | Progress Note ---
Internal Med Progress Note Date of Service: Feb 18, 2018. Provider Documentation: SUBJECTIVE: Seen and examined at bedside Feels better today: Headache improved Denies chest pain, SOB, dizziness Reports Itchiness to Tape "I have funny feeling in my throat" Denies odynophagia, still able to eat soft mechanical diet No other complaints Discussed with daughter in detail OBJECTIVE: Vital Signs-as noted below Physical Exam: General Appearance:Moderately built and nourished, no apparent distress Head: normocephalic, Atraumatic Eyes: normal inspection, EOMI, PERRL Neck: supple, Trachea midline Respiratory/Chest: Normal breath sounds, CTA Cardiovascular: S1, S2, No murmur Abdomen/GI:Soft, mild LLQ tender, Bowel sounds present Extremities/Musculoskelatal:normal inspection, 1+ B/L edema Neurologic/Psych:AAOX3, grossly no focal neurological deficits Skin: normal color, warm Lab data as noted below. ASSESSMENT & PLAN: Patient is an 87 yr female who presents with headache and hypoxia. Severe headaches with Vision change: H/O Macular degeneration and Cataract removal CT head:No acute intracranial findings MRI Brain:Negative ESR:normal HTN could be contributing Appreciate Neurology Input Needs follow up with [facility] as outpatient No focal deficits on exam Patient states vision is good after using prescription glasses Increased Gabapentin from 100mg to 200mg BID for headache prophylaxis as per Neurology recommendations Hypoxia: DD: sleep apnea Remote history of smoking Was thought to be secondary to meds during last admission CT: No PE, No consolidation, Trace pleural effusions Oxygen support, Titrate off as able Nocturnal Oximetry: Qualifies for nocturnal oxygen Needs 2 step prior to discharge PFTs/Sleep study as outpatient ECHO: * Ejection Fraction = 60-65%. * There is mild concentric left ventricular hypertrophy. * The left ventricular wall motion is normal. H/O Dysphagia: Reports having felt food stuck in throat after eating amie crackers on Mechanical soft diet Aspiration precautions Speech eval GI consulted for Input H/O Depression, anxiety: Continue Lexapro H/O angioedema: ZONIA inhibitor discontinued Stable HTN: continue amlodipine monitor Hypothyroidism: Continue levothyroxine CKD III: Monitor renal function GERD: continue PPI DVT Px: Heparin SQ Code Status: Full code Disposition: Monitor in tele PT/OT Likely discharge in next 48-72 hours if stable Vital Signs: Date Time Temp Pulse Resp B/P (MAP) Pulse Ox O2 Delivery O2 Flow Rate FiO2 02/18/18 08:00 97 Nasal Cannula 3.0 02/18/18 07:16 36.4 63 18 147/81 (103) 97 Nasal Cannula 3.0 02/18/18 05:53 62 16 88 Nasal Cannula 3.0 02/18/18 04:00 Nasal Cannula 3.0 02/18/18 03:58 36.6 59 18 136/69 (91) 94 2.0 02/18/18 00:00 Nasal Cannula 3.0 02/17/18 22:56 36.7 62 18 176/74 (108) 95 2.0 02/17/18 20:00 Nasal Cannula 2.0 02/17/18 19:36 36.5 58 18 163/73 (103) 97 2.0 02/17/18 16:00 96 Nasal Cannula 2.0 02/17/18 14:52 37.0 61 18 149/77 (101) 96 2.0 02/17/18 12:00 2.0 02/17/18 11:38 36.4 74 18 133/70 (91) 96 2.0 Lab Results: Results Past 24 Hours Test 02/18/18 06:13 Range/Units White Blood Count 4.72 4.8-10.8 K/uL Red Blood Count 3.78 4.2-5.4 M/uL Hemoglobin 11.9 12.0-16.0 g/dL Hematocrit 35.8 37-47 % Mean Corpuscular Volume 94.7 80-100 fL Mean Corpuscular Hemoglobin 31.5 25-34 pg Mean Corpuscular Hemoglobin Concent 33.2 32-36 g/dl Platelet Count 144 130-400 K/uL Mean Platelet Volume 9.1 7.4-10.4 fL Neutrophils (%) (Auto) 50.3 % Lymphocytes (%) (Auto) 32.0 % Monocytes (%) (Auto) 7.8 % Eosinophils (%) (Auto) 9.5 % Basophils (%) (Auto) 0.2 % Neutrophils # (Auto) 2.37 1.4-6.5 K/uL Lymphocytes # (Auto) 1.51 1.2-3.4 K/uL Monocytes # (Auto) 0.37 0.11-0.59 K/uL Eosinophils # (Auto) 0.45 0-0.5 K/uL Basophils # (Auto) 0.01 0-0.2 K/uL RDW Standard Deviation 49.9 36.4-46.3 fL RDW Coefficient of Variation 14.6 11.5-14.5 % Immature Granulocyte % (Auto) 0.2 % Immature Granulocyte # (Auto) 0.01 0.00-0.02 K/uL Sodium Level 141 136-145 mmol/L Potassium Level 3.5 3.5-5.1 mmol/L Chloride Level 105 98-107 mmol/L Carbon Dioxide Level 35 21-32 mmol/L Anion Gap 2.0 3-11 mmol/L Blood Urea Nitrogen 12 7-18 mg/dl Creatinine 1.22 0.60-1.20 mg/dl Est Creatinine Clear Calc Drug Dose 28.2 ml/min Estimated GFR () 45.5 Estimated GFR (Non- 39.2 BUN/Creatinine Ratio 9.8 10-20 Random Glucose 102 70-99 mg/dl Calcium Level 8.5 8.5-10.1 mg/dl Magnesium Level 2.2 1.8-2.4 mg/dl
--- NOTE | 2018-02-18 11:29 | PROGRESS NOTE ---
DATE: 02/18/2018 I am seeing Ms. Betancourt in followup of history of relatively new onset headache. Her sed rate was normal but CRP elevated. Yesterday we increased the dose of gabapentin to be used prophylactically and the patient indicates she still has a headache but is feeling somewhat better. IMPRESSION: This is unlikely temporal arteritis given the distribution of the headache which is widespread given the normal sed rate; however, I would recommend that if the headache persists, if the patient is going to be discharged, I would recommend she have an outpatient temporal artery biopsy to exclude temporal arteritis as we would not want to miss this treatable etiology. If she is to remain in the hospital, I would recommend that we consult surgery for a possible temporal artery biopsy while here. We will continue to follow with you. KLEVER
[2018-02-18] MEDS: HEPARIN SOD 5000 UNIT/0.5 ML CARP SQ SCH ×2 (12:00→23:23)
[2018-02-18] MEDS: FLUTICASONE PROPIONATE NA SPR 16 GM BTL NAE SCH (20:33)
[2018-02-19] VITALS (7 sets, daily range): BP systolic 107–150; BP diastolic 64–87; PULSE 51–79; TEMP 36.4–36.9; O2SAT 91–96
[2018-02-19] MEDS: DOCUSATE SODIUM/SENNA 50/8.6MG TAB PO SCH (06:15)
[2018-02-19] MEDS: LEVOTHYROXINE 88 MCG TAB PO SCH (06:15)
[2018-02-19 06:49] LABS: HEMATOCRIT 37.2 % (37-47); HEMOGLOBIN 12.1 g/dL (12.0-16.0); MEAN CELL VOLUME 95.9 fL (80-100); MEAN CORPUSCULAR HEMOGLOBIN 31.2 pg (25-34); MEAN CORPUSCULAR HGB CONC 32.5 g/dl (32-36); PLATELET COUNT 153 K/uL (130-400); RED CELL DISTRIBUTION WIDTH CV 14.6 % (11.5-14.5); RED CELL DISTRIBUTION WIDTH SD 51.2 fL (36.4-46.3); WHITE BLOOD COUNT 4.82 K/uL (4.8-10.8)
[2018-02-19 07:26] LABS: CALCIUM 8.9 mg/dl (8.5-10.1); CREATININE 1.11 mg/dl (0.60-1.20)
[2018-02-19] MEDS: ESCITALOPRAM OXALATE 10 MG TAB PO SCH (07:27)
[2018-02-19] MEDS: CEROVITE ADV FORMULA TAB PO SCH ×2 (07:27→20:16)
[2018-02-19] MEDS: PANTOprazole SOD 40 MG TAB PO SCH (07:27)
[2018-02-19] MEDS: CALCIUM CARBONATE 1250MG TAB PO SCH ×2 (07:28→20:17)
[2018-02-19] MEDS: CETIRIZINE HCL 10 MG TAB PO SCH (07:28)
[2018-02-19] MEDS: DOCUSATE SODIUM 100 MG CAP PO SCH ×2 (07:28→20:16)
[2018-02-19] MEDS: GABAPENTIN 100 MG CAP PO SCH ×2 (07:29→20:17)
[2018-02-19] MEDS: FAMOTIDINE 20 MG TAB PO SCH ×2 (07:29→20:17)
[2018-02-19] MEDS: AMLODIPINE BESYLATE 5 MG TAB PO SCH (07:30)
[2018-02-19] MEDS: NYSTATIN OINT 15 GM TUBE EXT SCH ×3 (07:32→20:28)
[2018-02-19] MEDS: ASPIRIN 81 MG CHEW PO SCH (07:32)
[2018-02-19 08:47] LABS: POTASSIUM 3.6 mmol/L (3.5-5.1)
[2018-02-19] MEDS: HEPARIN SOD 5000 UNIT/0.5 ML CARP SQ SCH (11:29)
--- NOTE | 2018-02-19 12:10 | PROGRESS NOTE ---
DATE: 02/19/2018 SUBJECTIVE: I am seeing Mrs. Betancourt in followup of headache. She is sleeping in her chair today, but I did wake her to discuss briefly. She indicates she has a mild headache in the occipital region, but when I awakened her, her head was down on her chest. She is sleepy, but arousable. Speech is nondysarthric. OBJECTIVE: VITAL SIGNS: 36.4, 51, 18, 137/76. IMPRESSION: Headache of unclear etiology, given a normal sed rate and the global nature of the headache, it is likely not temporal arteritis. The CRP was elevated and I think if the patient remains in the hospital that she should have a temporal artery biopsy while here. Continue the higher dose of gabapentin. MTDD
--- NOTE | 2018-02-19 12:21 | Progress Note ---
Internal Med Progress Note Date of Service: Feb 19, 2018. Provider Documentation: SUBJECTIVE: Seen and examined at bedside States feeling very weak and tired today Feels sleepy Headache much improved with Tylenol Denies chest pain, SOB, dizziness No other complaints Currently having lunch OBJECTIVE: Vital Signs-as noted below Physical Exam: General Appearance:Moderately built and nourished, no apparent distress Head: normocephalic, Atraumatic Eyes: normal inspection, EOMI, PERRL Neck: supple, Trachea midline Respiratory/Chest: Normal breath sounds, CTA Cardiovascular: S1, S2, No murmur Abdomen/GI:Soft, mild LLQ tender, Bowel sounds present Extremities/Musculoskelatal:normal inspection, 1+ B/L edema Neurologic/Psych:AAOX3, grossly no focal neurological deficits Skin: normal color, warm Lab data as noted below. ASSESSMENT & PLAN: Patient is an 87 yr female who presents with headache and hypoxia. Severe headaches with Vision change: Improved H/O Macular degeneration and Cataract removal CT head:No acute intracranial findings MRI Brain:Negative ESR:normal, Elevated CRP HTN could be contributing Appreciate Neurology Input Needs follow up with [facility] as outpatient No focal deficits on exam Patient states vision is good after using prescription glasses Increased Gabapentin from 100mg to 200mg BID for headache prophylaxis as per Neurology recommendations Will consider temporal artery biopsy either Inpatient Vs outpatient Hypoxia: DD: sleep apnea Remote history of smoking Was thought to be secondary to meds during last admission CT: No PE, No consolidation, Trace pleural effusions Oxygen support, Titrate off as able Nocturnal Oximetry: Qualifies for nocturnal oxygen Needs 2 step prior to discharge PFTs/Sleep study as outpatient ECHO: * Ejection Fraction = 60-65%. * There is mild concentric left ventricular hypertrophy. * The left ventricular wall motion is normal. H/O Dysphagia: Reports having felt food stuck in throat after eating amie crackers on Mechanical soft diet Aspiration precautions Speech eval GI consulted for Input H/O Depression, anxiety: Continue Lexapro H/O angioedema: ZONIA inhibitor discontinued Stable HTN: continue amlodipine monitor Hypothyroidism: Continue levothyroxine CKD III: Monitor renal function GERD: continue PPI DVT Px: Heparin SQ Code Status: Full code Disposition: Monitor in tele PT/OT May need Rehab placement Likely discharge in next 48-72 hours if stable Vital Signs: Date Time Temp Pulse Resp B/P (MAP) Pulse Ox O2 Delivery O2 Flow Rate FiO2 02/19/18 12:03 36.9 57 18 148/71 (96) 96 Nasal Cannula 3.0 02/19/18 11:37 64 96 02/19/18 11:14 Nasal Cannula 2.5 02/19/18 08:00 Nasal Cannula 2.5 02/19/18 07:12 36.4 51 18 137/76 (96) 95 Nasal Cannula 3.0 02/19/18 04:01 36.4 53 18 145/73 (97) 95 2.0 02/19/18 04:00 Nasal Cannula 2.5 02/19/18 00:00 Nasal Cannula 2.5 02/18/18 23:46 36.6 66 18 134/88 (103) 95 2.0 02/18/18 20:00 Nasal Cannula 2.5 02/18/18 19:33 36.8 68 18 119/61 (80) 95 2.0 02/18/18 16:00 Nasal Cannula 2.5 02/18/18 15:03 36.6 69 18 133/76 (95) 96 Nasal Cannula 3.0 Lab Results: Results Past 24 Hours Test 02/19/18 06:21 02/19/18 08:18 Range/Units White Blood Count 4.82 4.8-10.8 K/uL Red Blood Count 3.88 4.2-5.4 M/uL Hemoglobin 12.1 12.0-16.0 g/dL Hematocrit 37.2 37-47 % Mean Corpuscular Volume 95.9 80-100 fL Mean Corpuscular Hemoglobin 31.2 25-34 pg Mean Corpuscular Hemoglobin Concent 32.5 32-36 g/dl RDW Standard Deviation 51.2 36.4-46.3 fL RDW Coefficient of Variation 14.6 11.5-14.5 % Platelet Count 153 130-400 K/uL Mean Platelet Volume 9.0 7.4-10.4 fL Sodium Level 140 136-145 mmol/L Potassium Level 3.6 3.5-5.1 mmol/L Chloride Level 103 98-107 mmol/L Carbon Dioxide Level 33 21-32 mmol/L Anion Gap 4.0 3-11 mmol/L Blood Urea Nitrogen 13 7-18 mg/dl Creatinine 1.11 0.60-1.20 mg/dl Est Creatinine Clear Calc Drug Dose 30.9 ml/min Estimated GFR () 51.0 Estimated GFR (Non- 44.0 BUN/Creatinine Ratio 11.6 10-20 Random Glucose 101 70-99 mg/dl Calcium Level 8.9 8.5-10.1 mg/dl Magnesium Level 2.4 1.8-2.4 mg/dl
--- NOTE | 2018-02-19 18:11 | Medical Consult ---
Consultation Note Date of Service Feb 19, 2018. Consultation Note We were consulted for complaint of dypshagia in this 87 yo female. On chart review, it appears that she has chronic dysphagia - UGIS in 2016 for this complaint showed esoph dysmotility without obstruction, EGD in 2017 did not show obstruction or large HH and empiric dilation was performed, and bedside speech path eval a few weeks ago made recs for slippery diet. Her symptoms do not seem to have changed - she had mild dypshagia to cracker 2 days ago and to a pill this afternoon. When I enter the room, she is eating a meal - I watched her eat half a grilled cheese sandwich, dipping this in tomato soup - she had no difficulty with this. 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 Agree with speech path recommendations ; would not pursue endoscopy or any other intervention. Please call with questions.
--- NOTE | 2018-02-19 19:11 | Medical Consult ---
Consultation Date of Consultation: Feb 19, 2018. Attending Physician: Dimas Gray MD Reason for Consultation: Rule out temporal arteritis History of Present Illness Ms. Betancourt is a very pleasant 87-year-old female with past medical history significant for chronic kidney disease stage III, hypertension, hyperlipidemia, hypothyroidism, macular degeneration, depression, anxiety who resides in a local assisted living facility who presented to [facility] ED for evaluation of headaches and hypoxia. History obtained from both patient and daughter (POA). Patient reports that she has been having headaches for the past few months ( frontal pain reported by patient, all across forehead)- she reports that the headaches become worse in the evening. She states that they never completely go away. She reports sensitivity to light and to sound. Reports nausea associated with headaches. Denies prior history of migraines. Patient does report history of vision problems and daughter believes that headaches may be associated with headaches. Patient was supposed to have an appointment with accreditation coordinator tomorrow. Hospital course- Imaging- MRI, brain- negative MRI of the brain for age. ESR 12; C-Reactive Protein 0.63 Past Medical/Surgical History Medical Problems: (1) Angioedema Status: Acute (2) Anxiety Status: Acute (3) Change in mental status Status: Acute (4) Epigastric abdominal pain Status: Acute (5) Headache Status: Acute (6) Hypoxia Status: Acute (7) Hypoxia Status: Acute (8) SOB (shortness of breath) Status: Acute (9) Weakness Status: Acute Family History FH: cancer Social History Smoking Status: Never Smoker Drug Use: none Marital Status: Housing Status: alf Occupation Status: retired Allergies Coded Allergies: Lisinopril (Verified Allergy, Severe, ANAPHYLAXIS, 02/15/18) Patient developed Angioedema. Latex1 -Allergic Contact Dermititis (Verified Allergy, Intermediate, ITCHING, RASH, 02/15/18) Adhesives (Verified Allergy, Unknown, ITCHING, RASH, 02/15/18) Codeine (Verified Allergy, Unknown, N/V, 02/15/18) Morphine (Unverified Allergy, Unknown, ., 02/15/18) Opioid Analgesics (Verified Allergy, Unknown, "OPIATE AGONISTS" - MORPHINE = STOMACH UPSET, 02/15/18) Sulfamethoxazole w/Trimethoprim (Verified Allergy, Unknown, RASH, 01/23/18) Current Inpatient Medications Current Inpatient Medications Medications (Trade) Dose Ordered Sig/Alirio Route Start Time Stop Time Status Last Admin Dose Admin Heparin Sodium (Porcine) (Heparin Sq 5000 Unit/0.5ml) 5,000 unit Q12H SQ 02/16/18 12:00 03/18/18 11:59 02/19/18 11:29 5,000 UNIT Acetaminophen (Tylenol Tab) 650 mg Q4H PRN PO 02/16/18 02:15 03/18/18 02:14 02/18/18 19:33 650 MG Ondansetron HCl (Zofran Inj) 4 mg Q6H PRN IV 02/16/18 02:15 03/18/18 02:14 02/17/18 16:35 4 MG Nitroglycerin (Nitrostat Tab) 0.4 mg UD PRN SL 02/16/18 02:15 03/18/18 02:14 Polyethylene (Miralax Powder Packet) 17 gm DAILY PRN PO 02/16/18 02:15 03/18/18 02:14 Al Hydrox/Mg Hydrox/Simethicone (Maalox Max Susp) 30 ml Q4H PRN PO 02/16/18 02:15 03/18/18 02:14 02/17/18 16:40 30 ML Amlodipine Besylate (Norvasc Tab) 2.5 mg DAILY PO 02/16/18 09:00 03/18/18 08:59 02/19/18 07:30 2.5 MG Aspirin (Aspirin Chew) 81 mg DAILY PO 02/16/18 09:00 03/18/18 08:59 02/19/18 07:32 81 MG Bisacodyl (Dulcolax Supp) 10 mg DAILY PRN LA 02/16/18 02:15 03/18/18 02:14 Cetirizine HCl (zyrTEC TAB) 10 mg DAILY PO 02/16/18 09:00 03/18/18 08:59 02/19/18 07:28 10 MG Docusate Sodium (coLACE CAP) 100 mg BID PO 02/16/18 09:00 03/18/18 08:59 02/19/18 07:28 100 MG Escitalopram Oxalate (Lexapro Tab) 10 mg DAILY PO 02/16/18 09:00 03/18/18 08:59 02/19/18 07:27 10 MG Famotidine (Pepcid Tab) 20 mg BID PO 02/16/18 09:00 03/18/18 08:59 02/19/18 07:29 20 MG Fluticasone Propionate (Flonase Nasal [place]) 1 sprays HS LIZET 02/16/18 21:00 03/18/18 20:59 02/18/18 20:33 1 SPRAYS Levothyroxine Sodium (Synthroid Tab) 88 mcg DAILYBB PO 02/16/18 06:30 03/18/18 06:59 02/19/18 06:15 88 MCG Lorazepam (Ativan Tab) 0.25 mg BID PRN PO 02/16/18 02:15 03/18/18 02:14 Nystatin (Mycostatin Oint) 1 appln BID EXT 02/16/18 09:00 03/18/18 08:59 02/19/18 07:32 1 APPLN Multivitamins/ Minerals (Multivitamin W/ Minerals Tab) 1 tab BID PO 02/16/18 09:00 03/18/18 08:59 02/19/18 07:27 1 TAB Calcium Carbonate (oS-Del 500 TAB) 1,250 mg BID PO 02/16/18 09:00 03/18/18 08:59 02/19/18 07:28 1,250 MG Pantoprazole Sodium (Protonix Tab) 40 mg QAM PO 02/16/18 09:00 03/18/18 08:59 02/19/18 07:27 40 MG Senna/Docusate Sodium (Senokot S Tab) 1 tab DAILYBB PO 02/16/18 06:30 03/18/18 06:59 02/19/18 06:15 1 TAB Tramadol HCl (Ultram Tab) 50 mg Q6H PRN PO 02/16/18 02:15 03/18/18 02:14 02/19/18 13:34 50 MG Miscellaneous (Iv Fluids Completed) 1 ea PRN PRN N/A 02/16/18 05:15 02/16/19 05:14 02/16/18 21:06 1 EA Ioversol (Optiray 320) 100 ml UD PRN IV 02/16/18 10:45 02/20/18 10:44 Gadobutrol (Gadavist) 6.5 mmol UD PRN IV 02/16/18 22:30 02/20/18 22:29 Gabapentin (Neurontin Cap) 200 mg BID PO 02/18/18 21:00 03/18/18 08:59 02/19/18 07:29 200 MG Diphenhydramine HCl (Benadryl Cap) 25 mg BID PRN PO 02/18/18 11:30 03/20/18 11:29 Review of Systems Constitutional: No fever, No chills Eyes: + problem reported Physical Exam Date Time Temp Pulse Resp B/P (MAP) Pulse Ox O2 Delivery O2 Flow Rate FiO2 02/19/18 14:59 Nasal Cannula 2.5 02/19/18 14:54 36.7 58 18 142/67 (92) 92 Nasal Cannula 3.0 02/19/18 12:03 36.9 57 18 148/71 (96) 96 Nasal Cannula 3.0 02/19/18 11:37 64 96 02/19/18 11:14 Nasal Cannula 2.5 02/19/18 08:00 Nasal Cannula 2.5 02/19/18 07:12 36.4 51 18 137/76 (96) 95 Nasal Cannula 3.0 02/19/18 04:01 36.4 53 18 145/73 (97) 95 2.0 02/19/18 04:00 Nasal Cannula 2.5 02/19/18 00:00 Nasal Cannula 2.5 02/18/18 23:46 36.6 66 18 134/88 (103) 95 2.0 02/18/18 20:00 Nasal Cannula 2.5 02/18/18 19:33 36.8 68 18 119/61 (80) 95 2.0 General Appearance: WD/WN, no apparent distress Head: normocephalic, atraumatic, + pertinent finding (generalized tenderness in the head. ) Eyes: + pertinent finding (patient reports vision loss) Laboratory Results Last 24 Hours Test 02/19/18 06:21 02/19/18 08:18 White Blood Count 4.82 K/uL Red Blood Count 3.88 M/uL Hemoglobin 12.1 g/dL Hematocrit 37.2 % Mean Corpuscular Volume 95.9 fL Mean Corpuscular Hemoglobin 31.2 pg Mean Corpuscular Hemoglobin Concent 32.5 g/dl RDW Standard Deviation 51.2 fL RDW Coefficient of Variation 14.6 % Platelet Count 153 K/uL Mean Platelet Volume 9.0 fL Sodium Level 140 mmol/L Potassium Level mmol/L 3.6 mmol/L Chloride Level 103 mmol/L Carbon Dioxide Level 33 mmol/L Anion Gap 4.0 mmol/L Blood Urea Nitrogen 13 mg/dl Creatinine 1.11 mg/dl Est Creatinine Clear Calc Drug Dose 30.9 ml/min Estimated GFR () 51.0 Estimated GFR (Non- 44.0 BUN/Creatinine Ratio 11.6 Random Glucose 101 mg/dl Calcium Level 8.9 mg/dl Magnesium Level mg/dl 2.4 mg/dl Assessment & Plan 87-year-old female multiple month history of headaches that become worse at night, ESR within normal limits, elevated C-Reactive Protein 0.63 Patient has been seen by Neurology who is requesting temporal artery biopsy. Unlikely temporal arteritis, but will proceed with bilateral temporal artery biopsy in [place] tomorrow with Dr. Whitlock to rule out temporal arteritis. AM dose of SQ Heparin held by primary team. Patient NPO after midnight. Risks of procedure reviewed with patient and patient's family. All questions answered.
[2018-02-19] MEDS: FLUTICASONE PROPIONATE NA SPR 16 GM BTL NAE SCH (20:16)
[2018-02-20 04:57] VITALS: BP 112/67; PULSE 58; TEMP 36.2; O2SAT 90
[2018-02-20] MEDS: LEVOTHYROXINE 88 MCG TAB PO SCH ×2 (06:06→06:16)
[2018-02-20] MEDS: DOCUSATE SODIUM/SENNA 50/8.6MG TAB PO SCH ×2 (06:06→06:16)
[2018-02-20 07:09] VITALS: BP 122/64; PULSE 53; TEMP 36.6; O2SAT 93
[2018-02-20] MEDS: NYSTATIN OINT 15 GM TUBE EXT SCH ×2 (09:28→21:00)
[2018-02-20] MEDS: DOCUSATE SODIUM 100 MG CAP PO SCH ×2 (09:29→20:57)
[2018-02-20] MEDS: PANTOprazole SOD 40 MG TAB PO SCH (09:29)
[2018-02-20] MEDS: CETIRIZINE HCL 10 MG TAB PO SCH (09:29)
[2018-02-20] MEDS: FAMOTIDINE 20 MG TAB PO SCH ×2 (09:29→20:58)
[2018-02-20] MEDS: CALCIUM CARBONATE 1250MG TAB PO SCH ×2 (09:29→21:00)
[2018-02-20] MEDS: CEROVITE ADV FORMULA TAB PO SCH ×2 (09:29→21:00)
[2018-02-20] MEDS: ASPIRIN 81 MG CHEW PO SCH (09:32)
[2018-02-20] MEDS: GABAPENTIN 100 MG CAP PO SCH ×2 (09:32→20:58)
[2018-02-20] MEDS: AMLODIPINE BESYLATE 5 MG TAB PO SCH (09:32)
[2018-02-20] MEDS: ESCITALOPRAM OXALATE 10 MG TAB PO SCH (09:32)
[2018-02-20 11:22] VITALS: BP 128/78; PULSE 58; TEMP 36.7; O2SAT 92
--- NOTE | 2018-02-20 12:59 | Progress Note ---
Internal Med Progress Note Date of Service: Feb 20, 2018. Provider Documentation: SUBJECTIVE: Seen and examined at bedside Feels better today Feels sleepy most of the day Minimal Headache Denies chest pain, SOB, dizziness No other complaints Planned for temporal artery biopsy tomorrow OBJECTIVE: Vital Signs-as noted below Physical Exam: General Appearance:Moderately built and nourished, no apparent distress Head: normocephalic, Atraumatic Eyes: normal inspection, EOMI, PERRL Neck: supple, Trachea midline Respiratory/Chest: Normal breath sounds, CTA Cardiovascular: S1, S2, No murmur Abdomen/GI:Soft, non tender, Bowel sounds present Extremities/Musculoskelatal:normal inspection, 1+ B/L edema Neurologic/Psych:AAOX3, grossly no focal neurological deficits Skin: normal color, warm Lab data as noted below. ASSESSMENT & PLAN: Patient is an 87 yr female who presents with headache and hypoxia. Severe headaches with Vision change: Improved H/O Macular degeneration and Cataract removal CT head:No acute intracranial findings MRI Brain:Negative ESR:normal, Elevated CRP HTN could be contributing Appreciate Neurology Input Needs follow up with Nightclub Manager as outpatient No focal deficits on exam Patient states vision is good after using prescription glasses Increased Gabapentin from 100mg to 200mg BID for headache prophylaxis as per Neurology recommendations Planned for temporal artery biopsy tomorrow Surgery consulted Hypoxia: DD: sleep apnea Remote history of smoking Was thought to be secondary to meds during last admission CT: No PE, No consolidation, Trace pleural effusions Oxygen support, Titrate off as able Nocturnal Oximetry: Qualifies for nocturnal oxygen Needs 2 step prior to discharge PFTs/Sleep study as outpatient ECHO: * Ejection Fraction = 60-65%. * There is mild concentric left ventricular hypertrophy. * The left ventricular wall motion is normal. H/O chronic Dysphagia: Reports having felt food stuck in throat after eating amie crackers on Mechanical soft diet Aspiration precautions Speech eval Appreciate GI Input H/O Depression, anxiety: Continue Lexapro H/O angioedema: ZONIA inhibitor discontinued Stable HTN: continue amlodipine monitor Hypothyroidism: Continue levothyroxine CKD III: Monitor renal function GERD: continue PPI DVT Px: Heparin SQ Code Status: Full code Disposition: Monitor in tele PT/OT: recommends Rehab May need Rehab placement Vital Signs: Date Time Temp Pulse Resp B/P (MAP) Pulse Ox O2 Delivery O2 Flow Rate FiO2 4/30/18 11:22 36.7 58 16 128/78 (95) 92 2.0 02/20/18 08:00 Nasal Cannula 2.5 02/20/18 07:09 36.6 53 16 122/64 (83) 93 2.0 02/20/18 04:57 36.2 58 18 112/67 (82) 90 Nasal Cannula 2.0 02/20/18 04:00 Nasal Cannula 2.5 02/20/18 00:00 Nasal Cannula 2.5 02/19/18 23:07 36.6 59 18 116/69 (85) 93 Nasal Cannula 3.0 02/19/18 20:00 Nasal Cannula 2.5 02/19/18 19:26 36.8 79 18 107/64 (78) 91 Nasal Cannula 3.0 02/19/18 14:59 Nasal Cannula 2.5 02/19/18 14:54 36.7 58 18 142/67 (92) 92 Nasal Cannula 3.0
[2018-02-20] MEDS ORDERED: HEPARIN SOD 5000 UNIT/0.5 ML CARP SQ SCH (13:00)
--- NOTE | 2018-02-20 13:42 | Surgery Progress Note ---
Surgery Progress Note Date of Service Feb 20, 2018. Objective Vital Signs: Date Time Temp Pulse Resp B/P (MAP) Pulse Ox O2 Delivery O2 Flow Rate FiO2 02/20/18 12:00 Nasal Cannula 2.5 02/20/18 11:22 36.7 58 16 128/78 (95) 92 2.0 02/20/18 08:00 Nasal Cannula 2.5 02/20/18 07:09 36.6 53 16 122/64 (83) 93 2.0 02/20/18 04:57 36.2 58 18 112/67 (82) 90 Nasal Cannula 2.0 02/20/18 04:00 Nasal Cannula 2.5 02/20/18 00:00 Nasal Cannula 2.5 02/19/18 23:07 36.6 59 18 116/69 (85) 93 Nasal Cannula 3.0 02/19/18 20:00 Nasal Cannula 2.5 02/19/18 19:26 36.8 79 18 107/64 (78) 91 Nasal Cannula 3.0 02/19/18 14:59 Nasal Cannula 2.5 02/19/18 14:54 36.7 58 18 142/67 (92) 92 Nasal Cannula 3.0 Assessment & Plan 02/20/18 87-year-old female multiple month history of headaches that become worse at night, ESR within normal limits, elevated C-Reactive Protein 0.63 Plan was to have bilateral temporal biopsy in OR today with Dr. Whitlock- Dr. Whitlock coming off of call and had multiple cases to add on today. Will reschedule patient for OR tomorrow. Attempts made to call patient's daughter to give her update, but unable to reach her at this time. According to case management note from today, Dr. Gray will be having family meeting to discuss patient's discharge status. Dr. Gray will update family about surgery tomorrow. AM dose of SQ Heparin held by primary team. Patient NPO after midnight. 02/19/18 87-year-old female multiple month history of headaches that become worse at night, ESR within normal limits, elevated C-Reactive Protein 0.63 Patient has been seen by Neurology who is requesting temporal artery biopsy. Unlikely temporal arteritis, but will proceed with bilateral temporal artery biopsy in OR tomorrow with Dr. Whitlock to rule out temporal arteritis. AM dose of SQ Heparin held by primary team. Patient NPO after midnight. Risks of procedure reviewed with patient and patient's family. All questions answered.
--- NOTE | 2018-02-20 14:47 | Neurology Progress Notes ---
Neurology Progress Note Date of Service Feb 20, 2018. Gonzalez Menjivar is a 87 year old female who resides at [facility]. she has a PMH CKD III, HTN, DL, hypothyroidism, depression, anxiety who was in the hospital for angioedema in the first week of January, and her lisinopril was stopped, and she also came next week with hypoxia. At that time, her central acting medication doses were reduced and she was discharged. She returns with headache and vision changes and was again found to be hypoxic in the 80s. she state she has been having headaches 2-3 x per week which usually Tylenol relieves. The one that brought her into the hospital was worse than usual and was not helped with Tylenol. She is also is having vision issues and has an appointment with web producer next week. She states she ambulates at baseline with a walker. she has had no falls or head injuries. She state she headaches, start in the back of her head come up to her temples and into her forehead. She currently does not have her glasses or her hearing aids. they are sometimes pounding but sometimes just pressure. She has chronic hearing loss. When she is reading there are missing letters in the words and sometimes she has voids in her vision when watching TV. Today she has been up walking to the bathroom. When asked about her vision she states it is the same as when she can to the hospital. Her headache is not as severe as previous. denies CP, SOB, abdominal pain, N, V. Objective Date Time Temp Pulse Resp B/P (MAP) Pulse Ox O2 Delivery O2 Flow Rate FiO2 02/20/18 12:00 Nasal Cannula 2.5 02/20/18 11:22 36.7 58 16 128/78 (95) 92 2.0 02/20/18 08:00 Nasal Cannula 2.5 02/20/18 07:09 36.6 53 16 122/64 (83) 93 2.0 02/20/18 04:57 36.2 58 18 112/67 (82) 90 Nasal Cannula 2.0 02/20/18 04:00 Nasal Cannula 2.5 02/20/18 00:00 Nasal Cannula 2.5 02/19/18 23:07 36.6 59 18 116/69 (85) 93 Nasal Cannula 3.0 02/19/18 20:00 Nasal Cannula 2.5 02/19/18 19:26 36.8 79 18 107/64 (78) 91 Nasal Cannula 3.0 02/19/18 14:59 Nasal Cannula 2.5 02/19/18 14:54 36.7 58 18 142/67 (92) 92 Nasal Cannula 3.0 no new labs Imaging: no new imaging Exam: Gen: alert NAD lungs normal respiratory effort. CV RRR hand bologna lacer, biceps triceps, bilaterally 5/5 hip flex 5/5 bilaterally, walked to the bathroom with minimal assistance with walker Current Inpatient Medications Medications (Trade) Dose Ordered Sig/Alirio Route Start Time Stop Time Status Last Admin Dose Admin Acetaminophen (Tylenol Tab) 650 mg Q4H PRN PO 02/16/18 02:15 03/18/18 02:14 02/18/18 19:33 650 MG Ondansetron HCl (Zofran Inj) 4 mg Q6H PRN IV 02/16/18 02:15 03/18/18 02:14 02/17/18 16:35 4 MG Nitroglycerin (Nitrostat Tab) 0.4 mg UD PRN SL 02/16/18 02:15 03/18/18 02:14 Polyethylene (Miralax Powder Packet) 17 gm DAILY PRN PO 02/16/18 02:15 03/18/18 02:14 Al Hydrox/Mg Hydrox/Simethicone (Maalox Max Susp) 30 ml Q4H PRN PO 02/16/18 02:15 03/18/18 02:14 02/17/18 16:40 30 ML Amlodipine Besylate (Norvasc Tab) 2.5 mg DAILY PO 02/16/18 09:00 03/18/18 08:59 02/20/18 09:32 2.5 MG Aspirin (Aspirin Chew) 81 mg DAILY PO 02/16/18 09:00 03/18/18 08:59 02/20/18 09:32 81 MG Bisacodyl (Dulcolax Supp) 10 mg DAILY PRN SC 02/16/18 02:15 03/18/18 02:14 Cetirizine HCl (zyrTEC TAB) 10 mg DAILY PO 02/16/18 09:00 03/18/18 08:59 02/20/18 09:29 10 MG Docusate Sodium (coLACE CAP) 100 mg BID PO 02/16/18 09:00 03/18/18 08:59 02/20/18 09:29 100 MG Escitalopram Oxalate (Lexapro Tab) 10 mg DAILY PO 02/16/18 09:00 03/18/18 08:59 02/20/18 09:32 10 MG Famotidine (Pepcid Tab) 20 mg BID PO 02/16/18 09:00 03/18/18 08:59 02/20/18 09:29 20 MG Fluticasone Propionate (Flonase Nasal [place]) 1 sprays HS LIZET 02/16/18 21:00 03/18/18 20:59 02/19/18 20:16 1 SPRAYS Levothyroxine Sodium (Synthroid Tab) 88 mcg DAILYBB PO 02/16/18 06:30 03/18/18 06:59 02/19/18 06:15 88 MCG Lorazepam (Ativan Tab) 0.25 mg BID PRN PO 02/16/18 02:15 03/18/18 02:14 Nystatin (Mycostatin Oint) 1 appln BID EXT 02/16/18 09:00 03/18/18 08:59 02/20/18 09:28 1 APPLN Multivitamins/ Minerals (Multivitamin W/ Minerals Tab) 1 tab BID PO 02/16/18 09:00 03/18/18 08:59 02/20/18 09:29 1 TAB Calcium Carbonate (oS-Del 500 TAB) 1,250 mg BID PO 02/16/18 09:00 03/18/18 08:59 02/20/18 09:29 1,250 MG Pantoprazole Sodium (Protonix Tab) 40 mg QAM PO 02/16/18 09:00 03/18/18 08:59 02/20/18 09:29 40 MG Senna/Docusate Sodium (Senokot S Tab) 1 tab DAILYBB PO 02/16/18 06:30 03/18/18 06:59 02/19/18 06:15 1 TAB Tramadol HCl (Ultram Tab) 50 mg Q6H PRN PO 02/16/18 02:15 03/18/18 02:14 02/19/18 13:34 50 MG Miscellaneous (Iv Fluids Completed) 1 ea PRN PRN N/A 02/16/18 05:15 02/16/19 05:14 02/16/18 21:06 1 EA Gadobutrol (Gadavist) 6.5 mmol UD PRN IV 02/16/18 22:30 02/20/18 22:29 Gabapentin (Neurontin Cap) 200 mg BID PO 02/18/18 21:00 03/18/18 08:59 02/20/18 09:32 200 MG Diphenhydramine HCl (Benadryl Cap) 25 mg BID PRN PO 02/18/18 11:30 03/20/18 11:29 Heparin Sodium (Porcine) (Heparin Sq 5000 Unit/0.5ml) 5,000 unit Q12 SQ 02/20/18 13:00 03/22/18 12:59 02/20/18 13:16 5,000 UNIT Impression 87 year old with extensive PMH presents with severe headaches and vision changes. Plan 1. vision changes r/o temporal arteritis. if sed rate is high will need a temporal biopsy- sed rate 11- temporal biopsy tomorrow 2. MRI brain -r/o stroke or lesion causing headache with vision changes- no acute findings 3. PT/OT for discharge needs- right leg weakness, may be ongoing issue- walks with a walker at baseline 4. will need ophthalmology evaluation for vision changes gross peripheral vision intact- possible macular degeneration, glaucoma etc 5. primary team for medical management 6. fall precautions 7. sed rate 11, CRP 63, d dimmer- 1340 8. daughters input would be helpful for any new issues verse chronic issues. 9. continue gabapentin 200 mg BID may be increased but max dose for renal function CrCl 44. 400 - 1400 daily in divided doses. I have seen and discussed above patient with Dr Tika Kelley, neurology MD Boy
[2018-02-20 15:30] VITALS: BP 121/64; PULSE 58; TEMP 36.7; O2SAT 94
--- NOTE | 2018-02-20 16:48 | Anesthesiology Progress Note ---
Anesthesia Progress Note Date of Service Feb 20, 2018. Progress Notes The patient is scheduled for a temporal artery biopsy tomorrow. She was seen and consented for MAC sedation with general anesthesia as a backup. The patient was counseled to remain NPO after midnight except for sips of water with pills.
[2018-02-20 18:54] VITALS: BP 147/77; PULSE 60; TEMP 36.7; O2SAT 95
[2018-02-20] MEDS: FLUTICASONE PROPIONATE NA SPR 16 GM BTL NAE SCH (21:01)
[2018-02-20 23:14] VITALS: BP 144/84; PULSE 61; TEMP 36.9; O2SAT 96
[2018-02-21] VITALS (13 sets, daily range): BP systolic 114–176; BP diastolic 70–86; PULSE 54–68; TEMP 36.4–37.1; O2SAT 90–97
[2018-02-21] MEDS: LORAZEPAM 0.5 MG TAB PO PRN (00:12)
[2018-02-21] MEDS: LEVOTHYROXINE 88 MCG TAB PO SCH ×2 (06:00→20:43)
[2018-02-21] MEDS: DOCUSATE SODIUM/SENNA 50/8.6MG TAB PO SCH ×2 (06:00→20:39)
[2018-02-21 06:10] LABS: BASO % 0.6 %; BASO ABS # 0.03 K/uL (0-0.2); EOS % 7.6 %; EOS ABS # 0.39 K/uL (0-0.5); HEMATOCRIT 37.3 % (37-47); HEMOGLOBIN 12.1 g/dL (12.0-16.0); IG# 0.01 K/uL (0.00-0.02); LYMPH % 37.2 %; MEAN CELL VOLUME 94.9 fL (80-100); MEAN CORPUSCULAR HEMOGLOBIN 30.8 pg (25-34); MEAN CORPUSCULAR HGB CONC 32.4 g/dl (32-36); MEAN PLATELET VOLUME 8.9 fL (7.4-10.4); MONO ABS # 0.46 K/uL (0.11-0.59); NEUT % 45.4 %; NEUT ABS # 2.32 K/uL (1.4-6.5); PLATELET COUNT 143 K/uL (130-400); RED CELL DISTRIBUTION WIDTH CV 14.3 % (11.5-14.5); RED CELL DISTRIBUTION WIDTH SD 49.4 fL (36.4-46.3); WHITE BLOOD COUNT 5.11 K/uL (4.8-10.8)
[2018-02-21 06:49] LABS: CALCIUM 8.7 mg/dl (8.5-10.1); CREATININE 1.12 mg/dl (0.60-1.20); POTASSIUM 3.7 mmol/L (3.5-5.1)
[2018-02-21] MEDS: ASPIRIN 81 MG CHEW PO SCH ×2 (09:00→20:40)
[2018-02-21] MEDS: AMLODIPINE BESYLATE 5 MG TAB PO SCH ×2 (09:00→20:41)
[2018-02-21] MEDS: CETIRIZINE HCL 10 MG TAB PO SCH ×2 (09:00→20:42)
[2018-02-21] MEDS: PANTOprazole SOD 40 MG TAB PO SCH ×2 (09:00→20:44)
[2018-02-21] MEDS: FAMOTIDINE 20 MG TAB PO SCH ×2 (09:00→20:42)
[2018-02-21] MEDS: NYSTATIN OINT 15 GM TUBE EXT SCH ×2 (09:00→20:39)
[2018-02-21] MEDS: CALCIUM CARBONATE 1250MG TAB PO SCH ×2 (09:00→20:40)
[2018-02-21] MEDS: GABAPENTIN 100 MG CAP PO SCH ×2 (09:00→20:41)
[2018-02-21] MEDS: ESCITALOPRAM OXALATE 10 MG TAB PO SCH ×2 (09:00→20:43)
[2018-02-21] MEDS: CEROVITE ADV FORMULA TAB PO SCH ×2 (09:00→20:44)
[2018-02-21] MEDS: DOCUSATE SODIUM 100 MG CAP PO SCH ×2 (09:00→20:43)
[2018-02-21] MEDS ORDERED: EpHEDrine SULFATE INJ 50 MG/ML AMP IV PRN ×2 (10:00→15:00)
[2018-02-21] MEDS ORDERED: ATROPINE SULFATE 0.1 MG/ML 5ML SYR IV PRN ×2 (10:00→15:00)
--- NOTE | 2018-02-21 11:04 | Progress Note ---
Internal Med Progress Note Date of Service: February 21, 2018. Provider Documentation: SUBJECTIVE: The patient was seen and examined in telemetry unit She was admitted with a severe headache and weakness Had been evaluated by neurologist and going to have a temporal artery biopsy today Her headache is much better but she is generally weak Denies any other significant symptoms OBJECTIVE: Vital Signs-as noted below Exam: General-no apparent distress at rest but generally weak Eyes-normal ENT-normal Neck-supple Lungs-decreased breath sounds both sides with minimal crackles at the bases Heart-regular Abdomen-benign, soft, nontender, bowel sounds present Extremities-negative for any edema Neuro-alert and awake, very hard of hearing Generally weak but does not have any focal neurological deficit Lab data as noted below. ASSESSMENT & PLAN: Patient is an 87 yr female who presents with headache and hypoxia and is very Hard of hearing Severe headaches with Vision change: Improved a lot H/O Macular degeneration and Cataract removal CT and MRI Brain:Negative ESR:normal but Elevated CRP but TA and PMR have to be ruled out Appreciate Neurology Input Needs follow up with Surgical Services Director as outpatient Increased Gabapentin from 100mg to 200mg BID for headache prophylaxis as per Neurology recommendations Headache is better controlled Will have Temporal Artery biopsy today May need to start steroid but symptoms are better now If she fells better following the Biopsy ,will let her go to rehab today if accepted HYPOXIA: DD: sleep apnea Remote history of smoking CTA: No PE, No consolidation, Trace pleural effusions Nocturnal Oximetry: Qualifies for nocturnal oxygen Clinically stable and little better ECHO: * Ejection Fraction = 60-65%. * There is mild concentric left ventricular hypertrophy. * The left ventricular wall motion is normal. 2 steps before discharge ,not if going for rehab H/O chronic Dysphagia: Reports having felt food stuck in throat after eating amie crackers on Speech therapy evaluation -diet as per the recommendation Appreciate GI Input H/O Depression, anxiety: Continue Lexapro H/O angioedema: ZONIA inhibitor discontinued Stable HTN: continue amlodipine monitor Hypothyroidism: Continue levothyroxine CKD III: Monitor renal function Remains stable GERD: continue PPI DVT Px: No DVT on US Heparin SQ Code Status: Full code Disposition: Monitor in tele PT/OT: recommends Rehab Likely to go to rehab Vital Signs: Date Time Temp Pulse Resp B/P (MAP) Pulse Ox O2 Delivery O2 Flow Rate FiO2 02/21/18 08:00 93 Nasal Cannula 2.0 02/21/18 07:11 36.5 59 16 114/72 (86) 93 2.0 02/21/18 04:10 36.8 55 17 135/78 (97) 90 Nasal Cannula 2.0 02/21/18 04:00 Nasal Cannula 2.5 02/21/18 00:00 Nasal Cannula 2.5 02/20/18 23:14 36.9 61 18 144/84 (104) 96 Nasal Cannula 2.0 Humidified Oxygen 02/20/18 20:00 Nasal Cannula 2.5 02/20/18 18:54 36.7 60 18 147/77 (100) 95 2.0 02/20/18 16:00 Nasal Cannula 2.5 02/20/18 15:30 36.7 58 16 121/64 (83) 94 2.0 02/20/18 12:00 Nasal Cannula 2.5 02/20/18 11:22 36.7 58 16 128/78 (95) 92 2.0 Lab Results: Results Past 24 Hours Test 02/21/18 05:59 Range/Units White Blood Count 5.11 4.8-10.8 K/uL Red Blood Count 3.93 4.2-5.4 M/uL Hemoglobin 12.1 12.0-16.0 g/dL Hematocrit 37.3 37-47 % Mean Corpuscular Volume 94.9 80-100 fL Mean Corpuscular Hemoglobin 30.8 25-34 pg Mean Corpuscular Hemoglobin Concent 32.4 32-36 g/dl Platelet Count 143 130-400 K/uL Mean Platelet Volume 8.9 7.4-10.4 fL Neutrophils (%) (Auto) 45.4 % Lymphocytes (%) (Auto) 37.2 % Monocytes (%) (Auto) 9.0 % Eosinophils (%) (Auto) 7.6 % Basophils (%) (Auto) 0.6 % Neutrophils # (Auto) 2.32 1.4-6.5 K/uL Lymphocytes # (Auto) 1.90 1.2-3.4 K/uL Monocytes # (Auto) 0.46 0.11-0.59 K/uL Eosinophils # (Auto) 0.39 0-0.5 K/uL Basophils # (Auto) 0.03 0-0.2 K/uL RDW Standard Deviation 49.4 36.4-46.3 fL RDW Coefficient of Variation 14.3 11.5-14.5 % Immature Granulocyte % (Auto) 0.2 % Immature Granulocyte # (Auto) 0.01 0.00-0.02 K/uL Sodium Level 140 136-145 mmol/L Potassium Level 3.7 3.5-5.1 mmol/L Chloride Level 105 98-107 mmol/L Carbon Dioxide Level 31 21-32 mmol/L Anion Gap 4.0 3-11 mmol/L Blood Urea Nitrogen 14 7-18 mg/dl Creatinine 1.12 0.60-1.20 mg/dl Est Creatinine Clear Calc Drug Dose 30.6 ml/min Estimated GFR () 50.4 Estimated GFR (Non- 43.5 BUN/Creatinine Ratio 12.4 10-20 Random Glucose 97 70-99 mg/dl Calcium Level 8.7 8.5-10.1 mg/dl
--- NOTE | 2018-02-21 13:36 | Surgery Progress Note ---
Surgery Progress Note Date of Service February 21, 2018. Subjective 87 year old female with concerns for giant cell arteritis, plan for bilateral temporal artery biopsies today. no changes, npo except meds, no a/c given today. Objective Vital Signs: Date Time Temp Pulse Resp B/P (MAP) Pulse Ox O2 Delivery O2 Flow Rate FiO2 02/21/18 12:00 96 Nasal Cannula 2.0 02/21/18 11:18 36.9 62 16 139/79 (99) 96 2.0 02/21/18 08:00 93 Nasal Cannula 2.0 02/21/18 07:11 36.5 59 16 114/72 (86) 93 2.0 02/21/18 04:10 36.8 55 17 135/78 (97) 90 Nasal Cannula 2.0 02/21/18 04:00 Nasal Cannula 2.5 02/21/18 00:00 Nasal Cannula 2.5 02/20/18 23:14 36.9 61 18 144/84 (104) 96 Nasal Cannula 2.0 Humidified Oxygen 02/20/18 20:00 Nasal Cannula 2.5 02/20/18 18:54 36.7 60 18 147/77 (100) 95 2.0 02/20/18 16:00 Nasal Cannula 2.5 02/20/18 15:30 36.7 58 16 121/64 (83) 94 2.0 General Appearance: WD/WN, no apparent distress Head: normocephalic, atraumatic Laboratory Results: Results Past 24 Hours Test 02/21/18 05:59 Range/Units White Blood Count 5.11 4.8-10.8 K/uL Red Blood Count 3.93 4.2-5.4 M/uL Hemoglobin 12.1 12.0-16.0 g/dL Hematocrit 37.3 37-47 % Mean Corpuscular Volume 94.9 80-100 fL Mean Corpuscular Hemoglobin 30.8 25-34 pg Mean Corpuscular Hemoglobin Concent 32.4 32-36 g/dl Platelet Count 143 130-400 K/uL Mean Platelet Volume 8.9 7.4-10.4 fL Neutrophils (%) (Auto) 45.4 % Lymphocytes (%) (Auto) 37.2 % Monocytes (%) (Auto) 9.0 % Eosinophils (%) (Auto) 7.6 % Basophils (%) (Auto) 0.6 % Neutrophils # (Auto) 2.32 1.4-6.5 K/uL Lymphocytes # (Auto) 1.90 1.2-3.4 K/uL Monocytes # (Auto) 0.46 0.11-0.59 K/uL Eosinophils # (Auto) 0.39 0-0.5 K/uL Basophils # (Auto) 0.03 0-0.2 K/uL RDW Standard Deviation 49.4 36.4-46.3 fL RDW Coefficient of Variation 14.3 11.5-14.5 % Immature Granulocyte % (Auto) 0.2 % Immature Granulocyte # (Auto) 0.01 0.00-0.02 K/uL Sodium Level 140 136-145 mmol/L Potassium Level 3.7 3.5-5.1 mmol/L Chloride Level 105 98-107 mmol/L Carbon Dioxide Level 31 21-32 mmol/L Anion Gap 4.0 3-11 mmol/L Blood Urea Nitrogen 14 7-18 mg/dl Creatinine 1.12 0.60-1.20 mg/dl Est Creatinine Clear Calc Drug Dose 30.6 ml/min Estimated GFR () 50.4 Estimated GFR (Non- 43.5 BUN/Creatinine Ratio 12.4 10-20 Random Glucose 97 70-99 mg/dl Calcium Level 8.7 8.5-10.1 mg/dl Assessment & Plan 87 year old female, concern for Giant cell arteritis, plan for bilateral temporal artery biopsies today plan for bilateral temporal artery biopsies today in OR risks discussed to include bleeding, infection, failure of diagnosis, seroma/ hematoma patient expressed understanding and agrees with plan of care as discussed
[2018-02-21] MEDS ORDERED: PROPOFOL IV EMULSION 10 MG/ML 20 ML VIAL ONE (14:31)
[2018-02-21] MEDS ORDERED: LIDOCAINE HCL 2% 2 ML VIAL (20MG/ML) ONE (14:31)
[2018-02-21] MEDS ORDERED: FENTANYL CITRATE INJ 50 MCG/1 ML 2 ML VIAL ONE (14:31)
[2018-02-21] MEDS ORDERED: BUPIVACAINE 0.5 % 5 MG/1 ML MPF 30ML VIAL ONE (14:37)
[2018-02-21] MEDS ORDERED: LIDOCAINE/EPINEPHRINE 1% 20 ML VIAL ONE (14:37)
[2018-02-21] MEDS ORDERED: FENTANYL CITRATE INJ 50 MCG/1 ML 2 ML VIAL IV PRN (15:00)
[2018-02-21] MEDS ORDERED: CEFAZOLIN SOD 1 GM VIAL ONE (15:20)
[2018-02-21] MEDS ORDERED: BACITRACIN OINT 15 GM TUBE ONE (15:45)
--- NOTE | 2018-02-21 15:50 | [facility] Post Operative Brief Note ---
Immediate Operative Summary Operative Date February 21, 2018. Pre-Operative Diagnosis Headache Post-Operative Diagnosis Headache Procedure(s) Performed Bilateral temporal artery biopsies Surgeon Dr. Whitlock Plant Nursery Worker Surgeon(s) Fili Barr PA-C Estimated Blood Loss 1cc Findings Consistent with Post-Op Diagnosis Specimens A. Right temporal artery B. Left temporal artery Drains None Anesthesia Type MAC Complication(s) none Disposition Accompanied Pt To Recover: no Disposition: Recovery Room / PACU
--- NOTE | 2018-02-21 16:01 | [facility] Operative Report ---
Operative Report Operative Date February 21, 2018. Pre-Operative Diagnosis Headache Post-Operative Diagnosis same Procedure(s) Performed Bilateral temporal artery biopsy Surgeon Dr. Whitlock Industrial Commercial Groundskeeper Surgeon(s) Fili Barr PA-C Estimated Blood Loss 1cc Findings Bilateral temporal arteries identified and ligated and excised. Specimens A. Right temporal artery B. Left temporal artery Drains None Anesthesia MAC/local Complication(s) None (None) Disposition Recovery Room / PACU Indications 87-year-old female with recent history of chronic headaches and vision changes, neurology requesting temporal artery biopsy. Her symptoms not localized to one side or the other, therefore bilateral temporal artery biopsies were planned. The risks of the procedure were discussed, all questions were answered, and the patient agreed to proceed with surgery as planned. Description of Procedure The patient was properly identified, consented, and taken to the operating room where she was placed in the supine position. Monitored anesthesia care was induced. SCDs and a safety belt were placed. Preoperative antibiotics were administered. Prior to the procedure the temporal arteries were palpated superior and anterior to the ear, and these were shaved of hair and marked. The patient's forehead and bilateral temporal areas were prepped and draped in the standard sterile fashion. Surgical timeout was performed and all parties were in agreement that this was the correct patient and procedure to be performed and we continued as planned. We began on the right. Local anesthetic was injected along the skin incision. An oblique incision was made overlying the temporal artery and deepened down through the subcutaneous tissue with electrocautery. The temporal artery was circumferentially dissected, clamped both proximally and distally, excised, and passed off the table as specimen. Both ends of the temporal artery were then ligated with 3-0 silk ties. Attention then turned the left side. The procedure was performed in the same fashion, the temporal artery was identified, dissected, excised, and the proximal and distal ends were ligated with 3-0 silk ties. The wounds were irrigated and hemostasis was confirmed. The skin was closed with interrupted 3- 0 Vicryl deep dermal sutures, followed by 4-0 Monocryl running subcuticular sutures. Antibiotic ointment was placed over the wounds. Anesthesia was ceased in the operating room and the patient was taken to the PACU where she recovered without apparent incident. All sponge, instrument and needle counts were correct at the conclusion of the procedure. The patient tolerated the procedure well. The physician's neurosurgical physician assistant was present and scrubbed for the entirety procedure. He was essential in positioning the patient, prepping and draping, retraction and exposure, ligation of the temporal artery, closure the incisions, and placement of the dressings. I attest to the content of the Intraoperative Record and any orders documented therein. Any exceptions are noted below.
--- NOTE | 2018-02-21 16:19 | Anesthesiology Progress Note ---
Anesthesia Post Op Note Date & Time February 21, 2018 at 16:19 Vital Signs Pain Intensity: 0 Vital Signs Past 12 Hours Date Time Temp Pulse Resp B/P (MAP) Pulse Ox O2 Delivery O2 Flow Rate FiO2 02/21/18 14:21 37 63 18 167/76 (106) 95 Nasal Cannula 3 02/21/18 12:00 96 Nasal Cannula 2.0 02/21/18 11:18 36.9 62 16 139/79 (99) 96 2.0 02/21/18 08:00 93 Nasal Cannula 2.0 02/21/18 07:11 36.5 59 16 114/72 (86) 93 2.0 Notes Mental Status: alert / awake / arousable, participated in evaluation Pt Amnestic to Procedure: Yes Nausea / Vomiting: adequately controlled Pain: adequately controlled Airway Patency, RR, SpO2: stable & adequate BP & HR: stable & adequate Hydration State: stable & adequate Anesthetic Complications: no major complications apparent
[2018-02-21] MEDS: FLUTICASONE PROPIONATE NA SPR 16 GM BTL NAE SCH (20:39)
[2018-02-21] MEDS: ACETAMINOPHEN 325 MG TAB PO PRN (20:46)
[2018-02-22] VITALS (8 sets, daily range): BP systolic 120–146; BP diastolic 71–77; PULSE 59–85; TEMP 36.5–36.8; O2SAT 90–96
[2018-02-22] MEDS: LORAZEPAM 0.5 MG TAB PO PRN (01:48)
[2018-02-22] MEDS: DOCUSATE SODIUM/SENNA 50/8.6MG TAB PO SCH (06:30)
[2018-02-22] MEDS: LEVOTHYROXINE 88 MCG TAB PO SCH (06:30)
[2018-02-22 06:51] LABS: HEMATOCRIT 36.9 % (37-47); HEMOGLOBIN 12.3 g/dL (12.0-16.0); MEAN CELL VOLUME 94.4 fL (80-100); MEAN CORPUSCULAR HEMOGLOBIN 31.5 pg (25-34); MEAN CORPUSCULAR HGB CONC 33.3 g/dl (32-36); MEAN PLATELET VOLUME 9.3 fL (7.4-10.4); PLATELET COUNT 162 K/uL (130-400); RED CELL DISTRIBUTION WIDTH CV 14.5 % (11.5-14.5); WHITE BLOOD COUNT 5.64 K/uL (4.8-10.8)
[2018-02-22] MEDS: FAMOTIDINE 20 MG TAB PO SCH (07:49)
[2018-02-22] MEDS: CALCIUM CARBONATE 1250MG TAB PO SCH (07:49)
[2018-02-22] MEDS: DOCUSATE SODIUM 100 MG CAP PO SCH (07:49)
[2018-02-22] MEDS: NYSTATIN OINT 15 GM TUBE EXT SCH (07:49)
[2018-02-22] MEDS: FLUTICASONE PROPIONATE NA SPR 16 GM BTL NAE SCH (07:49)
[2018-02-22] MEDS: GABAPENTIN 100 MG CAP PO SCH (07:50)
[2018-02-22] MEDS: PANTOprazole SOD 40 MG TAB PO SCH (08:06)
[2018-02-22] MEDS: ESCITALOPRAM OXALATE 10 MG TAB PO SCH (08:06)
[2018-02-22] MEDS: CETIRIZINE HCL 10 MG TAB PO SCH (08:06)
[2018-02-22] MEDS: CEROVITE ADV FORMULA TAB PO SCH (08:06)
[2018-02-22] MEDS: ASPIRIN 81 MG CHEW PO SCH (08:06)
[2018-02-22] MEDS: AMLODIPINE BESYLATE 5 MG TAB PO SCH (08:07)
--- NOTE | 2018-02-22 08:53 | Surgery Progress Note ---
Surgery Progress Note Date of Service February 22, 2018. Subjective Post OP Day: 1 No complaints (after biopsy) Objective Vital Signs: Date Time Temp Pulse Resp B/P (MAP) Pulse Ox O2 Delivery O2 Flow Rate FiO2 02/22/18 08:00 94 Nasal Cannula 2.0 02/22/18 07:28 36.5 60 16 131/75 (93) 94 2.0 02/22/18 04:00 36.6 85 16 146/77 (100) 94 Nasal Cannula 2.0 02/22/18 04:00 96 Nasal Cannula 2.0 02/21/18 23:59 Room Air 02/21/18 22:45 36.6 66 18 150/70 (96) 90 Room Air 02/21/18 20:09 92 Room Air 02/21/18 19:24 37.0 68 20 154/86 (108) 93 Room Air 02/21/18 18:15 36.8 63 18 132/70 (90) 93 Room Air 02/21/18 17:54 37.1 57 18 160/75 (103) 93 Room Air 02/21/18 17:45 37.0 61 18 175/84 (114) 93 Room Air 02/21/18 17:00 36.4 54 18 176/80 (112) 92 Room Air 2.0 02/21/18 16:45 92 Room Air 02/21/18 16:45 36.4 56 18 170/77 (108) 97 Nasal Cannula 2.0 02/21/18 16:25 37.1 51 18 158/76 98 Nasal Cannula 2 02/21/18 16:15 66 12 154/71 99 Oxymask 10 02/21/18 16:06 36.9 66 12 153/83 94 Oxymask 10 02/21/18 14:21 37 63 18 167/76 (106) 95 Nasal Cannula 3 02/21/18 12:00 96 Nasal Cannula 2.0 02/21/18 11:18 36.9 62 16 139/79 (99) 96 2.0 Incision(s): clean, dry Laboratory Results: Results Past 24 Hours Test 02/22/18 06:23 Range/Units White Blood Count 5.64 4.8-10.8 K/uL Red Blood Count 3.91 4.2-5.4 M/uL Hemoglobin 12.3 12.0-16.0 g/dL Hematocrit 36.9 37-47 % Mean Corpuscular Volume 94.4 80-100 fL Mean Corpuscular Hemoglobin 31.5 25-34 pg Mean Corpuscular Hemoglobin Concent 33.3 32-36 g/dl RDW Standard Deviation 50.0 36.4-46.3 fL RDW Coefficient of Variation 14.5 11.5-14.5 % Platelet Count 162 130-400 K/uL Mean Platelet Volume 9.3 7.4-10.4 fL Assessment & Plan s/p bilat temporal artery biopsy anticipating discharge today can f/u with our office prn ok to shower
--- NOTE | 2018-02-22 09:27 | Progress Note ---
Internal Med Progress Note Date of Service: February 22, 2018. Provider Documentation: SUBJECTIVE: The patient was seen and examined in telemetry unit She was admitted with a severe headache and weakness Had been evaluated by neurologist and going to have a temporal artery biopsy today Her headache is much better but she is generally weak Denies any other significant symptoms 02/22::OOB on a chair No more headache Denies any symptoms ,ready to be discharged OBJECTIVE: Vital Signs-as noted below Exam: General-no apparent distress at rest but generally weak Eyes-normal ENT-normal Neck-supple Lungs-decreased breath sounds both sides with minimal crackles at the bases Heart-regular,no murmur appreciated Abdomen-benign, soft, nontender, bowel sounds present Extremities-negative for any edema Neuro-alert and awake, very hard of hearing Generally weak but does not have any focal neurological deficit Lab data as noted below. ASSESSMENT & PLAN: Patient is an 87 yr female who presents with headache and hypoxia and is very Hard of hearing Severe headaches with Vision change: Improved a lot H/O Macular degeneration and Cataract removal CT and MRI Brain:Negative ESR:normal but Elevated CRP but TA and PMR have to be ruled out Appreciate Neurology Input Needs follow up with [facility] as outpatient Increased Gabapentin from 100mg to 200mg BID for headache prophylaxis as per Neurology recommendations Headache is better controlled Will have Temporal Artery biopsy today May need to start steroid but symptoms are better now Has been feeling better following the Biopsy of TA-results are pending Will discharge today to rehab HYPOXIA: DD: sleep apnea Remote history of smoking CTA: No PE, No consolidation, Trace pleural effusions Nocturnal Oximetry: Qualifies for nocturnal oxygen Clinically stable and little better ECHO: * Ejection Fraction = 60-65%. * There is mild concentric left ventricular hypertrophy. * The left ventricular wall motion is normal. 2 steps before discharge ,not if going for rehab Saturating well on RA Auscultation of the Chest-unremarkable H/O chronic Dysphagia: Reports having felt food stuck in throat after eating amie crackers on Speech therapy evaluation -diet as per the recommendation Appreciate GI Input and recommendation H/O Depression, anxiety: Continue Lexapro No acute symptoms H/O angioedema: ZONIA inhibitor discontinued Stable HTN: continue amlodipine monitor-BP remains stable Hypothyroidism: Continue levothyroxine CKD III: Monitor renal function Remains stable GERD: continue PPI DVT Px: No DVT on US Heparin SQ Code Status: Full code Disposition: Monitor in tele PT/OT: recommends Rehab Likely to go to rehab today Vital Signs: Date Time Temp Pulse Resp B/P (MAP) Pulse Ox O2 Delivery O2 Flow Rate FiO2 02/22/18 08:58 95 Room Air 02/22/18 08:00 94 Nasal Cannula 2.0 02/22/18 07:28 36.5 60 16 131/75 (93) 94 2.0 02/22/18 04:00 36.6 85 16 146/77 (100) 94 Nasal Cannula 2.0 02/22/18 04:00 96 Nasal Cannula 2.0 02/21/18 23:59 Room Air 02/21/18 22:45 36.6 66 18 150/70 (96) 90 Room Air 02/21/18 20:09 92 Room Air 02/21/18 19:24 37.0 68 20 154/86 (108) 93 Room Air 02/21/18 18:15 36.8 63 18 132/70 (90) 93 Room Air 02/21/18 17:54 37.1 57 18 160/75 (103) 93 Room Air 02/21/18 17:45 37.0 61 18 175/84 (114) 93 Room Air 02/21/18 17:00 36.4 54 18 176/80 (112) 92 Room Air 2.0 02/21/18 16:45 92 Room Air 02/21/18 16:45 36.4 56 18 170/77 (108) 97 Nasal Cannula 2.0 02/21/18 16:25 37.1 51 18 158/76 98 Nasal Cannula 2 02/21/18 16:15 66 12 154/71 99 Oxymask 10 02/21/18 16:06 36.9 66 12 153/83 94 Oxymask 10 02/21/18 14:21 37 63 18 167/76 (106) 95 Nasal Cannula 3 02/21/18 12:00 96 Nasal Cannula 2.0 02/21/18 11:18 36.9 62 16 139/79 (99) 96 2.0 Lab Results: Results Past 24 Hours Test 02/22/18 06:23 Range/Units White Blood Count 5.64 4.8-10.8 K/uL Red Blood Count 3.91 4.2-5.4 M/uL Hemoglobin 12.3 12.0-16.0 g/dL Hematocrit 36.9 37-47 % Mean Corpuscular Volume 94.4 80-100 fL Mean Corpuscular Hemoglobin 31.5 25-34 pg Mean Corpuscular Hemoglobin Concent 33.3 32-36 g/dl RDW Standard Deviation 50.0 36.4-46.3 fL RDW Coefficient of Variation 14.5 11.5-14.5 % Platelet Count 162 130-400 K/uL Mean Platelet Volume 9.3 7.4-10.4 fL
--- NOTE | 2018-02-22 14:32 | Discharge Instructions ---
Discharge Instructions Date of Service February 22, 2018. Admission Reason for Admission: Headache, Hypoxia Discharge Discharge Diagnosis / Problem: Severe Headache-resolved ,Anxiety/depression, Hypoxemia-resolved Discharge Goals Goal(s): Prevent Disease Progression Activity Recommendations Activity Level: Assistance Required Therapies: Physical Therapy, Occupational Therapy . Additional Information Patient informed of condition: Yes Advance Directives: No DNR: No Level of Care: Skilled Communicable Disease: No Prognosis: Stable Oxygen at (LPM): 2 liters/min via NC as needed Hurley Catheter: No Instructions / Follow-Up Instructions / Follow-Up Please make an appointment with your PCP 1 week following discharge from the facility Current Hospital Diet Patient's current hospital diet: AHA Diet (Heart Healthy) Discharge Diet Recommended Diet: AHA Diet (Heart Healthy) Procedures Procedures Performed: Bilateral temporal artery biopsies Pending Studies Studies pending at discharge: no Medical Emergencies . Who to Call and When: Medical Emergencies: If at any time you feel your situation is an emergency, please call 911 immediately. . Non-Emergent Contact Non-Emergency issues call your: Primary Care Provider . Past History Medical & Surgical History: (1) General unsteadiness (2) Depression (3) Headache (4) Hypoxia (5) Hypertension (6) Osteoporosis (7) Macular degeneration (8) Status post appendectomy (9) Status post tubal ligation (10) Status post cataract extraction . "Provider Documentation" section prepared by Eugene Bautista. . Core Measure Problem Core Measures: None
--- NOTE | 2018-02-22 14:36 | Neurology Progress Notes ---
Neurology Progress Note Date of Service February 22, 2018. Gonzalez Menjivar is a 87 year old female who resides at [facility]. she has a PMH CKD III, HTN, DL, hypothyroidism, depression, anxiety who was in the hospital for angioedema in the first week of January, and her lisinopril was stopped, and she also came next week with hypoxia. At that time, her central acting medication doses were reduced and she was discharged. She returns with headache and vision changes and was again found to be hypoxic in the 80s. she state she has been having headaches 2-3 x per week which usually Tylenol relieves. The one that brought her into the hospital was worse than usual and was not helped with Tylenol. She is also is having vision issues and has an appointment with loom doffer next week. She states she ambulates at baseline with a walker. she has had no falls or head injuries. She state she headaches, start in the back of her head come up to her temples and into her forehead. She currently does not have her glasses or her hearing aids. they are sometimes pounding but sometimes just pressure. She has chronic hearing loss. When she is reading there are missing letters in the words and sometimes she has voids in her vision when watching TV. Today she has been up walking to the bathroom. When asked about her vision she states it is the same as when she can to the hospital. Her headache is not as severe as previous and her neck pain today is mild. denies CP, SOB, abdominal pain, N, V. Objective Date Time Temp Pulse Resp B/P (MAP) Pulse Ox O2 Delivery O2 Flow Rate FiO2 02/22/18 12:00 92 Room Air 02/22/18 11:40 36.5 59 16 122/75 (91) 92 02/22/18 08:58 95 Room Air 02/22/18 08:00 94 Nasal Cannula 2.0 02/22/18 07:28 36.5 60 16 131/75 (93) 94 2.0 02/22/18 04:00 36.6 85 16 146/77 (100) 94 Nasal Cannula 2.0 02/22/18 04:00 96 Nasal Cannula 2.0 02/21/18 23:59 Room Air 02/21/18 22:45 36.6 66 18 150/70 (96) 90 Room Air 02/21/18 20:09 92 Room Air 02/21/18 19:24 37.0 68 20 154/86 (108) 93 Room Air 02/21/18 18:15 36.8 63 18 132/70 (90) 93 Room Air 02/21/18 17:54 37.1 57 18 160/75 (103) 93 Room Air 02/21/18 17:45 37.0 61 18 175/84 (114) 93 Room Air 02/21/18 17:00 36.4 54 18 176/80 (112) 92 Room Air 2.0 02/21/18 16:45 92 Room Air 02/21/18 16:45 36.4 56 18 170/77 (108) 97 Nasal Cannula 2.0 02/21/18 16:25 37.1 51 18 158/76 98 Nasal Cannula 2 02/21/18 16:15 66 12 154/71 99 Oxymask 10 02/21/18 16:06 36.9 66 12 153/83 94 Oxymask 10 Last 24 Hours Test 02/22/18 06:23 White Blood Count 5.64 K/uL Red Blood Count 3.91 M/uL Hemoglobin 12.3 g/dL Hematocrit 36.9 % Mean Corpuscular Volume 94.4 fL Mean Corpuscular Hemoglobin 31.5 pg Mean Corpuscular Hemoglobin Concent 33.3 g/dl RDW Standard Deviation 50.0 fL RDW Coefficient of Variation 14.5 % Platelet Count 162 K/uL Mean Platelet Volume 9.3 fL TEMPORAL ARTERY, RIGHT AND LEFT, BIOPSIES: NO INFLAMMATION (ARTERITIS) IDENTIFIED. Imaging: no new imagine Exam: Gen: alert NAD appear very tired very [place] lungs: CTA CV RRR no further exam this visit Current Inpatient Medications Medications (Trade) Dose Ordered Sig/Alirio Route Start Time Stop Time Status Last Admin Dose Admin Acetaminophen (Tylenol Tab) 650 mg Q4H PRN PO 02/16/18 02:15 03/18/18 02:14 02/21/18 20:46 650 MG Ondansetron HCl (Zofran Inj) 4 mg Q6H PRN IV 02/16/18 02:15 03/18/18 02:14 02/17/18 16:35 4 MG Nitroglycerin (Nitrostat Tab) 0.4 mg UD PRN SL 02/16/18 02:15 03/18/18 02:14 Polyethylene (Miralax Powder Packet) 17 gm DAILY PRN PO 02/16/18 02:15 03/18/18 02:14 Al Hydrox/Mg Hydrox/Simethicone (Maalox Max Susp) 30 ml Q4H PRN PO 02/16/18 02:15 03/18/18 02:14 02/17/18 16:40 30 ML Amlodipine Besylate (Norvasc Tab) 2.5 mg DAILY PO 02/16/18 09:00 03/18/18 08:59 02/22/18 08:07 2.5 MG Aspirin (Aspirin Chew) 81 mg DAILY PO 02/16/18 09:00 03/18/18 08:59 02/22/18 08:06 81 MG Bisacodyl (Dulcolax Supp) 10 mg DAILY PRN OH 02/16/18 02:15 03/18/18 02:14 Cetirizine HCl (zyrTEC TAB) 10 mg DAILY PO 02/16/18 09:00 03/18/18 08:59 02/22/18 08:06 10 MG Docusate Sodium (coLACE CAP) 100 mg BID PO 02/16/18 09:00 03/18/18 08:59 02/22/18 07:49 100 MG Escitalopram Oxalate (Lexapro Tab) 10 mg DAILY PO 02/16/18 09:00 03/18/18 08:59 02/22/18 08:06 10 MG Famotidine (Pepcid Tab) 20 mg BID PO 02/16/18 09:00 03/18/18 08:59 02/22/18 07:49 20 MG Fluticasone Propionate (Flonase Nasal [place]) 1 sprays HS LIZET 02/16/18 21:00 03/18/18 20:59 02/22/18 07:49 1 SPRAYS Levothyroxine Sodium (Synthroid Tab) 88 mcg DAILYBB PO 02/16/18 06:30 03/18/18 06:59 02/22/18 06:30 88 MCG Lorazepam (Ativan Tab) 0.25 mg BID PRN PO 02/16/18 02:15 03/18/18 02:14 02/22/18 01:48 0.25 MG Nystatin (Mycostatin Oint) 1 appln BID EXT 02/16/18 09:00 03/18/18 08:59 02/22/18 07:49 1 APPLN Multivitamins/ Minerals (Multivitamin W/ Minerals Tab) 1 tab BID PO 02/16/18 09:00 03/18/18 08:59 02/22/18 08:06 1 TAB Calcium Carbonate (oS-Del 500 TAB) 1,250 mg BID PO 02/16/18 09:00 03/18/18 08:59 02/22/18 07:49 1,250 MG Pantoprazole Sodium (Protonix Tab) 40 mg QAM PO 02/16/18 09:00 03/18/18 08:59 02/22/18 08:06 40 MG Senna/Docusate Sodium (Senokot S Tab) 1 tab DAILYBB PO 02/16/18 06:30 03/18/18 06:59 02/22/18 06:30 1 TAB Tramadol HCl (Ultram Tab) 50 mg Q6H PRN PO 02/16/18 02:15 03/18/18 02:14 02/19/18 13:34 50 MG Miscellaneous (Iv Fluids Completed) 1 ea PRN PRN N/A 02/16/18 05:15 02/16/19 05:14 02/16/18 21:06 1 EA Gabapentin (Neurontin Cap) 200 mg BID PO 02/18/18 21:00 03/18/18 08:59 02/22/18 07:50 200 MG Diphenhydramine HCl (Benadryl Cap) 25 mg BID PRN PO 02/18/18 11:30 03/20/18 11:29 02/20/18 23:18 25 MG Heparin Sodium (Porcine) (Heparin Sq 5000 Unit/0.5ml) 5,000 unit Q12 SQ 02/20/18 13:00 03/22/18 12:59 Future Hold 02/20/18 13:16 5,000 UNIT Impression 87 year old with extensive PMH presents with severe headaches and vision changes. Plan 1. vision changes r/o temporal biopsy- sed rate 11- no inflammation found 2. MRI brain -r/o stroke or lesion causing headache with vision changes- no acute findings 3. PT/OT for discharge needs- right leg weakness, may be ongoing issue- walks with a walker at baseline 4. will need ophthalmology evaluation for vision changes gross peripheral vision intact- possible macular degeneration, glaucoma etc 5. primary team for medical management 6. fall precautions 7. sed rate 11, CRP 63, d dimmer- [id number] 8. daughters input would be helpful for any new issues verse chronic issues. 9. continue gabapentin 200 mg BID may be increased but max dose for renal function CrCl 44. 400 - 1400 daily in divided doses. follow up neurology 2-3 after discharge from rehab Tika Kelley MD or Tika Nina PAC will sign off for now will be available if needed I have seen and discussed above patient with Dr Tika Kelley, neurology Pt dc, continue prophylactic meds for migraine, BRITTANIE Kelley MD
--- NOTE | 2018-02-22 16:52 | Discharge Summary ---
Discharge Summary Date of Service February 22, 2018. Discharge Summary Admission Date: Feb 17, 2018 at 10:12 Discharge Date: February 22, 2018 Discharge Disposition: [facility] facility Principal Diagnosis: Severe Headache-resolved ,Anxiety/depression,Hypoxemia-resolved,temporal arteritis ruled out Secondary Diagnoses/Problems: Please see H&P and Hospital Progress note Consultations: Surgery,GI and Neurology Pending Studies/Follow-Up: PCP follow up in 1 week and Neurology in 2-3 weeks following discharge from the Facility.Please make an appointment with [facility] as soon as possible. Medication Reconciliation Continued Medications: Acetaminophen Tab (Tylenol) 325 Mg Tab 650 MG PO Q8 PRN for Mild Pain Alendronate Sodium (Alendronate Sodium) 35 Mg Tab 35 MG PO WK ON WEDNESDAYS Alum & Mag Hydrox-Simethicone (Antacid Advanced 400-400-40 mg/5Ml) 1 Darshana Darshana 30 ML PO Q4H PRN for GERD Amlodipine (Norvasc) 2.5 Mg Tab 2.5 MG PO DAILY, TAB Aspirin (Aspirin Chewable) 81 Mg Chew 81 MG PO DAILY Bisacodyl (Bisac-Evac) 10 Mg Sup 10 MG [place] DAILY PRN for IF NOT B.M. IN LAST 48HRS Cetirizine Hcl (Qc All Day Allergy) 10 Mg Tab 10 MG PO DAILY Docusate Sodium (Docusate Sodium) 100 Mg Cap 100 MG PO BID Hold for diarrhea Escitalopram (Lexapro) 10 Mg Tab 10 MG PO DAILY, TAB Famotidine (Pepcid) 20 Mg Tab 20 MG PO BID, TAB Fluticasone Propionate (Nasal) (Flonase Allergy Relief) 50 Mcg/Act Spr 2 SPRAY LIZET HS Gabapentin (Neurontin) 100 Mg Cap 200 MG PO BID hold for lethargy and drowsiness Levothyroxine Sodium (Synthroid) 88 Mcg Tab 88 MCG PO DAILYBB Lorazepam (Ativan) 0.5 Mg Tab 0.25 MG PO BID PRN for Anxiety/Agitation, TAB hold for drowsiness Magnesium Hydroxide (Milk Of Magnesia) 30 Ml Susp 30 ML PO DAILY PRN for IF NO B.M. IN LAST 24HRS Multiple Vitamins W/ Minerals (Macular Health Formula) 1 Cap Cap 1 CAP PO DAILY Nystatin (Topical) (Nystatin) 100,000 Unit/Gm Oin 1 APPLN TOP BID for 5 Days, #15 GM apply to abd/breasts Ocuvite Preservision (Ocuvite Preservision) 1 Tab Tab 1 TAB PO BID Oyster Shell (Oyster Shell) 500 Mg Tab 1 TAB PO BID Pantoprazole (Protonix) 40 Mg Tab 40 MG PO QAM Polyethylene Glycol 3350 (Miralax) 1 Pow Pow 17 GM PO QDL PRN for Constipation Senna/Docusate Sod (Senokot S) 1 Tab Tab 1 TAB PO DAILYBB, TAB Tramadol (Ultram) 50 Mg Tab 50 MG PO Q6H PRN for Pain hold for lethargy and drowsiness Valacyclovir (Valtrex) 500 Mg Tab 1000 MG PO TID, TAB Discontinued Medications: Nystatin/Triamcinolone (Mycogen || ) Cr 1 APPLN TOP BID Prednisone (Prednisone) 20 Mg Tab 20 MG PO DAILY, TAB Sertraline (Zoloft) 100 Mg Tab 100 MG PO DAILY, TAB Tramadol (Ultram) 50 Mg Tab 50 MG PO HS PRN for Pain hold for lethargy and drowsiness Admission Information HPI (per Admitting provider): DATE OF ADMISSION: 02/15/2018 CHIEF COMPLAINT: Headaches. HISTORY OF PRESENT ILLNESS: This is an 87-year-old female coming from [facility] with past medical history significant for chronic kidney disease stage III, hypertension, hyperlipidemia, hypothyroidism, depression, anxiety who was in the hospital for angioedema in the first week of January, and her lisinopril was stopped, and she also came next week with hypoxia. At that time, her central acting medication doses were reduced, and she did fine, and she was discharged back. She comes with again severe headache. The patient says she has all day severe headache and felt nauseous which brought her in to the hospital. She is having these headaches for some time but today it was worse. The nausea is better but still has some headaches. She also is having issues with vision, and she is supposed to see x ray electronics wiring technician next week. Denies any dizziness. The patient is hard to hear but denies any cough. She complains of heartburn but denies chest pain. She did not feel short of breath, but she states she was found to have low saturation in the ER. Denies any fever or chills. Appetite is okay. Mild left lower quadrant abdominal tenderness. Normal bowel and bladder movements. Otherwise she is ambulating okay. She says her blood pressure is running high. Currently is resting comfortably and hemodynamically stable, and in the ER, her oxygen saturations were in the 80s on room air, oxygen saturation 95% on 2 L currently. ALLERGIES: ADHESIVES, CODEINE, LATEX ALLERGY OF CONTACT DERMATITIS, LISINOPRIL, MORPHINE, OPIOID ANALGESICS, SULFA, BACTRIM. PAST MEDICAL HISTORY: As mentioned above. PAST SURGICAL HISTORY: Appendectomy as a child, cataract surgery, and tubal ligation in the past. FAMILY HISTORY: Significant for cancer. SOCIAL HISTORY: Used to smoke in the past. No alcohol use. Lives at [facility]. She is independent walker. She can walk to the walker. REVIEW OF SYMPTOMS: As per HPI. Rest of review of symptoms negative. MEDICATIONS: Currently, the patient is on alendronate 35 mg once weekly, aspirin 81 mg p.o. daily, Colace 100 mg p.o. b.i.d., Lexapro 10 mg p.o. daily, famotidine 20 mg p.o. b.i.d., fluticasone 2 sprays into each nostril once daily, gabapentin 100 mg p.o. b.i.d., levothyroxine 88 mcg p.o. daily, Ocuvite PreserVision 1 tablet b.i.d., Oyster Shield 500 one tablet b.i.d., Protonix 40 mg p.o. daily, give All Day Allergy 10 mg p.o. daily, Senokot-S 1 tablet p.o. daily, tramadol 50 mg p.o. at bedtime p.r.n., Tylenol 650 mg p.o. q.6 h. p.r.n., Ativan 0.25 mg p.o. b.i.d. p.r.n., MiraLax daily p.r.n., nystatin topical application b.i.d. PHYSICAL EXAMINATION: GENERAL: The patient is old and frail, not in distress. VITAL SIGNS: Temperature 36.8, pulse 71, respiratory rate 16, blood pressure 162/94, oxygen saturation 85% on room air, 94% on 2 L. HEENT: No pallor, no icterus. Pupils equal, round, and reactive to light. NECK: No JVD, no neck masses, no carotid bruit. CARDIOVASCULAR SYSTEM: S1 and S2 heard, regular rate and rhythm, no murmur, no gallop. RESPIRATORY SYSTEM: Normal AP diameter. No accessory muscle use. No wheezing, no crackles. ABDOMEN: Soft, bowel sounds present, mild left lower quadrant tenderness, no rigidity, no guarding, no distention. CENTRAL NERVOUS SYSTEM: Cranial nerves II through XII grossly intact. Nonfocal. EXTREMITIES: Trace pedal edema present and no erythema seen. LABORATORY DATA: WBC is 8.5, hemoglobin 13.4, hematocrit 39.7, platelets 160. Sodium 140, potassium 3.5, chloride 105, bicarbonate 29, BUN 16, creatinine 1.2, serum glucose 111, calcium 8.9, magnesium 2.2, troponin I less than 0.015. Urinalysis is negative. CT of the head: No acute findings seen. Chest x-ray: No acute findings. ASSESSMENT AND PLAN: This is an 87-year-old female who presents with headache and found to be hypoxic. 1. Severe headaches. CT of the head is unremarkable. Headaches could be possibly from hypoxia. Her blood pressure medication was stopped recently. Could be from uncontrolled blood pressure. We will pain control. We will monitor. 2. Hypoxia. The patient was hypoxic on last admission too, and her Zoloft was discontinued, Lexapro was started. Gabapentin dose was decreased to b.i.d. Ativan was decreased to 0.25 mg p.r.n. but still she again comes with hypoxia requiring oxygen. We will check the D-dimer. If D-dimer is positive, we will go ahead and do a CT scan with IV contrast, otherwise we will do CT without contrast. Patient may need 2 steps prior to discharge. Pulmonary function tests as outpatient. May be nocturnal pulse oximetry study while she is in the hospital. We will get an ABG and monitor in tele floor. 3. History of depression and anxiety. The patient's Zoloft was stopped and started Lexapro which is currently at 10 mg. 3. History of angioedema. ZONIA inhibitor is stopped. Currently stable. 4. History of hypertension. The patient's lisinopril was stopped, and she is also no longer on amlodipine. May be to restart the amlodipine. We will monitor the blood pressure. 5. History of hypothyroidism. Continue Synthroid. 6. History of chronic kidney disease stage III. Will follow the labs. On gentle fluids. 7. Gastroesophageal reflux disease. Continue PPI. 8. History of dysphagia. On last admission, was seen by speech and recommended mechanical soft diet. 9. Chronic diastolic congestive heart failure from the previous echo. On gentle fluids and monitor for volume overload. 10. Code status. Full code. 11. Deep venous thrombosis prophylaxis. Heparin subcu, SCDs. 12. Disposition: Observation on tele floor. PT and OT prior to discharge. Social service to help with discharge planning. Hospital Course Patient is an 87 yr female who presents with headache and hypoxia and is very Hard of hearing Severe headaches with Vision change: Improved a lot H/O Macular degeneration and Cataract removal CT and MRI Brain:Negative ESR:normal but Elevated CRP but TA and PMR have to be ruled out Appreciate Neurology Input Needs follow up with [facility] as outpatient Increased Gabapentin from 100mg to 200mg BID for headache prophylaxis as per Neurology recommendations Headache is better controlled Will have Temporal Artery biopsy today May need to start steroid but symptoms are better now Has been feeling better following the Biopsy of TA-results are pending Will discharge today to rehab HYPOXIA: DD: sleep apnea Remote history of smoking CTA: No PE, No consolidation, Trace pleural effusions Nocturnal Oximetry: Qualifies for nocturnal oxygen Clinically stable and little better ECHO: * Ejection Fraction = 60-65%. * There is mild concentric left ventricular hypertrophy. * The left ventricular wall motion is normal. 2 steps before discharge ,not if going for rehab Saturating well on RA Auscultation of the Chest-unremarkable H/O chronic Dysphagia: Reports having felt food stuck in throat after eating amie crackers on Speech therapy evaluation -diet as per the recommendation Appreciate GI Input and recommendation H/O Depression, anxiety: Continue Lexapro No acute symptoms H/O angioedema: ZONIA inhibitor discontinued Stable HTN: continue amlodipine monitor-BP remains stable Hypothyroidism: Continue levothyroxine CKD III: Monitor renal function Remains stable GERD: continue PPI DVT Px: No DVT on US Heparin SQ Code Status: Full code Disposition: Monitor in tele PT/OT: recommends Rehab Likely to go to rehab today Total time spent on discharge = 35 minutes This includes examination of the patient, discharge planning, medication reconciliation, and communication with other providers. Discharge Instructions Date of Service February 22, 2018. Admission Reason for Admission: Headache, Hypoxia Discharge Discharge Diagnosis / Problem: Severe Headache-resolved ,Anxiety/depression, Hypoxemia-resolved Discharge Goals Goal(s): Prevent Disease Progression Activity Recommendations Activity Level: Assistance Required Therapies: Physical Therapy, Occupational Therapy . Additional Information Patient informed of condition: Yes Advance Directives: No DNR: No Level of Care: Skilled Communicable Disease: No Prognosis: Stable Oxygen at (LPM): 2 liters/min via NC as needed Hurley Catheter: No Instructions / Follow-Up Instructions / Follow-Up Please make an appointment with your PCP 1 week following discharge from the facility Current Hospital Diet Patient's current hospital diet: AHA Diet (Heart Healthy) Discharge Diet Recommended Diet: AHA Diet (Heart Healthy) Procedures Procedures Performed: Bilateral temporal artery biopsies Pending Studies Studies pending at discharge: no Medical Emergencies . Who to Call and When: Medical Emergencies: If at any time you feel your situation is an emergency, please call 911 immediately. . Non-Emergent Contact Non-Emergency issues call your: Primary Care Provider . Past History Medical & Surgical History: (1) General unsteadiness (2) Depression (3) Headache (4) Hypoxia (5) Hypertension (6) Osteoporosis (7) Macular degeneration (8) Status post appendectomy (9) Status post tubal ligation (10) Status post cataract extraction . "Provider Documentation" section prepared by Eugene Bautista. . Core Measure Problem Core Measures: None <Electronically signed by Eugene Bautista M.D.> Signed: 02/22/18 [id number] Additional Copies To JENA JURDAO
== END 2018-02-22 16:36 | DRG 41 ==
LOC: EDBD 22:35 → C.EDB 22:37 → C.MED 02-16 02:15 → ENRESERV 02-16 03:38 → OBSVTOIN 02-17 10:12
PROVIDERS: ADMIT Internal Medicine; ATTEND Internal Medicine
PROC: 03BT0ZX Excision of Left Temporal Artery, Open Approach, Diagnostic (ICD-10-PCS; principal; 2018-02-21 14:30)
PROC: 03BS0ZX Excision of Right Temporal Artery, Open Approach, Diagnostic (ICD-10-PCS; principal; 2018-02-21 14:30)
DX: R51 Headache (principal); I13.0 Hypertensive heart and chronic kidney disease with heart failure and stage 1 through stage 4 chronic kidney disease, or unspecified chronic kidney disease; I50.32 Chronic diastolic (congestive) heart failure; R09.02 Hypoxemia; H53.9 Unspecified visual disturbance; R13.10 Dysphagia, unspecified; R29.701 NIHSS score 1; R47.1 Dysarthria and anarthria; R25.8 Other abnormal involuntary movements; R29.898 Other symptoms and signs involving the musculoskeletal system; N18.3 Chronic kidney disease, stage 3 (moderate); E03.9 Hypothyroidism, unspecified; H35.30 Unspecified macular degeneration; F32.9 Major depressive disorder, single episode, unspecified; F41.9 Anxiety disorder, unspecified; M81.0 Age-related osteoporosis without current pathological fracture; K21.9 Gastro-esophageal reflux disease without esophagitis; Z51.81 Encounter for therapeutic drug level monitoring; Z79.899 Other long term (current) drug therapy; Z79.82 Long term (current) use of aspirin; Z79.52 Long term (current) use of systemic steroids; Z98.42 Cataract extraction status, left eye; Z87.898 Personal history of other specified conditions; Z91.81 History of falling; Z87.891 Personal history of nicotine dependence; Z88.8 Allergy status to other drugs, medicaments and biological substances; Z91.040 Latex allergy status; Z91.048 Other nonmedicinal substance allergy status; Z88.5 Allergy status to narcotic agent; Z88.2 Allergy status to sulfonamides

== ENCOUNTER → 2018-02-23 | Outpatient (CLI) | payer BC ==
[~2018-02-23] MED LIST changes: +AMLO2.5T PO; -CALC-453 PO; +CETI10TA62 PO; +ESCI10TA17 PO; -LXP10 PO; -MACUHEALTH PO; +MULT1CAP53 PO; -NYST100010 TOP; +NYST80OI TOP; -NYSTCRE11 TOP; +OYST500T12 PO; +VALA500T60 PO; -ZYR10 PO
[2018-02-23 10:05] LABS: HEMOGLOBIN 12.2 g/dL (12.0-16.0); MEAN CELL VOLUME 94.6 fL (80-100); MEAN CORPUSCULAR HEMOGLOBIN 31.2 pg (25-34); MEAN PLATELET VOLUME 9.7 fL (7.4-10.4); PLATELET COUNT 174 K/uL (130-400); RED CELL DISTRIBUTION WIDTH CV 14.6 % (11.5-14.5); RED CELL DISTRIBUTION WIDTH SD 50.5 fL (36.4-46.3); WHITE BLOOD COUNT 6.55 K/uL (4.8-10.8)
[2018-02-23 10:24] LABS: ALBUMIN 3.2 gm/dl (3.4-5.0); ALT/SGPT 23 U/L (12-78); AST/SGOT 17 U/L (15-37); CALCIUM 8.9 mg/dl (8.5-10.1); CARBON DIOXIDE 31 mmol/L (21-32); CREATININE 1.25 mg/dl (0.60-1.20); GLUCOSE 96 mg/dl (70-99); POTASSIUM 3.5 mmol/L (3.5-5.1); SODIUM 137 mmol/L (136-145)
[2018-02-23 10:35] LABS: ALKALINE PHOSPHATASE 84 U/L (45-117); TOTAL PROTEIN 6.8 gm/dl (6.4-8.2)
[2018-02-23 10:47] LABS: BLOOD UREA NITROGEN 22 mg/dl (7-18)
== END | disposition home or self-care (01) ==
LOC: C.LABUPNIT 09:07
PROVIDERS: ATTEND Nurse Practitioner Family
DX: N18.3 Chronic kidney disease, stage 3 (moderate) (principal); E03.9 Hypothyroidism, unspecified; H35.30 Unspecified macular degeneration

== ENCOUNTER → 2018-03-02 | Outpatient (CLI) | payer BC ==
[2018-03-02 09:53] LABS: BLOOD UREA NITROGEN 18 mg/dl (7-18); CARBON DIOXIDE 27 mmol/L (21-32); CREATININE 1.07 mg/dl (0.60-1.20); GLUCOSE 102 mg/dl (70-99); SODIUM 141 mmol/L (136-145)
== END ==
LOC: C.LABUPNIT 09:07
PROVIDERS: ATTEND Nurse Practitioner Family
DX: N18.3 Chronic kidney disease, stage 3 (moderate) (principal)

== ENCOUNTER → 2018-06-09 | Outpatient (CLI) | payer BC ==
[2018-06-09 09:49] LABS: HEMATOCRIT 36.4 % (37-47); HEMOGLOBIN 11.7 g/dL (12.0-16.0); MEAN CELL VOLUME 95.8 fL (80-100); MEAN CORPUSCULAR HEMOGLOBIN 30.8 pg (25-34); MEAN CORPUSCULAR HGB CONC 32.1 g/dl (32-36); MEAN PLATELET VOLUME 9.6 fL (7.4-10.4); PLATELET COUNT 158 K/uL (130-400); RED CELL DISTRIBUTION WIDTH CV 13.2 % (11.5-14.5); RED CELL DISTRIBUTION WIDTH SD 45.8 fL (36.4-46.3); WHITE BLOOD COUNT 5.25 K/uL (4.8-10.8)
[2018-06-09 09:52] LABS: BLOOD UREA NITROGEN 20 mg/dl (7-18); CALCIUM 8.1 mg/dl (8.5-10.1); CARBON DIOXIDE 28 mmol/L (21-32); CREATININE 1.13 mg/dl (0.60-1.20); GLUCOSE 96 mg/dl (70-99); POTASSIUM 3.8 mmol/L (3.5-5.1); SODIUM 142 mmol/L (136-145)
== END | disposition home or self-care (01) ==
LOC: C.LABWYN 09:06
PROVIDERS: ATTEND Internal Medicine
DX: R53.83 Other fatigue (principal); R53.1 Weakness; R35.0 Frequency of micturition

== ENCOUNTER → 2018-06-13 | Outpatient (CLI) | payer BC ==
--- NOTE | 2018-06-14 13:37 | MAMMOGRAPHY REPORT ---
BILATERAL DIGITAL SCREENING MAMMOGRAM TOMOSYNTHESIS WITH CAD: 06/13/2018 CLINICAL HISTORY: Routine screening. TECHNIQUE: The study was acquired using full field digital technology and interpreted from soft copy. Breast tomosynthesis in addition to standard 2D mammography was performed. Current study was also ev aluated with a Computer Aided Detection (CAD) system. COMPARISON: Comparison is made to exams dated: 04/13/2017 mammogram, 04/04/2017 mammogram, 03/30/2016 ma mmogram, 03/28/2015 mammogram, 02/25/2014 mammogram, and 02/21/2013 mammogram - [facility] BREAST COMPOSITION: There are scattered areas of fibroglandular density in both breasts. FINDINGS: The right MLO views are suboptimal due to inability of the patient to tolerate adequate pos itioning, despite repositioning and several attempts. Within this limitation, the glandular tissue p attern of both breasts is stable compared to prior mammograms. No new suspicious mass, architectural distortion or cluster of microcalcifications is seen. IMPRESSION: ACR BI-RADS CATEGORY 1: NEGATIVE There is no mammographic evidence of malignancy. A 1 year screening mammogram is recommended.( [id number]) The patient will receive written notification of the results. Some breast cancers are not detected with mammography. A negative mammographic report should not bob y biopsy if a clinically suggestive mass is present. Arlene Kapoor M.D. ay/:06/13/2018 15:20:50 Breaker Boss: RT Heath(Nan)(Mg), [facility] letter sent: Normal 1/2 BI-RADS Code: ACR BI-RADS Category 1: Negative
== END | disposition home or self-care (01) ==
LOC: C.MAMM 13:41
PROVIDERS: ATTEND Internal Medicine
DX: Z12.31 Encounter for screening mammogram for malignant neoplasm of breast (principal)